=== PATIENT | female | born 1950 | race Caucasian/White ===

== ENCOUNTER 2016-05-19 02:04 | Emergency (ER) | payer MEDICARE ==
[2016-05-19] MEDS ORDERED: Acetaminophen TAB* 325 MG PO ONE (02:22)
[2016-05-19] MEDS ORDERED: Albuterol/Ipratropium NEB.SOL* Albuterol 2.5 MG/Ipratropium 0.5 MG 3 ML ONE (02:33)
[2016-05-19] MEDS ORDERED: Albuterol/Ipratropium NEB.SOL* Albuterol 2.5 MG/Ipratropium 0.5 MG 3 ML INH ONE (02:33)
--- NOTE | 2016-05-19 02:52 | ED ---
Erika Liang Rebecca, scribed for Efrain Oliva MD on 05/19/16 at 0221 . Shortness of Breath - HPI Summary HPI Summary: Pt is a 65 y/o F BIBA who presents to ED c/o SOB. SOB began suddenly at approximately 0000 and has been constant since onset. SOB characterized as moderate dyspnea at rest. Sx aggravated and alleviated by nothing, unchanged by Mucinex and ASA. Additionally c/o cough and chest/nasal congestion for the last 4 days. Cough is productive, bringing up yellow sputum. When asked, pt states that she is unsure of onset of fever since she does not have a way to measure it at home. SHx no smoking. - History of Current Complaint Chief Complaint: EDShortnessOfBreath Time Seen by Provider: 05/19/16 02:18 Hx Obtained From: Patient Onset/Duration: Sudden Onset, Lasting Hours, Still Present Timing: Constant Current Severity: Moderate Dyspnea At: Rest Aggrevating Factors: Nothing Alleviating Factors: Nothing Associated Signs & Symptoms: Cough (Productive) - yellow, Nasal Congestion - Allergy/Home Medications Allergies/Adverse Reactions: Allergies Allergy/AdvReac Type Severity Reaction Status Date / Time Oxycodone AdvReac Mild Altered Verified 05/19/16 02:12 Mental Status Penicillins AdvReac Mild See Comment Verified 05/19/16 02:12 Prochlorperazine AdvReac Mild MUSCLE Verified 05/19/16 02:12 [From Compazine] TIGHTNESS anticholinergic agents AdvReac Mild Altered Uncoded 05/19/16 02:12 Mental Status benzodiazepines AdvReac Mild Altered Uncoded 05/19/16 02:12 Mental Status first generation AdvReac Mild Altered Uncoded 05/19/16 02:12 antihistamines Mental Status muscle relaxants AdvReac Mild Altered Uncoded 05/19/16 02:12 Mental Status semi synthetic narcotics AdvReac Mild Altered Uncoded 05/19/16 02:12 Mental Status Home Medications: Home Medications Eluxadoline [Viberzi] 100 mg PO DAILY 05/19/16 [History Confirmed 05/19/16] Latuda 40 mg PO DAILY 05/19/16 [History Confirmed 05/19/16] Lurasidone (NF) [Latuda (NF)] 40 mg PO DAILY 05/19/16 [History Confirmed ] PMH/Surg Hx/FS Hx/Imm Hx Endocrine/Hematology History: Denies: Hx Diabetes Cardiovascular History: Denies: Hx Congestive Heart Failure, Hx Hypertension, Other Cardiovascular Problems/Disorders GI History: Denies: Other GI Disorders History: Denies: Hx Renal Disease Sensory History: Reports: Hx Contacts or Glasses - GLASSES Denies: Hx Hearing Aid Opthamlomology History: Reports: Hx Contacts or Glasses - GLASSES Neurological History: Reports: Hx Migraine - 2 YRS AGO LAST ONE, Other Neuro Impairments/Disorders - BIPOLAR DISORDER Psychiatric History: Reports: Hx Depression - ON MEDS, Hx Bipolar Disorder Denies: Hx Eating Disorder, Hx of Violent Episodes Against Others - Surgical History Surgery Procedure, Year, and Place: hysterectomy, 1994, [facility] left ankle r/t fx - pins/plates , bladder surgery for incontinence, 2011, [facility]. TUBAL LIGATION 1984, [place]. CARPAL TUNNEL RIGHT 03/1984, [facility]. Hx Anesthesia Reactions: No Infectious Disease History: No Infectious Disease History: Denies: Hx Clostridium Difficile, Hx Hepatitis, Hx Human Immunodeficiency Virus (HIV), Hx of Known/Suspected MRSA, Hx Shingles, Hx Tuberculosis, Hx Known/ Suspected VRE, Hx Known/Suspected VRSA, History Other Infectious Disease, Traveled Outside the in Last 30 Days - Family History Known Family History: Positive: Diabetes Negative: Cardiac Disease, Hypertension - Social History Alcohol Use: None Substance Use Type: Reports: None Smoking Status (MU): Never Smoked Tobacco Have You Smoked in the Last Year: No Review of Systems Positive: Other - Nasal congestion Positive: Shortness Of Breath - dyspnea at rest, Cough - productive, Other - Chest congestion All Other Systems Reviewed And Are Negative: Yes Physical Exam Triage Information Reviewed: Yes Vital Signs On Initial Exam: Initial Vitals Temp Pulse Resp BP Pulse Ox 102.0 F 88 16 160/88 97 05/19/16 02:09 05/19/16 02:09 05/19/16 02:09 05/19/16 02:09 05/19/16 02:09 Vital Signs Reviewed: Yes Appearance: Positive: Well-Appearing Skin: Positive: Warm Head/Face: Positive: Normal Head/Face Inspection Eyes: Positive: MERCEDES Neck: Positive: Supple Respiratory/Lung Sounds: Positive: Rhonchi - coarse bilat, Wheezes - few expiratory Cardiovascular: Positive: RRR Abdomen Description: Positive: Nontender, Soft Bowel Sounds: Positive: Present Musculoskeletal: Positive: Strength/ROM Intact Neurological: Positive: Sensory/Motor Intact Psychiatric: Positive: Affect/Mood Appropriate Diagnostics - Vital Signs Vital Signs Temp Pulse Resp BP Pulse Ox 05/19/16 02:09 102.0 F 88 16 160/88 97 - Laboratory Result Diagrams: 05/19/16 02:45 05/19/16 02:45 Lab Statement: Any lab studies that have been ordered have been reviewed, and results considered in the medical decision making process. - Radiology CXR Xray Interpretation: No Acute Changes Radiology Interpretation Completed By: ED Physician Re-Evaluation - Re-Evaluation First Eval Change: Improved - results d/w pt Course/Dx - Course Assessment/Plan: Pt is a 65 y/o F with a CC of SOB for a few hours. Additionally c/o productive cough (yellow) and chest/nasal congestion for the last 4 days. Pt will be D/C to home with a dx of bronchitis with a followup with her PCP. - Diagnoses Provider Diagnoses: Bronchitis Discharge - Discharge Plan Condition: Stable Disposition: HOME Prescriptions: Azithromycin TAB* [Zithromax TAB (Z-RIOS) 250 mg #6 tabs] 250 mg PO DAILY #4 tab Patient Education Materials: Acute Bronchitis (ED) Referrals: Josee Hoskins [employer] SPECIALIST [Primary Care Provider] - 3 Days (Follow up with your primary care physician in the next 3 days. ) The documentation as recorded by the Erika traylor Rebecca accurately reflects the service I personally performed and the decisions made by me, Efrain Oliva MD.
[2016-05-19 03:08] LABS: Hematocrit 38 % (35-47); Hemoglobin 11.9 g/dl (12.0-16.0); Mean Corpuscular HGB Conc 31 g/dl (31-36); Mean Corpuscular Hemoglobin 26 pg (27-31); Mean Corpuscular Volume 82 fL (80-97); Mean Platelet Volume 8 um3 (7.4-10.4); Red Blood Count 4.66 10^6/ul (4.0-5.4); Red Cell Distribution Width 19 % (10.5-15); White Blood Count 10.8 10^3/ul (3.5-10.8)
[2016-05-19 03:27] LABS: Albumin 3.7 g/dL (3.2-5.2); BUN/Creatinine Ratio 9.3 (8-20); Calcium 9.3 mg/dL (8.6-10.3); EGFR African American 74.6 (>60); Globulin 4.2 g/dL (2-4); Potassium 3.6 mmol/L (3.5-5.0); Total Bilirubin 0.2 mg/dL (0.2-1.0); Total Protein 7.9 g/dL (6.4-8.9)
[2016-05-19] MEDS ORDERED: Azithromycin TAB* 250 MG PO ONE (03:41)
[2016-05-19 05:19] VITALS: BP 117/71
[2016-05-19] MEDS ORDERED: Albuterol HFA INHALER* 8 gm MDI INH ONE ×2 (05:37→05:43)
--- NOTE | 2016-05-19 07:49 | RAD ---
INDICATION: Cough and fever COMPARISON: None TECHNIQUE: PA and lateral views of the chest were obtained. FINDINGS: The heart and mediastinum are normal in size and contour. There is mild peribronchial cuffing. The lungs are grossly clear. There is no evidence of large pleural effusion. Visualized bones are normal for the patient's age. There is no radiographic evidence of free air beneath the diaphragm IMPRESSION: MILD PERIBRONCHIAL CUFFING CAN BE SEEN IN THE PRESENCE OF INFLAMMATORY LUNG DISEASE OR VIRAL PNEUMONIA.
== END 2016-05-19 05:53 | disposition home or self-care (01) ==
LOC: ED 02:04
DX: J40 Bronchitis, not specified as acute or chronic (principal); R06.02 Shortness of breath; R05 Cough; R09.81 Nasal congestion
CPT/HCPCS: 36415; 71020; 80053; 83605; 83880; 84484; 85025; 87040; 87502; 99284; A9270-GY

== ENCOUNTER 2016-12-07 09:02 | Emergency (ER) | payer MEDICARE ==
--- NOTE | 2016-12-07 10:11 | ED ---
Complex/Multi-Sys Presentation - HPI Summary HPI Summary: 66 female presents to ED via EMS with complaints of insomnia and anxiety for the past 7 days. Patient states she started a new medication, Ingrezza, on 12/01 that she believes caused her to have these side effects of agitation, insomnia and anxiety. She stopped taking the medication on 12/04/16. Has not had relief even after discontinuing. Patient denies suicidal thoughts/ideations, hallucinations. States she has very weird reactions to several medications. Denies any other complaints, no difficulty breathing or chest pain. States she also started taking Centrum vitamins and wasn't sure if that was causing her symptoms so she also stopped taking those 1 week ago. Has appointment with her primary on , however, she did not think she could wait until then to be seen. She does not drive which is why she was brought in by EMS. She states her insomnia has been intermittent for the past 7 days. No other significant PMHx other than bipolar disorder. - History Of Current Complaint Chief Complaint: EDGeneral Time Seen by Provider: 12/07/16 09:13 Hx Obtained From: Patient Onset/Duration: Sudden Onset, Lasting Weeks - 1, Still Present Timing: Constant Severity Currently: Moderate Severity Initially: Moderate Aggravating Factor(s): nothing Alleviating Factor(s): nothing Associated Signs And Symptoms: Positive: Other - insomnia, anxiety - Allergies/Home Medications Allergies/Adverse Reactions: Allergies Allergy/AdvReac Type Severity Reaction Status Date / Time Oxycodone AdvReac Mild Altered Verified 12/07/16 09:13 Mental Status Penicillins AdvReac Mild See Comment Verified 12/07/16 09:13 Prochlorperazine AdvReac Mild MUSCLE Verified 12/07/16 09:13 [From Compazine] TIGHTNESS anticholinergic agents AdvReac Mild Altered Uncoded 12/07/16 09:13 Mental Status benzodiazepines AdvReac Mild Altered Uncoded 12/07/16 09:13 Mental Status first generation AdvReac Mild Altered Uncoded 12/07/16 09:13 antihistamines Mental Status muscle relaxants AdvReac Mild Altered Uncoded 12/07/16 09:13 Mental Status semi synthetic narcotics AdvReac Mild Altered Uncoded 12/07/16 09:13 Mental Status PMH/Surg Hx/FS Hx/Imm Hx Endocrine/Hematology History: Denies: Hx Diabetes Cardiovascular History: Denies: Hx Congestive Heart Failure, Hx Hypertension, Other Cardiovascular Problems/Disorders Respiratory History: Denies: Hx Asthma GI History: Denies: Other GI Disorders History: Denies: Hx Renal Disease Sensory History: Reports: Hx Contacts or Glasses - GLASSES Denies: Hx Hearing Aid Opthamlomology History: Reports: Hx Contacts or Glasses - GLASSES Neurological History: Reports: Hx Migraine - 2 YRS AGO LAST ONE, Other Neuro Impairments/Disorders - BIPOLAR DISORDER Psychiatric History: Reports: Hx Depression - ON MEDS, Hx Bipolar Disorder Denies: Hx Eating Disorder, Hx of Violent Episodes Against Others - Surgical History Surgery Procedure, Year, and Place: hysterectomy, 1994, [facility] left ankle r/t fx - pins/plates , bladder surgery for incontinence, 2011, [facility]. TUBAL LIGATION 1984, [place]. CARPAL TUNNEL RIGHT 03/1984, [facility]. Hx Anesthesia Reactions: No - Immunization History Immunizations Up to Date: Yes Infectious Disease History: No Infectious Disease History: Denies: Hx Clostridium Difficile, Hx Hepatitis, Hx Human Immunodeficiency Virus (HIV), Hx of Known/Suspected MRSA, Hx Shingles, Hx Tuberculosis, Hx Known/ Suspected VRE, Hx Known/Suspected VRSA, History Other Infectious Disease, Traveled Outside the in Last 30 Days - Family History Known Family History: Positive: None, Diabetes Negative: Cardiac Disease, Hypertension - Social History Alcohol Use: None Substance Use Type: Reports: None Smoking Status (MU): Never Smoked Tobacco Have You Smoked in the Last Year: No Review of Systems Constitutional: Negative Cardiovascular: Negative Respiratory: Negative Gastrointestinal: Negative Musculoskeletal: Negative Skin: Negative Neurological: Negative Positive: Anxious, Other - insmonia All Other Systems Reviewed And Are Negative: Yes Physical Exam Triage Information Reviewed: Yes Vital Signs On Initial Exam: Initial Vitals Temp Pulse Resp BP Pulse Ox 98.2 F 63 20 148/86 93 12/07/16 09:12 12/07/16 09:12 12/07/16 09:12 12/07/16 09:12 12/07/16 09:12 slightly elevated BP, re-checked to be 123/84 Vital Signs Reviewed: Yes Appearance: Positive: Well-Appearing, No Pain Distress, Well-Nourished Skin: Positive: Warm, Skin Color Reflects Adequate Perfusion, Dry. Negative: Cold, Numb, Cyanosis @, Jaundiced, Pale, Erythema @ Head/Face: Positive: Normal Head/Face Inspection Eyes: Positive: EOMI, MERCEDES, Conjunctiva Clear ENT: Positive: Normal ENT inspection, Hearing grossly normal, Pharynx normal Neck: Positive: Supple, Nontender Respiratory/Lung Sounds: Positive: Clear to Auscultation, Breath Sounds Present. Negative: Rales, Rhonchi, Wheezes Cardiovascular: Positive: Normal, RRR, Pulses are Symmetrical in both Upper and Lower Extremities. Negative: Murmur, Rub Abdomen Description: Positive: Nontender, No Organomegaly, Soft Bowel Sounds: Positive: Present Musculoskeletal: Positive: Normal, Strength/ROM Intact Neurological: Positive: Normal, Sensory/Motor Intact, Alert, Oriented to Person Place, Time, CN Intact II-III, Reflexes Intact, NV Bundle Intact Distally Psychiatric: Positive: Affect/Mood Appropriate Diagnostics - Vital Signs Vital Signs Temp Pulse Resp BP Pulse Ox 12/07/16 09:30 59 123/84 93 12/07/16 09:18 60 95 12/07/16 09:17 168/123 12/07/16 09:12 98.2 F 63 20 148/86 93 - Laboratory Result Diagrams: 12/07/16 10:10 12/07/16 10:10 Lab Statement: Any lab studies that have been ordered have been reviewed, and results considered in the medical decision making process. - EKG EKG Cardiac Rate: NL, Bradycardia EKG Rhythm: Sinus Bradycardia ST Segment: Normal Ectopy: None EKG Interpretation: NSR, bradycardic, no STEMI EKG Comparison: No Significant Change Re-Evaluation - Re-Evaluation First Eval Re-Evaluation Time: 11:00 Change: Improved - patient was feeling fine, sleeping upon arrival for re-eval and to discuss lab results Complex Multi-Symp Course/Dx Course Of Treatment: baseline labs and cardiac work up obtained due to age and rule out cardiac cause. due to patients numerous allergies and side effects to medication, did not feel comfortable giving additional medication. patient has been working with primary to find medications to help her, assuming typical anxiety medications such as vistiril have been trialed. due to concern for side effect/sensitivity no medication was given. patient was also sleeping upon re- evaluation. encouraged her to follow up with primary on to discuss vermin exterminator medications and changing medications. told to stop taking new med and vitamins. take medications already prescribed that help her, propanolol and gabapentin, as directed. EKG obtained and negative. Labs unremarkable. Does not appear anxious or require a psych eval at this time. No suidical/homicidal ideations. Needs to follow up with primary and is aware of worsening signs and symptoms. Given recommendations on ways to help with inomnia that do not include medication. Spoke with Dr Yanez about case who agrees. No other concern at this time. - Diagnoses Differential Diagnoses/HQI/PQRI: Other - ACS, IA, sepsis, bipolar disorder, anxiety, insomnia Provider Diagnoses: Insomnia Discharge - Discharge Plan Condition: Stable Disposition: HOME Patient Education Materials: Insomnia (ED) Referrals: Vin Reyna MD [Primary Care Provider] - Additional Instructions: Please follow up with primary care provider to discuss new medications and medication changes with close follow up. Continue taking daily medications as directed, do not take any less or more of medications prescribed. Drink fluids, stay active during the day and rest at night. Try using these suggestions below: Sleep as long as necessary to feel rested (usually seven to eight hours for adults) and then get out of bed Maintain a regular sleep schedule, particularly a regular wake-up time in the morning Try not to force sleep Avoid caffeinated beverages after lunch Avoid alcohol near bedtime (eg, late afternoon and evening) Avoid smoking or other nicotine intake, particularly during the evening Adjust the bedroom environment as needed to decrease stimuli (eg, reduce ambient light, turn off the television or radio) Avoid prolonged use of light-emitting screens (laptops, tablets, smartphones, ebooks) before bedtime [15] Resolve concerns or worries before bedtime Exercise regularly for at least 20 minutes, preferably more than four to five hours prior to bedtime [16,17] Avoid daytime naps, especially if they are longer than 20 to 30 minutes or occur late in the dayProgressive relaxation is based upon the theory that an individual can learn to relax one muscle at a time until the entire body is relaxed. Beginning with the muscles in the face, the muscles are contracted gently for one to two seconds and then relaxed. This is repeated several times. The same technique is used for other muscle groups, usually in the following sequence: jaw and neck, upper arms, lower arms, fingers, chest, abdomen, buttocks, thighs, calves, and feet. This cycle is repeated for approximately 45 minutes, if necessary. The relaxation response begins by lying or sitting comfortably. The eyes are closed and relaxation is allowed to spread throughout the body. A relaxed, abdominal breathing pattern is established. Thoughts are redirected away from everyday thoughts and toward a neutral mental focusing device, such as a peaceful word or image.
[2016-12-07 10:20] LABS: Hematocrit 42 % (35-47); Hemoglobin 13.7 g/dl (12.0-16.0); Mean Corpuscular HGB Conc 32 g/dl (31-36); Mean Corpuscular Hemoglobin 30 pg (27-31); Mean Corpuscular Volume 91 fL (80-97); Mean Platelet Volume 8 um3 (7.4-10.4); Red Blood Count 4.63 10^6/ul (4.0-5.4); Red Cell Distribution Width 16 % (10.5-15); White Blood Count 11.1 10^3/ul (3.5-10.8)
[2016-12-07 10:37] LABS: Albumin 3.8 g/dL (3.2-5.2); BUN/Creatinine Ratio 15.6 (8-20); Calcium 10.4 mg/dL (8.6-10.3); EGFR Non-African American 50.5 (>60); Globulin 4.3 g/dL (2-4); Potassium 4.4 mmol/L (3.5-5.0); Total Bilirubin 0.3 mg/dL (0.2-1.0); Total Protein 8.1 g/dL (6.4-8.9)
[2016-12-07 11:23] VITALS: BP 119/75
[2016-12-07 11:47] LABS: TSH (Thyroid Stimulating Horm) 2.88 mcIU/mL (0.34-5.60)
== END 2016-12-07 11:30 | disposition home or self-care (01) ==
LOC: ED 09:02
DX: G47.00 Insomnia, unspecified (principal)
CPT/HCPCS: 36415; 80053; 84443; 84484; 85025; 99282

== ENCOUNTER 2017-11-01 22:27 | Inpatient (IN) | payer MEDICARE ==
--- NOTE | 2017-11-01 22:46 | ED ---
Psychiatric Complaint - HPI Summary HPI Summary: 67 y/o female presents to the ED c/o SI thoughts with a plan. Pt wants to "overdose on pills". Pt also c/o depression. PMHx bipolar disorder. Not aggravated or alleviated by anything. This is scribe Ed Марина documenting for attending Wm Yanez MD. - History Of Current Complaint Chief Complaint: EDMentalHealth Time Seen by Provider: 11/01/17 22:39 Hx Obtained From: Patient Hx Last Menstrual Period: N/A Onset/Duration: Still Present Timing: Constant Character: Depressed Aggravating Factor(s): Nothing Alleviating Factor(s): Nothing Associated Signs And Symptoms: Positive: Negative Has Suicidal: Reports: Thoughts, With A Plan - Allergies/Home Medications Allergies/Adverse Reactions: Allergies Allergy/AdvReac Type Severity Reaction Status Date / Time oxycodone AdvReac Mild Altered Verified 11/02/17 02:10 Mental Status Penicillins AdvReac Mild See Comment Verified 11/02/17 02:10 prochlorperazine AdvReac Mild Muscle Ache Verified 11/02/17 02:10 [From Compazine] anticholinergic agents AdvReac Mild Altered Uncoded 11/02/17 02:10 Mental Status benzodiazepines AdvReac Mild Altered Uncoded 11/02/17 02:10 Mental Status first generation AdvReac Mild Altered Uncoded 11/02/17 02:10 antihistamines Mental Status muscle relaxants AdvReac Mild Altered Uncoded 11/02/17 02:10 Mental Status semi synthetic narcotics AdvReac Mild Altered Uncoded 11/02/17 02:10 Mental Status Home Medications: Home Medications Propranolol HCl 10 mg PO TID 11/01/17 [History Confirmed 11/01/17] PMH/Surg Hx/FS Hx/Imm Hx Previously Healthy: No Endocrine/Hematology History: Denies: Hx Diabetes Cardiovascular History: Denies: Hx Congestive Heart Failure, Hx Hypertension, Other Cardiovascular Problems/Disorders Respiratory History: Denies: Hx Asthma GI History: Denies: Other GI Disorders History: Denies: Hx Renal Disease Sensory History: Reports: Hx Contacts or Glasses - GLASSES Denies: Hx Hearing Aid Opthamlomology History: Reports: Hx Contacts or Glasses - GLASSES Neurological History: Reports: Hx Migraine - 2 YRS AGO LAST ONE, Other Neuro Impairments/Disorders - BIPOLAR DISORDER Psychiatric History: Reports: Hx Depression - ON MEDS, Hx Bipolar Disorder Denies: Hx Eating Disorder, Hx of Violent Episodes Against Others - Surgical History Surgery Procedure, Year, and Place: hysterectomy, 1994, [facility] left ankle r/t fx - pins/plates , bladder surgery for incontinence, 2011, [facility]. TUBAL LIGATION 1984, [place]. CARPAL TUNNEL RIGHT 03/1984, [facility]. Hx Anesthesia Reactions: No Infectious Disease History: No Infectious Disease History: Denies: Hx Clostridium Difficile, Hx Hepatitis, Hx Human Immunodeficiency Virus (HIV), Hx of Known/Suspected MRSA, Hx Shingles, Hx Tuberculosis, Hx Known/ Suspected VRE, Hx Known/Suspected VRSA, History Other Infectious Disease, Traveled Outside the [place] in Last 30 Days - Family History Known Family History: Positive: None, Diabetes Negative: Cardiac Disease, Hypertension - Social History Alcohol Use: None Substance Use Type: Reports: None Smoking Status (MU): Never Smoked Tobacco Have You Smoked in the Last Year: No Review of Systems Constitutional: Negative Eyes: Negative ENT: Negative Cardiovascular: Negative Respiratory: Negative Gastrointestinal: Negative Genitourinary: Negative Musculoskeletal: Negative Skin: Negative Neurological: Negative Positive: Depressed All Other Systems Reviewed And Are Negative: Yes Physical Exam - Summary Physical Exam Summary: Appearance: depressed affect Skin: warm, dry, reflects adequate perfusion Head/face: normal Eyes: EOMI, MERCEDES ENT: normal Neck: supple, non-tender Respiratory: CTA, breath sounds present Cardiovascular: RRR, pulses symmetrical Abdomen: non-tender, soft Bowel: present Musculoskeletal: normal, strength/ROM intact Neuro: normal, sensory motor intact, A&Ox3 Triage Information Reviewed: Yes Vital Signs On Initial Exam: Initial Vitals Temp Pulse Resp BP Pulse Ox 97.4 F 71 15 132/69 97 11/01/17 22:33 11/01/17 22:33 11/01/17 22:33 11/01/17 22:33 11/01/17 22:33 Vital Signs Reviewed: Yes Diagnostics - Vital Signs Vital Signs Temp Pulse Resp BP Pulse Ox 11/01/17 22:33 97.4 F 71 15 132/69 97 - Laboratory Result Diagrams: 11/01/17 22:56 11/01/17 22:56 Lab Statement: Any lab studies that have been ordered have been reviewed, and results considered in the medical decision making process. Course/Dx - Course Assessment/Plan: Cleared medically for [facility] @ 00:45. After eval pt will be admitted to [facility] [place], [place] under the services of Dr. Lim. - Differential Dx/Clinical Impression Differential Diagnosis/HQI/PQRI: Positive: Bipolar Disorder, Depression, Suicidal Ideation Provider Diagnosis: Bipolar disorder, Depression Discharge - Sign-Out/Discharge Documenting (check all that apply): Patient Departure - Discharge Plan Condition: Stable Disposition: ADMITTED TO [facility] - Billing Disposition and Condition Condition: STABLE Disposition: Admitted to [facility]
[2017-11-01 23:11] LABS: Urine Appearance Clear; Urine Blood Negative (Negative); Urine Color Yellow; Urine Ketones Negative (Negative); Urine Protein Negative (Negative); Urine Specific Gravity 1.012 (1.010-1.030); Urine Urobilinogen Negative (Negative)
[2017-11-01 23:15] LABS: ABS Basophils 0 10^3/ul (0-0.2); ABS Eosinophils 0.1 10^3/ul (0-0.6); ABS Lymphocytes 2.3 10^3/ul (1.0-4.8); ABS Monocytes 1.1 10^3/ul (0-0.8); ABS Neutrophils 7.3 10^3/ul (1.5-7.7); ABS Nucleated RBC 0 10^3/ul; Eosinophil % 1.1 % (0-6); Hematocrit 43 % (35-47); Lymphocyte % 20.9 % (25-47); Mean Corpuscular HGB Conc 33 g/dl (31-36); Mean Corpuscular Hemoglobin 31 pg (27-31); Mean Corpuscular Volume 93 fL (80-97); Mean Platelet Volume 7.7 um3 (7.4-10.4); Nucleated Red Blood Cells % 0; Platelet Count 352 10^3/ul (150-450); Red Blood Count 4.57 10^6/ul (4.00-5.40); Red Cell Distribution Width 15 % (10.5-15); White Blood Count 10.8 10^3/ul (3.5-10.8)
[2017-11-01 23:18] LABS: EGFR Non-African American 50.9 (>60)
[2017-11-02 02:24] LABS: Lithium 0.61 mmol/L (0.6-1.2)
[2017-11-02] MEDS ORDERED: Lithium Carbonate ER* 450 MG TAB.ER ONE (03:11)
[2017-11-02] MEDS ORDERED: Gabapentin CAP(*) 300 MG ONE (03:12)
[2017-11-02] MEDS ORDERED: Acetaminophen TAB* 325 MG PO PRN (03:50)
[2017-11-02] MEDS ORDERED: Al Hydrox/Mg Hydrox/Simet LIQ* 30 ML UDC PO PRN (03:50)
[2017-11-02] MEDS ORDERED: Lurasidone(*) 20 MG TAB PO SCH (08:00)
[2017-11-02] MEDS: Gabapentin CAP(*) 300 MG PO SCH ×3 (08:33→20:02)
[2017-11-02] MEDS: Propranolol TAB* 10 MG PO SCH ×3 (08:34→20:03)
[2017-11-02] MEDS: Atorvastatin* 20 MG TAB PO SCH (08:34)
[2017-11-02] MEDS: Vitamin THERAPEUTIC TAB PO SCH (08:34)
[2017-11-02] MEDS ORDERED: FLUoxetine CAP* 10 MG PO SCH (09:00)
--- NOTE | 2017-11-02 11:30 | PN ---
[facility]: Group Therapy Note - Service Type Service Type: [id number] Group Psychotherapy - Cognitive Behavioral Group Therapy ( CBT):Patient was attentive and participatory in CBT programming this morning, and remained in good behavioral control. Patient expressed positive insights regarding relevant treatment interventions and goals.
[2017-11-02] MEDS ORDERED: Ibuprofen TAB* 600 MG PO PRN (13:34)
[2017-11-02] MEDS: Dicyclomine CAP* 10 MG PO SCH ×2 (14:00→20:01)
[2017-11-02] MEDS: Lurasidone(*) 20 MG TAB PO SCH (17:42)
--- NOTE | 2017-11-02 18:21 | HP ---
HISTORY AND PHYSICAL: DATE OF ADMISSION: 11/02/17 PROVIDER: Christianne Fraga NP, in Psychiatry. SUPERVISING PHYSICIAN: Ganga Falcon MD * (DICTATED BY CHRISTIANNE FRAGA NP ) JUSTIFICATION FOR ADMISSION: The patient is in need of 24-hour supervision and care secondary to suicidal ideation with a plan. CHIEF COMPLAINT: "Suicide is an out, it is a way to escape all the negative thoughts." HISTORY OF PRESENT ILLNESS: The patient is a 67-year-old single, white woman with a history of bipolar, who was brought in by law enforcement after stating that she planned to take all of her gabapentin and propranolol. She denies triggering event and said she woke up feeling powerless. Four weeks ago, she decided she started feeling suicidal ideation. She did talk with Naty Shelton , her applied psychology professor. She states they kept getting worse and that last night, she became ready to overdose. This increasing suicidality may in fact be coincident with her birthday in [birth year] because she states when she was 66, a little bit before that, she felt good and she does not know what changed. Her stressors include feeling suicidal, not understanding what is going wrong and feeling a little bit of emptiness and helplessness inside. She is sleeping 14 hours a day. She does not want to do anything. Her energy is low. She has psychomotor retardation mildly. She has suicidal ideation. PAST PSYCHIATRIC HISTORY: She states that in 1990, she was diagnosed as bipolar after she had a manic episode of scrubbing, cleaning, and shopping excessively. She was on lithium as she is now. She also tried Abilify 30 mg and now she has tardive dyskinesia in her lips and tongue. In the past, she has had 2 suicidal attempts. She overdosed both times; one was in 1996 and one , she does not remember the year. She was hospitalized at [facility] for 6 weeks due to having a coexisting neurological problem. They put her on to OXYCODONE to manage the pain in her neck and it turns out she was allergic to that. They stopped the medication due to her having auditory hallucinations and her memory being gone. Her previous psych meds include gabapentin, propranolol, Abilify, lithium, lurasidone. PAST MEDICAL HISTORY: She has neck pain. She is seeing Neurology for that. She has tardive dyskinesia in her mouth and lips. She has irritable bowl syndrome. FAMILY HISTORY: She denies any family history other than her daughter who sees a psychiatric nurse practitioner for borderline personality disorder. SUBSTANCE ABUSE HISTORY: She denies. She does not drink or smoke or use drugs. SOCIAL HISTORY: She lives in [place] alone in a [facility]. She states she keeps to herself, although she does have friends there. She has a daughter who lives relatively close also in [place] and she has another daughter who lives in [place]. 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 The job ended at her first suicide attempt, which was in 1996. She states they paid her to leave. She then went back to school, got her associates in bachelor 's degrees and continued to work in part because she wanted her children to feel proud of her. She has never been in the . She does not have any legal problems. REVIEW OF SYSTEMS: The patient reports being fatigued. She denies shortness of breath, heat or cold intolerance, chest pain, or abdominal pain. She denies current neurological symptoms other than tardive dyskinesia. She denies fevers or changes in weights. PHYSICAL EXAMINATION VITAL SIGNS: On 11/02/17 at 3 in the morning, temperature 98.7, pulse 82, respirations 15, O2 sat 100%, blood pressure 128/72. For further exam data, please see emergency department records. LABORATORY DATA: Her labs are generally within normal limits with the exception that her glucose was 165 at about midnight on 11/01/17. Her hemoglobin A1c is 6.1. Her urine is clear and her toxicology screen is also clear. Her lithium level is 0.61. Her TSH is 4.17. Her lipids are as follows : Triglycerides 301, cholesterol 174, LDL cholesterol 70, HDL cholesterol 44.1. MENTAL STATUS EXAM: This is a 67-year-old woman, who appears a bit younger than her stated age. She is obese with blonde hair. She is wearing blue scrubs. She is calm and cooperative. She has normal rate, tone, and volume to her speech. She appears to be euthymic with some anxiety attached to that. Her thought processes are normal and logical. Her thought content is logical. She is not homicidal. She is suicidal at this time. She is not having hallucinations. Her insight is fair. Her judgment is fair. She is alert and oriented x3. She appears to have average to above average intellect. DIAGNOSES: [place] I: Bipolar 2 disorder, current episode depressed, rule out anxiety disorder. [place] III: Hypothyroid disorder. IMPRESSION: Veronique is a 67-year-old woman who appears to be in depressive episode wherein she cannot see the purpose in living because she is a miserable. This seems to be somewhat recent onset since her 67th birthday where she had previously felt well. PLAN: The patient is admitted to the adult behavioral health unit and placed on q.15-minute checks for her own safety. She is encouraged to participate in supportive milieu, individual, and group therapy. Estimated length of stay is 5 to 7 days. We may obtain an MMPI for diagnostic clarification. We will titrate medications to efficacy and monitor for mood and thought content. We will make medication changes and add and subtract several. Discharge planning will include family involvement and outpatient providers. CHRISTIANNE FRAGA, DIMPLE [id number]/CPS #: [id number] HYACINTH
[2017-11-02] MEDS: Lithium Carbonate ER* 450 MG TAB.ER PO SCH (20:03)
[2017-11-03] MEDS: Atorvastatin* 20 MG TAB PO SCH (07:53)
[2017-11-03] MEDS: Propranolol TAB* 10 MG PO SCH ×3 (07:53→20:01)
[2017-11-03] MEDS: Levothyroxine TAB* 25 MCG TAB PO SCH (07:53)
[2017-11-03] MEDS: Vitamin THERAPEUTIC TAB PO SCH (07:54)
[2017-11-03] MEDS: Gabapentin CAP(*) 300 MG PO SCH ×3 (07:54→20:02)
[2017-11-03] MEDS: Dicyclomine CAP* 10 MG PO SCH ×2 (07:54→20:00)
[2017-11-03] MEDS: FLUoxetine CAP* 10 MG PO SCH (07:55)
--- NOTE | 2017-11-03 14:50 | PN ---
Subjective - Subjective Date of Service: 11/03/17 Service Type: 40877 Hosp care 15 min low complexity Subjective: Veronique is doing well today. She continues with suicidal thoughts, but she is also feeling more control over her life and was surprised to see her daughter visit. Veronique told a story of asking her daughter to bring her to the emergency room because she was suicidal. The daughter declined to come get her, but she did offer to call 911 for her. Veronique is a little discouraged by this. She finds the groups interesting and has been going to them regularly. Objective - Appearance Appearance: Healthy Appearing, Obese Dysmorphic Features: No Hygiene: Normal Grooming: Fairly Well Kept - Behavior Psychomotor Activities: Normal Exhibits Abnormal Movement: No - Attitude and Relatedness Attitude and Relatedness: Needy Eye Contact: Good - Speech Quality: Unpressured Latencies: Normal Quantity: Appropriate - Mood Patient's Decription of Mood: "Good" - Affect Observed Affect: Expansive - Thought Process Patient's Thought Process: Coherent, Circumstantial Thought Content: Yes Passive Wish, Yes Suicidal Planning, No Homicidal Ideation, No Paranoid Ideation - Sensorium Experiencing Hallucinations: No, Sensorium is Clear Type of Hallucinations: Visual: No, Auditory: No, Command: No - Level of Consciousness Level of Consciousness: Alert Orientation: Yes Intact, Yes Orientated to Time, Yes Orientated to Place, Yes Orientated to Person - Impulse Control Impulse Control: Intact - Insight and Judgement Insight and Judgement: Impaired - Group Participation Particating in Group Activities: Yes - Medication Management Medication Management Adherence: Yes - Additional Observations Comments: Veronique is participating well. She endorses having a nice time. She is thriving with the increased interaction. Medication changes are being tolerated well. She is noticing no negative side effects. Assessment - Assessment Merits Inpatient Hospitalization: For Immediate Safety, For Stabilization, For Discharge Planning Inpatient DSM-V Dx: F31.60 Clinical Impression: Veronique is having feelings of euthymia, stating that she is "having fun" here on the unit. This is in spite of one patient pacing and screaming and swearing and other patients being difficult, as well. She still feels as though suicide might be an easy option for her. She appears to be having mixed symptoms which are consistent with her diagnosis. Plan - Plan Treatment Plan: Name: VERONIQUE THOMAS Birthdate: 1950 [id number] Continued Medication Management: Different Medication Medications: Current Medications Acetaminophen (Tylenol Tab*) 650 mg PO Q4H PRN PRN Reason: PAIN or TEMP > 101 F Al Hydrox/Mg Hydrox/Simethicone (Maalox Plus*) 30 ml PO Q4H PRN PRN Reason: INDIGESTION Atorvastatin Calcium (Lipitor*) 20 mg PO DAILY [facility] Last Admin: 11/03/17 07:53 Dose: 20 mg Dicyclomine HCl (Bentyl Cap*) 10 mg PO BID [facility] Last Admin: 11/03/17 07:54 Dose: 10 mg Fluoxetine HCl (Prozac Cap*) 20 mg PO DAILY [facility] Last Admin: 11/03/17 07:55 Dose: 20 mg Gabapentin (Neurontin Cap(*)) 300 mg PO TID [facility] Last Admin: 11/03/17 07:54 Dose: 300 mg Levothyroxine Sodium (Synthroid Tab*) 25 mcg PO DAILY [facility] Last Admin: 11/03/17 07:53 Dose: 25 mcg [place] Carbonate ([place] Carbonate Er Tab*) 450 mg PO BEDTIME [facility] Last Admin: 11/02/17 20:03 Dose: 450 mg Lurasidone HCl (Latuda) 20 mg PO 1700 [facility] Last Admin: 11/02/17 17:42 Dose: 20 mg Multivitamins (Theragran Tab*) 1 tab PO DAILY [facility] Last Admin: 11/03/17 07:54 Dose: 1 tab Propranolol HCl (Inderal Tab*) 10 mg PO TID [facility] Last Admin: 11/03/17 07:53 Dose: 10 mg - Discharge Plan Discharge Plan: Outpatient Follow Up Additional Comments: We are planning discharge, but it is not clear to me that Veronique is safe at this time, especially considering the mixed symptoms that are beginning to include some energy mixed with disappointment and distress.
[2017-11-03] MEDS: Lurasidone(*) 20 MG TAB PO SCH (17:37)
[2017-11-03] MEDS: Lithium Carbonate ER* 450 MG TAB.ER PO SCH (20:02)
[2017-11-04] MEDS: Atorvastatin* 20 MG TAB PO SCH (08:07)
[2017-11-04] MEDS: FLUoxetine CAP* 10 MG PO SCH (08:08)
[2017-11-04] MEDS: Gabapentin CAP(*) 300 MG PO SCH ×3 (08:08→20:04)
[2017-11-04] MEDS: Dicyclomine CAP* 10 MG PO SCH ×2 (08:08→20:03)
[2017-11-04] MEDS: Levothyroxine TAB* 25 MCG TAB PO SCH (08:09)
[2017-11-04] MEDS: Vitamin THERAPEUTIC TAB PO SCH (08:09)
[2017-11-04] MEDS: Propranolol TAB* 10 MG PO SCH ×3 (08:09→20:04)
--- NOTE | 2017-11-04 13:02 | PN ---
MHU: Group Therapy Note - Service Type Service Type: [id number] Group Psychotherapy - Cognitive Behavioral Group Therapy ( CBT):Patient was attentive and participatory in CBT programming this morning, and remained in good behavioral control. Patient expressed positive insights regarding relevant treatment interventions and goals.
--- NOTE | 2017-11-04 14:22 | PN ---
Subjective - Subjective Date of Service: 11/04/17 Service Type: 10076 Hosp care 25 min moderate complexity Subjective: Veronique is found working on the [employer]. she feels supported and happy here, but is also full of despair when she thinks of leaving. She seems to forget what she said, at times. i will engage her with a MoCA to determine if there are any obvious deficits. Objective - Appearance Appearance: Healthy Appearing, Obese Dysmorphic Features: No Hygiene: Normal Grooming: Well Kept - Behavior Psychomotor Activities: Abnormal-Increased Exhibits Abnormal Movement: Yes - Attitude and Relatedness Attitude and Relatedness: Needy Eye Contact: Good - Speech Quality: Unpressured Latencies: Normal Quantity: Appropriate - Mood Patient's Decription of Mood: "Good" - Affect Observed Affect: Good Affect Consistent with: Euthymia - Thought Process Patient's Thought Process: Coherent, Loose Associations Thought Content: Yes Passive Wish, No Suicidal Planning, No Homicidal Ideation, No Paranoid Ideation - Sensorium Experiencing Hallucinations: No, Sensorium is Clear Type of Hallucinations: Visual: No, Auditory: No, Command: No - Level of Consciousness Level of Consciousness: Alert Orientation: Yes Intact, Yes Orientated to Time, Yes Orientated to Place, Yes Orientated to Person - Impulse Control Impulse Control: Tenuous - Insight and Judgement Insight and Judgement: Fair - Group Participation Particating in Group Activities: Yes - Medication Management Medication Management Adherence: Yes - Additional Observations Comments: Veronique is participating well. She endorses having a nice time. She is thriving with the increased interaction. Medication changes are being tolerated well. She is noticing no negative side effects. She works on the [employer] carefully. Assessment - Assessment Merits Inpatient Hospitalization: For Immediate Safety, For Stabilization Inpatient DSM-V Dx: F31.60 Clinical Impression: Veronique is having feelings of euthymia, stating that she is "having fun" here on the unit. This is in spite of one patient pacing and screaming and swearing and other patients being difficult, as well. She still feels as though suicide might be an easy option for her. She appears to be having mixed symptoms which are consistent with her diagnosis. The ease with which she descends into thoughts of how easy suicide would be is disconcerting. Plan - Plan Treatment Plan: Name: VERONIQUE THOMAS Birthdate: 1950 [id number] Medications: Current Medications Acetaminophen (Tylenol Tab*) 650 mg PO Q4H PRN PRN Reason: PAIN or TEMP > 101 F Al Hydrox/Mg Hydrox/Simethicone (Maalox Plus*) 30 ml PO Q4H PRN PRN Reason: INDIGESTION Atorvastatin Calcium (Lipitor*) 20 mg PO DAILY [facility] Last Admin: 11/04/17 08:07 Dose: 20 mg Dicyclomine HCl (Bentyl Cap*) 10 mg PO BID [facility] Last Admin: 11/04/17 08:08 Dose: 10 mg Fluoxetine HCl (Prozac Cap*) 20 mg PO DAILY [facility] Last Admin: 11/04/17 08:08 Dose: 20 mg Gabapentin (Neurontin Cap(*)) 300 mg PO TID [facility] Last Admin: 11/04/17 08:08 Dose: 300 mg Levothyroxine Sodium (Synthroid Tab*) 25 mcg PO DAILY [facility] Last Admin: 11/04/17 08:09 Dose: 25 mcg [place] Carbonate ([place] Carbonate Er Tab*) 450 mg PO BEDTIME [facility] Last Admin: 11/03/17 20:02 Dose: 450 mg Lurasidone HCl (Latuda) 20 mg PO 1700 [facility] Last Admin: 11/03/17 17:37 Dose: 20 mg Multivitamins (Theragran Tab*) 1 tab PO DAILY [facility] Last Admin: 11/04/17 08:09 Dose: 1 tab Propranolol HCl (Inderal Tab*) 10 mg PO TID [facility] Last Admin: 11/04/17 08:09 Dose: 10 mg - Discharge Plan Additional Comments: We are planning discharge, but it is not clear to me that Veronique is safe at this time, especially considering the mixed symptoms that are beginning to include some energy mixed with disappointment and distress. She still is not able to reliably state she is prepared to live and make that choice consistently.
--- NOTE | 2017-11-04 15:49 | PN ---
MHU: Group Therapy Note - Service Type Service Type: [id number] Group Psychotherapy - Group Participation Patient Participating in Group: Yes Level of Group Participation: Attentive Relatedness to Group: Well Related - Additional Group Comments Group Comments: Veronique did well in group and was participatory. She was pleasant and responded to questions with relevant answers and commentary.
[2017-11-04] MEDS: Lurasidone(*) 20 MG TAB PO SCH (17:32)
[2017-11-04] MEDS: Lithium Carbonate ER* 450 MG TAB.ER PO SCH (20:04)
[2017-11-05] MEDS: Dicyclomine CAP* 10 MG PO SCH ×2 (08:04→20:04)
[2017-11-05] MEDS: Vitamin THERAPEUTIC TAB PO SCH (08:04)
[2017-11-05] MEDS: FLUoxetine CAP* 10 MG PO SCH (08:04)
[2017-11-05] MEDS: Atorvastatin* 20 MG TAB PO SCH (08:04)
[2017-11-05] MEDS: Levothyroxine TAB* 25 MCG TAB PO SCH (08:04)
[2017-11-05] MEDS: Propranolol TAB* 10 MG PO SCH ×3 (08:05→20:04)
[2017-11-05] MEDS: Gabapentin CAP(*) 300 MG PO SCH ×3 (08:05→20:06)
--- NOTE | 2017-11-05 17:08 | PN ---
Subjective - Subjective Date of Service: 11/05/17 Service Type: [id number] Hosp care 15 min low complexity Subjective: Veronique is in a good mood. She has plans for the weekend to watch a movie and play Bingo in the milieu. She states she is using this time to get her thoughts in order so that she can plan adequately for her outpatient experiences. Objective - Appearance Appearance: Healthy Appearing, Obese Dysmorphic Features: No Hygiene: Normal Grooming: Well Kept - Behavior Psychomotor Activities: Normal Exhibits Abnormal Movement: Yes - Attitude and Relatedness Attitude and Relatedness: Well Related Eye Contact: Good - Speech Quality: Unpressured Latencies: Normal Quantity: Appropriate - Mood Patient's Decription of Mood: "Great" - Affect Observed Affect: Expansive Affect Consistent with: Euthymia - Thought Process Patient's Thought Process: Coherent, Goal Directed, Circumstantial Thought Content: No Passive Wish, No Suicidal Planning, No Homicidal Ideation, No Paranoid Ideation - Sensorium Experiencing Hallucinations: No, Sensorium is Clear Type of Hallucinations: Visual: No, Auditory: No, Command: No - Level of Consciousness Level of Consciousness: Alert Orientation: Yes Intact, Yes Orientated to Time, Yes Orientated to Place, Yes Orientated to Person - Impulse Control Impulse Control: Tenuous - Insight and Judgement Insight and Judgement: Fair - Group Participation Particating in Group Activities: Yes - Medication Management Medication Management Adherence: Yes - Additional Observations Comments: Veronique is participating well. She endorses having a nice time. She is thriving with the increased interaction. Medication changes are being tolerated well. She is noticing no negative side effects. She spent yesterday working on the MMPI. She is content and eager to work on her future plans. Assessment - Assessment Merits Inpatient Hospitalization: For Immediate Safety, For Discharge Planning Inpatient DSM-V Dx: F31.60 Clinical Impression: Veronique is having feelings of euthymia, stating that she is "having fun" here on the unit. She still feels as though suicide might be an easy option for her. She appears to be having mixed symptoms which are consistent with her diagnosis. The ease with which she descends into thoughts of how easy suicide would be is disconcerting. Plan - Plan Treatment Plan: Name: VERONIQUE THOMAS Birthdate: 1950 [id number] Medications: Current Medications Acetaminophen (Tylenol Tab*) 650 mg PO Q4H PRN PRN Reason: PAIN or TEMP > 101 F Al Hydrox/Mg Hydrox/Simethicone (Maalox Plus*) 30 ml PO Q4H PRN PRN Reason: INDIGESTION Atorvastatin Calcium (Lipitor*) 20 mg PO DAILY [facility] Last Admin: 11/05/17 08:04 Dose: 20 mg Dicyclomine HCl (Bentyl Cap*) 10 mg PO BID [facility] Last Admin: 11/05/17 08:04 Dose: 10 mg Fluoxetine HCl (Prozac Cap*) 20 mg PO DAILY [facility] Last Admin: 11/05/17 08:04 Dose: 20 mg Gabapentin (Neurontin Cap(*)) 300 mg PO TID [facility] Last Admin: 11/05/17 14:34 Dose: 300 mg Levothyroxine Sodium (Synthroid Tab*) 25 mcg PO DAILY [facility] Last Admin: 11/05/17 08:04 Dose: 25 mcg [place] Carbonate ([place] Carbonate Er Tab*) 450 mg PO BEDTIME [facility] Last Admin: 11/04/17 20:04 Dose: 450 mg Lurasidone HCl (Latuda) 20 mg PO 1700 [facility] Last Admin: 11/04/17 17:32 Dose: 20 mg Multivitamins (Theragran Tab*) 1 tab PO DAILY [facility] Last Admin: 11/05/17 08:04 Dose: 1 tab Propranolol HCl (Inderal Tab*) 10 mg PO TID [facility] Last Admin: 11/05/17 14:34 Dose: 10 mg - Discharge Plan Discharge Plan: Outpatient Follow Up Additional Comments: We are planning discharge, but it is not clear to me that Veronique is safe at this time, especially considering the mixed symptoms that are beginning to include some energy mixed with disappointment and distress. She still is not able to reliably state she is prepared to live and make that choice consistently. Her ability to focus on a positive future is improving and she is working on her plans to secure a more certain future.
[2017-11-05] MEDS: Lurasidone(*) 20 MG TAB PO SCH (17:59)
[2017-11-05] MEDS: Lithium Carbonate ER* 450 MG TAB.ER PO SCH (20:07)
[2017-11-06] MEDS: Gabapentin CAP(*) 300 MG PO SCH ×3 (08:28→20:17)
[2017-11-06] MEDS: Levothyroxine TAB* 25 MCG TAB PO SCH (08:29)
[2017-11-06] MEDS: FLUoxetine CAP* 10 MG PO SCH (08:29)
[2017-11-06] MEDS: Atorvastatin* 20 MG TAB PO SCH (08:29)
[2017-11-06] MEDS: Vitamin THERAPEUTIC TAB PO SCH (08:29)
[2017-11-06] MEDS: Propranolol TAB* 10 MG PO SCH ×3 (08:29→20:17)
[2017-11-06] MEDS: Dicyclomine CAP* 10 MG PO SCH ×2 (08:29→20:17)
[2017-11-06] MEDS: Lurasidone(*) 20 MG TAB PO SCH (17:28)
[2017-11-06] MEDS: Lithium Carbonate ER* 450 MG TAB.ER PO SCH (20:17)
[2017-11-07] MEDS: FLUoxetine CAP* 10 MG PO SCH (08:21)
[2017-11-07] MEDS: Propranolol TAB* 10 MG PO SCH ×3 (08:21→20:05)
[2017-11-07] MEDS: Atorvastatin* 20 MG TAB PO SCH (08:21)
[2017-11-07] MEDS: Levothyroxine TAB* 25 MCG TAB PO SCH (08:21)
[2017-11-07] MEDS: Vitamin THERAPEUTIC TAB PO SCH (08:21)
[2017-11-07] MEDS: Dicyclomine CAP* 10 MG PO SCH ×2 (08:21→20:06)
[2017-11-07] MEDS: Gabapentin CAP(*) 300 MG PO SCH ×3 (08:22→20:05)
--- NOTE | 2017-11-07 15:22 | PN ---
Subjective - Subjective Date of Service: 11/07/17 Service Type: 47736 Hosp care 15 min low complexity Subjective: I am doing very well Veronique says. Sitting in the day room, playing packing checker and appears to be having good time. Says her thoughts are getting there and should be able to go back to her appartment on Mon. Denies hallucinations, delusions or SI/HI. Objective - Appearance Appearance: Healthy Appearing, Obese Dysmorphic Features: No Hygiene: Normal Grooming: Well Kept - Behavior Psychomotor Activities: Normal Exhibits Abnormal Movement: No - Attitude and Relatedness Attitude and Relatedness: Appropriate Eye Contact: Good - Speech Quality: Unpressured Latencies: Normal Quantity: Appropriate - Mood Patient's Decription of Mood: "Fine" - Affect Observed Affect: Non-labile - Thought Process Patient's Thought Process: Coherent, Goal Directed Thought Content: No Passive Wish, No Suicidal Planning, No Homicidal Ideation, No Paranoid Ideation - Sensorium Experiencing Hallucinations: No, Sensorium is Clear Type of Hallucinations: Visual: No, Auditory: No, Command: No - Level of Consciousness Level of Consciousness: Alert Orientation: Yes Intact, Yes Orientated to Time, Yes Orientated to Place, Yes Orientated to Person - Impulse Control Impulse Control: Intact - Insight and Judgement Insight and Judgement: Good - Group Participation Particating in Group Activities: Yes - Medication Management Medication Management Adherence: Yes Assessment - Assessment Merits Inpatient Hospitalization: Consolidate Improvements, Pending Safe DC Plan Inpatient DSM-V Dx: F31.60 Clinical Impression: Appears to be stable psychiatrically and ready for discharge. Plan - Plan Treatment Plan: Name: VERONIQUE THOMAS Birthdate: 1950 [id number] Continued Medication Management: Continue Outpt Medication Medications: Current Medications Acetaminophen (Tylenol Tab*) 650 mg PO Q4H PRN PRN Reason: PAIN or TEMP > 101 F Al Hydrox/Mg Hydrox/Simethicone (Maalox Plus*) 30 ml PO Q4H PRN PRN Reason: INDIGESTION Atorvastatin Calcium (Lipitor*) 20 mg PO DAILY [facility] Last Admin: 11/07/17 08:21 Dose: 20 mg Dicyclomine HCl (Bentyl Cap*) 10 mg PO BID [facility] Last Admin: 11/07/17 08:21 Dose: 10 mg Fluoxetine HCl (Prozac Cap*) 20 mg PO DAILY [facility] Last Admin: 11/07/17 08:21 Dose: 20 mg Gabapentin (Neurontin Cap(*)) 300 mg PO TID [facility] Last Admin: 11/07/17 14:04 Dose: 300 mg Levothyroxine Sodium (Synthroid Tab*) 25 mcg PO DAILY [facility] Last Admin: 11/07/17 08:21 Dose: 25 mcg [place] Carbonate ([place] Carbonate Er Tab*) 450 mg PO BEDTIME [facility] Last Admin: 11/06/17 20:17 Dose: 450 mg Lurasidone HCl (Latuda) 20 mg PO 1700 [facility] Last Admin: 11/06/17 17:28 Dose: 20 mg Multivitamins (Theragran Tab*) 1 tab PO DAILY [facility] Last Admin: 11/07/17 08:21 Dose: 1 tab Propranolol HCl (Inderal Tab*) 10 mg PO TID [facility] Last Admin: 11/07/17 14:04 Dose: 10 mg - Discharge Plan Discharge Plan: Outpatient Follow Up Outpatient Program: Alyssa Khanna [facility]
[2017-11-07] MEDS: Lurasidone(*) 20 MG TAB PO SCH (17:28)
[2017-11-07] MEDS: Lithium Carbonate ER* 450 MG TAB.ER PO SCH (20:05)
[2017-11-08 08:27] VITALS: BP 133/43
[2017-11-08] MEDS: Vitamin THERAPEUTIC TAB PO SCH (09:00)
[2017-11-08] MEDS: Dicyclomine CAP* 10 MG PO SCH (09:00)
[2017-11-08] MEDS: Propranolol TAB* 10 MG PO SCH ×2 (09:00→14:13)
[2017-11-08] MEDS: FLUoxetine CAP* 10 MG PO SCH (09:01)
[2017-11-08] MEDS: Gabapentin CAP(*) 300 MG PO SCH ×2 (09:01→14:14)
[2017-11-08] MEDS: Levothyroxine TAB* 25 MCG TAB PO SCH (09:02)
[2017-11-08] MEDS: Atorvastatin* 20 MG TAB PO SCH (09:02)
--- NOTE | 2017-11-08 13:08 | PN ---
MHU: Group Therapy Note - Service Type Service Type: [id number] Group Psychotherapy - Cognitive Behavioral Group Therapy ( CBT):Patient was attentive and participatory in CBT programming this morning, and remained in good behavioral control. Patient expressed positive insights regarding relevant treatment interventions and goals.
--- NOTE | 2017-11-08 15:00 | CONS ---
PSYCHOLOGICAL REPORT: DATE OF CONSULTATION: 11/05/17. REASON FOR REFERRAL: Veronique was referred for personality assessment secondary to concerns regarding levels and severity of depression as well as ruling out any concerns regarding historical diagnosis of a bipolar disorder. Currently, she is diagnosed with bipolar 2 disorder in a depressed state. TEST ADMINISTERED: Veronique completed the [place] Multiphasic Personality Inventory- 2 (MMPI-2). She was given feedback regarding test results and individual conversation and has been seen on a daily basis since her admission in the context of cognitive behavioral group psychotherapy led by this video games storywriter. RELEVANT HISTORY: Veronique is a 67-year-old single woman, who has had historical difficulties with bipolar diagnosis. She describes having 3 to 4 previous psychiatric admissions in different hospitals. This is her first at [facility]. She describes having intrusive suicidal rumination, which has persisted for a period of weeks, acknowledging having an accommodative attitude regarding suicide. She describes increasing social isolation. She does not work anymore and describes experiencing some vegetative symptoms as well. Apparently, in 1990 , she was diagnosed with having a bipolar disorder after she was manic and engaged in some excessive cleaning and spending behaviors. She had been treated with lithium and Abilify historically and remains medication compliant while here. Currently, Veronique does not describe any acute stressors in life, but describes encroaching emotions that have become exaggerated with increased social isolation. Veronique has 2 adult daughters, one who lives locally with her, other daughter living in [place]. BEHAVIORAL OBSERVATIONS: Veronique initially presented with flat affect that did not vary with conversation. She currently is euthymic and engages well in conversation and is spontaneous in speech and thought. She describes benefiting from groups and especially impresses as likely to be compliant with the various topics discussed such as regular exercise and increased socialization. She responded positively to discussion regarding engaging in volunteering services, citing having worked for [email or web address] in the past. She describes her remote location as an impediment, but resolved to try to work with this issue productively. Discussion addressed trying to find opportunities that are nearby, so she is more likely to be compliant with engagement in such behaviors. She currently impresses as having good insight and judgement and denies ongoing thoughts of suicide. Ongoing concerns are permissive attitude regarding suicide as upon admission, she described utilizing thoughts of suicide as an emotional defence. TEST RESULTS: Veronique elevates internal emotional duress scale on validity scale indices significantly (FB = 90), but does not elevate any of the clinical indices to such an exaggerated degree, which is felt to be reassuring in regards to safety. Although, she does elevate the depression scale (T = 67) as well as psychopathic deviate and schizophrenia scale to a similar minimal degree , she impresses as having improved affect and is likely to be compliant with recommended outpatient treatment. Feedback regarding test results emphasized the importance of increased physical activity as well as increased socialization with discussion addressing perhaps trying to alter belief systems regarding depression as a transitive experience and trying to help her understand disruptive impact suicide has on family members. Veronique responds well to supportive and insight oriented psychotherapies and is likely to be compliant with continuing treatment. IMPRESSIONS AND RECOMMENDATIONS: Discussion moving forward emphasized looking for opportunities to get engaged in community activities more actively as a means of reducing her sense of social alienation and isolation. The discussion of exercise regarding improved affect seem to be a novel concept for Veronique, who describes intentions of being compliant with becoming more active physically as well. As she denies ongoing thoughts of suicide currently, she is being discharged and hopefully continues to do well. [id number]/[facility] #: [id number] HYACINTH
[2017-11-08] MEDS: Lurasidone(*) 20 MG TAB PO SCH (17:22)
--- NOTE | 2017-11-09 10:22 | DS ---
CC: [facility] DISCHARGE SUMMARY: DATE OF ADMISSION: 11/02/17 DATE OF DISCHARGE: 11/08/17. PROVIDER: Christianne Hernandez NP, Psychiatry. SUPERVISING PHYSICIAN: Ganga Falcon MD. DIAGNOSIS: [place] I: Bipolar disorder. [place] II: Deferred. CONDITION AT THE TIME OF DISCHARGE: Improved. Psychiatrically cleared, stable. Participated well in groups. Very social with peers. Her family was agreeable to discharge. She has done very well her e psychiatrically. She tolerated new medications well. She will attend [facility] in [place], [facility] in [place], and she will follow up with Vin Reyna as her primary care physician. DISCHARGE INSTRUCTIONS TO THE PATIENT: A. Medications: She is takin. Lipitor 20 mg. 2. Bentyl 10 mg b.i.d. 3. Prozac 20 mg. 4. Gabapentin 300 mg t.i.d. 5. Synthroid 25 mcg daily. 6. Avalon carbonate ER 450 mg at bedtime. 7. Latuda 20 mg p.o. at bedtime. 8. Propranolol 10 mg t.i.d. B. Diet: Regular. C. Activities: As tolerated. She is a nonsmoker. There are no studies pending at the time of disc harge. D. Followup Care: She has appointments with the people mentioned in [place] [facility] [place] [facility] and Vin Reyna. E. Substance abuse followup: Not indicated. HOSPITAL COURSE: Part A. Chief complaint: Suicide is an out. It is a way to escape all the negati ve thoughts. The patient is a 67-year-old single white woman with a history of bipolar disorder who was brought in by law enforcement after stating that she planned to take all of her gabapentin and pr opranolol. She denies triggering events and said she woke up feeling powerless. Four weeks ago she started feeling suicidal ideation. She did talk with Naty Shelton her neuropsychology medical consultant. She states that th e thoughts kept getting worse and that last night she became ready to overdose. This increasing suic idality may in fact be coincident with her birthday in [birth year] because she states that when she was 66 a little before that she felt good and does not know what changed. Her stresses include feeling suic idal, not understanding what is going wrong and feeling a little bit of emptiness and helplessness in side. She is sleeping 14 hours a day. She does not want to do anything. Her energy is low. She salazar s mild psychomotor retardation. She has suicidal ideation. Part B. Psychiatric treatment was rendered. She was admitted to adult behavioral unit and placed on 15-minute checks for safety. She did very well on the unit, went to all groups, and interacted with peers very well. She tolerated med changes well. Synthroid was the only medication that was starte d. Arrangement of doses occurred. She was splitting Latuda into two doses daily. I put it back tog ether as 120 mg dose at dinner time. No medications were discontinued. She really enjoyed being on the unit. She enjoyed having people to talk to, activities to do, and was delighted by playing bingo . In general, she did very well. Her hemoglobin A1c was 6.1. Her triglycerides were 301, cholester ol 174, LDL cholesterol 70, HDL cholesterol 44.1. Incidentally, her TSH was 4.17 and thus, Synthroid was started as it is advantageous for someone with bipolar disorder and depression to have a TSH bel ow 3. No consults were entered. She is much improved. She is not having thoughts of suicide any lo nger. Her energy is higher. She can concentrate. She is sleeping less. She is doing very well. CHRISTIANNE HERNANDEZ, DIMPLE [id number]/[facility] #: [id number]
== END 2017-11-08 17:57 | disposition home or self-care (01) | DRG 885 ==
LOC: ED 22:27 → BSU 11-02 02:05
PROVIDERS: ADMIT Psychiatry & Neurology Psychiatry; ATTEND Psychiatry & Neurology Psychiatry
DX: F31.60 Bipolar disorder, current episode mixed, unspecified (principal); R45.851 Suicidal ideations; G24.01 Drug induced subacute dyskinesia; K58.9 Irritable bowel syndrome, unspecified; M54.2 Cervicalgia; E03.9 Hypothyroidism, unspecified; Z81.8 Family history of other mental and behavioral disorders
CPT/HCPCS: 36415; 80053; 80061; 80178; 80307; 80320; 80329; 81003; 83036; 84443; 85025; 90853; 96102; 99222; 99231; 99232; 99238; 99284; A9270-GY; G0480

== ENCOUNTER 2017-12-06 17:35 | Emergency (ER) | payer MEDICARE ==
--- NOTE | 2017-12-06 18:03 | UC ---
Psychiatric Complaint HPI - History Of Current Complaint Chief Complaint: EDOverdose Stated Complaint: 941 Time Seen by Provider: 12/06/17 17:45 Hx Last Menstrual Period: N/A - Allergies/Home Medications Allergies/Adverse Reactions: Allergies Allergy/AdvReac Type Severity Reaction Status Date / Time oxycodone AdvReac Mild Altered Verified 12/06/17 17:57 Mental Status Penicillins AdvReac Mild See Comment Verified 12/06/17 17:57 prochlorperazine AdvReac Mild Muscle Ache Verified 12/06/17 17:57 [From Compazine] anticholinergic agents AdvReac Mild Altered Uncoded 12/06/17 17:57 Mental Status benzodiazepines AdvReac Mild Altered Uncoded 12/06/17 17:57 Mental Status first generation AdvReac Mild Altered Uncoded 12/06/17 17:57 antihistamines Mental Status muscle relaxants AdvReac Mild Altered Uncoded 12/06/17 17:57 Mental Status semi synthetic narcotics AdvReac Mild Altered Uncoded 12/06/17 17:57 Mental Status Home Medications: Home Medications Lurasidone(*) [Latuda] 40 mg PO 1700 12/06/17 [History] PMH/Surg Hx/FS Hx/Imm Hx - Surgical History Surgical History: Yes Surgery Procedure, Year, and Place: hysterectomy, 1994, [facility] left ankle r/t fx - pins/plates , bladder surgery for incontinence, 2011, [facility]. TUBAL LIGATION 1984, [place]. CARPAL TUNNEL RIGHT 03/1984, [facility]. - Family History Known Family History: Positive: None, Diabetes Negative: Cardiac Disease, Hypertension - Social History Alcohol Use: None Substance Use Type: None Smoking Status (MU): Never Smoked Tobacco Have You Smoked in the Last Year: No - Immunization History Most Recent Influenza Vaccination: fall 2016 Most Recent Tetanus Shot: unknown Most Recent Pneumonia Vaccination: spring 2017 Physical Exam Vital Signs: Initial Vital Signs Temp 98.9 F 12/06/17 17:47 Pulse 74 12/06/17 17:47 Resp 20 12/06/17 17:47 BP 149/78 12/06/17 17:47 Pulse Ox 94 12/06/17 17:47 Discharge - Discharge Plan Referrals: Vin Reyna MD [Primary Care Provider] - - Attestation Statements Document Initiated by Scribe: Yes
--- NOTE | 2017-12-06 18:18 | ED ---
Psychiatric Complaint - HPI Summary HPI Summary: The pt is a 67 y/o female [facility] c/o a suicide attempt through substance overdose at 17:00 today. The pt took six 300mg Gabapentin pills after an argument with a family member. As per EMS, the poison control was notified and advised BLS transport. She got the pills on prescription from her PCP and the [facility] [place]. She reports previous suicide attempts. - History Of Current Complaint Chief Complaint: EDOverdose Time Seen by Provider: 12/06/17 17:45 Hx Obtained From: Patient, EMS Hx Last Menstrual Period: N/A Onset/Duration: Sudden Onset Aggravating Factor(s): Recent Stress Alleviating Factor(s): Nothing Related History: Positive For: Prior Psychiatric Issues Has Suicidal: Reports: Thoughts, With A Plan Ingestion History: Type/Name Of Drug - Gabapentin, Amount Ingested - 6 pills ( 300mg each), Approximate Time Of Ingestion - 17:00 - Allergies/Home Medications Allergies/Adverse Reactions: Allergies Allergy/AdvReac Type Severity Reaction Status Date / Time oxycodone AdvReac Mild Altered Verified 12/06/17 17:57 Mental Status Penicillins AdvReac Mild See Comment Verified 12/06/17 17:57 prochlorperazine AdvReac Mild Muscle Ache Verified 12/06/17 17:57 [From Compazine] anticholinergic agents AdvReac Mild Altered Uncoded 12/06/17 17:57 Mental Status benzodiazepines AdvReac Mild Altered Uncoded 12/06/17 17:57 Mental Status first generation AdvReac Mild Altered Uncoded 12/06/17 17:57 antihistamines Mental Status muscle relaxants AdvReac Mild Altered Uncoded 12/06/17 17:57 Mental Status semi synthetic narcotics AdvReac Mild Altered Uncoded 12/06/17 17:57 Mental Status Home Medications: Home Medications Lurasidone(*) [Latuda] 40 mg PO 1700 12/06/17 [History] PMH/Surg Hx/FS Hx/Imm Hx Previously Healthy: No Endocrine/Hematology History: Denies: Hx Diabetes Cardiovascular History: Denies: Hx Congestive Heart Failure, Hx Hypertension, Other Cardiovascular Problems/Disorders Respiratory History: Denies: Hx Asthma GI History: Denies: Other GI Disorders History: Denies: Hx Renal Disease Sensory History: Reports: Hx Contacts or Glasses - GLASSES Denies: Hx Hearing Aid Opthamlomology History: Reports: Hx Contacts or Glasses - GLASSES Neurological History: Reports: Hx Migraine - 2 YRS AGO LAST ONE, Other Neuro Impairments/Disorders - BIPOLAR DISORDER Psychiatric History: Reports: Hx Anxiety, Hx Depression, Hx Community Mental Health Tx, Hx Bipolar Disorder Denies: Hx Eating Disorder, Hx of Violent Episodes Against Others - Cancer History Cancer Type, Location and Year: None - Surgical History Surgery Procedure, Year, and Place: hysterectomy, 1994, [facility] left ankle r/t fx - pins/plates , bladder surgery for incontinence, 2011, [facility]. TUBAL LIGATION 1984, [place]. CARPAL TUNNEL RIGHT 03/1984, [facility]. Hx Anesthesia Reactions: No - Immunization History Immunizations Up to Date: Yes Infectious Disease History: No Infectious Disease History: Denies: Hx Clostridium Difficile, Hx Hepatitis, Hx Human Immunodeficiency Virus (HIV), Hx of Known/Suspected MRSA, Hx Shingles, Hx Tuberculosis, Hx Known/ Suspected VRE, Hx Known/Suspected VRSA, History Other Infectious Disease, Traveled Outside the in Last 30 Days - Family History Known Family History: Positive: Diabetes Negative: Cardiac Disease, Hypertension - Social History Occupation: Retired Lives: Alone Alcohol Use: None Substance Use Type: Reports: None Smoking Status (MU): Never Smoked Tobacco Have You Smoked in the Last Year: No Review of Systems Negative: Fever Positive: Other - Positive: SI with a plan All Other Systems Reviewed And Are Negative: Yes Physical Exam - Summary Physical Exam Summary: Appearance: The patient is well-nourished in no acute distress and in no acute pain. Skin: The skin is warm and dry and skin color reflects adequate perfusion. HEENT: The head is normocephalic and atraumatic. The pupils are equal and reactive. The conjunctivae are clear and without drainage. Nares are patent and without drainage. Mouth reveals moist mucous membranes and the throat is without erythema and exudate. The external ears are intact. The ear canals are patent and without drainage. The tympanic membranes are intact. Neck: The neck is supple with full range of motion and non-tender. There are no carotid bruits. There is no neck vein distension. Respiratory: Chest is non-tender. Lungs are clear to auscultation and breath sounds are symmetrical and equal. Cardiovascular: Heart is regular rate and rhythm. There is no murmur or rub auscultated. There is no peripheral edema and pulses are symmetrical and equal. Abdomen: The abdomen is soft and non-tender. There are normal bowel sounds heard in all four quadrants and there is no organomegaly palpated. Musculoskeletal: There is no back tenderness noted. Extremities are non-tender with full range of motion. There is good capillary refill. There is no peripheral edema or calf tenderness elicited. Neurological: Patient is alert and oriented to person, place and time. The patient has symmetrical motor strength in all four extremities. Cranial nerves are grossly intact. Deep tendon reflexes are symmetrical and equal in all four extremities. Psychiatric: The patient has an appropriate affect and does not exhibit any anxiety or depression. Triage Information Reviewed: Yes Vital Signs On Initial Exam: Initial Vitals Temp Pulse Resp BP Pulse Ox 98.9 F 74 20 149/78 94 12/06/17 17:47 12/06/17 17:47 12/06/17 17:47 12/06/17 17:47 12/06/17 17:47 Vital Signs Reviewed: Yes Diagnostics - Vital Signs Vital Signs Temp Pulse Resp BP Pulse Ox 12/06/17 17:47 98.9 F 74 20 149/78 94 - Laboratory Result Diagrams: 12/06/17 18:18 12/06/17 18:18 Lab Statement: Any lab studies that have been ordered have been reviewed, and results considered in the medical decision making process. Course/Dx - Course Course Of Treatment: 19:58-Pt cleared for a MHE. - Differential Dx/Clinical Impression Provider Diagnosis: Depression Discharge - Sign-Out/Discharge Documenting (check all that apply): Sign-Out Patient Signing out patient TO: Ari Loco - Discharge Plan Condition: Stable Referrals: Vin Reyna MD [Primary Care Provider] - - Billing Disposition and Condition Condition: STABLE - Attestation Statements Document Initiated by Scribe: Yes Documenting Scribe: Tiana Bryson Provider For Whom Suleman is Documenting (Include Credential): Dr. Tommy Arteaga MD Scribe Attestation: Tiana Liang , scribed for Dr. Tommy Arteaga MD on 12/06/17 at 2147. Scribe Documentation Reviewed: Yes Provider Attestation: The documentation as recorded by the raquelibTiana atkinson accurately reflects the service I personally performed and the decisions made by me, Dr. Tommy Arteaga MD
[2017-12-06 18:24] LABS: ABS Basophils 0 10^3/ul (0-0.2); ABS Eosinophils 0.1 10^3/ul (0-0.6); ABS Lymphocytes 1.8 10^3/ul (1.0-4.8); ABS Monocytes 0.7 10^3/ul (0-0.8); ABS Neutrophils 10.2 10^3/ul (1.5-7.7); ABS Nucleated RBC 0 10^3/ul; Eosinophil % 0.7 % (0-6); Hematocrit 43 % (35-47); Hemoglobin 14.2 g/dl (12.0-16.0); Lymphocyte % 14.3 % (25-47); Mean Corpuscular HGB Conc 33 g/dl (31-36); Mean Corpuscular Hemoglobin 31 pg (27-31); Mean Corpuscular Volume 93 fL (80-97); Mean Platelet Volume 7.8 um3 (7.4-10.4); Nucleated Red Blood Cells % 0; Platelet Count 287 10^3/ul (150-450); Red Blood Count 4.64 10^6/ul (4.00-5.40); Red Cell Distribution Width 14 % (10.5-15); White Blood Count 12.9 10^3/ul (3.5-10.8)
[2017-12-06 18:37] LABS: Urine Appearance Clear; Urine Blood 1+ (Negative); Urine Color Amber; Urine Ketones Negative (Negative); Urine Protein 1+(30 mg/dL) (Negative); Urine Red Blood Cell 2+(6-10/hpf) (Absent); Urine Specific Gravity 1.014 (1.010-1.030); Urine Urobilinogen Positive (Negative); Urine White Blood Cell 3+(>20/hpf) (Absent)
[2017-12-06 18:42] LABS: EGFR Non-African American 47.8 (>60)
[2017-12-06 18:58] LABS: Lithium 0.48 mmol/L (0.6-1.2)
[2017-12-06] MEDS ORDERED: Ciprofloxacin TAB* 500 MG PO ONE (20:31)
--- NOTE | 2017-12-06 23:10 | ED ---
Progress - Progress Note Progress Note: Patient was signed out to Dr. Ari Loco via Dr. Tommy Arteaga, pending disposition at shift change on 12/06/2017 at 2200. - Consult/PCP Time Called: 21:00 Course/Dx - Course Course Of Treatment: A 67 y/o female HEAVEN presents to ED s/p SI via overdose. No laboratory scans were done. Blood work and UA were done. In the ED course, the patient recieved Ciprofloxcin. After MHE, patient care was discussed with psychiatrist, Dr. Prado, who recommends discharging patient with a diagnosis of bipolar disorder. He also recommended to follow up with [facility]. Patient will be discharged with a diagnosis of Bipolar Disorder. Patient is to follow up with [facility]. Patient is agreeable with this plan. - Diagnoses Provider Diagnoses: Bipolar disorder - Provider Notifications Discussed Care Of Patient With: Teresita Prado Time Discussed With Above Provider: 23:06 Instructed by Provider To: Other - Recommends discharge with diagnosis of Bipolar Disorder. Patient is to follow up with [facility]. Discharge - Sign-Out/Discharge Documenting (check all that apply): Patient Departure - DISCHARGE - Discharge Plan Condition: Stable Disposition: HOME Prescriptions: Ciprofloxacin TAB* [Cipro 500 MG TAB*] 500 mg PO BID #10 tab Referrals: Vin Reyna MD [Primary Care Provider] - - Attestation Statements Document Initiated by Scribe: Yes Documenting Scribe: Joss Brush Provider For Whom Scribe is Documenting (Include Credential): Yevgeniy Shell Attestation: Joss Liang, scribed for Ari Loco on 12/06/17 at 2320.
[2017-12-06 23:49] VITALS: BP 142/71
== END 2017-12-06 23:48 | disposition home or self-care (01) ==
LOC: ED 17:35
DX: F32.9 Major depressive disorder, single episode, unspecified (principal)
CPT/HCPCS: 36415; 80053; 80178; 80307; 80320; 80329; 81003; 81015; 84443; 85025; 87077; 87086; 99285; A9270-GY; G0480

== ENCOUNTER 2017-12-07 10:39 | Inpatient (IN) | payer MEDICARE ==
--- NOTE | 2017-12-07 11:55 | ED ---
Psychiatric Complaint - HPI Summary HPI Summary: This patient is a 67 year old F presenting to [facility] with a chief complaint of SI with a plan to OD on her pills since 0800. Pt was seeing her therapist, who referred her back here; pt was in ED last PM for similar CC. - History Of Current Complaint Chief Complaint: EDMentalHealth Hx Obtained From: Patient Hx Last Menstrual Period: N/A Onset/Duration: Sudden Onset, Lasting Days, Still Present Timing: Constant Severity Initially: Moderate Severity Currently: Moderate Character: Depressed Aggravating Factor(s): Nothing Alleviating Factor(s): Nothing Associated Signs And Symptoms: Positive: Negative Related History: Positive For: Prior Psychiatric Issues Has Suicidal: Reports: Thoughts, With A Plan - Allergies/Home Medications Allergies/Adverse Reactions: Allergies Allergy/AdvReac Type Severity Reaction Status Date / Time oxycodone AdvReac Mild Altered Verified 12/06/17 17:57 Mental Status Penicillins AdvReac Mild See Comment Verified 12/06/17 17:57 prochlorperazine AdvReac Mild Muscle Ache Verified 12/06/17 17:57 [From Compazine] anticholinergic agents AdvReac Mild Altered Uncoded 12/06/17 17:57 Mental Status benzodiazepines AdvReac Mild Altered Uncoded 12/06/17 17:57 Mental Status first generation AdvReac Mild Altered Uncoded 12/06/17 17:57 antihistamines Mental Status muscle relaxants AdvReac Mild Altered Uncoded 12/06/17 17:57 Mental Status semi synthetic narcotics AdvReac Mild Altered Uncoded 12/06/17 17:57 Mental Status PMH/Surg Hx/FS Hx/Imm Hx Endocrine/Hematology History: Denies: Hx Diabetes Cardiovascular History: Denies: Hx Congestive Heart Failure, Hx Hypertension, Other Cardiovascular Problems/Disorders Respiratory History: Denies: Hx Asthma GI History: Denies: Other GI Disorders History: Denies: Hx Renal Disease Sensory History: Reports: Hx Contacts or Glasses - GLASSES Denies: Hx Deafness, Hx Hearing Aid Opthamlomology History: Reports: Hx Contacts or Glasses - GLASSES EENT History: Denies: Hx Deafness Neurological History: Reports: Hx Migraine - 2 YRS AGO LAST ONE, Other Neuro Impairments/Disorders - BIPOLAR DISORDER Psychiatric History: Reports: Hx Anxiety, Hx Depression, Hx Community Mental Health Tx, Hx Bipolar Disorder Denies: Hx Eating Disorder, Hx of Violent Episodes Against Others - Cancer History Cancer Type, Location and Year: None - Surgical History Surgery Procedure, Year, and Place: hysterectomy, 1994, [facility] left ankle r/t fx - pins/plates , bladder surgery for incontinence, 2011, [facility]. TUBAL LIGATION PIND[place]. CARPAL TUNNEL RIGHT 03/1984, [facility]. Hx Anesthesia Reactions: No Infectious Disease History: No Infectious Disease History: Denies: Hx Clostridium Difficile, Hx Hepatitis, Hx Human Immunodeficiency Virus (HIV), Hx of Known/Suspected MRSA, Hx Shingles, Hx Tuberculosis, Hx Known/ Suspected VRE, Hx Known/Suspected VRSA, History Other Infectious Disease, Traveled Outside the in Last 30 Days - Family History Known Family History: Positive: Diabetes Negative: Cardiac Disease, Hypertension - Social History Occupation: Unemployed Lives: Alone Alcohol Use: None Substance Use Type: Reports: None Smoking Status (MU): Never Smoked Tobacco Have You Smoked in the Last Year: No Review of Systems Negative: Fever Positive: no symptoms reported Positive: Depressed, Other - SI with plan All Other Systems Reviewed And Are Negative: Yes Physical Exam - Summary Physical Exam Summary: Appearance: The patient is well-nourished in no acute distress and in no acute pain. Skin: The skin is warm and dry and skin color reflects adequate perfusion. HEENT: The head is normocephalic and atraumatic. The pupils are equal and reactive. The conjunctivae are clear and without drainage. Nares are patent and without drainage. Mouth reveals moist mucous membranes and the throat is without erythema and exudate. The external ears are intact. The ear canals are patent and without drainage. The tympanic membranes are intact. Neck: The neck is supple with full range of motion and non-tender. There are no carotid bruits. There is no neck vein distension. Respiratory: Chest is non-tender. Lungs are clear to auscultation and breath sounds are symmetrical and equal. Cardiovascular: Heart is regular rate and rhythm. There is no murmur or rub auscultated. There is no peripheral edema and pulses are symmetrical and equal. Abdomen: The abdomen is soft and non-tender. There are normal bowel sounds heard in all four quadrants and there is no organomegaly palpated. Musculoskeletal: There is no back tenderness noted. Extremities are non-tender with full range of motion. There is good capillary refill. There is no peripheral edema or calf tenderness elicited. Neurological: Patient is alert and oriented to person, place and time. The patient has symmetrical motor strength in all four extremities. Cranial nerves are grossly intact. Deep tendon reflexes are symmetrical and equal in all four extremities. Psychiatric: The patient has an appropriate affect and does not exhibit any anxiety or depression. Triage Information Reviewed: Yes Vital Signs On Initial Exam: Initial Vitals Temp Pulse Resp BP Pulse Ox 97.9 F 68 18 123/71 93 12/07/17 10:54 12/07/17 10:54 12/07/17 10:54 12/07/17 10:54 12/07/17 10:54 Vital Signs Reviewed: Yes Diagnostics - Vital Signs Vital Signs Temp Pulse Resp BP Pulse Ox 12/07/17 10:54 97.9 F 68 18 123/71 93 - Laboratory Lab Statement: Any lab studies that have been ordered have been reviewed, and results considered in the medical decision making process. Course/Dx - Course Course Of Treatment: Ms. Kerr return to the emergency department today after seeing her counselor and reporting suicidal ideation. She was medically cleared and went to the [facility] where she underwent a mental health eval. They offered her voluntary admission and she accepted. - Differential Dx/Clinical Impression Provider Diagnosis: Depression - Physician Notifications Discussed Care Of Patient With: Ganga Falcon Time Discussed With Above Provider: 15:00 Instructed by Provider To: Other - Per psych marine rigger David Rod will be admitted to the MHU with a dx of depression. Discharge - Sign-Out/Discharge Documenting (check all that apply): Patient Departure - Discharge Plan Condition: Stable Disposition: PSYCHIATRIC FACILITY-[facility] - Billing Disposition and Condition Condition: STABLE Disposition: Psychiatric Facility [facility] - Attestation Statements Document Initiated by Scribe: Yes Documenting Scribe: Preston King Provider For Whom Rajeevibe is Documenting (Include Credential): Dr. Tommy Arteaga MD Scribe Attestation: Preston Liang scribed for Dr. Tommy Arteaga MD on 12/07/17 at 1733. Scribe Documentation Reviewed: Yes Provider Attestation: The documentation as recorded by the Preston traylor accurately reflects the service I personally performed and the decisions made by me, Dr. Tommy Arteaga MD
[2017-12-07] MEDS ORDERED: Al Hydrox/Mg Hydrox/Simet LIQ* 30 ML UDC PO PRN (20:25)
[2017-12-08] MEDS ORDERED: Propranolol TAB* 10 MG ONE (01:06)
[2017-12-08] MEDS ORDERED: Gabapentin CAP(*) 300 MG ONE (01:06)
[2017-12-08] MEDS: Gabapentin CAP(*) 300 MG PO SCH ×4 (01:07→20:07)
[2017-12-08] MEDS: Propranolol TAB* 10 MG PO SCH ×4 (01:07→20:07)
[2017-12-08] MEDS: Dicyclomine CAP* 10 MG PO SCH ×4 (01:16→20:08)
[2017-12-08] MEDS: Ciprofloxacin TAB* 500 MG PO SCH ×4 (01:16→20:05)
[2017-12-08] MEDS: Levothyroxine TAB* 25 MCG TAB PO SCH (05:25)
[2017-12-08] MEDS ORDERED: Pneumococcal *Vac Polyvalent 0.5 ML VIAL IM ONE ×2 (09:00→10:00)
[2017-12-08] MEDS: Vitamin THERAPEUTIC TAB PO SCH (09:02)
[2017-12-08] MEDS: Atorvastatin* 20 MG TAB PO SCH (09:04)
[2017-12-08] MEDS: LURASIDONE 20 MG PO SCH (16:51)
--- NOTE | 2017-12-08 19:16 | HP ---
HISTORY AND PHYSICAL: DATE OF ADMISSION: 12/07/17 PROVIDER: Christianne Fraga NP, in Psychiatry. SUPERVISING PHYSICIAN: Dr. Ganga Falcon.* (DICTATED BY CHRISTIANNE FRAGA NP ) CHIEF COMPLAINT: "My brain feels frazzled." HISTORY OF PRESENT ILLNESS: The patient is a 67-year-old single, white woman with a history of bipolar disorder, who brought herself twice to the ED and was admitted the second time. She overdosed on gabapentin by taking 6 tablets 2 days ago of 300 mg gabapentin. She was recently admitted here on 11/02/17 and stayed about a week. At that point upon discharge, she was happy, energetic, had made lots of plans for how to feel better including becoming more social and exercising. She states that she has socialized, she has lunch with her neighbors, she plays [employer] on Wednesday and she does coloring group on evenings. Nevertheless, she has feelings of emptiness and unhappiness. This has been going on for a couple of weeks. She states she recently got upset with her daughter because her daughter said that she was not allowed to come to her grandson's Pre-K open house due to her hygiene. Veronique has tried to make up with her daughter since then, but has had a hard time forgiving her stating it is not appropriate to use her grandson as leverage. She has what she called a plan B of taking a bottle of Dilaudid that is in her medicine cabinet. She states she does not have a plan A. She is using this in a somewhat threatening manner that if she is discharged that is what she will do when she goes home. She feels as though she is having a "chemical imbalance" and she feels that as though medication is that needs to change. I discussed with her being discharged today and that is when she said that she would simply take an overdose. She is a bit angry with her daughter. She did have a conversation with her son-in- law who said that he would give her message to her daughter. Her energy is low. It appears that the tardive dyskinesia in her lips has become less intense, although she states that it does not feel that way to her and she is having suicidal ideation. PAST PSYCHIATRIC HISTORY: She was admitted here for about 8 days on 11/02/17. She also states that in 1990, she was diagnosed with bipolar after she had a manic episode of scrubbing, cleaning, and shopping excessively. She was on lithium then. She has also in the past tried Abilify 30 mg and now she has tardive dyskinesia in her lips and tongue. In the past, she has had 2 suicide attempts; she overdosed both times, once in 1996 and the other one she does not remember the year. She was hospitalized at [facility] for 6 weeks due to having a coexisting neurological problem. They put her on OXYCODONE there and managed the pain in her neck and it turns out she was allergic to that. They stopped medication due to her having auditory hallucinations and her memory being gone. Her previous psychiatric meds include gabapentin, propranolol, Abilify, lithium, and lurasidone. SUBSTANCE ABUSE HISTORY: She denies. She does not drink alcohol or smoke cigarettes or use drugs. PAST MEDICAL HISTORY: She has neck pain. She is seeing Neurology for that. She has tardive dyskinesia in her mouth and lips. She has irritable bowel syndrome that is being treated by Bentyl 10 mg b.i.d. FAMILY HISTORY: She denied any family history other than her daughter who sees a psychiatric nurse practitioner for borderline personality disorder. SOCIAL HISTORY: She lives in [place] alone in a senior [facility]. She states she keeps to herself, although she does have friends there. Since the previous admission, she has become branching out and becoming social there. She has a daughter, who lives relatively close also in [place] and she has another daughter who lives in [place]. 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 The job ended at her first suicide attempt in 1996. She states they paid her to leave. She then went back to school, got her associates and bachelor's degree and continued to work in part because she wanted her children to feel proud of her. She has never been in the . She does not have any legal problems. REVIEW OF SYSTEMS: Veronique reports being fatigued. She states that last night, she did not get her medications until late and thus, she did not sleep. She denies shortness of breath, heat or cold intolerance, chest pain or abdominal pain. She denies current neurological symptoms other than tardive dyskinesia. She denies fevers or changes in weight. PHYSICAL EXAMINATION VITAL SIGNS: On 12/07/17, at 12:17 p.m., temperature was 98.9, pulse 84, respirations 20, O2 sat 94%, blood pressure 134/64. For further exam data, please see emergency department records. LABORATORY DATA: Her labs are generally within normal limits. They were drawn on 12/06/17. Her glucose is high. Her hemoglobin A1c is 6.1. Her C- reactive protein is 13.65. Her urine appears to have urinary tract infection in that her protein is 1+, blood is 1+, nitrite is positive, urobilinogen positive, urine leukocyte esterase is positive 1, urine white blood cells are 3+ , urine red blood cells are 2+, and urine squamous epithelial cells are present. She is now being treated with Cipro. Her lithium level is only 0.48, which is low. We will be increasing her level there. Her TSH is 1.42 and her levothyroxine will be continued. MENTAL STATUS EXAM: This is a 67-year-old woman who appears her stated age. She is obese with blonde hair. She is wearing her own clothes. She is calm and cooperative, although she appears to be very anxious and dysphoric. She has normal rate, tone, and volume to her speech. Her thought processes are normal and logical. Her thought content is logical. She is not homicidal. She is suicidal at this time. She is not having hallucinations. Her insight is fair. Her judgment is fair. She is alert and oriented x3. She appears to have average to above average intellect. DIAGNOSES: Towson I: Bipolar 2 disorder, current episode depressed or mixed, rule out anxiety disorder. Towson II: Rule out borderline personality disorder. Towson III: Hypothyroid disorder and tardive dyskinesia. IMPRESSION: Veronique is a 67-year-old woman who appears to be in distress in a depressive episode and so, she cannot see the progress in living because she feels so bad. This seems to be second onset since her 67th birthday where she had previously felt well. PLAN: The patient is admitted to the adult behavioral health unit and placed on q.15-minute checks for her own safety. She is encouraged to participate in supportive milieu, individual, and group therapies. Estimated length of stay is 3 to 7 days. We will titrate medications to efficacy and monitor for mood and thought content. We will make medication changes and continue or increase some of them. Discharge planning will include family involvement and outpatient providers. CHRISTIANNE FRAGA, DIMPLE [id number]/CPS #: [id number] HYACINTH
[2017-12-08] MEDS ORDERED: Lithium Carbonate ER* 450 MG TAB.ER PO SCH (21:00)
[2017-12-09] MEDS: Levothyroxine TAB* 25 MCG TAB PO SCH (08:32)
[2017-12-09] MEDS: Atorvastatin* 20 MG TAB PO SCH (08:32)
[2017-12-09] MEDS: Gabapentin CAP(*) 300 MG PO SCH ×3 (08:32→20:02)
[2017-12-09] MEDS: Vitamin THERAPEUTIC TAB PO SCH (08:33)
[2017-12-09] MEDS: Dicyclomine CAP* 10 MG PO SCH ×2 (08:33→20:01)
[2017-12-09] MEDS: Propranolol TAB* 10 MG PO SCH ×3 (08:33→20:03)
[2017-12-09] MEDS: Ciprofloxacin TAB* 500 MG PO SCH ×2 (10:34→20:01)
--- NOTE | 2017-12-09 10:37 | PN ---
Subjective - Subjective Date of Service: 12/09/17 Service Type: 52002 Hosp care 25 min moderate complexity Subjective: Veronique reports that she has been feeling frazzled or fried since her discharge a month ago, essentially. She has been doing her part (exercising and socializing ) but her depression is overwhelming her. She feels, as she stated at the last admission, like something is not "clicking" in her brain. Objective - Appearance Appearance: Obese Dysmorphic Features: No Hygiene: Normal Grooming: Disheveled - Behavior Psychomotor Activities: Abnormal-Increased Exhibits Abnormal Movement: Yes - Attitude and Relatedness Attitude and Relatedness: Cooperative Eye Contact: Good - Speech Quality: Unpressured Latencies: Normal Quantity: Appropriate - Mood Patient's Decription of Mood: "Upset" - Affect Observed Affect: Depressed Affect Consistent with: Dysphoria - Thought Process Patient's Thought Process: Goal Directed Thought Content: Yes Passive Wish, Yes Suicidal Planning, No Homicidal Ideation, No Paranoid Ideation - Sensorium Experiencing Hallucinations: No, Sensorium is Clear Type of Hallucinations: Visual: No, Auditory: No, Command: No - Level of Consciousness Level of Consciousness: Alert Orientation: Yes Intact, Yes Orientated to Time, Yes Orientated to Place, Yes Orientated to Person - Impulse Control Impulse Control: Tenuous - Insight and Judgement Insight and Judgement: Fair - Group Participation Particating in Group Activities: Yes - Medication Management Medication Management Adherence: Yes - Additional Observations Comments: Veronique is a little disheveled. She reports being uncomfortable due to a UTI that is being treated (pyridium is now prescribed) with Cipro. Her appearance is a point of pride for her and she is not currently happy with it. She remains depressed with a desire to if she is not treated. Assessment - Assessment Merits Inpatient Hospitalization: For Immediate Safety Inpatient DSM-V Dx: F31.30 Clinical Impression: Veronique appears to be suffering from increased depression, despite medication changes made at her last admission. She is easily emotionally jostled to despair by exterior events, such as her daughter's assertion that she wasn't welcome at a pre-K open house. This lack of insulation against disconcerting events will be a focus of her treatment. Plan - Plan Treatment Plan: Name: VERONIQUE THOMAS Birthdate: 1950 [id number] Continued Medication Management: Different Medication Medications: Current Medications Acetaminophen (Tylenol Tab*) 650 mg PO Q4H PRN PRN Reason: PAIN or TEMP > 101 F Al Hydrox/Mg Hydrox/Simethicone (Maalox Plus*) 30 ml PO Q4H PRN PRN Reason: INDIGESTION Atorvastatin Calcium (Lipitor*) 20 mg PO DAILY [facility] Last Admin: 12/09/17 08:32 Dose: 20 mg Ciprofloxacin (Cipro Tab*) 500 mg PO BID [facility] Last Admin: 12/09/17 10:34 Dose: 500 mg Dicyclomine HCl (Bentyl Cap*) 10 mg PO BID [facility] Last Admin: 12/09/17 08:33 Dose: 10 mg Gabapentin (Neurontin Cap(*)) 300 mg PO TID [facility] Last Admin: 12/09/17 08:32 Dose: 300 mg Levothyroxine Sodium (Synthroid Tab*) 25 mcg PO DAILY@0600 [facility] Last Admin: 12/09/17 08:32 Dose: 25 mcg [place] Carbonate ([place] Carbonate Er Tab*) 900 mg PO BEDTIME [facility] Last Admin: 12/08/17 20:05 Dose: 900 mg Lurasidone HCl (Latuda) 20 mg PO 1700 [facility] Last Admin: 12/08/17 16:51 Dose: 20 mg Multivitamins (Theragran Tab*) 1 tab PO DAILY [facility] Last Admin: 12/09/17 08:33 Dose: 1 tab Propranolol HCl (Inderal Tab*) 10 mg PO TID [facility] Last Admin: 12/09/17 08:33 Dose: 10 mg - Discharge Plan Discharge Plan: Outpatient Follow Up Additional Comments: [place] will be increased to 600 mg. Discharge planning will work on increasing supports outpatient. Veronique will stay until early next week as she continues to threaten to take a bottle of Dilaudid that she confiscated from her daughter when her daughter was threatening an overdose.
[2017-12-09] MEDS: Phenazopyridine TAB* 100 MG PO SCH ×2 (16:04→20:03)
[2017-12-09] MEDS: LURASIDONE 20 MG PO SCH (17:23)
[2017-12-09] MEDS: CMC:Lithium Carbonate ER (NF) 300 MG TAB.ER PO SCH (20:02)
[2017-12-10] MEDS: Levothyroxine TAB* 25 MCG TAB PO SCH (07:18)
[2017-12-10] MEDS: Dicyclomine CAP* 10 MG PO SCH ×2 (08:49→20:21)
[2017-12-10] MEDS: Ciprofloxacin TAB* 500 MG PO SCH ×2 (08:49→20:15)
[2017-12-10] MEDS: Atorvastatin* 20 MG TAB PO SCH (08:49)
[2017-12-10] MEDS: Vitamin THERAPEUTIC TAB PO SCH (08:50)
[2017-12-10] MEDS: Gabapentin CAP(*) 300 MG PO SCH ×3 (08:50→20:15)
[2017-12-10] MEDS: Phenazopyridine TAB* 100 MG PO SCH ×3 (08:50→20:22)
[2017-12-10] MEDS: Propranolol TAB* 10 MG PO SCH ×3 (08:50→20:16)
--- NOTE | 2017-12-10 11:50 | PN ---
Subjective - Subjective Date of Service: 12/10/17 Service Type: 76149 Hosp care 15 min low complexity Subjective: Veronique is seen in coverage for NPP Christianne Fraga. Veronique continues to endorse depression. She denies SI here in the hospital but does not feel safe for discharge. She is tolerating meds well, other than noted mild TD of lips and perioral area. She requests to meet with unit SW Leigha Garcia for help with visiting nursing services and to get connected with the [facility]. Objective - Appearance Appearance: Well Developed/Nourished Dysmorphic Features: No Hygiene: Normal Grooming: Well Kept - Behavior Psychomotor Activities: Normal Exhibits Abnormal Movement: Yes - Attitude and Relatedness Attitude and Relatedness: Cooperative Eye Contact: Good - Speech Quality: Unpressured Latencies: Normal Quantity: Appropriate - Mood Patient's Decription of Mood: "Sad" - Affect Observed Affect: Constricted Affect Consistent with: Dysphoria - Thought Process Patient's Thought Process: Coherent Thought Content: Yes Passive Wish, No Suicidal Planning, No Homicidal Ideation, No Paranoid Ideation - Sensorium Experiencing Hallucinations: No, Sensorium is Clear Type of Hallucinations: Visual: No, Auditory: No, Command: No - Level of Consciousness Level of Consciousness: Alert Orientation: Yes Intact, Yes Orientated to Time, Yes Orientated to Place, Yes Orientated to Person - Impulse Control Impulse Control: Tenuous - Insight and Judgement Insight and Judgement: Fair - Group Participation Particating in Group Activities: Yes - Medication Management Medication Management Adherence: Yes Assessment - Assessment Merits Inpatient Hospitalization: For Immediate Safety, For Stabilization Inpatient DSM-V Dx: F31.30 Clinical Impression: 67 y.o. single, white female with a history of bipolar depression, recently admitted to [facility], now readmitted on a voluntary status due to dysphoric mood and SI with plan to OD on a bottle of dilaudid. Plan - Plan Treatment Plan: Name: VERONIQUE THOMAS Birthdate: 1950 [id number] The patient's lithium has been increased and is pending therapeutic blood level testing. She remains on lurasidone. Also receiving antibiotic therapy for UTI. Needs further inpatient stabilization. Continued Medication Management: Different Medication Medications: Current Medications Acetaminophen (Tylenol Tab*) 650 mg PO Q4H PRN PRN Reason: PAIN or TEMP > 101 F Al Hydrox/Mg Hydrox/Simethicone (Maalox Plus*) 30 ml PO Q4H PRN PRN Reason: INDIGESTION Atorvastatin Calcium (Lipitor*) 20 mg PO DAILY [facility] Last Admin: 12/10/17 08:49 Dose: 20 mg Ciprofloxacin (Cipro Tab*) 500 mg PO BID [facility] Last Admin: 12/10/17 08:49 Dose: 500 mg Dicyclomine HCl (Bentyl Cap*) 10 mg PO BID [facility] Last Admin: 12/10/17 08:49 Dose: 10 mg Gabapentin (Neurontin Cap(*)) 300 mg PO TID [facility] Last Admin: 12/10/17 08:50 Dose: 300 mg Levothyroxine Sodium (Synthroid Tab*) 25 mcg PO DAILY@0600 [facility] Last Admin: 12/10/17 07:18 Dose: 25 mcg [place] Carbonate ([place] Carbonate Er (Nf)) 600 mg PO BEDTIME [facility] Last Admin: 12/09/17 20:02 Dose: 600 mg Lurasidone HCl (Latuda) 20 mg PO 1700 [facility] Last Admin: 12/09/17 17:23 Dose: 20 mg Multivitamins (Theragran Tab*) 1 tab PO DAILY [facility] Last Admin: 12/10/17 08:50 Dose: 1 tab Phenazopyridine HCl (Pyridium Tab*) 100 mg PO TID [facility] Last Admin: 12/10/17 08:50 Dose: 100 mg Propranolol HCl (Inderal Tab*) 10 mg PO TID [facility] Last Admin: 12/10/17 08:50 Dose: 10 mg - Discharge Plan Discharge Plan: Inpatient Hospitalization
[2017-12-10] MEDS: LURASIDONE 20 MG PO SCH (17:28)
[2017-12-10] MEDS: CMC:Lithium Carbonate ER (NF) 300 MG TAB.ER PO SCH (20:16)
[2017-12-11] MEDS: Gabapentin CAP(*) 300 MG PO SCH ×3 (08:27→20:14)
[2017-12-11] MEDS: Atorvastatin* 20 MG TAB PO SCH (08:28)
[2017-12-11] MEDS: Vitamin THERAPEUTIC TAB PO SCH (08:28)
[2017-12-11] MEDS: Propranolol TAB* 10 MG PO SCH ×3 (08:28→20:14)
[2017-12-11] MEDS: Levothyroxine TAB* 25 MCG TAB PO SCH (08:28)
[2017-12-11] MEDS: Phenazopyridine TAB* 100 MG PO SCH ×3 (08:28→20:15)
[2017-12-11] MEDS: Ciprofloxacin TAB* 500 MG PO SCH ×2 (08:29→20:14)
[2017-12-11] MEDS: Acetaminophen TAB* 325 MG PO PRN ×2 (08:29→14:43)
[2017-12-11] MEDS: Dicyclomine CAP* 10 MG PO SCH ×2 (08:29→20:13)
[2017-12-11] MEDS: LURASIDONE 20 MG PO SCH (17:31)
[2017-12-11] MEDS: CMC:Lithium Carbonate ER (NF) 300 MG TAB.ER PO SCH (20:15)
[2017-12-12] MEDS: Dicyclomine CAP* 10 MG PO SCH ×2 (09:00→20:14)
[2017-12-12] MEDS: Phenazopyridine TAB* 100 MG PO SCH ×3 (09:00→20:14)
[2017-12-12] MEDS: Gabapentin CAP(*) 300 MG PO SCH ×3 (09:01→20:13)
[2017-12-12] MEDS: Vitamin THERAPEUTIC TAB PO SCH (09:01)
[2017-12-12] MEDS: Atorvastatin* 20 MG TAB PO SCH (09:01)
[2017-12-12] MEDS: Propranolol TAB* 10 MG PO SCH ×3 (09:01→20:14)
[2017-12-12] MEDS: Levothyroxine TAB* 25 MCG TAB PO SCH (09:01)
[2017-12-12] MEDS: Ciprofloxacin TAB* 500 MG PO SCH ×2 (09:01→20:13)
[2017-12-12] MEDS: LURASIDONE 20 MG PO SCH (16:56)
[2017-12-12] MEDS: CMC:Lithium Carbonate ER (NF) 300 MG TAB.ER PO SCH (20:13)
[2017-12-13] MEDS: Atorvastatin* 20 MG TAB PO SCH (09:02)
[2017-12-13] MEDS: Dicyclomine CAP* 10 MG PO SCH ×2 (09:02→20:17)
[2017-12-13] MEDS: Gabapentin CAP(*) 300 MG PO SCH ×3 (09:03→20:17)
[2017-12-13] MEDS: Ciprofloxacin TAB* 500 MG PO SCH ×2 (09:03→20:16)
[2017-12-13] MEDS: Levothyroxine TAB* 25 MCG TAB PO SCH (09:04)
[2017-12-13] MEDS: Propranolol TAB* 10 MG PO SCH ×3 (09:05→20:16)
[2017-12-13] MEDS: Phenazopyridine TAB* 100 MG PO SCH ×3 (09:05→20:16)
[2017-12-13] MEDS: Vitamin THERAPEUTIC TAB PO SCH (09:05)
--- NOTE | 2017-12-13 14:32 | PN ---
Subjective - Subjective Date of Service: 12/13/17 Service Type: 12580 Hosp care 25 min moderate complexity Subjective: Veronique remains depressed. She continues to fixate on the bottle of Dilaudid that she has at home in her medicine cabinet. We discuss whether she would be safe if sent home. She states she will not be as long as the Dilaudid is there. We discussed whether her friend who is caring for the bird could remove the medication from the medicine cabinet and then dispose of it at the hospital. Veronique agreed that this might be a possibility. she also advocated to start a new antidepressant medication. She is quite proud of her own progress in taking care of her own hygiene. Objective - Appearance Appearance: Obese Dysmorphic Features: No Hygiene: Normal Grooming: Well Kept - Behavior Psychomotor Activities: Abnormal-Increased Exhibits Abnormal Movement: Yes - Attitude and Relatedness Attitude and Relatedness: Well Related Eye Contact: Good - Speech Quality: Unpressured Latencies: Normal Quantity: Appropriate - Mood Patient's Decription of Mood: "Okay" - Affect Observed Affect: Depressed Affect Consistent with: Dysphoria - Thought Process Patient's Thought Process: Coherent Thought Content: Yes Passive Wish, Yes Suicidal Planning, No Homicidal Ideation, No Paranoid Ideation - Sensorium Experiencing Hallucinations: No, Sensorium is Clear Type of Hallucinations: Visual: No, Auditory: No, Command: No - Level of Consciousness Level of Consciousness: Alert Orientation: Yes Intact, Yes Orientated to Time, Yes Orientated to Place, Yes Orientated to Person - Impulse Control Impulse Control: Tenuous - Insight and Judgement Insight and Judgement: Fair - Group Participation Particating in Group Activities: Yes - Medication Management Medication Management Adherence: Yes - Additional Observations Comments: Veronique is a little disheveled. Her appearance is a point of pride for her and she working hard to return to the time when her daughter thought she smelled of roses. She remains depressed with a desire to , but is also desiring to live now that she has more to live for (a new friend at her place of living who is feeding her dove). Assessment - Assessment Merits Inpatient Hospitalization: For Immediate Safety Inpatient DSM-V Dx: F31.30 Clinical Impression: Veronique appears to be suffering from increased depression, despite medication changes made at her last admission. This lack of insulation against disconcerting events will be a focus of her treatment. She remains depressed and is thinking about the Dilaudid at home, but her risk for suicide would be precipitously reduced if that medication were removed. Plan - Plan Treatment Plan: Name: VERONIQUE THOMAS Birthdate: 1950 [id number] Continued Medication Management: Different Medication Medications: Current Medications Acetaminophen (Tylenol Tab*) 650 mg PO Q4H PRN PRN Reason: PAIN or TEMP > 101 F Last Admin: 12/11/17 14:43 Dose: 650 mg Al Hydrox/Mg Hydrox/Simethicone (Maalox Plus*) 30 ml PO Q4H PRN PRN Reason: INDIGESTION Atorvastatin Calcium (Lipitor*) 20 mg PO DAILY [facility] Last Admin: 12/13/17 09:02 Dose: 20 mg Ciprofloxacin (Cipro Tab*) 500 mg PO BID [facility] Last Admin: 12/13/17 09:03 Dose: 500 mg Dicyclomine HCl (Bentyl Cap*) 10 mg PO BID [facility] Last Admin: 12/13/17 09:02 Dose: 10 mg Gabapentin (Neurontin Cap(*)) 300 mg PO TID [facility] Last Admin: 12/13/17 09:03 Dose: 300 mg Levothyroxine Sodium (Synthroid Tab*) 25 mcg PO DAILY@0600 [facility] Last Admin: 12/13/17 09:04 Dose: 25 mcg [place] Carbonate ([place] Carbonate Er (Nf)) 600 mg PO BEDTIME [facility] Last Admin: 12/12/17 20:13 Dose: 600 mg Lurasidone HCl (Latuda) 20 mg PO 1700 [facility] Last Admin: 12/12/17 16:56 Dose: 20 mg Multivitamins (Theragran Tab*) 1 tab PO DAILY [facility] Last Admin: 12/13/17 09:05 Dose: 1 tab Phenazopyridine HCl (Pyridium Tab*) 100 mg PO TID [facility] Last Admin: 12/13/17 09:05 Dose: 100 mg Propranolol HCl (Inderal Tab*) 10 mg PO TID [facility] Last Admin: 12/13/17 09:05 Dose: 10 mg - Discharge Plan Discharge Plan: Outpatient Follow Up Additional Comments: [place] will be increased to 600 mg. Discharge planning will work on increasing supports outpatient. Veronique will stay until early next week as she continues to threaten to take a bottle of Dilaudid that she confiscated from her daughter when her daughter was threatening an overdose. This threat will be reduced/ eliminated with the removal of the bottle of medication. Veronique will attempt to have her friend remove the bottle. This friend is also a potential new support once Veronique is discharged. Her daughter and son-in-law are out of town this week, and their return will promise additional support. A visiting nurse service is scheduled to begin working with Veronique upon discharge. her therapist will also see her rapidly after discharge. We are going to start Wellbutrin XL 150 mg to target the lack of caty and lack of energy that veronique feels.
[2017-12-13] MEDS: BuPROPion XL* 150 MG TAB.XL PO SCH (15:52)
[2017-12-13] MEDS: LURASIDONE 20 MG PO SCH (17:00)
[2017-12-13] MEDS: Acetaminophen TAB* 325 MG PO PRN (19:13)
[2017-12-13] MEDS: CMC:Lithium Carbonate ER (NF) 300 MG TAB.ER PO SCH (20:16)
[2017-12-14] MEDS: Ciprofloxacin TAB* 500 MG PO SCH ×2 (08:27→20:11)
[2017-12-14] MEDS: Propranolol TAB* 10 MG PO SCH ×3 (08:27→20:13)
[2017-12-14] MEDS: Gabapentin CAP(*) 300 MG PO SCH ×3 (08:27→20:10)
[2017-12-14] MEDS: Levothyroxine TAB* 25 MCG TAB PO SCH (08:28)
[2017-12-14] MEDS: BuPROPion XL* 150 MG TAB.XL PO SCH (08:28)
[2017-12-14] MEDS: Phenazopyridine TAB* 100 MG PO SCH ×3 (08:28→20:12)
[2017-12-14] MEDS: Vitamin THERAPEUTIC TAB PO SCH (08:28)
[2017-12-14] MEDS: Atorvastatin* 20 MG TAB PO SCH (08:29)
[2017-12-14] MEDS: Dicyclomine CAP* 10 MG PO SCH ×2 (08:29→20:11)
--- NOTE | 2017-12-14 11:42 | PN ---
MHU: Group Therapy Note - Service Type Service Type: [id number] Group Psychotherapy - Cognitive Behavioral Group Therapy ( CBT):Patient was attentive and participatory in CBT programming this morning, and remained in good behavioral control. Patient expressed positive insights regarding relevant treatment interventions and goals.
--- NOTE | 2017-12-14 16:34 | PN ---
Subjective - Subjective Date of Service: 12/14/17 Service Type: 44916 Hosp care 15 min low complexity Subjective: Veronique reports feeling afraid to go home because of her temptation to overdose. She also is not feeling less depressed. She is, however, taking care of her personal hygiene and is wearing clean clothes and has clean hair. She has been started on Wellbutrin and she is quite hopeful that this will be the solution to her problems. Objective - Appearance Appearance: Healthy Appearing, Obese Dysmorphic Features: No Hygiene: Normal Grooming: Fairly Well Kept - Behavior Psychomotor Activities: Abnormal-Increased Exhibits Abnormal Movement: Yes - Attitude and Relatedness Attitude and Relatedness: Needy Eye Contact: Good - Speech Quality: Unpressured Latencies: Normal Quantity: Appropriate - Mood Patient's Decription of Mood: "Okay" - Affect Observed Affect: Fair Affect Consistent with: Dysphoria - Thought Process Patient's Thought Process: Coherent, Goal Directed Thought Content: Yes Passive Wish, Yes Suicidal Planning, No Homicidal Ideation, No Paranoid Ideation - Sensorium Experiencing Hallucinations: No, Sensorium is Clear Type of Hallucinations: Visual: No, Auditory: No, Command: No - Level of Consciousness Level of Consciousness: Alert Orientation: Yes Intact, Yes Orientated to Time, Yes Orientated to Place, Yes Orientated to Person - Impulse Control Impulse Control: Tenuous - Insight and Judgement Insight and Judgement: Good - Group Participation Particating in Group Activities: Yes - Medication Management Medication Management Adherence: Yes - Additional Observations Comments: Veronique appears more well put together. Her appearance is a point of pride for her and she working hard to return to the time when her daughter thought she smelled of roses. She remains depressed with a desire to , but is also desiring to live now that she has more to live for (a new friend at her place of living who is feeding her dove). She is eager to comply with recommendations. Assessment - Assessment Merits Inpatient Hospitalization: For Immediate Safety, For Discharge Planning Inpatient DSM-V Dx: F31.30 Clinical Impression: Veronique appears to be suffering from increased depression, despite medication changes made at her last admission. This lack of insulation against disconcerting events will be a focus of her treatment. She remains depressed and is thinking about the Dilaudid at home, but her risk for suicide would be precipitously reduced if that medication were removed. Veronique is very hopeful that her life will improve with a change in medication. Her depression seems to be lifting in this environment, as well. Plan - Plan Treatment Plan: Name: VERONIQUE THOMAS Birthdate: 1950 [id number] Continued Medication Management: Different Medication Medications: Current Medications Acetaminophen (Tylenol Tab*) 650 mg PO Q4H PRN PRN Reason: PAIN or TEMP > 101 F Last Admin: 12/13/17 19:13 Dose: 650 mg Al Hydrox/Mg Hydrox/Simethicone (Maalox Plus*) 30 ml PO Q4H PRN PRN Reason: INDIGESTION Atorvastatin Calcium (Lipitor*) 20 mg PO DAILY [facility] Last Admin: 12/14/17 08:29 Dose: 20 mg Bupropion HCl (Wellbutrin Xl *) 150 mg PO DAILY [facility]; Protocol Last Admin: 12/14/17 08:28 Dose: 150 mg Ciprofloxacin (Cipro Tab*) 500 mg PO BID [facility] Last Admin: 12/14/17 08:27 Dose: 500 mg Dicyclomine HCl (Bentyl Cap*) 10 mg PO BID [facility] Last Admin: 12/14/17 08:29 Dose: 10 mg Gabapentin (Neurontin Cap(*)) 300 mg PO TID [facility] Last Admin: 12/14/17 14:58 Dose: 300 mg Levothyroxine Sodium (Synthroid Tab*) 25 mcg PO DAILY@0600 [facility] Last Admin: 12/14/17 08:28 Dose: 25 mcg [place] Carbonate ([place] Carbonate Er (Nf)) 600 mg PO BEDTIME [facility] Last Admin: 12/13/17 20:16 Dose: 600 mg Lurasidone HCl (Latuda) 20 mg PO 1700 [facility] Last Admin: 12/13/17 17:00 Dose: 20 mg Multivitamins (Theragran Tab*) 1 tab PO DAILY [facility] Last Admin: 12/14/17 08:28 Dose: 1 tab Phenazopyridine HCl (Pyridium Tab*) 100 mg PO TID [facility] Last Admin: 12/14/17 14:58 Dose: 100 mg Propranolol HCl (Inderal Tab*) 10 mg PO TID [facility] Last Admin: 12/14/17 14:57 Dose: 10 mg - Discharge Plan Discharge Plan: Outpatient Follow Up Additional Comments: [place] will be increased to 600 mg. Discharge planning will work on increasing supports outpatient. Veronique will stay until early next week as she continues to threaten to take a bottle of Dilaudid that she confiscated from her daughter when her daughter was threatening an overdose. This threat will be reduced/ eliminated with the removal of the bottle of medication. Veronique will attempt to have her friend remove the bottle. This friend is also a potential new support once Veronique is discharged. Her daughter and son-in-law are out of town this week, and their return will promise additional support. A visiting nurse service is scheduled to begin working with Veronique upon discharge. her therapist will also see her rapidly after discharge. We are going to start Wellbutrin XL 150 mg to target the lack of caty and lack of energy that veronique feels. In the meantime, however, she is encouraged to continue her regimen of caring for herself and continuing to go to groups. [place] level will be scheduled for today or tomorrow.
[2017-12-14] MEDS: LURASIDONE 20 MG PO SCH (17:35)
[2017-12-14] MEDS: CMC:Lithium Carbonate ER (NF) 300 MG TAB.ER PO SCH (20:12)
[2017-12-15] MEDS: Phenazopyridine TAB* 100 MG PO SCH (11:09)
[2017-12-15] MEDS: Ciprofloxacin TAB* 500 MG PO SCH (11:09)
[2017-12-15] MEDS: Propranolol TAB* 10 MG PO SCH ×3 (11:09→20:14)
[2017-12-15] MEDS: Vitamin THERAPEUTIC TAB PO SCH (11:10)
[2017-12-15] MEDS: Gabapentin CAP(*) 300 MG PO SCH ×3 (11:10→20:13)
[2017-12-15] MEDS: BuPROPion XL* 150 MG TAB.XL PO SCH (11:10)
[2017-12-15] MEDS: Atorvastatin* 20 MG TAB PO SCH (11:10)
[2017-12-15] MEDS: Dicyclomine CAP* 10 MG PO SCH ×2 (11:11→20:13)
[2017-12-15] MEDS: Levothyroxine TAB* 25 MCG TAB PO SCH (11:11)
--- NOTE | 2017-12-15 13:25 | PN ---
Subjective - Subjective Date of Service: 12/15/17 Service Type: 19545 Hosp care 25 min moderate complexity Subjective: Veronique is doing well today. She is looking forward to being more stable at home and is looking forward to utilizing the help we can offer her. She is eager to hear plans for the future. We discuss pitfalls and possible ways to build structures that will allow her to feel successful and keep her occupied. Objective - Appearance Appearance: Healthy Appearing, Obese Dysmorphic Features: No Hygiene: Normal Grooming: Fairly Well Kept - Behavior Psychomotor Activities: Abnormal-Increased Exhibits Abnormal Movement: Yes - Attitude and Relatedness Attitude and Relatedness: Well Related Eye Contact: Good - Speech Quality: Unpressured Latencies: Normal Quantity: Appropriate - Mood Patient's Decription of Mood: "Good" - Affect Observed Affect: Good Affect Consistent with: Euthymia - Thought Process Patient's Thought Process: Coherent Thought Content: Yes Passive Wish, Yes Suicidal Planning, No Homicidal Ideation, No Paranoid Ideation - Sensorium Experiencing Hallucinations: No, Sensorium is Clear Type of Hallucinations: Visual: No, Auditory: No, Command: No - Level of Consciousness Level of Consciousness: Alert Orientation: Yes Intact, Yes Orientated to Time, Yes Orientated to Place, Yes Orientated to Person - Impulse Control Impulse Control: Tenuous - Insight and Judgement Insight and Judgement: Good - Group Participation Particating in Group Activities: Yes - Medication Management Medication Management Adherence: Yes - Additional Observations Comments: Veronique appears more well put together. Her appearance is a point of pride for her and she is also desiring to live now that she has more to live for (a new friend at her place of living who is feeding her dove). She is eager to comply with recommendations. She is relying on the outside influence of others to keep her safe, in some ways. Assessment - Assessment Merits Inpatient Hospitalization: For Immediate Safety Inpatient DSM-V Dx: F31.30 Clinical Impression: Veronique appears to be suffering from increased depression, despite medication changes made at her last admission. This lack of insulation against disconcerting events will be a focus of her treatment. She remains depressed and is thinking about the Dilaudid at home, but her risk for suicide would be precipitously reduced if that medication were removed. Veronique is very hopeful that her life will improve with a change in medication. Her depression seems to be lifting in this environment, as well. Veronique is more comfortable now and is feeling hopeful that discharge will be comfortable. Plan - Plan Treatment Plan: Name: VERONIUQE THOMAS Birthdate: 1950 [id number] Medications: Current Medications Acetaminophen (Tylenol Tab*) 650 mg PO Q4H PRN PRN Reason: PAIN or TEMP > 101 F Last Admin: 12/13/17 19:13 Dose: 650 mg Al Hydrox/Mg Hydrox/Simethicone (Maalox Plus*) 30 ml PO Q4H PRN PRN Reason: INDIGESTION Atorvastatin Calcium (Lipitor*) 20 mg PO DAILY [facility] Last Admin: 12/15/17 11:10 Dose: 20 mg Bupropion HCl (Wellbutrin Xl *) 150 mg PO DAILY [facility]; Protocol Last Admin: 12/15/17 11:10 Dose: 150 mg Dicyclomine HCl (Bentyl Cap*) 10 mg PO BID [facility] Last Admin: 12/15/17 11:11 Dose: 10 mg Gabapentin (Neurontin Cap(*)) 300 mg PO TID [facility] Last Admin: 12/15/17 11:10 Dose: 300 mg Levothyroxine Sodium (Synthroid Tab*) 25 mcg PO DAILY@0600 [facility] Last Admin: 12/15/17 11:11 Dose: 25 mcg [place] Carbonate ([place] Carbonate Er (Nf)) 600 mg PO BEDTIME [facility] Last Admin: 12/14/17 20:12 Dose: 600 mg Lurasidone HCl (Latuda) 20 mg PO 1700 [facility] Last Admin: 12/14/17 17:35 Dose: 20 mg Multivitamins (Theragran Tab*) 1 tab PO DAILY [facility] Last Admin: 12/15/17 11:10 Dose: 1 tab Propranolol HCl (Inderal Tab*) 10 mg PO TID [facility] Last Admin: 12/15/17 11:09 Dose: 10 mg - Discharge Plan Discharge Plan: Outpatient Follow Up Additional Comments: [place] will be increased to 600 mg. Discharge planning will work on increasing supports outpatient. Veronique will stay until early next week as she continues to threaten to take a bottle of Dilaudid that she confiscated from her daughter when her daughter was threatening an overdose. This threat will be reduced/ eliminated with the removal of the bottle of medication. Veronique will attempt to have her friend remove the bottle. This friend is also a potential new support once Veronique is discharged. Her daughter and son-in-law are out of town this week, and their return will promise additional support. A visiting nurse service is scheduled to begin working with Veronique upon discharge. her therapist will also see her rapidly after discharge. We are going to start Wellbutrin XL 150 mg to target the lack of caty and lack of energy that veronique feels. In the meantime, however, she is encouraged to continue her regimen of caring for herself and continuing to go to groups. [place] level will be scheduled for the in the morning. Veronqiue will be discharged on December 16 (tomorrow) following a blood draw and a meeting with the service that has visiting nurses associated with it.
--- NOTE | 2017-12-15 17:38 | PN ---
MHU: Group Therapy Note - Service Type Service Type: [id number] Group Psychotherapy - Group Participation Patient Participating in Group: Yes Level of Group Participation: Attentive Relatedness to Group: Other - Additional Group Comments Group Comments: Medication Education Group: Patient attended group and presented with flat affect that did not vary with discussion. Although responsive to direct prompts to respond to questions, patient did not engage in spontaneous conversation.
[2017-12-15] MEDS: LURASIDONE 20 MG PO SCH (17:40)
[2017-12-15] MEDS: CMC:Lithium Carbonate ER (NF) 300 MG TAB.ER PO SCH (20:13)
[2017-12-16] MEDS: Levothyroxine TAB* 25 MCG TAB PO SCH (06:03)
[2017-12-16] MEDS: BuPROPion XL* 150 MG TAB.XL PO SCH (08:26)
[2017-12-16] MEDS: Vitamin THERAPEUTIC TAB PO SCH (08:26)
[2017-12-16] MEDS: Propranolol TAB* 10 MG PO SCH (08:26)
[2017-12-16] MEDS: Gabapentin CAP(*) 300 MG PO SCH (08:26)
[2017-12-16] MEDS: Atorvastatin* 20 MG TAB PO SCH (08:26)
[2017-12-16] MEDS: Dicyclomine CAP* 10 MG PO SCH (08:27)
[2017-12-16 08:34] VITALS: BP 126/57
--- NOTE | 2017-12-18 09:08 | DS ---
DISCHARGE SUMMARY: DATE OF ADMISSION: 12/07/17 DATE OF DISCHARGE: 12/16/17 PROVIDER: Christianne Fraga NP, Psychiatry. SUPERVISING PHYSICIAN: Ganga Falcon M.D.* (DICTATED BY CHRISTIANNE FRAGA NP) DIAGNOSIS: [place] I: Bipolar 1 disorder, current episode depressed, severe. CONDITION AT THE TIME OF DISCHARGE: Improved. Psychiatrically cleared, stable. Participated in groups. Social with peers. Her daughter and son-in- law were agreeable to her discharge as was the nurses' service that will be following her. She has done well here psychiatrically. She tolerated medication changes well, and she will be attending [facility]. MENTAL STATUS EXAMINATION: At the time of discharge, Veronique is calm, cooperative , and makes good eye contact. She is alert and oriented x3. Her grooming is good. Her speech pace is normal. Her thought processes are logical. She is not psychotic, not delusional. She denies AH, VH, SI, and HI. Her insight and judgment are fair to good. She is willing to follow up. DISCHARGE INSTRUCTIONS TO THE PATIENT: A. Medication changes that were instituted were to add: 1. Bupropion XL 150 mg. 2. Increase lithium to 600 mg at bedtime. Other medications included: 1. Atorvastatin 20 mg. 2. Dicyclomine 10 mg b.i.d. 3. Gabapentin 300 mg t.i.d. 4. Levothyroxine 25 mcg daily. 5. Lurasidone 20 mg at mealtime. 6. Propranolol 10 mg t.i.d. B. Diet: Regular. C. Activities: As tolerated. She is a nonsmoker. There are no studies pending at the time of discharge. D. Followup Care: She has appointments at [facility], with [facility], and Vin Reyna, her primary care provider. E. Substance abuse followup: Not indicated. HOSPITAL COURSE: Part A. Chief complaint: "My brain feels frazzled." The patient is a 67-year-old single white woman with a history of bipolar disorder, who brought herself twice to the ED and was admitted the second time. She overdosed on gabapentin by taking 6 tablets 2 days ago of 300 mg gabapentin. She was recently admitted here on 11/02/17, and stayed about a week. At that point upon discharge, she was happy , energetic, had made lots of plans for how to feel better including becoming more social and exercising. She states that she has socialized. She has lunch with her neighbors. She plays bingo on Wednesday and she does coloring group on evening. Nevertheless, she has feelings of emptiness and unhappiness. This has been going on for a couple of weeks. She states she recently got upset with her daughter because her daughter said that she was not allowed to come to her grandson's Pre-K open house due to her hygiene. Veronique has tried to make up with her daughter since then, but has had a hard time forgiving her stating it is not appropriate to use her grandson as leverage. She has what she called a plan B of taking a bottle of Dilaudid that is in her medicine cabinet. She states she does not have a plan A. She is using this in a somewhat threatening manner that if she is discharged that is what she will do when she goes home. She feels as though she is having a "chemical imbalance" and she feels that as though medication is what needs to change. I discussed with her being discharged today and that is when she said she would simply take an overdose. She is a bit angry with her daughter. She did have a conversation with her son-in-law, who said that he would give her a message to her daughter. Her energy level is low. It appears that the tardive dyskinesia in her lips has become less intense, although she states it does not feel that way to her and she is having suicidal ideation. Part B. Psychiatric treatment was rendered. Veronique was admitted to the adult behavioral unit and placed on 15-minute checks. She was depressed throughout her stay and did not perk up as she did for her last admission. Her lithium was increased from 300 mg to 600 mg and her lithium level was taken later in her stay and it was 0.78. She also reported a lack of motivation and continued distress. We started Wellbutrin XL 150 to target that. She continues in groups. She made up with her daughter. She is now able to see her grandson. She has plans to make a new friend who offered to help her when she was being taken by ambulance to the hospital. Her hygiene improved significantly. She is wearing clean clothes and has clean hair throughout much of her stay. The Dilaudid problem has been taken care of either by her son-in-law who may have entered the apartment and taken the bottle or by her new friend, who is picking her up and bringing her home who went into her home and could not find it in the place where Veronique said it would be. In any case, the visiting nurse is going to go through all of her old medications and remove them the day after her discharge. Veronique did meet with the visiting nurse on the day of her discharge to get a warm handoff to that service. She is taking a low dose of Latuda, despite tardive dyskinesia symptoms. Her hemoglobin A1c is 6.1%. Her triglycerides are 301, cholesterol is 174. LDL cholesterol is 70, HDL cholesterol is 44.1. She is much improved. She remains depressed, but less so. She has much more hope going forward. She feels less guilty. Her energy has improved and she is beginning to take part in her appearance once again. She is not having suicidal ideation at this time and relates a positive plan for what she will do in case that is happening. She is being discharged to her home with the care noted in part D of the discharge instructions to the patient. CHRISTIANNE FRAGA, DIMPLE [id number]/CPS #: [id number] [id number]
== END 2017-12-16 12:47 | disposition home or self-care (01) | DRG 885 ==
LOC: ED 10:39 → BSU 16:51
PROVIDERS: ADMIT Psychiatry & Neurology Psychiatry; ATTEND Psychiatry & Neurology Psychiatry
PROC: GZHZZZZ Group Psychotherapy (ICD-10-PCS; principal; 2017-12-14)
DX: F31.4 Bipolar disorder, current episode depressed, severe, without psychotic features (principal); E66.9 Obesity, unspecified; T42.6X2A Poisoning by other antiepileptic and sedative-hypnotic drugs, intentional self-harm, initial encounter; G43.909 Migraine, unspecified, not intractable, without status migrainosus; F41.9 Anxiety disorder, unspecified; Z90.710 Acquired absence of both cervix and uterus; Z98.51 Tubal ligation status; Z83.3 Family history of diabetes mellitus; Z91.5 Personal history of self-harm; Z88.6 Allergy status to analgesic agent; Z88.0 Allergy status to penicillin; Z88.8 Allergy status to other drugs, medicaments and biological substances; Z68.38 Body mass index [BMI] 38.0-38.9, adult; Y92.009 Unspecified place in unspecified non-institutional (private) residence as the place of occurrence of the external cause
CPT/HCPCS: 36415; 80178; 90686; 90732; 90853; 99222; 99231; 99232; 99238; 99284; A9270-GY

== ENCOUNTER → 2018-12-03 | Emergency (ER) | payer MEDICARE ==
--- OUTSIDE RECORDS SUMMARY | 2018-12-03 13:55 | XMS REPORT ---
:[address] 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 70010803963472201 age-related cataract, bilateral Problem Stage 3 chronic N18.3 Active 165180470 kidney disease Problem Osteopenia of M85.851 Active 285715833 right hip Problem Hypothyroidism, E03.9 Active 99423762 unspecified type Problem Irritable bowel K58.0 Active 456497109 syndrome with diarrhea Problem Sleep apnea in G47.30 Active 05864221 adult Problem Hyperlipidemia, E78.5 Active 96456426 unspecified hyperlipidemia type Problem Obesity (BMI E66.9 Active 847039151 35.0-39.9 without comorbidity) Problem BMI Z68.36 Active 902837084 36.0-36.9,adult ALLERGIES Substance Reaction Event Type Date Status Highly anti-cholinergic agents Unknown Non Drug Allergy Nov, Active muscle relaxants Unknown Non Drug Allergy Nov, Active Benzodiazepines Unknown Non Drug Allergy Nov, Active Compazine muscle cramps Drug Allergy Nov, Active Penicillin bipolar Drug Allergy Nov, Active Oxycodone HCl Unknown Drug Allergy Nov, Active ENCOUNTERS Encounter Location Date Diagnosis [facility] [address] [place] [address], [place] [address], Nov, Bipolar 1 disorder F31.9 ; [place] [address] Osteopenia of right hip M85.851 ; Hypothyroidism, unspecified type E03.9 ; Hyperlipidemia, unspecified hyperlipidemia type E78.5 ; Urinary frequency R35.0 ; Acute pain of right knee M25.561 and Encounter for immunization Z23 [place] [address] [place], [place] [address] [place], Oct, [place] R35.0 [place] [address] [place] [address] [place], [place] [address] [place] [address] [place], [place] [address] [place], Sep, [place] [address] hematuria N30.00 ; Acute non-recurrent frontal sinusitis J01.10 ; Screening for breast cancer Z12.31 and Screening for osteoporosis Z13.[address] [place], [place] [address] [place], August, [place] [address] sinusitis J01.10 and Dysuria R30.[address] [place], [place] [address] [place], [place] [address] [place], [place], Cough R05 ; [place] [address] disorder F31.9 ; Stage 3 chronic kidney disease N18.3 and Hyperlipidemia, unspecified hyperlipidemia type E78.[address] [place], Jul, Cough R05 [place] [address] immunization Z23 [place] [address] [place], Jun, [place] [address] [facility] [address] [place], [place] [address] [place] [address] [place], Jun, Bipolar 1 disorder F31.9 ; [place] [address] Hyperlipidemia, unspecified hyperlipidemia type E78.5 and Cough R05 [place] [address] [place], [place] [address] [place] [address] [place], Feb, Dysuria R30.0 [place] [address] for hepatitis C screening test for low risk patient Z11.[address] Jan, [place] [address] [place], [place] [address] [place], Jan, Bipolar 1 disorder F31.9 ; [place] [address] Pre-diabetes R73.03 ; Elevated serum creatinine R79.89 ; Dysuria R30.0 and Hyperlipidemia, unspecified hyperlipidemia type E78.[address] Jan, [place] [address] [place], Dec, [place] [address] R79.89 and [place] use Z79.[address] [place], Dec, Bipolar 1 disorder F31.9 ; [place] [address] Screening for breast cancer Z12.31 ; BMI 36.0-36.9,adult Z68.36 ; Obesity (BMI 35.0-39.9 without comorbidity) E66.9 and Hypothyroidism, unspecified type E03.[address] [place], [place] [address] Dec, [place] [address] Oct, [facility] [place], [place] [address] [facility] Business Office [address] [place], [place] [address] [place], Jul, [place] [address] sinusitis J01.10 ; Screening for breast cancer Z12.31 ; Special screening for osteoporosis Z13.820 and Need for hepatitis C screening test Z11.[address] Jul, [place] [address] [place], [place] [address] [place], [place], Pre-diabetes R73.03 ; [place] [address] Bipolar 1 disorder F31.9 ; Hypertension I10 ; Hyperlipidemia, unspecified hyperlipidemia type E78.5 and Sleep apnea in adult G47.[address] Apr, [place] [address] [place] [facility] [address] [place], [place] [address] [place] [facility] [address] [place], Apr, [place] [address] [place] [facility] [address] [place], [place] [address] [facility] [address] [place], Cough R05 [place] [address] [place] [facility] [address] [place], [place] [address] [place] [facility] [address] [place], Apr, [place] [address] G47.20 [place] [facility] [address] [place], [place] [address] [place] [facility] [address] [place], [place] [address] [place] [facility] [address] [place], [place] [address] [place] [facility] [address] [place], [place] [address] [place] [facility] [address] [place], Apr, [place] [address] contractions M62.40 and Hypertension I10 [place] [facility] [address] [place], [place] [address] [place] [facility] [address] [place], [place], [place] [address] extremities M62.838 [place] [facility] [address] [place], [place] [address] [facility] [address] Nov, [place] [address] [place] [facility] [address] [place], [place] [address] [place] [facility] [address] [place], Sep, [place], [place] [address] etiology J02.9 [place] [facility] [address] [place], [place] [address] [place] [facility] [address] [place], Jul, [place] R19.7 [place] [address] [place] [facility] [address] [place], [place] [address] [place] [facility] [address] [place], [place] [address] [place] [facility] [address] [place], Jul, [place] K52.9 [place] [address] [place] [facility] [address] [place], [place] [address] [facility] [address] [place] [address] [place], [place] [address] [place], [place], B[place] 296.[address] [place] [address] [place], Jan, Other eczema L30.8 ; [place] [address] lesion L98.9 and Chronic sinusitis, unspecified location J32.[address] [place], [place] [address] [place], [place] [address] [place], [place] [address] [place], Jun, Abdominal pain 789.00 ; [place] [address] Elevated blood pressure 796.2 and Hematuria [address] [place], Jan, Bipolar 1 disorder 296.7 ; [place] [address] Sinusitis 473.9 ; Vertigo 780.4 and Neck pain 723.[address] [place], Dec, Sinusitis 473.9 [place] [address] IMMUNIZATIONS Vaccine Route Administration Date Status [facility] Adult Pneumovax 23 Valent vial IM Intramuscular Nov 03, 2018 Administered SOCIAL HISTORY Never Assessed REASON FOR REFERRAL FUNCTIONAL STATUS PLAN OF CARE Activity Details Follow Up 4-6 weeks Reason:Knee follow up Pending Test X ray : Knee, right VITAL SIGNS Temperature 98.2 degrees Fahrenheit 2018-11-03 Heart Rate 18 2018-11-03 Weight 206.4 2018-11-03 Height 62 in 2018-11-03 BMI 37.75 kg/m2 2018-11-03 Oximetry 97 % 2018-11-03 Blood pressure systolic 124 mm Hg 2018-11-03 Blood pressure diastolic 80 mm Hg 2018-11-03 MEDICATIONS Medication Instructions Dosage Frequency Start End Duration Status Date Atorvastatin Orally Once a 1 tablet 24h Active Calcium 20 mg day Dicyclomine HCl p.o. bid 1 cap(s) 12h Active 10 mg Wellbutrin XL 100 Orally Once a 1 tablet in 24h Dec, Active mg day the morning 2017 Latuda 20 mg Orally Once a 1 tablet 24h Active day with food Levothyroxine Orally Once a 1 tablet on 24h Active Sodium 25 MCG day an empty stomach in the morning Gabapentin 600 MG Orally 3 times a 1 capsule 8h Active day Propranolol HCl Orally tid 1 tablet 8h Dec, Active 10 mg 2017 [place] Carbonate Orally Once a 2 capsule 24h Dec, Active 300 MG day at bedtime 2017 BusPIRone HCl 10 Orally three 1 tablet 8h Active mg times a day Ventolin HFA 108 Inhalation every 2 puffs as 6h 27 Jun, 30 days Active (90 Base) MCG/ACT 6 hrs needed 2018 PROCEDURES Procedure Date Ordered Result Body Site Vaccine Administration Nov 03, 2018 Admin Pneumococcal Medicare Only Nov 03, 2018 [facility] Adult Pneumovax 23 Valent vial Nov 03, 2018 BODY MASS INDEX DOCD Nov 03, 2018 SMOKING + 2ND HAND ASSESSED Nov 03, 2018 Oxygen saturation results documented and reviewed Nov 03, 2018 Brief emotional/behavioral assessment Nov 03, 2018 BLOOD PRESSURE, MEASURED Nov 03, 2018 RESULTS No Results REASON FOR VISIT Wellness Physical/Lipid follow up, PVP: Pneumovax - BL offer imms. MPT, Request recent psychiatry notes. MPT, PHQ 9. MPT, Previsit planning: Cage screening, offer HIV/STI testing, Gone to GI- is due for Colonosocopy, , Patient is having colonoscopy the 21 of november. Patient declines HIV/STI. Insurance Providers [facility] Health Member Patient Patient Patient Patient Patient Subscriber Subscriber Subscriber Group Insurance Plan Plan Plan Plan ID Relationship Address Phone Name Date of ID Name Date of No Type Insurance Insurance Insurance Coverage to Subscriber Address Phone Name Dates Case [phone] Case self [place] [id number] Management [place] [address] [id number] [facility] Case [phone] Case self [place]onique [id number] Management [place] [address] [id number] [facility] Excellus [phone] Excellus self [place] [id number] Medicare [id number] Medicare [place] 7 Adv [facility] [place] [facility] [id number] Medicare National [id number] Medicare self [place] [id number] PPS [facility] 41 PPS [facility] [address] [facility] [id number] MEDICAL (GENERAL) HISTORY Type Description Date Medical History bipolar Medical History tardive dyskenestia Medical History Bipolar disorder Medical History Bipolar disorder Surgical History bladder surgey Surgical History hysterectomy Surgical History tubal ligation Surgical History surgery on left foot Surgical History revision of left tib/fib fractures Surgical History Right eye cataract removal 05/2016 Surgical History Left eye cataract removal 07/2016 Hospitalization History see above Hospitalization History bipolar episodes Hospitalization History [facility] 01/2013 Hospitalization History Suicideal ideation 12/2017
--- OUTSIDE RECORDS SUMMARY | 2018-12-03 13:55 | XMS REPORT ---
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 30789974630036380 age-related cataract, bilateral Problem Osteopenia of M85.851 Active 764291050 right hip Problem Irritable bowel K58.0 Active 450879244 syndrome with diarrhea Problem Bipolar 1 disorder F31.9 Active 331914399 Problem Sleep apnea in G47.30 Active 89474373 adult Problem Hyperlipidemia, E78.5 Active 55530324 unspecified hyperlipidemia type Problem [place] M17.11 Active 467164008 osteoarthritis of right knee Problem Involuntary muscle M62.40 Active 978906266 contractions Problem Primary M17.11 Active 985178497346570 osteoarthritis of right knee Problem Hypertension I10 Active 18095841 Problem Obesity (BMI E66.9 Active 592109122 35.0-39.9 without comorbidity) Problem BMI Z68.36 Active 560436785 36.0-36.9,adult Problem Stage 3 chronic N18.3 Active 842069456 kidney disease Problem Hypothyroidism, E03.9 Active 40002449 unspecified type ALLERGIES No Information ENCOUNTERS Encounter Location Date Diagnosis [facility] [address] [place] [address], [place] [address], [place], [place] [address] osteoarthritis of right knee M17.11 [facility] [address] [facility], Nov, Bipolar 1 disorder F31.9 ; [place] [address] Osteopenia of right hip M85.851 ; Hypothyroidism, unspecified type E03.9 ; Hyperlipidemia, unspecified hyperlipidemia type E78.5 ; Urinary frequency R35.0 ; Acute pain of right knee M25.561 and Encounter for immunization Z23 [place] [address] [place], [place] [address] [place], Oct, [place] R35.0 [place] [address] [place], [place] [address] [place], [place] [address] [place], Sep, [place] [address] hematuria N30.00 ; Acute non-recurrent frontal sinusitis J01.10 ; Screening for breast cancer Z12.31 and Screening for osteoporosis Z13.[address] [place], [place] [address] [place], [place], [place] [address] sinusitis J01.10 and Dysuria R30.[address] [place], [place] [address] [place], [place] [address] [place], [place], Cough R05 ; [place] [address] disorder F31.9 ; Stage 3 chronic kidney disease N18.3 and Hyperlipidemia, unspecified hyperlipidemia type E78.[address] [place], Jul, Cough R05 [place] [address] immunization Z23 [address] [place], Jun, [place] [address] [facility] [address] [place], [place] [address] [place], Jun, Bipolar 1 disorder F31.9 ; [place] [address] Hyperlipidemia, unspecified hyperlipidemia type E78.5 and Cough R05 [address] [place], [place] [address] [place], Feb, Dysuria R30.0 [place] [address] for hepatitis C screening test for low risk patient Z11.[address] [place] [address] Jan, [place] [address] [place], [place] [address] [place], Jan, Bipolar 1 disorder F31.9 ; [place] [address] Pre-diabetes R73.03 ; Elevated serum creatinine R79.89 ; Dysuria R30.0 and Hyperlipidemia, unspecified hyperlipidemia type E78.[address] Jan, [place] [address] [place], Dec, [place] [address] R79.89 and [place] use Z79.[address] [place], Dec, Bipolar 1 disorder F31.9 ; [place] [address] Screening for breast cancer Z12.31 ; BMI 36.0-36.9,adult Z68.36 ; Obesity (BMI 35.0-39.9 without comorbidity) E66.9 and Hypothyroidism, unspecified type E03.[address] [place], [place] [address] Dec, [place] [address] Oct, [facility] [place] [address] [facility] Business Office [address] [place], [place] [address] [place], Jul, [place] [address] sinusitis J01.10 ; Screening for breast cancer Z12.31 ; Special screening for osteoporosis Z13.820 and Need for hepatitis C screening test Z11.[address] Jul, [place] [address] [place], [place] [address] [place], [place], Pre-diabetes R73.03 ; [place] [address] Bipolar 1 disorder F31.9 ; Hypertension I10 ; Hyperlipidemia, unspecified hyperlipidemia type E78.5 and Sleep apnea in adult G47.[address] Apr, [place] [address] [place], [place] [address] [place] [facility] [address] [place], Apr, [place] [address] [place] [facility] [address] [place], [place] [address] [facility] [address] [place], Cough [address] [place] [address] [place] [facility] [address] [place], [place] [address] [place] [facility] [address] [place], Apr, [place] [address] G47.20 [place] [facility] [address] [place], [place] [address] [place] [facility] [address] [place], [place] [address] [place] [facility] [address] [place], [place] [address] [place] [facility] [address] [place], [place] [address] [place] [facility] [address] [place], Apr, [place] [address] contractions M62.40 and Hypertension I10 [place] [facility] [address] [place], [place] [address] [place] [facility] [address] [place], [place], [place] [address] extremities M62.838 [place] [facility] [address] [place], [place] [address] [facility] [address] [place], [place] [address] [place] [facility] [address] [place], [place] [address] [place] [facility] [address] [place], Sep, [place], [place] [address] etiology J02.9 [place] [facility] [address] [place], [place] [address] [place] [facility] [address] [place], Jul, [place]arrhea R19[place]7 [place] [address] [place] [facility] [address] [place], [place] [address] [place] [facility] [address] [place], [place] [address] [place] [facility] [address] [place], Jul, Chronic diarrhea K52.9 [place] [address] [place] [facility] [address] [place], [place] [address] [facility] [address] [facility] [place], [place] [address] [place], [place], Bipolar disorder 296.80 [place] [address] [place], Jan, Other eczema L30.8 ; [place] [address] lesion L98.9 and Chronic sinusitis, unspecified location J32.[address] [place] [address] [place], [place] [address] [place], [place] [address] [place], [place] [address] [place], Jun, Abdominal pain 789.00 ; [place] [address] Elevated blood pressure 796.2 and Hematuria [address] [place], Jan, Bipolar 1 disorder 296.7 ; [place] [address] Sinusitis 473.9 ; Vertigo 780.4 and Neck pain 723.[address] [place], Dec, Sinusitis 473.9 [place] [address] IMMUNIZATIONS No Known Immunizations SOCIAL HISTORY Never Assessed REASON FOR REFERRAL FUNCTIONAL STATUS PLAN OF CARE VITAL SIGNS MEDICATIONS Unknown Medications PROCEDURES No Known procedures RESULTS No Results REASON FOR VISIT Xray knee Insurance Providers [facility] Member Patient Patient Patient Patient Patient Subscriber Subscriber Subscriber Group Insurance Plan Plan Plan Plan ID Relationship Address Phone Name Date of ID Name Date of No Type Insurance Insurance Insurance Coverage to Subscriber Address Phone Name Dates [employer] [phone] [employer] self [place]ique [id number] Medicare [id number] Medicare Cirilo 7 Adv H[place] [facility] [address] Case [phone] Case self [place]ique [id number] Management [place] [address] Case [phone] Case self [place] [id number] Management [place] [address] [id number] [facility] Medicare [place] [phone] Medicare self [place]ique [id number] PPS Government 41 PPS [employer] [address] [facility] [id number] MEDICAL (GENERAL) HISTORY Type Description Date Medical [...] above Hospitalization History bipolar episodes Hospitalization History [facility] 01/2013 Hospitalization History Suicideal ideation 12/2017
--- NOTE | 2018-12-03 14:38 | ED ---
Syncope/Near Syncope - HPI Summary HPI Summary: This patient is a 68 year old female presenting to [facility] with a chief complaint of collapsing episodes over the last few weeks. She states her whole body starts shaking and then falls down onto the floor face first. She states that she does not lose consciousness during these episodes. She states her legs give out so she voluntarily goes to the floor so she does not hit her face. She states it happens once every couple of days and the most recent episode was yesterday. She states the shaking lasts 5-10 seconds before she falls. Medications reviewed. Allergies noted. She states her legs feels a little weak. She denies headache, visual changes, numbness/tingling. She denies chest pain, SOB, palpitations. Atorvastatin* [Lipitor 20 MG*] 20 mg PO DAILY tab 12/16/17 [Rx Confirmed ] Bupropion XL* [Wellbutrin XL *] 150 mg PO DAILY #30 tab 12/16/17 [Rx Confirmed 11/14/18] Dicyclomine CAP* [Bentyl CAP*] 10 mg PO BID cap 12/16/17 [Rx Confirmed 11/14/18 ] Gabapentin CAP(*) [Neurontin 300 CAP(*)] 300 mg PO TID cap 12/16/17 [Rx Confirmed 11/14/18] Levothyroxine TAB* [Synthroid 25 MCG TAB*] 25 mcg PO DAILY@0600 tab 12/16/17 [ Rx Confirmed 11/14/18] [place] Carbonate ER (NF) 600 mg PO BEDTIME #60 tab.er 12/16/17 [Rx Confirmed ] Lurasidone(*) [Latuda] 20 mg PO 1700 tab 12/16/17 [Rx Confirmed 11/14/18] Propranolol TAB* [Inderal TAB*] 10 mg PO TID tab 12/16/17 [Rx Confirmed ] Nitrofurantoin Monohyd/M-Cryst [Macrobid 100 mg Capsule] 100 mg PO DAILY [History Confirmed 11/14/18] - History Of Current Complaint Chief Complaint: EDGeneral Time Seen by Provider: 12/03/18 14:29 Hx Obtained From: Patient - f Onset/Duration: Lasting Weeks Timing: Intermittent Episode Lasting - Allergies/Home Medications Allergies/Adverse Reactions: Allergies Allergy/AdvReac Type Severity Reaction Status Date / Time oxycodone AdvReac Mild Altered Verified 12/06/17 17:57 Mental Status Penicillins AdvReac Mild See Comment Verified 12/06/17 17:57 prochlorperazine AdvReac Mild Muscle Ache Verified 12/06/17 17:57 [From Compazine] anticholinergic agents AdvReac Mild Altered Uncoded 12/06/17 17:57 Mental Status benzodiazepines AdvReac Mild Altered Uncoded 12/06/17 17:57 Mental Status first generation AdvReac Mild Altered Uncoded 12/06/17 17:57 antihistamines Mental Status muscle relaxants AdvReac Mild Altered Uncoded 12/06/17 17:57 Mental Status semi synthetic narcotics AdvReac Mild Altered Uncoded 12/06/17 17:57 Mental Status PMH/Surg Hx/FS Hx/Imm Hx Endocrine/Hematology History: Denies: Hx Diabetes Cardiovascular History: Denies: Hx Congestive Heart Failure, Hx Hypertension, Other Cardiovascular Problems/Disorders Respiratory History: Denies: Hx Asthma GI History: Denies: Other GI Disorders History: Reports: Other Problems/Disorders - current UTI Denies: Hx Renal Disease Sensory History: Reports: Hx Contacts or Glasses, Hx Hearing Problem - right ear has difficulty hearintg Denies: Hx Deafness, Hx Hearing Aid Opthamlomology History: Reports: Hx Contacts or Glasses Neurological History: Reports: Hx Migraine - 2 YRS AGO LAST ONE, Other Neuro Impairments/Disorders - BIPOLAR DISORDER Psychiatric History: Reports: Hx Anxiety, Hx Depression, Hx Inpatient Treatment , Hx Community Mental Health Tx, Hx Bipolar Disorder Denies: Hx Eating Disorder, Hx of Violent Episodes Against Others - Cancer History Cancer Type, Location and Year: None - Surgical History Surgery Procedure, Year, and Place: hysterectomy, 1994, [facility] left ankle r/t fx - pins/plates , bladder surgery for incontinence, 2011, [facility]. TUBAL LIGATION [place]. CARPAL TUNNEL RIGHT 03/1984, [facility]. Hx Anesthesia Reactions: No Infectious Disease History: No Infectious Disease History: Denies: Hx Clostridium Difficile, Hx Hepatitis, Hx Human Immunodeficiency Virus (HIV), Hx of Known/Suspected MRSA, Hx Shingles, Hx Tuberculosis, Hx Known/ Suspected VRE, Hx Known/Suspected VRSA, History Other Infectious Disease, Traveled Outside the [place] in Last 30 Days - Family History Known Family History: Positive: Diabetes Negative: Cardiac Disease, Hypertension - Social History Alcohol Use: None Substance Use Type: Reports: None Smoking Status (MU): Never Smoked Tobacco Have You Smoked in the Last Year: No Review of Systems Positive: Other - No visual changes Negative: Palpitations, Chest Pain Negative: Shortness Of Breath Positive: Weakness, Syncope - Collapsing episodes no LOC. . Negative: Headache , Numbness All Other Systems Reviewed And Are Negative: Yes Physical Exam - Summary Physical Exam Summary: Constitutional: Well-developed, Well-nourished, Alert. (-) Distressed Skin: Warm, Dry HENT: Normocephalic; Atraumatic Eyes: Conjunctiva normal Neck: Musculoskeletal ROM normal neck. (-) JVD, (-) Stridor, (-) Tracheal deviation Cardio: Rhythm regular, rate normal, Heart sounds normal; Intact distal pulses; The pedal pulses are 2+ and symmetric. Radial pulses are 2+ and symmetric. (-) Murmur Pulmonary/Chest wall: Effort normal. (-) Respiratory distress, (-) Wheezes, (-) Rales Abd: Soft. (-) Tenderness, (-) Distension, (-) Guarding, (-) Rebound Musculoskeletal: (-) Edema Lymph: (-) Cervical adenopathy Neuro: Alert, Oriented x3, Strength normal, Cranial nerves II-XII are grossly intact. (-) Dysmetria, (-) Nystagmus, (-) Ataxia by finger to nose testing, (-) Sensory deficit. Negative [place]. Able to ambulate without difficulty. During the encounter patient had a muscle jerk in her upper torso that lasted one second. Psych: Mood and affect Normal Triage Information Reviewed: Yes Vital Signs On Initial Exam: Initial Vitals Temp Pulse Resp BP Pulse Ox 97.4 F 73 18 141/67 98 12/03/18 13:48 12/03/18 13:48 12/03/18 13:48 12/03/18 13:48 12/03/18 13:48 Vital Signs Reviewed: Yes Diagnostics - Vital Signs Vital Signs Temp Pulse Resp BP Pulse Ox 12/03/18 13:48 97.4 F 73 18 141/67 98 - Laboratory Result Diagrams: 12/03/18 14:51 12/03/18 14:51 Lab Statement: Any lab studies that have been ordered have been reviewed, and results considered in the medical decision making process. - EKG 1458 Cardiac Rate: NL - 62 BPM EKG Rhythm: Sinus Rhythm Summary of EKG Findings: This is a normal EKG. Course/Dx Course Of Treatment: Patient is here with symptoms that are consistent with a myoclonic jerk. Patient had an episode while in the room and I believe this is the sensation she is feeling. Patient had her thyroid checked the normal levels. Patient has a creatinine 1.19 which is at her baseline per chart review. Patient has a normal lithium level but has been on lithium for near 40 years. Patient is likely suffering from myoclonic jerks secondary to her lithium. Neurology was called and they agree with this assessment. Patient was encouraged to call her psychiatrist as soon as possible to set an appointment for dose adjustment. - Diagnoses Provider Diagnoses: Myoclonic jerking - Physician Notifications Discussed Care of Patient With: Marek Javier - Neurology Time Discussed With Above Provider: 16:05 - Instructed to follow up with Psychiatry to determine appropriate lithium dosages. Discharge ED - Sign-Out/Discharge Documenting (check all that apply): Patient Departure - Discharge Patient Received Moderate/Deep Sedation with Procedure: No - Discharge Plan Condition: Stable Disposition: HOME Patient Education Materials: Extrapyramidal Symptoms (ED) Referrals: Vin Reyna MD [Primary Care Provider] - Additional Instructions: Follow up with your Psychiatrist in 3 days to determine [place] dosages. - Billing Disposition and Condition Condition: STABLE Disposition: Home - Attestation Statements Document Initiated by Suleman: Yes Documenting Scribe: Kalen Wing Provider For Whom Suleman is Documenting (Include Credential): Eleazar Khanna MD Scribe Attestation: Kalen Liang, scribed for Eleazar Khanna MD on 12/03/18 at 1614. Scribe Documentation Reviewed: Yes Provider Attestation: The documentation as recorded by the Kalen traylor accurately reflects the service I personally performed and the decisions made by me, Eleazar Khanna MD Status of Scribe Document: Viewed
[2018-12-03 15:00] LABS: ABS Eosinophils 0.1 10^3/ul (0-0.6); ABS Lymphocytes 1.7 10^3/ul (1.0-4.8); ABS Monocytes 0.5 10^3/ul (0-0.8); ABS Neutrophils 5.2 10^3/ul (1.5-7.7); Eosinophil % 1.4 %; Hematocrit 43 % (35-47); Hemoglobin 14.3 g/dL (12.0-16.0); Mean Corpuscular HGB Conc 34 g/dL (31-36); Mean Corpuscular Hemoglobin 32 pg (27-31); Mean Corpuscular Volume 95 fL (80-97); Mean Platelet Volume 7.7 fL (7.4-10.4); Platelet Count 271 10^3/uL (150-450); Red Cell Distribution Width 14 % (10-15); White Blood Count 7.5 10^3/uL (3.5-10.8)
[2018-12-03 15:33] LABS: Albumin/Globulin Ratio 1.1 (1-3); BUN/Creatinine Ratio 17.6 (8-20); EGFR African American 54.9 (>60); EGFR Non-African American 45.4 (>60); Globulin 3.6 g/dL (2-4); Magnesium 2.1 mg/dL (1.9-2.7); Total Bilirubin 0.3 mg/dL (0.2-1.0); Total Protein 7.6 g/dL (6.4-8.9)
[2018-12-03 15:36] LABS: Lithium 0.69 mmol/L (0.6-1.2)
[2018-12-03 15:52] LABS: TSH (Thyroid Stimulating Horm) 0.86 mcIU/mL (0.34-5.60)
[2018-12-03 15:54] LABS: Free T4 0.97 ng/dL (0.61-1.12)
[2018-12-03 16:29] VITALS: BP 159/93
== END | disposition home or self-care (01) ==
LOC: ED 13:47
DX: G25.3 Myoclonus (principal); F41.9 Anxiety disorder, unspecified; F31.9 Bipolar disorder, unspecified; Z79.899 Other long term (current) drug therapy; Z88.5 Allergy status to narcotic agent; Z88.0 Allergy status to penicillin; Z88.8 Allergy status to other drugs, medicaments and biological substances
CPT/HCPCS: 36415; 80053; 80178; 83735; 84439; 84443; 85025; 93005; 99282

== ENCOUNTER 2018-12-06 07:50 | Inpatient (IN) | payer MEDICARE ==
[2018-12-06 08:41] LABS: ABS Eosinophils 0.1 10^3/ul (0-0.6); ABS Lymphocytes 1.5 10^3/ul (1.0-4.8); ABS Monocytes 0.4 10^3/ul (0-0.8); ABS Neutrophils 4.7 10^3/ul (1.5-7.7); Eosinophil % 0.8 %; Hematocrit 42 % (35-47); Hemoglobin 13.9 g/dL (12.0-16.0); Lymphocyte % 22.4 %; Mean Corpuscular HGB Conc 33 g/dL (31-36); Mean Corpuscular Hemoglobin 32 pg (27-31); Mean Corpuscular Volume 95 fL (80-97); Mean Platelet Volume 7.9 fL (7.4-10.4); Platelet Count 250 10^3/uL (150-450); Red Blood Count 4.41 10^6 /uL (3.70-4.87); Red Cell Distribution Width 14 % (10-15); White Blood Count 6.7 10^3/uL (3.5-10.8)
--- NOTE | 2018-12-06 08:48 | ED ---
Psychiatric Complaint - HPI Summary HPI Summary: Pt. is a 68 y.o female who presents to the ER requesting a MHE. Pt. has a hx of bipolar d/o. Pt. states she has been feeling very anxious this past week and started feeling suicidal. Pt. states she has plans to take OD on her rx medications. Pt. denies SI attempt. Pt. has been admitted to the [facility] in the past and feels she needs to be admitted today. Sxs are moderate in severity. No current modifying factors. Pt. denies associated sxs of fever, cp, sob, abd. pain. - History Of Current Complaint Chief Complaint: EDSuicidal Time Seen by Provider: 12/06/18 08:14 Hx Obtained From: Patient Hx Last Menstrual Period: N/A - Allergies/Home Medications Allergies/Adverse Reactions: Allergies Allergy/AdvReac Type Severity Reaction Status Date / Time oxycodone AdvReac Mild Altered Verified 12/06/17 17:57 Mental Status Penicillins AdvReac Mild See Comment Verified 12/06/17 17:57 prochlorperazine AdvReac Mild Muscle Ache Verified 12/06/17 17:57 [From Compazine] anticholinergic agents AdvReac Mild Altered Uncoded 12/06/17 17:57 Mental Status benzodiazepines AdvReac Mild Altered Uncoded 12/06/17 17:57 Mental Status first generation AdvReac Mild Altered Uncoded 12/06/17 17:57 antihistamines Mental Status muscle relaxants AdvReac Mild Altered Uncoded 12/06/17 17:57 Mental Status semi synthetic narcotics AdvReac Mild Altered Uncoded 12/06/17 17:57 Mental Status Home Medications: Home Medications Albuterol HFA INHALER* [Ventolin HFA Inhaler*] 2 puff INH Q6H PRN 12/06/18 [ History Confirmed 12/06/18] Bupropion XL* [Wellbutrin XL *] 100 mg PO DAILY 12/06/18 [History Confirmed 06/21] Buspirone HCl 10 mg PO TID 12/06/18 [History Confirmed 12/06/18] Gabapentin CAP(*) [Neurontin 300 CAP(*)] 600 mg PO TID 12/06/18 [History Confirmed 12/06/18] Lurasidone(*) [Latuda] 20 mg PO DAILY 12/06/18 [History Confirmed 12/06/18] PMH/Surg Hx/FS Hx/Imm Hx Previously Healthy: Yes Endocrine/Hematology History: Denies: Hx Diabetes Cardiovascular History: Denies: Hx Congestive Heart Failure, Hx Hypertension, Other Cardiovascular Problems/Disorders Respiratory History: Denies: Hx Asthma GI History: Denies: Other GI Disorders History: Reports: Other Problems/Disorders - current UTI Denies: Hx Renal Disease Sensory History: Reports: Hx Contacts or Glasses, Hx Hearing Problem - right ear has difficulty hearintg Denies: Hx Deafness, Hx Hearing Aid Opthamlomology History: Reports: Hx Contacts or Glasses Neurological History: Reports: Hx Migraine - 2 YRS AGO LAST ONE, Other Neuro Impairments/Disorders - BIPOLAR DISORDER Psychiatric History: Reports: Hx Anxiety, Hx Depression, Hx Inpatient Treatment , Hx Community Mental Health Tx, Hx Bipolar Disorder Denies: Hx Eating Disorder, Hx of Violent Episodes Against Others - Cancer History Cancer Type, Location and Year: None - Surgical History Surgery Procedure, Year, and Place: hysterectomy, [address] [facility] left ankle r/t fx - pins/plates , bladder surgery for incontinence, 2011, [facility]. TUBAL LIGATION 1984, [place]. CARPAL TUNNEL RIGHT 03/1984, [facility]. Hx Anesthesia Reactions: No Infectious Disease History: No Infectious Disease History: Denies: Hx Clostridium Difficile, Hx Hepatitis, Hx Human Immunodeficiency Virus (HIV), Hx of Known/Suspected MRSA, Hx Shingles, Hx Tuberculosis, Hx Known/ Suspected VRE, Hx Known/Suspected VRSA, History Other Infectious Disease, Traveled Outside the in Last 30 Days - Family History Known Family History: Positive: Diabetes Negative: Cardiac Disease, Hypertension - Social History Occupation: Retired Lives: Alone Alcohol Use: None Substance Use Type: Reports: None Smoking Status (MU): Never Smoked Tobacco Have You Smoked in the Last Year: No Review of Systems Constitutional: Negative Negative: Fever Cardiovascular: Negative Respiratory: Negative Gastrointestinal: Negative Genitourinary: Negative Neurological: Negative Positive: Anxious, Depressed All Other Systems Reviewed And Are Negative: Yes Physical Exam Triage Information Reviewed: Yes Vital Signs On Initial Exam: Initial Vitals Temp Pulse Resp BP Pulse Ox 98.1 F 62 16 142/54 98 12/06/18 07:55 12/06/18 07:55 12/06/18 07:55 12/06/18 07:55 12/06/18 07:55 Vital Signs Reviewed: Yes Appearance: Positive: Well-Appearing - Pt. sitting on bed in NAD. Skin: Positive: Warm, Dry Head/Face: Positive: Normal Head/Face Inspection Eyes: Positive: Normal, EOMI Neck: Positive: Supple Respiratory/Lung Sounds: Positive: Clear to Auscultation, Breath Sounds Present Cardiovascular: Positive: Normal, RRR Neurological: Positive: Normal, CN Intact II-III Psychiatric: Positive: Affect/Mood Appropriate Diagnostics - Vital Signs Vital Signs Temp Pulse Resp BP Pulse Ox 12/06/18 07:55 98.1 F 62 16 142/54 98 - Laboratory Lab Results: Lab Results 12/06/18 Range/Units 08:30 WBC 6.7 (3.5-10.8) 10^3/uL RBC 4.41 (3.70-4.87) 10^6 /uL Hgb 13.9 (12.0-16.0) g/dL Hct 42 (35-47) % MCV 95 (80-97) fL MCH 32 H (27-31) pg MCHC 33 (31-36) g/dL RDW 14 (10-15) % Plt Count 250 (150-450) 10^3/uL MPV 7.9 (7.4-10.4) fL Neut % (Auto) 69.7 % Lymph % (Auto) 22.4 % Cannon % (Auto) 6.6 % Eos % (Auto) 0.8 % Baso % (Auto) 0.5 % Absolute Neuts (auto) 4.7 (1.5-7.7) 10^3/ul Absolute Lymphs (auto) 1.5 (1.0-4.8) 10^3/ul Absolute Monos (auto) 0.4 (0-0.8) 10^3/ul Absolute Eos (auto) 0.1 (0-0.6) 10^3/ul Absolute Basos (auto) 0.0 (0-0.2) 10^3/ul Absolute Nucleated RBC 0.0 10^3/ul Nucleated RBC % 0.0 Result Diagrams: 12/06/18 08:30 12/06/18 08:30 Lab Statement: Any lab studies that have been ordered have been reviewed, and results considered in the medical decision making process. Course/Dx - Course Course Of Treatment: Pt. presenting for MHE. Medically cleared. Pending MHE. Labs at baseline. Pt. examined by and they will admit to the U for further evaluation in care. - Differential Dx/Clinical Impression Differential Diagnosis/HQI/PQRI: Positive: Anxiety, Bipolar Disorder, Depression Provider Diagnosis: Bipolar disorder Discharge ED - Sign-Out/Discharge Documenting (check all that apply): Patient Departure Patient Received Moderate/Deep Sedation with Procedure: No - Discharge Plan Condition: Stable Disposition: PSYCHIATRIC FACILITY[place] [place] Referrals: Vin Reyna MD [Primary Care Provider] - - Billing Disposition and Condition Condition: STABLE Disposition: Psychiatric Facility [facility] [place]
[2018-12-06 08:51] LABS: Urine Appearance Cloudy; Urine Bacteria Absent (Absent); Urine Bilirubin Negative (Negative); Urine Blood Negative (Negative); Urine Color Yellow; Urine Glucose Negative (Negative); Urine Ketones Negative (Negative); Urine Nitrite Negative (Negative); Urine Protein Negative (Negative); Urine Red Blood Cell 1+(3-5/hpf) (Absent); Urine Specific Gravity 1.009 (1.010-1.030); Urine Squamous Epithelial Cell Present (Absent); Urine Urobilinogen Negative (Negative); Urine White Blood Cell Trace(0-5/hpf) (Absent)
[2018-12-06 09:08] LABS: ALT 19 U/L (7-52); AST 12 U/L (13-39); Acetaminophen < 15 mcg/mL; Albumin 4.1 g/dL (3.2-5.2); Albumin/Globulin Ratio 1.1 (1-3); Alcohol < 10 mg/dL (<10); Alkaline Phosphatase 86 U/L (34-104); Anion Gap 4 mmol/L (2-11); BUN/Creatinine Ratio 14.7 (8-20); Blood Urea Nitrogen 16 mg/dL (6-24); CO2 Carbon Dioxide 26 mmol/L (22-32); Calcium 10.2 mg/dL (8.6-10.3); Chloride 108 mmol/L (101-111); EGFR African American 60.8 (>60); EGFR Non-African American 50.2 (>60); Globulin 3.6 g/dL (2-4); Glucose 102 mg/dL (70-100); Salicylate < 2.50 mg/dL (<30); Sodium 138 mmol/L (135-145); Total Protein 7.7 g/dL (6.4-8.9)
[2018-12-06 09:12] LABS: Urine Benzodiazepine Screen None Detected (None Detect); Urine Opiates Screen None Detected (None Detect)
[2018-12-06 09:16] LABS: TSH (Thyroid Stimulating Horm) 2.24 mcIU/mL (0.34-5.60)
[2018-12-06] MEDS ORDERED: Calcium Carbonate CHEW TAB* 500 MG (TUMS) PO ONE (10:13)
[2018-12-06] MEDS ORDERED: Al Hydrox/Mg Hydrox/Simet LIQ* 30 ML UDC PO PRN (11:13)
[2018-12-06] MEDS ORDERED: Albuterol HFA INHALER* 8 gm MDI INH PRN (11:15)
[2018-12-06] MEDS ORDERED: hydrOXYzine HCL TAB* 50 MG PO PRN (11:16)
[2018-12-06] MEDS: Propranolol TAB* 10 MG PO SCH ×2 (16:05→19:52)
[2018-12-06] MEDS: Gabapentin CAP(*) 300 MG PO SCH ×2 (16:06→19:52)
[2018-12-06] MEDS: busPIRone TAB* 10 MG PO SCH ×2 (16:07→21:16)
[2018-12-06] MEDS: Acetaminophen TAB* 325 MG PO PRN (19:51)
[2018-12-06] MEDS: Lithium Carbonate ER (NF) 300 MG TAB.ER PO SCH (19:51)
[2018-12-06] MEDS: Dicyclomine CAP* 10 MG PO SCH (19:52)
[2018-12-07] MEDS: Propranolol TAB* 10 MG PO SCH (08:50)
[2018-12-07] MEDS: Levothyroxine TAB* 25 MCG TAB PO SCH (08:50)
[2018-12-07] MEDS: Atorvastatin* 20 MG TAB PO SCH (08:50)
[2018-12-07] MEDS: Lurasidone(*) 20 MG TAB PO SCH (08:51)
[2018-12-07] MEDS: Gabapentin CAP(*) 300 MG PO SCH ×3 (08:51→20:03)
[2018-12-07] MEDS: Dicyclomine CAP* 10 MG PO SCH ×3 (08:51→20:02)
[2018-12-07] MEDS: busPIRone TAB* 10 MG PO SCH (08:52)
[2018-12-07] MEDS ORDERED: buPROPion SR TAB.SR* 100 MG PO SCH (09:00)
[2018-12-07] MEDS: hydrOXYzine HCL TAB* 50 MG PO SCH ×2 (13:57→20:02)
--- NOTE | 2018-12-07 15:19 | HP ---
Amended report to enter cosigning physician. HISTORY AND PHYSICAL: DATE OF ADMISSION: 12/06/18 PROVIDER: Christianne Fraga NP in Psychiatry. SUPERVISING PHYSICIAN: Ganga Falcon MD* (dictated by Christianne Fraga NP). JUSTIFICATION FOR ADMISSION: The patient is in need of 24-hour supervision and care secondary to suicidal ideation with a plan to overdose. CHIEF COMPLAINT: "I just can't beat the anxiety... I could scream... then I hate myself for feeling the way I do." HISTORY OF PRESENT ILLNESS: The patient is a 68-year-old white female with a history of bipolar disorder and cluster B personality traits, who arrives brought in by ambulance and law enforcement and is here on a voluntary status after determining that she was unsafe at home and calling 911 to get help. Veronique has been here in the hospital on the [facility] exactly 1 year ago today, on . She has bipolar disorder and her current complaints involve severe anxiety that she cannot tolerate. She states the anxiety is so bad that she has feelings of harming herself and she has the means by taking an overdose of the medication she has at home. These medications do include lithium which would be a high risk for overdose. She states she does not know what the stressors are that brought on this episode. The description of her episode sounds more like a mixed episode than an anxiety- provoked irritability. She remains frustrated. She yelled at her 5 -year-old grandson for "being a 5-year-old" and then felt so bad about it she wanted to cry. She states she is strung out, she does not know why and it is very frustrating to her. She is distractible. She is not grandiose. Her activity has increased. She is sleeping off and on, she is talkative, she feels a lot of guilt. Her appetite is okay. She did have suicidal ideation, she no longer does now that she is on this unit. PAST PSYCHIATRIC HISTORY: She was admitted on 11/01/17 as well as on 12/07/17 for bipolar and depressive symptoms. She was also diagnosed in either 1990 or 1980 with bipolar disorder after she had a manic episode of scrubbing, cleaning , and shopping excessively. She was on lithium then. She has also in the past tried Abilify 30 mg and now she has tardive dyskinesia in her lips and tongue which make a pursing and darting motion in the past. She has had 2 suicide attempts, she overdosed both times, once in 1996 and one she does not remember the year. She was hospitalized at [facility] for 6 weeks due to having a coexisting neurological problem. They put her on oxycodone there and managed the pain in her neck and it turns out she was allergic to that. They stopped the medication due to her having auditory hallucinations and her memory being gone. PAST MEDICAL HISTORY: She has neck pain for which she is seeing Neurology. She has tardive dyskinesia in her mouth and lips. She has irritable bowel syndrome that is being treated by [facility]. She has a stiff right knee she states perhaps due to arthritis and a history of left ankle surgery. MEDICATIONS: Her previous psychiatric meds included: 1. Gabapentin. 2. Propranolol. 3. Abilify. 4. [place]. 5. Lurasidone. FAMILY HISTORY: She denies family history other than her daughter who sees a psychiatric nurse practitioner for borderline personality disorder. SOCIAL HISTORY: She lives in [place] alone in a senior housing called [employer] . She states she keeps to herself, although she does have friends there. She has branched out and is now social going out for coffee time and then an occasional potluck dinner. She has a daughter and a son-in- law who live relatively close also in [place]. She has another daughter who lives in [place]. 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 The job ended at her first suicide attempt in 1996. She states they paid her to leave. She then went back to school, got her associates in bachelors degrees and continued to work in part because she wants her children to feel proud of her. She has never been in the . She does not have any legal problems. REVIEW OF SYSTEMS: Veronique reports being fatigued. She denies shortness of breath , heat or cold intolerance, chest pain, or abdominal pain. She denies neurological symptoms with the exception of the pain in her neck. She denies fevers or changes in weight. PHYSICAL EXAMINATION GENERAL APPEARANCE: Well appearing. Veronique is sitting on a rocking chair and appears comfortable. VITAL SIGNS: On 12/07/18 at 0800, temperature was 98.8, pulse was 69, respirations 16, O2 sat on room air 97, blood pressure 145/70. SKIN: Her skin is warm and dry. HEENT: Head and face: Normal head and face inspection. Eyes: Normal, EOMI. NECK: Supple. RESPIRATORY: Lung sounds are clear to auscultation. Breath sounds present. CARDIOVASCULAR: Normal. RRR. NEUROLOGICAL: Normal. CN intact II through XII. DIAGNOSTIC STUDIES/LAB DATA: Most data are within normal limits with the exception of MHC being high at 32, creatinine high at 1.09, glucose high at 102 , hemoglobin A1c high at 5.7, AST low at 12. Urine specific gravity is low at 1.009, leukocyte esterase is trace, 1+ urine red blood cells present, squamous epithelial cells. Toxicology screen reveals no drugs of abuse. Her lithium level on 12/16/17 at 0722 was 0.78. On 12/07/18 at 1029, it was 0.76. MENTAL STATUS EXAM: The patient is a heavy set, somewhat short blonde woman, who wears glasses and has shoulder length blonde tear. Her grooming is adequate. She appears irritable and is trying not to be, but remains irritable and slightly "cranky," although she is not hostile. Her speech is of normal rate, tone, and volume. She is dysthymic. She has a full range of affect. Her thought processes appear to be normal, her thought content free of delusions. She is not homicidal. She was suicidal upon admission, but no longer is. She is not experiencing any hallucinations. Her insight is good. Her judgement is fair. She is alert and oriented x4. IMPRESSION: Veronique is a 68-year-old woman with a history of bipolar disorder and cluster B personality disorder traits, who comes to the hospital after deciding that she is unsafe at home, calling 911, and being brought to the emergency room. She describes having a plan to suicide using prescription pills that she has at home and using those to overdose. PLAN/RECOMMENDATIONS: The patient is admitted to the Adult Behavioral Health Unit and placed on q.15 minute checks for her own safety. She is encouraged to participate in supportive milieu, individual, and group therapy. Her estimated length of stay is 3 to 5 days. We will titrate medications to efficacy, reducing gabapentin, eliminating Wellbutrin and propranolol, eliminating BuSpar ; all due to potential interference with her mood and her anxiety. We will start clonidine and potentially discontinue Latuda as it caused her approximately $500 each time she fills the prescription. Discharge planning will include family involvement and outpatient providers. CHRISTIANNE FRAGA, DIMPLE [id number]/CPS #: [id number] HYACINTH
[2018-12-07] MEDS: Lithium Carbonate ER (NF) 300 MG TAB.ER PO SCH (20:02)
[2018-12-07] MEDS: cloNIDine TAB* 0.1 MG PO SCH (20:03)
[2018-12-08] MEDS: Lurasidone(*) 20 MG TAB PO SCH (07:47)
[2018-12-08] MEDS: Atorvastatin* 20 MG TAB PO SCH (07:48)
[2018-12-08] MEDS: cloNIDine TAB* 0.1 MG PO SCH ×2 (07:48→20:07)
[2018-12-08] MEDS: Dicyclomine CAP* 10 MG PO SCH ×4 (07:48→20:06)
[2018-12-08] MEDS: hydrOXYzine HCL TAB* 50 MG PO SCH ×3 (07:48→20:07)
[2018-12-08] MEDS: Gabapentin CAP(*) 300 MG PO SCH ×3 (07:48→20:07)
[2018-12-08] MEDS: Levothyroxine TAB* 25 MCG TAB PO SCH (07:48)
[2018-12-08] MEDS: Acetaminophen TAB* 325 MG PO PRN ×3 (07:49→17:23)
[2018-12-08 09:18] LABS: HDL Cholesterol 47.4 mg/dL
--- NOTE | 2018-12-08 15:39 | PN ---
Subjective - Subjective Date of Service: 12/08/18 Service Type: 53413 Hosp care 25 min moderate complexity Subjective: Veronique agrees that agitation and irritability are more consistent with her symptoms than anxiety. Further, she shares some episodes from her recent past that indicate some hypomanic symptoms. For example, she discussed leaving her house at 2130 to ask forgiveness from a friend as well as ask for a hug. She also engages in some goal directed behaviors, like the need to take a shower at a specific time and nothing will deter her, that continues on the unit. She is uncomfortable in these symptoms and would like them to change. She states she is feeling better today, less irritable. We discuss the role of serotonin in her possible manic symptoms and thus the discontinuation of Buspar. Objective - General Observations Appearance: Neat Appears Stated Age: Yes Stature: Overweight Posture: WNL Eye Contact: Intense Behavior/Activity: Agitated - Interaction Observations Attitude Towards Examiner: Cooperative, Anxious Stated Mood: Irritable, Anxious Affect: Full Speech Pattern/Tone: Clear Thought Process: Coherent, Goal Directed, Tangential Perception: WNL Thought Content: Preoccupation/Ruminations, Self-Deprecatory Hallucination Type: None Delusion Type: None, Denies - Cognitive Function Orientation: A&O x 4 Level of Consciousness: Awake, Alert, Appropriate Cognition: Impaired Attention/Concentration Estimated Intelligence: Normal Insight: WNL Judgment Within Normal Limits: No Ability to Make Reasonable Decisions: Mildly Impaired - Medication Compliance Cooperative with Inpatient Medication Regimen: Yes - Group Participation Participates in Group Activities: Yes Assessment - Assessment Merits Inpatient Hospitalization: For Immediate Safety Inpatient DSM-V Dx: F31.62 Clinical Impression: Veronique is a 68-year-old woman with a history of bipolar 1 disorder since 1980 who comes to the hospital with mixed symptoms and suicidal ideation as well as complaints of anxiety. Plan - Plan Treatment Plan: Name: VERONIQUE THOMAS Birthdate: 1950 [id number] Veronique will have many medication changes in an attempt to address what she was calling anxiety, but I believe to be a mixed episode. Serotonin-related agents will be removed, gabapentin reduced, and possibly eliminate Latuda, which is not affordable for her, anyway. Continued Medication Management: Different Medication Medications: Current Medications Acetaminophen (Tylenol Tab*) 650 mg PO Q4H PRN PRN Reason: for pain; or Temp >101 F Last Admin: 12/08/18 12:23 Dose: 650 mg Al Hydrox/Mg Hydrox/Simethicone (Maalox Plus*) 30 ml PO Q4H PRN PRN Reason: INDIGESTION Albuterol (Ventolin Hfa Inhaler*) 2 puff INH Q6H PRN PRN Reason: SHORTNESS OF BREATH Atorvastatin Calcium (Lipitor*) 20 mg PO DAILY [facility] Last Admin: 12/08/18 07:48 Dose: 20 mg Clonidine HCl (Catapres Tab*) 0.1 mg PO BID [facility] Last Admin: 12/08/18 07:48 Dose: 0.1 mg Dicyclomine HCl (Bentyl Cap*) 20 mg PO QID [facility] Last Admin: 12/08/18 12:23 Dose: 20 mg Gabapentin (Neurontin Cap(*)) 300 mg PO TID [facility] Last Admin: 12/08/18 14:04 Dose: 300 mg Hydroxyzine HCl (Atarax Tab*) 50 mg PO TID [facility] Last Admin: 12/08/18 14:04 Dose: 50 mg Levothyroxine Sodium (Synthroid Tab*) 25 mcg PO DAILY@0600 [facility] Last Admin: 12/08/18 07:48 Dose: 25 mcg [place] Carbonate ([place] Carbonate Er (Nf)) 600 mg PO BEDTIME [facility]; Protocol Last Admin: 12/07/18 20:02 Dose: 600 mg Lurasidone HCl (Latuda) 20 mg PO DAILY [facility] Last Admin: 12/08/18 07:47 Dose: 20 mg - Discharge Plan Discharge Plan: Outpatient Follow Up
[2018-12-08] MEDS: Lithium Carbonate ER (NF) 300 MG TAB.ER PO SCH (20:06)
[2018-12-09] MEDS: cloNIDine TAB* 0.1 MG PO SCH ×2 (09:21→20:56)
[2018-12-09] MEDS: Gabapentin CAP(*) 300 MG PO SCH ×3 (09:22→20:54)
[2018-12-09] MEDS: hydrOXYzine HCL TAB* 50 MG PO SCH ×3 (09:22→20:56)
[2018-12-09] MEDS: Levothyroxine TAB* 25 MCG TAB PO SCH (09:22)
[2018-12-09] MEDS: Dicyclomine CAP* 10 MG PO SCH ×4 (09:22→20:55)
[2018-12-09] MEDS: buPROPion SR TAB.SR* 100 MG PO SCH (09:23)
[2018-12-09] MEDS: Lurasidone(*) 20 MG TAB PO SCH (09:23)
[2018-12-09] MEDS: Atorvastatin* 20 MG TAB PO SCH (09:23)
[2018-12-09] MEDS: Acetaminophen TAB* 325 MG PO PRN ×3 (09:24→21:04)
--- NOTE | 2018-12-09 15:27 | PN ---
Subjective - Subjective Date of Service: 12/09/18 Service Type: 16197 Hosp care 15 min low complexity Subjective: Veronique states her anxiety/irritability is down to a "dull roar." The mixed episode continues, but is perhaps subsiding with the many medication changes that were made. Veronique has begun to be able to distinguish between anxiety and her bipolar symptoms. She states her son-in-law would like to come to a family meeting on Wednesday to discuss medications. She states he works at [employer] as a social media content specialist and is an expert in bipolar medications. Veronique is worried about going home because she will be alone. Objective - General Observations Appearance: Neat Appears Stated Age: Yes Stature: Overweight Posture: WNL Eye Contact: Intense Behavior/Activity: WNL - Interaction Observations Attitude Towards Examiner: Cooperative, Anxious Stated Mood: Dysphoric, Irritable, Anxious Affect: Full Speech Pattern/Tone: Clear Thought Process: Coherent, Goal Directed Perception: WNL Thought Content: WNL Hallucination Type: None Delusion Type: None - Cognitive Function Orientation: A&O x 4 Level of Consciousness: Awake, Alert, Appropriate Cognition: Impaired Attention/Concentration Estimated Intelligence: Normal Insight: WNL Judgment Within Normal Limits: No Ability to Make Reasonable Decisions: Mildly Impaired - Medication Compliance Cooperative with Inpatient Medication Regimen: Yes - Group Participation Participates in Group Activities: Yes Assessment - Assessment Merits Inpatient Hospitalization: For Immediate Safety Inpatient DSM-V Dx: F31.62 Clinical Impression: Veronique is a 68-year-old woman with a history of bipolar 1 disorder since 1980 who comes to the hospital with mixed symptoms and suicidal ideation as well as complaints of anxiety. Her irritability and anxiety are reducing. Plan - Plan Treatment Plan: Name: VERONIQUE THOMAS Birthdate: 1950 [id number] Veronique will have many medication changes in an attempt to address what she was calling anxiety, but I believe to be a mixed episode. Serotonin-related agents will be removed, gabapentin reduced, and possibly eliminate Latuda, which is not affordable for her, anyway. 12/09/18 Veronique is doing well, stating her anxiety is reduced. She is eager to meet with her family. Continued Medication Management: Different Medication Medications: Current Medications Acetaminophen (Tylenol Tab*) 650 mg PO Q4H PRN PRN Reason: for pain; or Temp >101 F Last Admin: 12/09/18 13:18 Dose: 650 mg Al Hydrox/Mg Hydrox/Simethicone (Maalox Plus*) 30 ml PO Q4H PRN PRN Reason: INDIGESTION Albuterol (Ventolin Hfa Inhaler*) 2 puff INH Q6H PRN PRN Reason: SHORTNESS OF BREATH Atorvastatin Calcium (Lipitor*) 20 mg PO DAILY [facility] Last Admin: 12/09/18 09:23 Dose: 20 mg Bupropion HCl (Wellbutrin Sr Tab*) 100 mg PO DAILY [facility] Last Admin: 12/09/18 09:23 Dose: 100 mg Clonidine HCl (Catapres Tab*) 0.1 mg PO BID [facility] Last Admin: 12/09/18 09:21 Dose: 0.1 mg Dicyclomine HCl (Bentyl Cap*) 20 mg PO QID [facility] Last Admin: 12/09/18 13:17 Dose: 20 mg Gabapentin (Neurontin Cap(*)) 300 mg PO TID [facility] Last Admin: 12/09/18 13:19 Dose: 300 mg Hydroxyzine HCl (Atarax Tab*) 50 mg PO TID [facility] Last Admin: 12/09/18 13:20 Dose: 50 mg Levothyroxine Sodium (Synthroid Tab*) 25 mcg PO DAILY@0600 [facility] Last Admin: 12/09/18 09:22 Dose: 25 mcg [place] Carbonate (Re[place] Carbonate Er (Nf)) 600 mg PO BEDTIME [facility]; Protocol Last Admin: 12/08/18 20:06 Dose: 600 mg Lurasidone HCl (Latuda) 20 mg PO DAILY [facility] Last Admin: 12/09/18 09:23 Dose: 20 mg
[2018-12-09] MEDS: Lithium Carbonate ER (NF) 300 MG TAB.ER PO SCH (20:56)
[2018-12-10] MEDS: Levothyroxine TAB* 25 MCG TAB PO SCH (07:46)
[2018-12-10] MEDS: Acetaminophen TAB* 325 MG PO PRN ×3 (09:00→20:26)
[2018-12-10] MEDS: Dicyclomine CAP* 10 MG PO SCH ×4 (09:01→20:25)
[2018-12-10] MEDS: hydrOXYzine HCL TAB* 50 MG PO SCH ×3 (09:02→20:27)
[2018-12-10] MEDS: Gabapentin CAP(*) 300 MG PO SCH ×3 (09:02→20:25)
[2018-12-10] MEDS: Atorvastatin* 20 MG TAB PO SCH (09:02)
[2018-12-10] MEDS: buPROPion SR TAB.SR* 100 MG PO SCH (09:02)
[2018-12-10] MEDS: cloNIDine TAB* 0.1 MG PO SCH ×2 (09:03→20:26)
[2018-12-10] MEDS: Lurasidone(*) 20 MG TAB PO SCH (09:03)
[2018-12-10] MEDS: Lithium Carbonate ER (NF) 300 MG TAB.ER PO SCH (20:26)
[2018-12-11] MEDS: Atorvastatin* 20 MG TAB PO SCH (08:50)
[2018-12-11] MEDS: buPROPion SR TAB.SR* 100 MG PO SCH (08:50)
[2018-12-11] MEDS: hydrOXYzine HCL TAB* 50 MG PO SCH ×3 (08:50→20:35)
[2018-12-11] MEDS: Dicyclomine CAP* 10 MG PO SCH ×4 (08:50→22:09)
[2018-12-11] MEDS: Levothyroxine TAB* 25 MCG TAB PO SCH (08:50)
[2018-12-11] MEDS: cloNIDine TAB* 0.1 MG PO SCH ×2 (08:50→20:34)
[2018-12-11] MEDS: Gabapentin CAP(*) 300 MG PO SCH ×3 (08:50→20:33)
[2018-12-11] MEDS: Lurasidone(*) 20 MG TAB PO SCH (08:50)
[2018-12-11] MEDS: Acetaminophen TAB* 325 MG PO PRN ×3 (08:50→20:31)
--- NOTE | 2018-12-11 16:44 | PN ---
Subjective - Subjective Date of Service: 12/11/18 Service Type: 60362 Hosp care 15 min low complexity Subjective: Reports mood is a lot better since admission Wednesday, when she reports she was screaming, angry and furious. Reports elimination of BuSpar and propranolol may be beckford factor in improvements here. Sleeping "very well". Reports everything seems to be working OK. Objective - General Observations Appearance: Neat Appears Stated Age: Yes Stature: WNL Posture: WNL Eye Contact: Average Behavior/Activity: WNL - Interaction Observations Attitude Towards Examiner: Cooperative Stated Mood: Euthymic Affect: Full Speech Pattern/Tone: Clear, Appropriate, Normal Volume Thought Process: Coherent Perception: WNL Thought Content: WNL Hallucination Type: None Delusion Type: None - Cognitive Function Orientation: A&O x 4 Level of Consciousness: Awake, Alert, Appropriate Cognition: WNL Estimated Intelligence: Normal Insight: WNL Judgment Within Normal Limits: Yes - Medication Compliance Cooperative with Inpatient Medication Regimen: Yes - Group Participation Participates in Group Activities: Yes Assessment - Assessment Merits Inpatient Hospitalization: For Stabilization, Consolidate Improvements Inpatient DSM-V Dx: F31.62 Clinical Impression: Veronique is a 68-year-old woman with a history of bipolar 1 disorder since 1980 who comes to the hospital with mixed symptoms and suicidal ideation as well as complaints of anxiety. Her irritability and anxiety are reducing. Plan - Plan Treatment Plan: Name: VERONIQUE THOMAS Birthdate: 1950 [id number] Veronique will have many medication changes in an attempt to address what she was calling anxiety, but I believe to be a mixed episode. Serotonin-related agents will be removed, gabapentin reduced, and possibly eliminate Latuda, which is not affordable for her, anyway. 12/09/18 Veronique is doing well, stating her anxiety is reduced. She is eager to meet with her family. 12/11/18 Veronique reports doing much better with medication "overhaul", and is looking forward to discharge without any safety concerns remaining and with stable mood. Medications: Current Medications Acetaminophen (Tylenol Tab*) 650 mg PO Q4H PRN PRN Reason: for pain; or Temp >101 F Last Admin: 12/11/18 13:16 Dose: 650 mg Al Hydrox/Mg Hydrox/Simethicone (Maalox Plus*) 30 ml PO Q4H PRN PRN Reason: INDIGESTION Albuterol (Ventolin Hfa Inhaler*) 2 puff INH Q6H PRN PRN Reason: SHORTNESS OF BREATH Atorvastatin Calcium (Lipitor*) 20 mg PO DAILY [facility] Last Admin: 12/11/18 08:50 Dose: 20 mg Bupropion HCl (Wellbutrin Sr Tab*) 100 mg PO DAILY [facility] Last Admin: 12/11/18 08:50 Dose: 100 mg Clonidine HCl (Catapres Tab*) 0.1 mg PO BID [facility] Last Admin: 12/11/18 08:50 Dose: 0.1 mg Dicyclomine HCl (Bentyl Cap*) 20 mg PO QID [facility] Last Admin: 12/11/18 13:17 Dose: 20 mg Gabapentin (Neurontin Cap(*)) 300 mg PO TID [facility] Last Admin: 12/11/18 13:16 Dose: 300 mg Hydroxyzine HCl (Atarax Tab*) 50 mg PO TID [facility] Last Admin: 12/11/18 13:17 Dose: 50 mg Levothyroxine Sodium (Synthroid Tab*) 25 mcg PO DAILY@0600 [facility] Last Admin: 12/11/18 08:50 Dose: 25 mcg [place] Carbonate ([place] Carbonate Er (Nf)) 600 mg PO BEDTIME [facility]; Protocol Last Admin: 12/10/18 20:26 Dose: 600 mg Lurasidone HCl (Latuda) 20 mg PO DAILY [facility] Last Admin: 12/11/18 08:50 Dose: 20 mg - Discharge Plan Discharge Plan: Outpatient Follow Up Outpatient Program: [facility]
[2018-12-11] MEDS: Lithium Carbonate ER (NF) 300 MG TAB.ER PO SCH (20:32)
[2018-12-12] MEDS: Atorvastatin* 20 MG TAB PO SCH (09:07)
[2018-12-12] MEDS: Lurasidone(*) 20 MG TAB PO SCH (09:07)
[2018-12-12] MEDS: Acetaminophen TAB* 325 MG PO PRN (09:07)
[2018-12-12] MEDS: Dicyclomine CAP* 10 MG PO SCH ×3 (09:08→16:23)
[2018-12-12] MEDS: buPROPion SR TAB.SR* 100 MG PO SCH (09:08)
[2018-12-12] MEDS: Gabapentin CAP(*) 300 MG PO SCH ×2 (09:08→16:22)
[2018-12-12] MEDS: Levothyroxine TAB* 25 MCG TAB PO SCH (09:08)
[2018-12-12] MEDS: cloNIDine TAB* 0.1 MG PO SCH (09:09)
[2018-12-12] MEDS: hydrOXYzine HCL TAB* 50 MG PO SCH ×2 (09:09→16:22)
[2018-12-12 09:55] VITALS: BP 143/61
--- NOTE | 2018-12-12 11:41 | PN ---
BSU: Group Therapy Note - Service Type Service Type: [id number] Group Psychotherapy - Cognitive Behavioral Group Therapy ( CBT):Patient was attentive and participatory in CBT programming this morning, and remained in good behavioral control. Patient expressed positive insights regarding relevant treatment interventions and goals.
--- NOTE | 2018-12-14 12:20 | DS ---
DISCHARGE SUMMARY: DATE OF ADMISSION: 12/06/18 DATE OF DISCHARGE: 12/918 PROVIDER: Christianne Fraga NP, Psychiatry. SUPERVISING PHYSICIAN: Ganga Falcon MD * (DICTATED BY CHRISTIANNE FRAGA NP ) DIAGNOSIS: Bipolar disorder, current episode, mixed severe. CONDITION AT THE TIME OF DISCHARGE: Improved, psychiatrically cleared, stable. Veronique participated in groups and was social with peers. Her family, specifically , her son-in-law is agreeable to discharge, as is Veronique. She has done well here psychiatrically. She has tolerated medication changes, which were somewhat extensive, and she will be attending the [facility] in [place], [place]. MENTAL STATUS EXAM: At the time of discharge, Veronique is calm, although anxious. She is cooperative and she makes good eye contact. She is alert and oriented x4. Her grooming is good. Her speech pace is normal. Her thought processes are logical. She is not psychotic or delusional. She denies AH, VH, SI, and HI. Her insight is good, her judgment is fair. She is willing to follow up and urged to see a therapist. DISCHARGE INSTRUCTIONS TO THE PATIENT: A. Medications: 1. Albuterol inhaler 2 puffs q.6 hours for shortness of breath. 2. Atorvastatin 20 mg daily. 3. Bupropion SR 100 mg daily. 4. Clonidine 0.1 mg b.i.d. 5. Dicyclomine 20 mg 4 times a day. 6. Gabapentin 300 mg t.i.d. 7. Levothyroxine 25 mcg daily. 8. [place] carbonate ER 600 mg at bedtime. 9. Latuda 20 mg daily. B. Diet is regular. C. Activities as tolerated. Veronqiue is a nonsmoker. There are no studies pending at the time of discharge. D. Followup care: She is going to see James Justice on Thursday 12/14 at 10: 30 in the morning at the [facility]. She is going to go to physical therapy at [facility] in [place] on 12/19 at 11:[address] Shannon and she is recommended that she follow up with her doctor , Dr. Vin Reyna in [place] within a month of discharge. E. Disposition. Veronique is being discharged home to her apartment. F. Substance abuse followup is not indicated. HOSPITAL COURSE: Part A. Chief Complaint: "I just can't beat the anxiety....I could scream....then I hate myself for feeling the way that I do". The patient is a 68-year-old white female with a history of bipolar disorder and cluster B personality traits who was brought in by ambulance and law enforcement and is here on a voluntary status after determining that she was unsafe at home and she called 911 to get help. Veronique has been here in the hospital on the BSU exactly 1 year ago today on . She has bipolar disorder and her current complaints involve severe anxiety that she cannot tolerate. She states the anxiety is so bad that she has feelings of harming herself and she has the means by taking an overdose of the medications she has at home. These medications do include lithium, which should be a high risk for overdose. She states she does not know what the stressors are that brought on this episode. The description of her episode sounds more like a mixed episode than an anxiety provoked irritability. She remains frustrated. She yelled at her 5- year-old grandson for "being a 5-year-old" and then felt so bad about it she wanted to cry. She states she is strung out, she does not know why, and it is very frustrating to her. She gets distractible. She is not grandiose. Her activity has increased. She is sleeping on and off. She is talkative and she feels a lot of guilt. Her appetite is okay. She did have suicidal ideations. She no longer does now that she is on the unit. Part B. Psychiatric treatment was rendered: Veronique was admitted to the adult behavioral unit and placed on 15-minute checks for safety. She did advance to 30- minute checks and staff pass. Veronique did well on the unit and went to many groups, she interacted well with peers, although it was a difficult unit for her as the acuity was high. We made many medication changes. I discontinued propranolol and started clonidine at bedtime and in the morning. Taking medication less often can increase compliance and I also reduced gabapentin. Veronique had been taking 800 mg of gabapentin 5 times a day. She developed a myoclonic jerk in her legs, which was attributed either to high dose of gabapentin, the reduction of the high dose of gabapentin, or lithium. She had herself reduced the gabapentin from 5 times a day to 3 times a day and then developed the jerk in her legs. She, by the time we got her and reduced her gabapentin more, she was no longer experiencing that jerk. I discontinued BuSpar as it has a serotonin component, which could be contributing to manic type symptoms or a mixed episode. Bupropion SR I left alone, at her request. It should be noted that she can discontinue the lurasidone because lurasidone must be taken with 350 calories of food to be fully absorbed and she has been taking it with no food, which means that it passes through her body without becoming fully dissolved or absorbed. She has been taking effectively less than 10 mg of lurasidone. She may not need lurasidone and as the medications that may have been causing her issues such as BuSpar and high dose of gabapentin, we will see whether she can discontinue the lurasidone about a month after she has been discharged from the hospital. I would like her to take the medication for a month so that other medications can take effect and she can have some stability. Further, she cannot afford the medication and that will become a problem at some point in the future. Veronique is taking an atypical antipsychotic, so it should be noted that she has a hemoglobin A1c of 5.7, her triglycerides are 122, cholesterol is 162, LDL cholesterol is 90, HDL cholesterol is 47.4. Incidentally, her TSH is 2.24. I did spend probably a half an hour on the phone with her son-in-law who is a social worker delinquency prevention at [employer] in [facility]. He was curious about her medication changes. He was interested to understand more about her mixed state. It seems as though she will have some support from him, although he may not be able to provide as much as support as she desires. No consults were entered. Veronique is much improved. She is no longer suicidal. Her guilt is somewhat reduced. Her sleep has improved. Her energy level has improved. She is future oriented. Her suicidal ideation did go away when she was admitted to the unit and did not resurface while she had support here. She may exhibit some mild signs of instability when discharged, but these are normal following significant medication changes. CHRISTIANNE FRAGA, STERILE PREPARATION TECHNICIAN [id number]/[facility] #: [id number] [facility]ITAL[facility]amus
== END 2018-12-12 17:50 | disposition home or self-care (01) | DRG 885 ==
LOC: ED 07:50 → BSU 11:13
PROVIDERS: ADMIT Psychiatry & Neurology Psychiatry; ATTEND Psychiatry & Neurology Psychiatry
DX: F31.62 Bipolar disorder, current episode mixed, moderate (principal); R45.851 Suicidal ideations; G24.01 Drug induced subacute dyskinesia; K58.9 Irritable bowel syndrome, unspecified; Z79.899 Other long term (current) drug therapy; Z81.8 Family history of other mental and behavioral disorders
CPT/HCPCS: 36415; 80053; 80061; 80178; 80307; 80320; 80329; 81003; 81015; 83036; 84443; 85025; 87086; 90853; 99222; 99231; 99232; 99238; 99283; A9270-GY; G0480

== ENCOUNTER 2018-12-18 04:42 | Inpatient (IN) | payer MEDICARE ==
[2018-12-18 05:26] LABS: ABS Eosinophils 0.1 10^3/ul (0-0.6); ABS Lymphocytes 1.8 10^3/ul (1.0-4.8); ABS Monocytes 0.8 10^3/ul (0-0.8); ABS Neutrophils 5.8 10^3/ul (1.5-7.7); Eosinophil % 1.2 %; Hematocrit 41 % (35-47); Hemoglobin 13.8 g/dL (12.0-16.0); Lymphocyte % 21.1 %; Mean Corpuscular HGB Conc 34 g/dL (31-36); Mean Corpuscular Hemoglobin 32 pg (27-31); Mean Corpuscular Volume 94 fL (80-97); Mean Platelet Volume 7.7 fL (7.4-10.4); Platelet Count 249 10^3/uL (150-450); Red Blood Count 4.36 10^6 /uL (3.70-4.87); Red Cell Distribution Width 14 % (10-15); White Blood Count 8.5 10^3/uL (3.5-10.8)
--- NOTE | 2018-12-18 05:41 | ED ---
Psychiatric Complaint - HPI Summary HPI Summary: The pt is a 68 yr old female presenting to [facility] c/o SI with a plan beginning 5- 6 days [employer] T[employer]ER. She was here last week and was diagnosed with bipolar disorder. She mentions that she was planning on overdosing to commit suicide. She states that she has been having a horrible time dealing with her mixed states, cannot sit still, and is acting impulsively. She notes that when her moods come over her she feels ill and like there is bile in her esophagus. Pain severity is rated a 6/10. No aggravating or alleviating factors noted. She also reports nausea, diarrhea, loss of appetite, and pain in her right foot but denies any vomiting, fever, or urinary symptoms. - History Of Current Complaint Chief Complaint: EDMentalHealth Time Seen by Provider: 12/18/18 04:58 Hx Obtained From: Patient Hx Last Menstrual Period: N/A Onset/Duration: Sudden Onset, Lasting Days, Still Present Timing: Constant Severity Initially: Moderate Severity Currently: Moderate Aggravating Factor(s): Nothing Alleviating Factor(s): Nothing Has Suicidal: Reports: Thoughts, With A Plan - Allergies/Home Medications Allergies/Adverse Reactions: Allergies Allergy/AdvReac Type Severity Reaction Status Date / Time Antihistamines - Alkylamine Allergy Altered Verified 12/18/18 04:51 Mental Status Antihistamines - Ethanolamine Allergy Altered Verified 12/18/18 04:51 Mental Status Antihistamines - Allergy Altered Verified 12/18/18 04:51 Ethylenediamine Mental Status Antihistamines - Piperazine Allergy Altered Verified 12/18/18 04:51 Mental Status Antihistamines - Piperidine Allergy Altered Verified 12/18/18 04:51 Mental Status Benzodiazepines Allergy Altered Verified 12/18/18 04:51 Mental Status carisoprodol Allergy Altered Verified 12/18/18 04:51 Mental Status oxycodone AdvReac Mild Altered Verified 12/18/18 04:51 Mental Status Penicillins AdvReac Mild See Comment Verified 12/18/18 04:51 prochlorperazine AdvReac Mild Muscle Ache Verified 12/18/18 04:51 [From Compazine] anticholinergic agents AdvReac Mild Altered Uncoded 12/18/18 04:51 Mental Status muscle relaxants AdvReac Mild Altered Uncoded 12/18/18 04:51 Mental Status semi synthetic narcotics AdvReac Mild Altered Uncoded 12/18/18 04:51 Mental Status PMH/Surg Hx/FS Hx/Imm Hx Endocrine/Hematology History: Denies: Hx Diabetes Cardiovascular History: Denies: Hx Congestive Heart Failure, Hx Hypertension, Other Cardiovascular Problems/Disorders Respiratory History: Denies: Hx Asthma GI History: Reports: Hx Irritable Bowel Denies: Other GI Disorders History: Reports: Other Problems/Disorders - current UTI Denies: Hx Renal Disease Sensory History: Reports: Hx Contacts or Glasses, Hx Hearing Aid - in right ear , Hx Hearing Problem - right ear has difficulty hearintg Denies: Hx Deafness Opthamlomology History: Reports: Hx Contacts or Glasses Neurological History: Reports: Hx Migraine - last migraine in 2000, Other Neuro Impairments/Disorders - BIPOLAR DISORDER Psychiatric History: Reports: Hx Anxiety, Hx Depression, Hx Inpatient Treatment , Hx Community Mental Health Tx, Hx Bipolar Disorder Denies: Hx Eating Disorder, Hx of Violent Episodes Against Others - Cancer History Cancer Type, Location and Year: None - Surgical History Surgery Procedure, Year, and Place: hysterectomy, 1994, [facility] left ankle r/t fx - pins/plates , bladder surgery for incontinence, 2011, [facility]. TUBAL LIGATION 1984, [place]. CARPAL TUNNEL RIGHT 03/1984, [facility]. Hx Anesthesia Reactions: No Infectious Disease History: No Infectious Disease History: Denies: Hx Clostridium Difficile, Hx Hepatitis, Hx Human Immunodeficiency Virus (HIV), Hx of Known/Suspected MRSA, Hx Shingles, Hx Tuberculosis, Hx Known/ Suspected VRE, Hx Known/Suspected VRSA, History Other Infectious Disease, Traveled Outside the in Last 30 Days - Family History Known Family History: Positive: Diabetes Negative: Cardiac Disease, Hypertension - Social History Alcohol Use: None Substance Use Type: Reports: None Smoking Status (MU): Never Smoked Tobacco Have You Smoked in the Last Year: No Review of Systems Positive: Other - pos - loss of appetite, "cannot sit still", "acting impulsively". Negative: Fever Positive: Diarrhea, Nausea. Negative: Vomiting Genitourinary: Negative - urinary symptoms Positive: Other - pos - pain in right foot All Other Systems Reviewed And Are Negative: Yes Physical Exam - Summary Physical Exam Summary: General: Well-developed, Well-nourished female. No acute distress. Morbidly obese, repetitive motions of face and neck. HEENT: Normocephalic, Atraumatic. Eyes: Conjuctiva normal, PERRL. Ears: TMs within normal limits. Nares: (-) discharge, (-) erythema. Oropharynx: Clear, mucous membranes moist, (-) exudates. Neck: Soft, FROM, (-) lymphadenopathy, (-) thyromegaly, (-) JVD. Cardiovascular: Normal sinus rhythm, (-) murmur. Lungs: Clear to auscultation bilaterally (-) wheezes, (-) rales, (-) rhonchi. Abdomen: Soft, non-tender, non-distended, (-) organomegaly, normal bowel sounds. Back: (-) CVA tenderness Extremities: No edema. Skin: Warm, dry, (-) rash. Neuro: Alert and oriented x3, no focal deficits. Psychiatric: Mood normal, affect normal. Triage Information Reviewed: Yes Vital Signs On Initial Exam: Initial Vitals Temp Pulse Resp BP Pulse Ox 98.1 F 78 16 141/90 96 12/18/18 04:45 12/18/18 04:45 12/18/18 04:45 12/18/18 04:45 12/18/18 04:45 Vital Signs Reviewed: Yes Diagnostics - Vital Signs Vital Signs Temp Pulse Resp BP Pulse Ox 12/18/18 04:45 98.1 F 78 16 141/90 96 - Laboratory Lab Results: Lab Results 12/18/18 Range/Units 05:14 WBC 8.5 (3.5-10.8) 10^3/uL RBC 4.36 (3.70-4.87) 10^6 /uL Hgb 13.8 (12.0-16.0) g/dL Hct 41 (35-47) % MCV 94 (80-97) fL MCH 32 H (27-31) pg MCHC 34 (31-36) g/dL RDW 14 (10-15) % Plt Count 249 (150-450) 10^3/uL MPV 7.7 (7.4-10.4) fL Neut % (Auto) 67.4 % Lymph % (Auto) 21.1 % Burt % (Auto) 9.9 % Eos % (Auto) 1.2 % Baso % (Auto) 0.4 % Absolute Neuts (auto) 5.8 (1.5-7.7) 10^3/ul Absolute Lymphs (auto) 1.8 (1.0-4.8) 10^3/ul Absolute Monos (auto) 0.8 (0-0.8) 10^3/ul Absolute Eos (auto) 0.1 (0-0.6) 10^3/ul Absolute Basos (auto) 0.0 (0-0.2) 10^3/ul Absolute Nucleated RBC 0.0 10^3/ul Nucleated RBC % 0.0 Result Diagrams: 12/18/18 05:14 12/18/18 05:14 Lab Statement: Any lab studies that have been ordered have been reviewed, and results considered in the medical decision making process. Course/Dx - Course Course Of Treatment: The pt is a 68 yr old female presenting to [facility] c/o SI with a plan beginning 5-6 days [employer] T[employer]ER. She also reports nausea, diarrhea, loss of appetite, and pain in her right foot but denies any vomiting, fever, or urinary symptoms. Test results normal except for MCH 32, Creatinine 1.49, and Glucose 117. In the ED course pt was given 650 mg tylenol. Final Dx is suicidal ideation. Pt will be a sign out to Dr. Hooper pending MHE and disposition. - Differential Dx/Clinical Impression Provider Diagnosis: Suicidal ideation Discharge ED - Sign-Out/Discharge Documenting (check all that apply): Sign-Out Patient Signing out patient TO: Epifanio Hooper - Discharge Plan Referrals: Vin Reyna MD [Primary Care Provider] - - Attestation Statements Document Initiated by Suleman: Yes Documenting Scribe: Yair Garduno Provider For Whom Suleman is Documenting (Include Credential): Maggy Sandhu MD Scribe Attestation: I, Yair Garduno, scribed for aMggy Sandhu MD on 12/18/18 at 0643. Scribe Documentation Reviewed: Yes Provider Attestation: The documentation as recorded by the Yair traylor accurately reflects the service I personally performed and the decisions made by me, Maggy Sandhu MD Status of Scribe Document: Viewed
[2018-12-18 05:42] LABS: ALT 26 U/L (7-52); AST 13 U/L (13-39); Albumin/Globulin Ratio 1.1 (1-3); Alkaline Phosphatase 90 U/L (34-104); Anion Gap 6 mmol/L (2-11); BUN/Creatinine Ratio 12.8 (8-20); Blood Urea Nitrogen 19 mg/dL (6-24); CO2 Carbon Dioxide 27 mmol/L (22-32); Chloride 105 mmol/L (101-111); EGFR African American 42.4 (>60); Globulin 3.6 g/dL (2-4); Glucose 117 mg/dL (70-100); Potassium 4.1 mmol/L (3.5-5.0); Sodium 138 mmol/L (135-145); Total Protein 7.6 g/dL (6.4-8.9)
[2018-12-18] MEDS ORDERED: Acetaminophen TAB* 325 MG PO ONE (05:55)
[2018-12-18 05:59] LABS: Acetaminophen < 15 mcg/mL; Alcohol < 10 mg/dL (<10); Salicylate < 2.50 mg/dL (<30)
[2018-12-18 06:15] LABS: TSH (Thyroid Stimulating Horm) 3.27 mcIU/mL (0.34-5.60)
[2018-12-18] MEDS ORDERED: hydrOXYzine HCL TAB* 50 MG PO ONE (06:49)
--- OUTSIDE RECORDS SUMMARY | 2018-12-18 07:07 | XMS REPORT ---
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 45202146172758062 age-related cataract, bilateral Problem Bipolar 1 disorder F31.9 Active 752476910 Problem Hyperlipidemia, E78.5 Active 34704128 unspecified hyperlipidemia type Problem Sleep apnea in G47.30 Active 20028400 adult Problem Tricompartment M17.11 Active 751763834 osteoarthritis of right knee Problem Hypertension I10 Active 31099913 Problem Primary M17.11 Active 251929438357409 osteoarthritis of right knee Problem Osteopenia of M85.851 Active 274946799 right hip Problem Obesity (BMI E66.9 Active 491983271 35.0-39.9 without comorbidity) Problem Stage 3 chronic N18.3 Active 927066787 kidney disease Problem Hypothyroidism, E03.9 Active 68887863 unspecified type Problem BMI Z68.36 Active 707956774 36.0-36.9,adult ALLERGIES No Information ENCOUNTERS Encounter Location Date Diagnosis [facility] [address] [facility], [place] [address] Dec, [place] [address] [facility] [address] [facility], Dec, Bipolar 1 [place] F31.9 [place] [address] and Left foot pain M79.672 [facility] [address] [facility], [place] [address] Dec, [place] [address] Nov, [place] [address] [place], [place] [address] osteoarthritis of right knee M17.[address] [place], Nov, Bipolar 1 disorder F31.9 ; [place] [address] Osteopenia of right hip M85.851 ; Hypothyroidism, unspecified type E03.9 ; Hyperlipidemia, unspecified hyperlipidemia type E78.5 ; Urinary frequency R35.0 ; Acute pain of right knee M25.561 and Encounter for immunization Z23 [address] [place], [place] [address] [place], Oct, Ur[place] R35.0 [place] [address] [place], [place] [address] [place], [place] [address] [place], Sep, [place] [address] hematuria N30.00 ; Acute non-recurrent frontal sinusitis J01.10 ; Screening for breast cancer Z12.31 and Screening for osteoporosis Z13.[address] [place], [place] [address] [place], August, [place] [address] sinusitis J01.10 and Dysuria R30.[address] [place], [place] [address] [place], [place] [address] [place], August, Cough R05 ; [place] [address] disorder F31.9 ; Stage 3 chronic kidney disease N18.3 and Hyperlipidemia, unspecified hyperlipidemia type E78.[address] [place], Jul, Cough R05 [place] [address] immunization Z[address] [place], Jun, [place] [address] [facility] [address] [place], [place] [address] [place], Jun, Bipolar 1 disorder F31.9 ; [place] [address] Hyperlipidemia, unspecified hyperlipidemia type E78.5 and Cough R05 [address] [place], [place] [address] [place], Feb, Dysuria R30.0 [place] [address] for hepatitis C screening test for low risk patient Z11.[address] Jan, [place] [address] [place], [place] [address] [place], Jan, Bipolar 1 disorder F31.9 ; [place] [address] Pre-diabetes R73.03 ; Elevated serum creatinine R79.89 ; Dysuria R30.0 and Hyperlipidemia, unspecified hyperlipidemia type E78.[address] Jan, [place] [address] [place], Dec, [place] [address] R79.89 and [place] use Z79.[address] [place], Dec, Bipolar 1 disorder F31.9 ; [place] [address] Screening for breast cancer Z12.31 ; BMI 36.0-36.9,adult Z68.36 ; Obesity (BMI 35.0-39.9 without comorbidity) E66.9 and Hypothyroidism, unspecified type E03.[address] [place], [place] [address] Dec, [facility] [place] [address] Oct, [facility] [place] [address] [facility] Business Office [address] [place], [place] [address] [place], Jul, [place] [address] sinusitis J01.10 ; Screening for breast cancer Z12.31 ; Special screening for osteoporosis Z13.820 and Need for hepatitis C screening test Z11.[address] Jul, [place] [address] [place] [facility] [address] [place], [place] [address] [place] [facility] [address] [place], May, Pre-diabetes R73.03 ; [place] [address] Bipolar 1 disorder F31.9 ; Hypertension I10 ; Hyperlipidemia, unspecified hyperlipidemia type E78.5 and Sleep apnea in adult G47.[address] Apr, [place] [address] [place] [facility] [address] [place], [place] [address] [place] [facility] [address] [place], Apr, [place] [address] [place] [facility] [address] [place], [place] [address] [place], Cough R05 [place] [address] [place] [facility] [address] [place], [place] [address] [place] [facility] [address] [place], Apr, [place] [address] G47.20 [place] [facility] [address] [place], [place] [address] [place] [facility] [address] [place], [place] [address] [place] [facility] [address] [place], [place] [address] [place] [facility] [address] [place], [place] [address] [place] [facility] [address] [place], Apr, [place] [address] contractions M62.40 and Hypertension I10 [place] [facility] [address] [place], [place] [address] [place] [facility] [address] [place], Mar, [place] [address] extremities M62.838 [place] [facility] [address] [place], [place] [address] Nov, [place] [address] [place] [facility] [address] [place], [place] [address] [place] [facility] [address] [place], Sep, [place], [place] [address] etiology J02.9 [place] [facility] [address] [place], [place] [address] [place], Jul, Diarrhea R19.7 [place] [address] [place] [address] [place], [place] [address] [place], [place] [address] [place] [address] [place], Jul, [place] K52.9 [place] [address] [place] [address] [place], [place] [address] [place], [place] [address] [place], Mar, Bipolar disorder 296.80 [place] [address] [place], Jan, Other eczema L30.8 ; [place] [address] lesion L98.9 and Chronic sinusitis, unspecified location J32.[address] [place], [place] [address] [place], [place] [address] [place], [place] [address] [place], Jun, Abdominal pain 789.00 ; [place] [address] Elevated blood pressure 796.2 and Hematuria 599.[address] [place], Jan, Bipolar 1 disorder 296.7 ; [place] [address] Sinusitis 473.9 ; Vertigo 780.4 and Neck pain 723.[address] [place], Dec, Sinusitis 473.9 [place] [address] IMMUNIZATIONS No Known Immunizations SOCIAL HISTORY Never Assessed REASON FOR REFERRAL FUNCTIONAL STATUS PLAN OF CARE VITAL SIGNS MEDICATIONS Unknown Medications PROCEDURES No Known procedures RESULTS No Results REASON FOR VISIT follow up call Insurance Providers [facility] Health Member Patient Patient Patient Patient Patient Subscriber Subscriber Subscriber Group Insurance Plan Plan Plan Plan ID Relationship Address Phone Name Date of ID Name Date of No Type Insurance Insurance Insurance Coverage to Subscriber Address Phone Name Dates Case [phone] Case self Veronique [id number] Management [place] [address] [facility] [address] [facility] [phone] Excellus self Veronique [id number] Medicare [id number] Medicare [place] 7 Adv H[place] Adv [facility] [id number] Case [phone] Case self Veronique [id number] Management [place] [address] [facility] [address] [facility] Medicare National [phone] Medicare self Veronique [id number] PPS [place] [address] PPS [facility] [address] [facility] [place] [id number] MEDICAL (GENERAL) HISTORY Type Description Date Medical History bipolar Medical History tardive dyskenestia Medical History Bipolar disorder Medical History Bipolar disorder Surgical History bladder surgey Surgical History hysterectomy Surgical History tubal ligation Surgical History surgery on left foot 2015 or Surgical History revision of left tib/fib fractures Surgical History Right eye cataract removal 05/2016 Surgical History Left eye cataract removal 07/2016 Hospitalization History see above Hospitalization History bipolar episodes Hospitalization History [facility] 01/2013 Hospitalization History Suicideal ideation 12/2017
--- OUTSIDE RECORDS SUMMARY | 2018-12-18 07:07 | XMS REPORT ---
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 62538934372983179 age-related cataract, bilateral Problem Bipolar 1 disorder F31.9 Active 458988394 Problem Hyperlipidemia, E78.5 Active 56547040 unspecified hyperlipidemia type Problem Sleep apnea in G47.30 Active 92696987 adult Problem [place] M17.11 Active 900619724 osteoarthritis of right knee Problem Hypertension I10 Active 57399631 Problem Primary M17.11 Active 838482406836764 osteoarthritis of right knee Problem Osteopenia of M85.851 Active 699323522 right hip Problem Obesity (BMI E66.9 Active 581553908 35.0-39.9 without comorbidity) Problem Stage 3 chronic N18.3 Active 975589156 kidney disease Problem Hypothyroidism, E03.9 Active 55584289 unspecified type Problem BMI Z68.36 Active 395521443 36.0-36.9,adult ALLERGIES No Information ENCOUNTERS Encounter Location Date Diagnosis [facility] [address] [facility], [place] [address] Dec, [place] [address] [facility] [address] [facility], Dec, Bipolar 1 [place] F31.9 [place] [address] and Left foot pain M79.672 [facility] [address] [facility], [place] [address] Dec, [place] [address] Nov, [place] [address] [place], Nov, [place] [address] osteoarthritis of right knee M17.[address] [place], Nov, Bipolar 1 disorder F31.9 ; [place] [address] Osteopenia of right hip M85.851 ; Hypothyroidism, unspecified type E03.9 ; Hyperlipidemia, unspecified hyperlipidemia type E78.5 ; Urinary frequency R35.0 ; Acute pain of right knee M25.561 and Encounter for immunization Z23 [address] [place], [place] [address] [place], Oct, [place] R35.0 [place] [address] [place], [place] [address] [place], [place] [address] [place], Sep, [place] [address] hematuria N30.00 ; Acute non-recurrent frontal sinusitis J01.10 ; Screening for breast cancer Z12.31 and Screening for osteoporosis Z13.[address] [place], [place] [address] [place], August, [place] [address] sinusitis J01.10 and Dysuria R30.[address] [place], [place] [address] [place], [place] [address] [place], August, Cough R05 ; [place] [address] disorder F31.9 ; Stage 3 chronic kidney disease N18.3 and Hyperlipidemia, unspecified hyperlipidemia type E78.[address] [place], Jul, Cough R05 [place] [address] immunization Z23 [address] [place], Jun, [place] [address] SODUS REPLACED BY [facility] [address] [place], [place] [address] [place], Jun, Bipolar 1 disorder F31.9 ; [place] [address] Hyperlipidemia, unspecified hyperlipidemia type E78.5 and Cough R05 [address] [place], [place] [address] [place], Feb, Dysuria R30.0 [place] [address] for hepatitis C screening test for low risk patient Z11.[address] Jan, [place] [address] [place], [place] [address] [place], Jan, Bipolar 1 disorder F31.9 ; [place] [address] Pre-diabetes R73.03 ; Elevated serum creatinine R79.89 ; Dysuria R30.0 and Hyperlipidemia, unspecified hyperlipidemia type E78.[address] Jan, [place] [address] [place], Dec, [place] [address] R79.89 and [place] use Z79.[address] [place], Dec, Bipolar 1 disorder F31.9 ; [place] [address] Screening for breast cancer Z12.31 ; BMI 36.0-36.9,adult Z68.36 ; Obesity (BMI 35.0-39.9 without comorbidity) E66.9 and Hypothyroidism, unspecified type E03.[address] [place], [place] [address] Dec, Health [facility] [place] [address] Oct, Health [facility] [place] [address] [facility] Business Office [address] [place], [place] [address] [place], Jul, [place] [address] sinusitis J01.10 ; Screening for breast cancer Z12.31 ; Special screening for osteoporosis Z13.820 and Need for hepatitis C screening test Z11.[address] Jul, [place] [address] [place] [facility] [address] [place], [place] [address] [place] [facility] [address] [place], May, Pre-diabetes R73.03 ; [place] [address] Bipolar 1 disorder F31.9 ; Hypertension I10 ; Hyperlipidemia, unspecified hyperlipidemia type E78.5 and Sleep apnea in adult G47.[address] Apr, [place] [address] [place] [facility] [address] [place], [place] [address] [place] [facility] [address] [place], [place], [place] [address] [place] [facility] [address] [place], [place] [address] [place], Cough R05 [place] [address] [place] [facility] [address] [place], [place] [address] [place] [facility] [address] [place], Apr, [place] [address] G47.20 [place] [facility] [address] [place], [place] [address] [place] [facility] [address] [place], [place] [address] [place] [facility] [address] [place], [place] [address] [place] [facility] [address] [place], [place] [address] [place] [facility] [address] [place], Apr, [place] [address] contractions M62.40 and Hypertension I10 [place] [facility] [address] [place], [place] [address] [place] [facility] [address] [place], Mar, [place] [address] extremities M62.838 [place] [facility] [address] [place], [place] [address] Nov, [place] [address] [place] [facility] [address] [place], [place] [address] [place] [facility] [address] [place], Sep, [place], [place] [address] etiology J02.[address] [place] [address] [place], [place] [address] [place] [address] [place], Jul, [place]arrhea R19.7 [place] [address] [place] [facility] [address] [place] [address] [place], [place] [address] [place] [address] [place], [place] [address] [place] [address] [place], Jul, [place] K52.9 [place] [address] [place] [address] [place], [place] [address] [place], [place] [address] [place], Mar, Bipolar [place] 296.80 [place] [address] [place], Jan, Other eczema L30.8 ; [place] [address] lesion L98.9 and Chronic sinusitis, unspecified location J32.[address] [place], [place] [address] [place], [place] [address] [place], [place] [address] [place], Jun, Abdominal pain 789.00 ; [place] [address] Elevated blood pressure 796.2 and Hematuria [address] [place], Jan, Bipolar 1 disorder 296.7 ; [place] [address] Sinusitis 473.9 ; Vertigo 780.4 and Neck pain 723.[address] [place], Dec, Sinusitis 473.9 [place] [address] IMMUNIZATIONS No Known Immunizations SOCIAL HISTORY Never Assessed REASON FOR REFERRAL FUNCTIONAL STATUS PLAN OF CARE VITAL SIGNS MEDICATIONS Unknown Medications PROCEDURES No Known procedures RESULTS No Results REASON FOR VISIT RHIO Alert [facility] Discharge Insurance Providers [facility] Member Patient Patient Patient Patient Patient Subscriber Subscriber Subscriber Group Insurance Plan Plan Plan Plan ID Relationship Address Phone Name Date of ID Name Date of No Type Insurance Insurance Insurance Coverage to Subscriber Address Phone Name Dates Medicare National [id number] Medicare self Veronique [id number] [facility] 41 PPS [employer] [address] [facility] [id number] [employer] [phone] [employer] self Veronique [id number] Medicare [id number] Medicare [place] 7 Adv [facility] [place] [facility] [id number] Case [phone] Case self Veronique [id number] Management [place] [address] [facility] [address] [facility] Case [phone] Case self Veronique [id number] [address] [facility] MEDICAL (GENERAL) HISTORY Type Description Date Medical [...] above Hospitalization History bipolar episodes Hospitalization History [facility] 01/2013 Hospitalization History Suicideal ideation 12/2017
--- OUTSIDE RECORDS SUMMARY | 2018-12-18 07:07 | XMS REPORT ---
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 57901185290859090 age-related cataract, bilateral Problem Bipolar 1 disorder F31.9 Active 033709571 Problem Hyperlipidemia, E78.5 Active 07067286 unspecified hyperlipidemia type Problem Sleep apnea in G47.30 Active 50922276 adult Problem [place]partment M17.11 Active 048018722 osteoarthritis of right knee Problem Hypertension I10 Active 20295724 Problem Primary M17.11 Active 237528581596680 osteoarthritis of right knee Problem Osteopenia of M85.851 Active 955548490 right hip Problem Obesity (BMI E66.9 Active 939851377 35.0-39.9 without comorbidity) Problem Stage 3 chronic N18.3 Active 161684338 kidney disease Problem Hypothyroidism, E03.9 Active 75659986 unspecified type Problem BMI Z68.36 Active 581246147 36.0-36.9,adult ALLERGIES Substance Reaction Event Type Date Status muscle relaxants Unknown Non Drug Allergy Dec, Active Highly anti-cholinergic agents Unknown Non Drug Allergy Dec, Active Benzodiazepines Unknown Non Drug Allergy Dec, Active Compazine muscle cramps Drug Allergy Dec, Active Penicillin bipolar Drug Allergy Dec, Active Oxycodone HCl Unknown Drug Allergy Dec, Active ENCOUNTERS Encounter Location Date Diagnosis [facility] [address] [facility], [place] [address] [place] [address] [facility] Dec, [place] [address] [place], Dec, Bipolar 1 [place] F31.9 [place] [address] and Left foot pain M79.[address] [place] [address] [place], [place] [address] Dec, [place] [address] Nov, [place] [address] [place], Nov, [place] [address] osteoarthritis of right knee M17.[address] [place], Nov, Bipolar 1 disorder F31.9 ; [place] [address] Osteopenia of right hip M85.851 ; Hypothyroidism, unspecified type E03.9 ; Hyperlipidemia, unspecified hyperlipidemia type E78.5 ; Urinary frequency R35.0 ; Acute pain of right knee M25.561 and Encounter for immunization Z23 [place] [address] [place], [place] [address] [place], Oct, [place] R35.0 [place] [address] [place], [place] [address] [place], [place] [address] [place], Sep, [place] [address] hematuria N30.00 ; Acute non-recurrent frontal sinusitis J01.10 ; Screening for breast cancer Z12.31 and Screening for osteoporosis Z13.[address] [place], [place] [address] [place], [place], [place] [address] sinusitis J01.10 and Dysuria R30.[address] [place], [place] [address] [place], [place] [address] [place], [place], Cough R05 ; [place] [address] disorder F31.9 ; Stage 3 chronic kidney disease N18.3 and Hyperlipidemia, unspecified hyperlipidemia type E78.[address] [place], Jul, Cough R05 [place] [address] immunization Z23 [place] [address] [place], Jun, [place] [address] SODUS [facility] [address] [place], [place] [address] [place], Jun, Bipolar 1 disorder F31.9 ; [place] [address] Hyperlipidemia, unspecified hyperlipidemia type E78.5 and Cough R05 [place] [address] [place], [place] [address] [place], Feb, Dysuria R30.0 [place] [address] for hepatitis C screening test for low risk patient Z11.[address] Jan, [place] [address] [place], [place] [address] [place], Jan, Bipolar 1 disorder F31.9 ; [place] [address] Pre-diabetes R73.03 ; Elevated serum creatinine R79.89 ; Dysuria R30.0 and Hyperlipidemia, unspecified hyperlipidemia type E78.[address] Jan, [place] [address] [place], Dec, [place] [address] R79.89 and [place] use Z79.[address] [place], Dec, Bipolar 1 disorder F31.9 ; [place] [address] Screening for breast cancer Z12.31 ; BMI 36.0-36.9,adult Z68.36 ; Obesity (BMI 35.0-39.9 without comorbidity) E66.9 and Hypothyroidism, unspecified type E03.[address] [place], [place] [address] [place] [address] Dec, [facility] Medical [place] [address] [place] [address] Oct, Health Medical [place] [address] [facility] Business Office [address] [place], [place] [address] [place] [facility] [address] [place], Jul, [place] [address] sinusitis J01.10 ; Screening for breast cancer Z12.31 ; Special screening for osteoporosis Z13.820 and Need for hepatitis C screening test Z11.[address] Jul, [place] [address] [facility] [address] [place], [place] [address] [facility] [address] [place], May, Pre-diabetes R73.03 ; [place] [address] Bipolar 1 disorder F31.9 ; Hypertension I10 ; Hyperlipidemia, unspecified hyperlipidemia type E78.5 and Sleep apnea in adult G47.[address] Apr, [place] [address] [facility] [address] [place] [address] [place], [place] [address] [place], Apr, [place] [address] [place] [address] [place], [place] [address] [place], Cough R05 [place] [address] [place] [facility] [address] [place] [address] [place], [place] [address] [place] [address] [place], Apr, [place] [address] G47.20 [facility] [facility] [address] [place], [place] [address] [facility] [address] [place], [place] [address] [facility] [address] [place], [place] [address] [facility] [address] [place], [place] [address] [facility] [address] [place], Apr, [place] [address] contractions M62.40 and Hypertension I10 [facility] [address] [place], [place] [address] [facility] [address] [place], [place], [place] [address] extremities M62.838 [facility] [facility] [address] [place], [place] [address] [facility] [address] Nov, [place] [address] [facility] [address] [place] [address] [place], [place] [address] [place], Sep, [place], [place] [address] etiology J02.[address] [place] [address] [place], [place] [address] [place], Jul, Diarrhea R19.7 [place] [address] [facility] [address] [place], [place] [address] [place] [address] [place], [place] [address] [place], Jul, Chronic diarrhea K52.9 [place] [address] [place] [address] [place], [place] [address] [place], [place] [address] [place], Mar, B[place] 296.80 [place] [address] [place] [address] [place], Jan, Other eczema L30.8 ; [place] [address] lesion L98.9 and Chronic sinusitis, unspecified location J32.[address] [place], [place] [address] [place], [place] [address] [place], [place] [address] [place], Jun, Abdominal pain 789.00 ; [place] [address] Elevated blood pressure 796.2 and Hematuria 599.[address] [place] [address] [place], Jan, Bipolar 1 disorder 296.7 ; [place] [address] Sinusitis 473.9 ; Vertigo 780.4 and Neck pain 723.[address] [place], Dec, Sinusitis 473.9 [place] [address] IMMUNIZATIONS No Known Immunizations SOCIAL HISTORY Never Assessed REASON FOR REFERRAL FUNCTIONAL STATUS PLAN OF CARE Activity Details Follow Up 4 weeks Reason:ankle Pending Test X ray : Foot, left VITAL SIGNS Temperature 98.2 degrees Fahrenheit 2018-12-15 Heart Rate 20 2018-12-15 Weight 201.1 2018-12-15 Height 62 in 2018-12-15 BMI 36.78 kg/m2 2018-12-15 Oximetry 96 % 2018-12-15 Blood pressure systolic 120 mm Hg 2018-12-15 Blood pressure diastolic 73 mm Hg 2018-12-15 MEDICATIONS Medication Instructions Dosage Frequency Start End Duration Status Date Date Dicyclomine HCl p.o. 4 times a 1 cap(s) Active 20 mg day. Atorvastatin Orally Once a 1 tablet 24h 90 Active Calcium 20 mg day Wellbutrin XL 100 Orally Once a 1 tablet in 24h 18 Sep, Active mg day the morning 2018 Latuda 20 mg Orally Once a 1 tablet 24h Active day with food Clonidine HCl 0.1 Orally 2 times a 1 tablet Active MG day. [place] Carbonate Orally Once a 2 capsule 24h 18 Dec, Active 300 MG day at bedtime 2017 Gabapentin 600 MG Orally 3 times a 1 capsule 8h Active day Levothyroxine Orally Once a 1 tablet on 24h Active Sodium 25 MCG day an empty stomach in the morning PROCEDURES Procedure Date Ordered Result Body Site Brief emotional/behavioral assessment Dec 15, 2018 BODY MASS INDEX DOCD Dec 15, 2018 SMOKING + 2ND HAND ASSESSED Dec 15, 2018 Oxygen saturation results documented and reviewed Dec 15, 2018 BLOOD PRESSURE, MEASURED Dec 15, 2018 RESULTS No Results REASON FOR VISIT [facility] Discharge for MH, PVP: BMI and F/U. - BL, PHQ 9. MPT, Patient stated she went to the [facility] for extrapyramidal symptoms on 12/03/2018 then she was admited to [facility] behavioral health 12/06/2018.CM Insurance Providers [facility] Health Member Patient Patient Patient Patient Patient Subscriber Subscriber Subscriber Group Insurance Plan Plan Plan Plan ID Relationship Address Phone Name Date of ID Name Date of No Type Insurance Insurance Insurance Coverage to Subscriber Address Phone Name Dates Case [phone] Case self Veronique [id number] [facility] [place] [id number] [facility] Medicare [place] [id number] Medicare self Veronique [id number] [address] Services [address] [facility] [id number] Case [phone] Case self Veronique [id number] Management [facility] [address] [facility] [employer] [phone] [employer] self Veronique [id number] Medicare [id number] Medicare [place] [facility] [place] [facility] [id number] MEDICAL (GENERAL) HISTORY Type Description Date Medical [...] above Hospitalization History bipolar episodes Hospitalization History [facility] 01/2013 Hospitalization History Suicideal ideation 12/2017
--- NOTE | 2018-12-18 07:15 | ED ---
Progress - Progress Note Progress Note: This pt is a sign out from Dr. Sandhu to Dr. Hooper at shift change 0700 12/18 pending a MHE and dispo. Course/Dx - Course Course Of Treatment: This pt is a sign out from Dr. Sandhu to Dr. Hooper at shift change 0700 12/18/18 pending a MHE and dispo. - Diagnoses Provider Diagnoses: Bipolar disorder - Provider Notifications Discussed Care Of Patient With: Teresita Prado Time Discussed With Above Provider: 07:18 Instructed by Provider To: Admit As Inpatient - voluntary Admit/Transition Orders Completed By ED Provider: Yes Discharge ED - Sign-Out/Discharge Documenting (check all that apply): Patient Departure - admitted voluntary Patient Received Moderate/Deep Sedation with Procedure: No - Discharge Plan Condition: Stable [place] [place] [place]errals: Vin Reyna MD [Primary Care Provider] - - Billing Disposition and Condition Condition: STABLE Disposition: Psychiatric [place] [facility] - Attestation Statements Document Initiated by Scribe: Yes Documenting Scribe: Lang Moreno Provider For Whom Scribe is Documenting (Include Credential): Epifanio Hooper MD Scribe Attestation: ILang, scribed for Epifanio Hooper MD on 12/18/18 at 0740. Scribe Documentation Reviewed: Yes Provider Attestation: The documentation as recorded by the scribLang atkinson accurately reflects the service I personally performed and the decisions made by me, Epifanio Hooper MD Status of Scribe Document: Viewed
[2018-12-18] MEDS ORDERED: hydrOXYzine HCL TAB* 25 MG PO ONE ×2 (08:10→17:00)
[2018-12-18] MEDS ORDERED: Al Hydrox/Mg Hydrox/Simet LIQ* 30 ML UDC PO PRN (08:59)
[2018-12-18] MEDS ORDERED: Lurasidone(*) 20 MG TAB PO SCH (09:00)
[2018-12-18] MEDS: Atorvastatin* 20 MG TAB PO SCH (10:06)
[2018-12-18] MEDS: cloNIDine TAB* 0.1 MG PO SCH ×2 (10:06→20:06)
[2018-12-18] MEDS: Vitamin THERAPEUTIC TAB PO SCH (10:06)
[2018-12-18] MEDS: Gabapentin CAP(*) 300 MG PO SCH ×3 (10:07→20:06)
[2018-12-18] MEDS: Dicyclomine CAP* 10 MG PO SCH ×4 (10:07→20:06)
[2018-12-18] MEDS: Levothyroxine TAB* 25 MCG TAB PO SCH (10:07)
[2018-12-18] MEDS: buPROPion SR TAB.SR* 100 MG PO SCH (10:07)
[2018-12-18] MEDS ORDERED: hydrOXYzine HCL TAB* 25 MG ONE (16:01)
[2018-12-18] MEDS: CMCS: Lithium Carbonate ER (NF) 300 MG TAB.ER PO SCH (20:06)
--- NOTE | 2018-12-18 20:35 | HP ---
HISTORY AND PHYSICAL: DATE OF ADMISSION: 12/18/18 IDENTIFYING DATA: Ms. Kerr is a 68-year-old mentally disabled female with extensive history of mental illness and multiple prior psychiatric hospitalizations, who was discharged from [facility] on 12/12/18 after almost a week's hospitalization. She was brought into the emergency room by ambulance under almost identical circumstances this time as well. CHIEF COMPLAINT: "My mixed manic state is killing me and I want to end my life. I can't take it anymore." HISTORY OF PRESENT ILLNESS: Ms. Kerr reports that she was doing fine for a couple of days since her discharge home on 12/12/18, but everything changed after that. She reports that her bipolar disorder is out of control. She has been feeling so restless, anxious, and nauseous that she thought she was going to explode. She also thought about overdosing on her medications to end the misery. She also reports that this affects her whole body and she becomes overwhelmed. She thinks that it is almost like having a stomach problem and her bile is coming up through her throat and she is about to throw up. She continues to be extremely anxious and restless, shaking with tremors of her extremities and moderate movements around her orofacial region. She is also labile in her affect, has been tearful multiple times during the evaluation. Apparently, her stressors are mostly financial related to multiple medical bills she incurred during her transportation via ambulance or hospitalization here. On top of it, she became the caregiver to her daughter, who recently had neck surgery. Otherwise, she does not report of any other stress. She is also worried about 600 dollars per month for her current medication Latuda. Moreover , there is 2000 dollar bill for a hearing aid she needs to get. Overall, she is overwhelmed with all these expenses. PAST PSYCHIATRIC HISTORY: Please refer to the history and physical done by Christianne on 12/06/18, which indicates the extensive psychiatric history with multiple psychiatric hospitalizations and suicide attempts and so on. SUBSTANCE ABUSE HISTORY: None. PAST MEDICAL HISTORY: She has neck pain and was seeing Neurology. Also suffers tardive dyskinesia of mouth and lips. She has uncontrollable tremors of her upper extremities as well and sometimes, she is fidgety either because of the anxiety or side effects from her psychotropic medications. ALLERGIES: She has allergies to lot of medications. Please refer to previous history and physical and the allergy list already there on our record here. FAMILY HISTORY: No family history of mental illness, suicide attempt, or completed suicide. SOCIAL HISTORY: Veronique lives in [place] alone in a senior housing. She has a daughter and a son-in-law who live relatively close and are very supportive. Please refer to the same history and physical for more details. Veronique receives social security benefits, which is inadequate because of lot of bills that she needs to pay. PHYSICAL EXAMINATION Deferred due to the patient's request. I have reviewed the emergency room physical, which is unremarkable. She is not in any physical distress at the time of my evaluation. MENTAL STATUS EXAMINATION: Veronique is a relatively short, moderately obese, but health-appearing female, who appears to be of her stated age 68. She is alert and oriented to time, place, and person; makes good eye contact; visibly anxious and tremulous with [id number] forms of tardive dyskinesia of orofacial region. Speech is normal in all spheres. Describes her mood as terribly anxious. Observed affect appears to be anxious and tearful. Thought processes are logical and goal directed. Thought content is devoid of any delusions, although she continues to have suicidal ideation with no plans at this time. Her intelligence appears to be average as evidenced by her vocabulary and fund of knowledge. Memory functions are intact in all spheres. Insight and judgment appear to be adequate. SUMMARY: This is a 68-year-old female with known history of mood dysregulation and a diagnosis of bipolar disorder who was discharged home less than a week ago and came back in the context of severe mood lability and suicidal ideation with plans to overdose. DIAGNOSTIC IMPRESSION: MENTAL HEALTH DIAGNOSES: 1. Bipolar 1 disorder, most recent episode depressed. 2. History of cluster B traits. PHYSICAL HEALTH DIAGNOSES: 1. Tardive dyskinesia. 2. Moderate obesity. TREATMENT RECOMMENDATIONS: Veronique will remain hospitalized on behavioral health unit for her safety and stabilization of rapid mood swings. Her code status will remain full. Supportive milieu, individual and group therapy will be initiated and she will be encouraged to participate in all. My plan at this time is to continue her on all her current psychotropic medications except for Latuda, which I do not think she can afford to pay for, instead I will try her on Seroquel. Risks, benefits, and alternatives to Seroquel were explained to her. She verbalized her understanding and wants to try; however, it will be up to her assigned psychiatrist either to continue or change the medication in case that is what he or she thinks. My recommendation for the treatment team is to try to help her resolve her psychosocial stressors at home, especially the financial stress. It appears that she owes lot of money to the hospital and the ambulance company and pays lot of money where she also has to pay for her hearing aid and medications co-payments. If somebody could help her to come up with a more reasonable payment schedule and help her to do that, that probably will stop her relapse and rehospitalization, and again, this is my personal opinion, treatment team can do whatever they think is appropriate for her. [id number]/[facility] #: [id number] HYACINTH
[2018-12-18] MEDS ORDERED: QUEtiapine TAB* 25 MG PO SCH (21:00)
[2018-12-19] MEDS ORDERED: LORazepam TAB(*) 1 MG ONE (03:57)
[2018-12-19] MEDS ORDERED: LORazepam TAB(*) 1 MG PO ONE (04:20)
[2018-12-19] MEDS: Atorvastatin* 20 MG TAB PO SCH (08:26)
[2018-12-19] MEDS: Vitamin THERAPEUTIC TAB PO SCH (08:26)
[2018-12-19] MEDS: cloNIDine TAB* 0.1 MG PO SCH ×2 (08:26→20:03)
[2018-12-19] MEDS: Gabapentin CAP(*) 300 MG PO SCH ×3 (08:27→20:02)
[2018-12-19] MEDS: Levothyroxine TAB* 25 MCG TAB PO SCH (08:27)
[2018-12-19] MEDS: buPROPion SR TAB.SR* 100 MG PO SCH (08:27)
[2018-12-19] MEDS: Dicyclomine CAP* 10 MG PO SCH ×4 (08:27→20:00)
[2018-12-19] MEDS ORDERED: hydrOXYzine HCL TAB* 50 MG PO SCH (13:00)
--- NOTE | 2018-12-19 15:51 | CONS ---
CONSULTATION REPORT: DATE OF CONSULT: 12/19/18 ATTENDING ORTHOPEDIC PROVIDER: Dr. Uday Robbins. CHIEF COMPLAINT: Left foot pain with unspecified fracture. HISTORY OF PRESENT ILLNESS: The patient is a 68-year-old female who presents to [facility] with bipolar disorder and need for admission into the behavioral health unit. Today on 12/19/18, our orthopedic team was consulted for a left foot pain. The patient reports that last week, she was diagnosed with left foot fracture unspecified type. She reports that she had no traumatic injury and did not have any fall. Over the past month, her left foot has been hurting. She does not recall any injury. She has been walking on the foot, though with significant pain causing her to limp. Pain does not radiate, it is localized to the lateral aspect of the foot. She has no numbness or tingling. PAST MEDICAL HISTORY: Significant for bipolar disorder. ALLERGIES: ANTIHISTAMINES, BENZODIAZEPINES, CARISOPRODOL, OXYCODONE, PENICILLIN , COMPAZINE, ANTICHOLINERGIC AGENTS, MUSCLE RELAXERS, SEMISYNTHETIC NARCOTICS. SOCIAL HISTORY: The patient lives in [place] in senior housing. PHYSICAL EXAM: Temperature 98.1, pulse rate 72, respiratory rate 16, blood pressure 145/77. General: The patient appears well, she is lying in bed, in no acute distress. HEENT: Normocephalic, atraumatic. Extraocular movements intact. Respiratory: Normal rate and effort of breathing. Abdomen: Nondistended. Musculoskeletal: Bilateral upper extremities: Skin envelope intact. Moves extremities well. No tenderness to palpation. Right lower extremity: Skin envelop intact. Nontender to palpation. Moves all joints well. Left lower extremity: Skin envelop intact. Only tenderness to palpation is over the base of the fifth metatarsal. She was able to flex and extend at the hip, knee, and MTPs without pain. Ankle flexion, extension, inversion and eversion nonpainful. Neuro: Sensation intact to light touch throughout bilateral upper and lower extremities. Vascular: DP 2+ bilaterally. DIAGNOSTIC STUDIES/LAB DATA: Left foot x-ray: possible fracture at the base of the fifth metatarsal that is nondisplaced. ASSESSMENT: fracture at the base of the fifth metatarsal, nondisplaced. PLAN: Xrays with possible fracture of base of 5th metatarsal, will treat as such. The patient will be weightbearing as tolerated in a fracture boot. She should follow up with Orthopedics when she is discharged from the hospital. This case has been discussed with Dr. Uday Robbins who agrees with assessment and plan. RYLEE LOW [id number]/[facility] #: [id number] HYACINTH
--- NOTE | 2018-12-19 15:57 | PN ---
Subjective - Subjective Date of Service: 12/19/18 Service Type: 36905 Hosp care 25 min moderate complexity Subjective: Veronique is quite focused on her left foot today. She believes she has broken it. She is sent for imaging and the information returned is that it is not broken. Veronique continues feeling sad and alone. We discuss her lack of facility with handling distress and how that will continue to keep her distressed. Objective - General Observations Appearance: Disheveled, Malodorous Appears Stated Age: Yes Stature: Overweight Posture: WNL Eye Contact: Average Behavior/Activity: WNL, Agitated - Interaction Observations Attitude Towards Examiner: Cooperative, Anxious, Defensive Stated Mood: Dysphoric, Irritable, Anxious Affect: Labile, Full Speech Pattern/Tone: Clear Thought Process: Coherent, Goal Directed Perception: WNL Thought Content: Preoccupation/Ruminations, Obsessional, Self-Deprecatory Thought Process: Lethality: Passive Wish Hallucination Type: None Delusion Type: None - Cognitive Function Orientation: A&O x 4 Level of Consciousness: Awake, Alert, Appropriate Cognition: WNL, Impaired Attention/Concentration Estimated Intelligence: Normal Insight: Mostly Blames Others for Problems Judgment Within Normal Limits: No Ability to Make Reasonable Decisions: Moderately Impaired - Medication Compliance Cooperative with Inpatient Medication Regimen: Yes - Group Participation Participates in Group Activities: Yes Assessment - Assessment Merits Inpatient Hospitalization: For Immediate Safety Inpatient DSM-V Dx: F31.63 Clinical Impression: Veronique is a 68-year-old white woman with a history of bipolar disorder who comes to the hospital unable to tolerate the mixed symptoms and anxiety she is experiencing. Plan - Plan Treatment Plan: Name: VERONIQUE THOMAS Birthdate: 1950 [id number] We will attempt to address her anxiety with medication while in the hospital. We will also distribute DBT and CBT work for her to learn mindfulness and distress tolerance. Continued Medication Management: Different Medication Medications: Current Medications Acetaminophen (Tylenol Tab*) 650 mg PO Q4H PRN PRN Reason: PAIN or TEMP > 101 F Al Hydrox/Mg Hydrox/Simethicone (Maalox Plus*) 30 ml PO Q4H PRN PRN Reason: INDIGESTION Atorvastatin Calcium (Lipitor*) 20 mg PO DAILY [facility] Last Admin: 12/19/18 08:26 Dose: 20 mg Bupropion HCl (Wellbutrin Sr Tab*) 100 mg PO DAILY [facility] Last Admin: 12/19/18 08:27 Dose: 100 mg Clonidine HCl (Catapres Tab*) 0.1 mg PO BID [facility] Last Admin: 12/19/18 08:26 Dose: 0.1 mg Dicyclomine HCl (Bentyl Cap*) 20 mg PO QID [facility] Last Admin: 12/19/18 12:25 Dose: 20 mg Gabapentin (Neurontin Cap(*)) 600 mg PO TID [facility] Last Admin: 12/19/18 15:43 Dose: 600 mg Hydroxyzine HCl (Atarax Tab*) 50 mg PO QID PRN PRN Reason: anxiety/insomnia Ibuprofen (Motrin Tab*) 800 mg PO TID PRN PRN Reason: PAIN - MODERATE Levothyroxine Sodium (Synthroid Tab*) 25 mcg PO DAILY@0600 [facility] Last Admin: 12/19/18 08:27 Dose: 25 mcg [place] Carbonate ([place] Carbonate Er (Nf)) 600 mg PO BEDTIME [facility] Last Admin: 12/18/18 20:06 Dose: 600 mg Multivitamins (Theragran Tab*) 1 tab PO DAILY [facility] Last Admin: 12/19/18 08:26 Dose: 1 tab - Discharge Plan Discharge Plan: Outpatient Follow Up
[2018-12-19] MEDS ORDERED: Ibuprofen TAB* 800 MG PO SCH (16:00)
[2018-12-19] MEDS: hydrOXYzine HCL TAB* 50 MG PO PRN (19:59)
[2018-12-19] MEDS: Acetaminophen TAB* 325 MG PO PRN (19:59)
[2018-12-19] MEDS: CMCS: Lithium Carbonate ER (NF) 300 MG TAB.ER PO SCH (20:01)
[2018-12-19] MEDS ORDERED: OXcarbazepine TAB(*) 300 MG PO SCH (21:00)
[2018-12-20] MEDS: Levothyroxine TAB* 25 MCG TAB PO SCH (05:55)
[2018-12-20] MEDS: hydrOXYzine HCL TAB* 50 MG PO PRN ×2 (05:55→16:17)
[2018-12-20] MEDS: Atorvastatin* 20 MG TAB PO SCH (08:50)
[2018-12-20] MEDS: Dicyclomine CAP* 10 MG PO SCH ×4 (08:50→20:01)
[2018-12-20] MEDS: cloNIDine TAB* 0.1 MG PO SCH ×2 (08:50→19:59)
[2018-12-20] MEDS: Gabapentin CAP(*) 300 MG PO SCH ×4 (08:51→19:59)
[2018-12-20] MEDS: buPROPion SR TAB.SR* 100 MG PO SCH (08:51)
[2018-12-20] MEDS: Vitamin THERAPEUTIC TAB PO SCH (08:51)
[2018-12-20] MEDS: Ibuprofen TAB* 800 MG PO PRN (08:53)
[2018-12-20] MEDS: CMCS: Lithium Carbonate ER (NF) 300 MG TAB.ER PO SCH (19:59)
[2018-12-20] MEDS: OXcarbazepine TAB(*) 300 MG PO SCH (19:59)
[2018-12-21] MEDS: Levothyroxine TAB* 25 MCG TAB PO SCH (08:34)
[2018-12-21] MEDS: Dicyclomine CAP* 10 MG PO SCH ×4 (08:35→20:11)
[2018-12-21] MEDS: Vitamin THERAPEUTIC TAB PO SCH (08:36)
[2018-12-21] MEDS: OXcarbazepine TAB(*) 300 MG PO SCH ×2 (08:36→20:12)
[2018-12-21] MEDS: cloNIDine TAB* 0.1 MG PO SCH ×2 (08:36→20:11)
[2018-12-21] MEDS: Gabapentin CAP(*) 300 MG PO SCH ×3 (08:36→20:11)
[2018-12-21] MEDS: Atorvastatin* 20 MG TAB PO SCH (08:36)
[2018-12-21] MEDS: buPROPion SR TAB.SR* 100 MG PO SCH (08:36)
[2018-12-21] MEDS: Ibuprofen TAB* 800 MG PO PRN ×2 (08:40→13:15)
--- NOTE | 2018-12-21 08:43 | PN ---
Subjective - Subjective Date of Service: 12/20/18 Service Type: 14869 Hosp care 25 min moderate complexity Subjective: Veronique is not doing as well as she'd like. She remains extremely emotionally uncomfortable and would like to feel better sooner. She is struggling with mixed symptoms as well as erupting anxiety. Increased gabapentin (from 300 mg TID to 600 mg TID) left her feeling jittery and tremulous. We will move to Trileptal. Veronique also appears to have a fracture of her 5th metatarsal. She is using a wheelchair, but she doesn't like it. A PT consult was entered. Objective - General Observations Appearance: Disheveled Appears Stated Age: Yes Stature: Overweight Posture: Slumped Eye Contact: Average Behavior/Activity: WNL, Agitated - Interaction Observations Attitude Towards Examiner: Cooperative, Demanding Stated Mood: Dysphoric, Anxious Affect: Labile Speech Pattern/Tone: Clear, Slurred Thought Process: Coherent Perception: WNL Thought Content: Preoccupation/Ruminations, Self-Deprecatory Thought Process: Lethality: Passive Wish Hallucination Type: None Delusion Type: None - Cognitive Function Orientation: A&O x 4 Level of Consciousness: Awake, Alert, Appropriate Cognition: WNL Estimated Intelligence: Normal Insight: WNL Judgment Within Normal Limits: No Ability to Make Reasonable Decisions: Mildly Impaired - Medication Compliance Cooperative with Inpatient Medication Regimen: Yes - Group Participation Participates in Group Activities: Yes Assessment - Assessment Merits Inpatient Hospitalization: For Immediate Safety Inpatient DSM-V Dx: F31.63 Clinical Impression: Veronique is a 68-year-old white woman with a history of bipolar disorder who comes to the hospital unable to tolerate the mixed symptoms and anxiety she is experiencing. Plan - Plan Treatment Plan: Name: VERONIQUE THOMAS Birthdate: 1950 [id number] We will attempt to address her anxiety with medication while in the hospital. We will also distribute DBT and CBT work for her to learn mindfulness and distress tolerance. 12/20/18 Reduce gabapentin from 600 mg TID back to 300 mg TID. Although it would be easier to have just one medication for additional mood stabilization, gabapentin 's burden is too great. Instead we will start Trileptal 300 mg BID. Continued Medication Management: Different Medication Medications: Current Medications Acetaminophen (Tylenol Tab*) 650 mg PO Q4H PRN PRN Reason: PAIN or TEMP > 101 F Last Admin: 12/19/18 19:59 Dose: 650 mg Al Hydrox/Mg Hydrox/Simethicone (Maalox Plus*) 30 ml PO Q4H PRN PRN Reason: INDIGESTION Atorvastatin Calcium (Lipitor*) 20 mg PO DAILY [facility] Last Admin: 12/20/18 08:50 Dose: 20 mg Bupropion HCl (Wellbutrin Sr Tab*) 100 mg PO DAILY [facility] Last Admin: 12/20/18 08:51 Dose: 100 mg Clonidine HCl (Catapres Tab*) 0.1 mg PO DAILY [facility] Clonidine HCl (Catapres Tab*) 0.2 mg PO BEDTIME [facility] Last Admin: 12/20/18 19:59 Dose: 0.2 mg Dicyclomine HCl (Bentyl Cap*) 20 mg PO QID [facility] Last Admin: 12/20/18 20:01 Dose: 20 mg Gabapentin (Neurontin Cap(*)) 300 mg PO TID [facility] Last Admin: 12/20/18 19:59 Dose: 300 mg Hydroxyzine HCl (Atarax Tab*) 50 mg PO QID PRN PRN Reason: anxiety/insomnia Last Admin: 12/20/18 16:17 Dose: 50 mg Ibuprofen (Motrin Tab*) 800 mg PO TID PRN PRN Reason: PAIN - MODERATE Last Admin: 12/20/18 08:53 Dose: 800 mg Levothyroxine Sodium (Synthroid Tab*) 25 mcg PO DAILY@0600 [facility] Last Admin: 12/20/18 05:55 Dose: 25 mcg [place] Carbonate ([place] Carbonate Er (Nf)) 600 mg PO BEDTIME [facility] Last Admin: 12/20/18 19:59 Dose: 600 mg Multivitamins (Theragran Tab*) 1 tab PO DAILY [facility] Last Admin: 12/20/18 08:51 Dose: 1 tab Oxcarbazepine (Trileptal Tab(*)) 300 mg PO BID [facility] Last Admin: 12/20/18 19:59 Dose: 300 mg
[2018-12-21] MEDS: hydrOXYzine HCL TAB* 50 MG PO PRN (13:16)
[2018-12-21] MEDS: CMCS: Lithium Carbonate ER (NF) 300 MG TAB.ER PO SCH (20:10)
--- NOTE | 2018-12-21 21:31 | PN ---
Subjective - Subjective Date of Service: 12/21/18 Service Type: [id number] Hosp care 15 min low complexity Subjective: Veronique is much the same as she was yesterday with the exception that she is now using a walker instead of a wheelchair. Her left 5th metatarsal appears to be broken and she found it too painful to walk. Using the wheelchair caused her to be quite dependent on staff. She has responded well to the walker. She is tolerating the Trileptal well. She is still feeling agitated and unhappy , but she is improved from my perspective. She is trembling less and seems more serene. She does not seem to be tolerating the feeling of being agitated well, however. Objective - General Observations Appearance: Disheveled, Malodorous Appears Stated Age: Yes Stature: Overweight Posture: WNL Eye Contact: Average Behavior/Activity: Slowed - Interaction Observations Attitude Towards Examiner: Cooperative, Anxious Stated Mood: Dysphoric, Irritable, Anxious Affect: Labile Speech Pattern/Tone: Clear Thought Process: Coherent Perception: WNL Thought Content: Preoccupation/Ruminations Thought Process: Lethality: Passive Wish Hallucination Type: None Delusion Type: None - Cognitive Function Orientation: A&O x 4 Level of Consciousness: Awake, Alert, Appropriate Cognition: Impaired Attention/Concentration Estimated Intelligence: Normal Insight: WNL Judgment Within Normal Limits: No Ability to Make Reasonable Decisions: Moderately Impaired - Medication Compliance Cooperative with Inpatient Medication Regimen: Yes - Group Participation Participates in Group Activities: Yes Assessment - Assessment Merits Inpatient Hospitalization: For Immediate Safety, For Stabilization Inpatient DSM-V Dx: F31.63 Clinical Impression: Veronique is a 68-year-old white woman with a history of bipolar disorder who comes to the hospital unable to tolerate the mixed symptoms and anxiety she is experiencing. Plan - Plan Treatment Plan: Name: VERONIQUE THOMAS Birthdate: 1950 [id number] We will attempt to address her anxiety with medication while in the hospital. We will also distribute DBT and CBT work for her to learn mindfulness and distress tolerance. 12/20/18 Reduce gabapentin from 600 mg TID back to 300 mg TID. Although it would be easier to have just one medication for additional mood stabilization, gabapentin 's burden is too great. Instead we will start Trileptal 300 mg BID. 12/21/18 Gabapentin reduced to 300 mg TID with good effect. Trileptal started and tolerated. Walker being used for ambulation. Continue to encourage independence and wellbeing. Continued Medication Management: Different Medication Medications: Current Medications Acetaminophen (Tylenol Tab*) 650 mg PO Q4H PRN PRN Reason: PAIN or TEMP > 101 F Last Admin: 12/19/18 19:59 Dose: 650 mg Al Hydrox/Mg Hydrox/Simethicone (Maalox Plus*) 30 ml PO Q4H PRN PRN Reason: INDIGESTION Atorvastatin Calcium (Lipitor*) 20 mg PO DAILY [facility] Last Admin: 12/21/18 08:36 Dose: 20 mg Bupropion HCl (Wellbutrin Sr Tab*) 100 mg PO DAILY [facility] Last Admin: 12/21/18 08:36 Dose: 100 mg Clonidine HCl (Catapres Tab*) 0.1 mg PO DAILY [facility] Last Admin: 12/21/18 08:36 Dose: 0.1 mg Clonidine HCl (Catapres Tab*) 0.2 mg PO BEDTIME [facility] Last Admin: 12/21/18 20:11 Dose: 0.2 mg Dicyclomine HCl (Bentyl Cap*) 20 mg PO QID [facility] Last Admin: 12/21/18 20:11 Dose: 20 mg Gabapentin (Neurontin Cap(*)) 300 mg PO TID [facility] Last Admin: 12/21/18 20:11 Dose: 300 mg Hydroxyzine HCl (Atarax Tab*) 50 mg PO QID PRN PRN Reason: anxiety/insomnia Last Admin: 12/21/18 13:16 Dose: 50 mg Ibuprofen (Motrin Tab*) 800 mg PO TID PRN PRN Reason: PAIN - MODERATE Last Admin: 12/21/18 13:15 Dose: 800 mg Levothyroxine Sodium (Synthroid Tab*) 25 mcg PO DAILY@0600 [facility] Last Admin: 12/21/18 08:34 Dose: 25 mcg [place] Carbonate ([place] Carbonate Er (Nf)) 600 mg PO BEDTIME [facility] Last Admin: 12/21/18 20:10 Dose: 600 mg Multivitamins (Theragran Tab*) 1 tab PO DAILY [facility] Last Admin: 12/21/18 08:36 Dose: 1 tab Oxcarbazepine (Trileptal Tab(*)) 300 mg PO BID [facility] Last Admin: 12/21/18 20:12 Dose: 300 mg - Discharge Plan Discharge Plan: Outpatient Follow Up
[2018-12-22] MEDS: Levothyroxine TAB* 25 MCG TAB PO SCH (05:59)
[2018-12-22] MEDS: Ibuprofen TAB* 800 MG PO PRN ×2 (05:59→20:03)
[2018-12-22] MEDS: hydrOXYzine HCL TAB* 50 MG PO PRN (06:40)
[2018-12-22] MEDS: Dicyclomine CAP* 10 MG PO SCH ×4 (08:29→20:04)
[2018-12-22] MEDS: Atorvastatin* 20 MG TAB PO SCH (08:30)
[2018-12-22] MEDS: buPROPion SR TAB.SR* 100 MG PO SCH (08:30)
[2018-12-22] MEDS: Vitamin THERAPEUTIC TAB PO SCH (08:30)
[2018-12-22] MEDS: cloNIDine TAB* 0.1 MG PO SCH ×2 (08:30→19:56)
[2018-12-22] MEDS: OXcarbazepine TAB(*) 300 MG PO SCH ×2 (08:31→20:03)
[2018-12-22] MEDS: Gabapentin CAP(*) 300 MG PO SCH ×3 (08:31→20:03)
--- NOTE | 2018-12-22 18:58 | PN ---
Subjective - Subjective Date of Service: 12/22/18 Service Type: 13017 Hosp care 25 min moderate complexity Subjective: Veronique experienced pain in her right leg last night that has seemed to resolve with ibuprofen. She is once again experiencing jitters and buckling legs. The Emergency Department report indicated that they and neurology identified lithium, although not at a toxic level (0.76 at admission) may be causing these problems. We will attempt to lower the lithium, which Veronique states is what the doctor at [place] suggested when she had her stay there and spent 6 weeks and was taking 450 mg. There is a risk that she will become manic or more depressed. This is what Veronique is agreeable to right now, however, as well as sticking with the addition of the Trileptal 300 BID. Objective - General Observations Appearance: Disheveled Appears Stated Age: Yes Stature: Overweight Posture: WNL Eye Contact: Average Behavior/Activity: Slowed - Interaction Observations Attitude Towards Examiner: Cooperative, Demanding Stated Mood: Dysphoric Affect: Blunted Speech Pattern/Tone: Clear, Slurred Thought Process: Coherent Perception: WNL Thought Content: Preoccupation/Ruminations Thought Process: Lethality: Passive Wish, Suicidal Planning Hallucination Type: None Delusion Type: None - Cognitive Function Orientation: A&O x 4 Level of Consciousness: Awake, Alert, Appropriate Cognition: WNL Estimated Intelligence: Normal Insight: WNL Judgment Within Normal Limits: No Ability to Make Reasonable Decisions: Moderately Impaired - Medication Compliance Cooperative with Inpatient Medication Regimen: Yes - Group Participation Participates in Group Activities: Yes Assessment - Assessment Merits Inpatient Hospitalization: For Immediate Safety Inpatient DSM-V Dx: F31.63 Clinical Impression: Veronique is a 68-year-old white woman with a history of bipolar disorder who comes to the hospital unable to tolerate the mixed symptoms and anxiety she is experiencing. Plan - Plan Treatment Plan: Name: VERONIQUE THOMAS Birthdate: 1950 [id number] We will attempt to address her anxiety with medication while in the hospital. We will also distribute DBT and CBT work for her to learn mindfulness and distress tolerance. 12/20/18 Reduce gabapentin from 600 mg TID back to 300 mg TID. Although it would be easier to have just one medication for additional mood stabilization, gabapentin 's burden is too great. Instead we will start Trileptal 300 mg BID. 12/21/18 Gabapentin reduced to 300 mg TID with good effect. Trileptal started and tolerated. Walker being used for ambulation. Continue to encourage independence and wellbeing. 12/22/18 Despite having a good day yesterday, she feels miserable and shaky and as if her knees are buckling. In response we will reduce lithium to 450 and get a level on Wednesday morning. Continued Medication Management: Different Medication Medications: Current Medications Acetaminophen (Tylenol Tab*) 650 mg PO Q4H PRN PRN Reason: PAIN or TEMP > 101 F Last Admin: 12/19/18 19:59 Dose: 650 mg Al Hydrox/Mg Hydrox/Simethicone (Maalox Plus*) 30 ml PO Q4H PRN PRN Reason: INDIGESTION Atorvastatin Calcium (Lipitor*) 20 mg PO DAILY [facility] Last Admin: 12/22/18 08:30 Dose: 20 mg Bupropion HCl (Wellbutrin Sr Tab*) 100 mg PO DAILY [facility] Last Admin: 12/22/18 08:30 Dose: 100 mg Clonidine HCl (Catapres Tab*) 0.1 mg PO DAILY [facility] Last Admin: 12/22/18 08:30 Dose: 0.1 mg Clonidine HCl (Catapres Tab*) 0.2 mg PO BEDTIME [facility] Last Admin: 12/21/18 20:11 Dose: 0.2 mg Dicyclomine HCl (Bentyl Cap*) 20 mg PO QID [facility] Last Admin: 12/22/18 17:28 Dose: 20 mg Gabapentin (Neurontin Cap(*)) 300 mg PO TID [facility] Last Admin: 12/22/18 13:28 Dose: 300 mg Hydroxyzine HCl (Atarax Tab*) 50 mg PO QID PRN PRN Reason: anxiety/insomnia Last Admin: 12/22/18 06:40 Dose: 50 mg Ibuprofen (Motrin Tab*) 800 mg PO TID PRN PRN Reason: PAIN - MODERATE Last Admin: 12/22/18 05:59 Dose: 800 mg Levothyroxine Sodium (Synthroid Tab*) 25 mcg PO DAILY@0600 [facility] Last Admin: 12/22/18 05:59 Dose: 25 mcg [place] Carbonate ([place] Carbonate Er Tab*) 450 mg PO BEDTIME [facility] Multivitamins (Theragran Tab*) 1 tab PO DAILY [facility] Last Admin: 12/22/18 08:30 Dose: 1 tab Oxcarbazepine (Trileptal Tab(*)) 300 mg PO BID [facility] Last Admin: 12/22/18 08:31 Dose: 300 mg - Discharge Plan Discharge Plan: Outpatient Follow Up
[2018-12-22] MEDS: Lithium Carbonate ER* 450 MG TAB.ER PO SCH (19:56)
[2018-12-23] MEDS: Acetaminophen TAB* 325 MG PO PRN (04:50)
[2018-12-23] MEDS: hydrOXYzine HCL TAB* 50 MG PO PRN ×4 (04:51→20:04)
[2018-12-23] MEDS: Levothyroxine TAB* 25 MCG TAB PO SCH (04:51)
[2018-12-23] MEDS: Ibuprofen TAB* 800 MG PO PRN (04:53)
[2018-12-23] MEDS: OXcarbazepine TAB(*) 300 MG PO SCH ×2 (08:19→19:58)
[2018-12-23] MEDS: Gabapentin CAP(*) 300 MG PO SCH ×3 (08:19→19:58)
[2018-12-23] MEDS: buPROPion SR TAB.SR* 100 MG PO SCH (08:20)
[2018-12-23] MEDS: Vitamin THERAPEUTIC TAB PO SCH (08:20)
[2018-12-23] MEDS: cloNIDine TAB* 0.1 MG PO SCH ×2 (08:20→19:57)
[2018-12-23] MEDS: Atorvastatin* 20 MG TAB PO SCH (08:20)
[2018-12-23] MEDS: Dicyclomine CAP* 10 MG PO SCH ×3 (08:21→19:58)
--- NOTE | 2018-12-23 13:52 | PN ---
Subjective - Subjective Date of Service: 12/23/18 Service Type: 20419 Hosp care 25 min moderate complexity Subjective: Veronique is having a bad day. She states she spent much of last night crying after having woken up from sleep and then dissolving into tears for the rest of the night. We discuss what she can do to reduce her distress at night as well as attempting to discuss that she doesn't handle distress well and that she reaches for help rather than tolerating the problem. It is unclear to me whether this was understood. Veronique has not been going to groups, at times choosing to read the paper in a rocking chair instead. I did talk to Michelle Rebolledo, recreation therapist, who indicated that Veronique has been actively avoiding activities and has instead been sticking to herself. Veronique would like help sleeping, which I will help with. She also displayed the knee buckling phenomenon that she had discussed in the Emergency Department a few visits ago. Objective - General Observations Appearance: Disheveled, Malodorous Appears Stated Age: Yes Stature: Overweight Posture: WNL Eye Contact: Intense Behavior/Activity: Agitated - Interaction Observations Attitude Towards Examiner: Cooperative, Anxious, Defensive, Demanding Stated Mood: Dysphoric, Anxious Affect: Labile Speech Pattern/Tone: Slurred Thought Process: Coherent Perception: WNL Thought Content: Preoccupation/Ruminations, Depressive Thought Process: Lethality: Passive Wish, Suicidal Planning Hallucination Type: None Delusion Type: None - Cognitive Function Orientation: A&O x 4 Level of Consciousness: Awake, Alert, Appropriate Cognition: Impaired Attention/Concentration Estimated Intelligence: Normal Insight: Mostly Blames Others for Problems Judgment Within Normal Limits: No Ability to Make Reasonable Decisions: Moderately Impaired - Medication Compliance Cooperative with Inpatient Medication Regimen: Yes - Group Participation Participates in Group Activities: Partial Assessment - Assessment Merits Inpatient Hospitalization: For Immediate Safety Inpatient DSM-V Dx: F31.63 Clinical Impression: Veronique is a 68-year-old white woman with a history of bipolar disorder who comes to the hospital unable to tolerate the mixed symptoms and anxiety she is experiencing. Plan - Plan Treatment Plan: Name: VERONIQUE THOMAS Birthdate: 1950 [id number] We will attempt to address her anxiety with medication while in the hospital. We will also distribute DBT and CBT work for her to learn mindfulness and distress tolerance. 12/20/18 Reduce gabapentin from 600 mg TID back to 300 mg TID. Although it would be easier to have just one medication for additional mood stabilization, gabapentin 's burden is too great. Instead we will start Trileptal 300 mg BID. 12/21/18 Gabapentin reduced to 300 mg TID with good effect. Trileptal started and tolerated. Walker being used for ambulation. Continue to encourage independence and wellbeing. 12/22/18 Despite having a good day yesterday, she feels miserable and shaky and as if her knees are buckling. In response we will reduce lithium to 450 and get a level on Wednesday morning. 12/23/18 Veronique reported poor sleep last night as well as a few nights before. We will start Ambien 5 mg for the hospital stay. The problems Veronique is experiencing continue to tumble forward into something that looks more unsolvable. We will have to remake goals so that it is clear what is expected of Veronique. Continued Medication Management: Different Medication Medications: Current Medications Acetaminophen (Tylenol Tab*) 650 mg PO Q4H PRN PRN Reason: PAIN or TEMP > 101 F Last Admin: 12/19/18 19:59 Dose: 650 mg Al Hydrox/Mg Hydrox/Simethicone (Maalox Plus*) 30 ml PO Q4H PRN PRN Reason: INDIGESTION Atorvastatin Calcium (Lipitor*) 20 mg PO DAILY [facility] Last Admin: 12/23/18 08:20 Dose: 20 mg Bupropion HCl (Wellbutrin Sr Tab*) 100 mg PO DAILY [facility] Last Admin: 12/23/18 08:20 Dose: 100 mg Clonidine HCl (Catapres Tab*) 0.1 mg PO DAILY [facility] Last Admin: 12/23/18 08:20 Dose: 0.1 mg Clonidine HCl (Catapres Tab*) 0.2 mg PO BEDTIME [facility] Last Admin: 12/22/18 19:56 Dose: 0.2 mg Dicyclomine HCl (Bentyl Cap*) 20 mg PO QID [facility] Last Admin: 12/23/18 13:08 Dose: 20 mg Gabapentin (Neurontin Cap(*)) 300 mg PO TID [facility] Last Admin: 12/23/18 13:07 Dose: 300 mg Hydroxyzine HCl (Atarax Tab*) 50 mg PO QID PRN PRN Reason: anxiety/insomnia Last Admin: 12/23/18 13:08 Dose: 50 mg Ibuprofen (Motrin Tab*) 800 mg PO TID PRN PRN Reason: PAIN - MODERATE Last Admin: 12/23/18 04:53 Dose: 800 mg Levothyroxine Sodium (Synthroid Tab*) 25 mcg PO DAILY@0600 [facility] Last Admin: 12/23/18 04:51 Dose: 25 mcg [place] Carbonate ([place] Carbonate Er Tab*) 450 mg PO BEDTIME [facility] Last Admin: 12/22/18 19:56 Dose: 450 mg Multivitamins (Theragran Tab*) 1 tab PO DAILY [facility] Last Admin: 12/23/18 08:20 Dose: 1 tab Oxcarbazepine (Trileptal Tab(*)) 300 mg PO BID [facility] Last Admin: 12/23/18 08:19 Dose: 300 mg Zolpidem Tartrate (Ambien Tab*) 5 mg PO BEDTIME [facility]
[2018-12-23] MEDS: Zolpidem TAB* 5 MG PO SCH (19:57)
[2018-12-23] MEDS: Lithium Carbonate ER* 450 MG TAB.ER PO SCH (19:57)
[2018-12-24] MEDS: hydrOXYzine HCL TAB* 50 MG PO PRN ×4 (04:55→20:04)
[2018-12-24] MEDS: Levothyroxine TAB* 25 MCG TAB PO SCH (08:11)
[2018-12-24] MEDS: Dicyclomine CAP* 10 MG PO SCH ×4 (08:12→20:05)
[2018-12-24] MEDS: buPROPion SR TAB.SR* 100 MG PO SCH (08:13)
[2018-12-24] MEDS: Gabapentin CAP(*) 300 MG PO SCH ×3 (08:13→20:04)
[2018-12-24] MEDS: Vitamin THERAPEUTIC TAB PO SCH (08:14)
[2018-12-24] MEDS: Atorvastatin* 20 MG TAB PO SCH (08:14)
[2018-12-24] MEDS: cloNIDine TAB* 0.1 MG PO SCH ×2 (08:15→20:04)
[2018-12-24] MEDS: OXcarbazepine TAB(*) 300 MG PO SCH ×2 (08:15→20:04)
[2018-12-24 14:39] LABS: BUN/Creatinine Ratio 16.1 (8-20); Calcium 10.2 mg/dL (8.6-10.3); EGFR African American 55.5 (>60); EGFR Non-African American 45.8 (>60); Potassium 3.9 mmol/L (3.5-5.0)
[2018-12-24 15:16] LABS: Lithium 0.66 mmol/L (0.6-1.2)
--- NOTE | 2018-12-24 15:30 | CONS ---
CC: Christianne Fraga NP; Dr. Avina in [employer].* CONSULTATION REPORT: DATE OF CONSULT: 12/24/18. CONSULTING PROVIDER: Christianne Fraga NP MY ATTENDING WHILE IN THE HOSPITAL: Dr. Karey Bernard. PRIMARY CARE PROVIDER: Dr. Avina in [employer]. REASON FOR CONSULTATION: Falls, ambulatory dysfunction. HISTORY OF PRESENT ILLNESS: Ms. Kerr is a 68-year-old female with past medical history significant mainly for longstanding history of bipolar disorder on multiple psychiatric medications, who is currently admitted to the behavioral services unit for suicidal ideation, who is being treated for and is improving slowly. We are consulted because the patient has at this point 2 to 3 month history of worsening ambulatory dysfunction. Whenever she stands up, she feels very shaky and like her legs are going to give out. The patient denies any loss of consciousness with these episodes. Denies any focal weakness. This did not come on suddenly, it came on gradually. The patient has fallen several times. She often falls directly on to her face. The patient describes the sensation of dizziness on standing without a vertiginous feeling. She did not have any changes in her medications or diet before this started. The patient is thirsty all the time, but denies an excess amount of urination. The patient does not have any other sickness, abdominal pain, diarrhea, fevers, chills, chest pain, shortness of breath, palpitations associated with the episodes. The patient was evaluated by physical therapy three days ago and was able to ambulate 150 feet with a relatively normal gait. The patient while in the hospital has been taken off of her atypical antipsychotic medication, placed on clonidine, oxcarbazepine. Her lithium dose decreased. The patient has a possible fifth metatarsal fracture in her left foot, which is being treated conservatively by Orthopedics with a brace. The patient does not feel this is contributing to her ambulatory dysfunction. The patient has no history of metabolic derangement she knows of. The patient has not had any illicit drug use. The patient was seen in the emergency department three weeks before her admission to psychiatric unit and was diagnosed with myoclonic jerks associated with lithium medication and was recommended to follow up with the psychiatrist about dosage adjustments. PAST MEDICAL HISTORY: Bipolar disorder, hyperlipidemia. PAST SURGICAL HISTORY: Bladder sling, hysterectomy, tubal ligation, carpal tunnel release, colonoscopy, ankle ORIF. MEDICATIONS: At home include: 1. Lipitor 20 mg p.o. daily. 2. Levothyroxine 25 mcg p.o. daily. 3. [place] carbonate 600 mg p.o. at bedtime. 4. Lorazepam 20 mg p.o. daily. 5. Bupropion 100 mg p.o. daily. 6. Clonidine 0.1 mg p.o. b.i.d. 7. Bentyl 20 mg p.o. 4 times a day. 8. Gabapentin 300 mg p.o. t.i.d. The patient's medications while in the hospital: 1. Lipitor 20 mg p.o. daily. 2. Bupropion 100 mg p.o. daily. 3. Clonidine 0.1 mg p.o. daily. 4. Clonidine 0.2 mg p.o. at bedtime. 5. Dicyclomine 20 mg p.o. 4 times a day. 6. Gabapentin 300 mg p.o. t.i.d. 7. Hydroxyzine 50 mg p.o. 4 times a day as needed. The patient has received this up to four times a day while in the hospital. 8. Ibuprofen 800 mg p.o. t.i.d. as needed. 9. Levothyroxine 25 mcg p.o. daily. 10. [place] carbonate 450 mg p.o. at bedtime. 11. Oxcarbazepine 300 mg p.o. b.i.d. 12. 1 tab p.o. daily. 13. Zolpidem 5 mg p.o. at bedtime. The patient last received this on 12/23/18. ALLERGIES: BENZODIAZEPINES, ANTIHISTAMINES, ANTICHOLINERGICS, PENICILLIN, MUSCLE RELAXANTS, OXYCODONE, SYNTHETIC NARCOTICS, COMPAZINE. SOCIAL HISTORY: The patient never smoked. The patient does not drink alcohol. The patient never used illicit drugs. 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 The patient's surrogate decision maker will be her son-in-law , Giovanny Pinto. REVIEW OF SYSTEMS: A 10-point review of systems was reviewed and was negative, except as noted above in the HPI. PHYSICAL EXAM: General: The patient is a 68-year-old female who appears to be sitting in the chair with a mild tremor. Vital signs most recently, temperature 98.0, pulse rate 84, respiratory rate 15, oxygen saturation 96% on room air, blood pressure 132/83. HEENT: Head normocephalic, atraumatic. Sclerae anicteric. No conjunctival injection. Nasal mucosa moist. Oral mucosa moist. No pharyngeal erythema, postnasal drip, or exudate. Neck: Supple, nontender. No lymphadenopathy. No carotid bruit auscultated. No JVD. Cardiac: Regular rate and rhythm. No clicks, murmurs, gallops, or rubs. Pulses 2+ in the bilateral dorsalis pedis, posterior tibialis and radial areas. Respiratory: Clear to auscultation bilaterally. No wheezes, rales, or rhonchi. Good air exchange bilaterally. Abdomen: Soft, nontender, and nondistended. Bowel sounds present and normoactive in all 4 quadrants. No hepatosplenomegaly. No abdominal bruits auscultated. No hepatojugular reflux. Genitourinary: No suprapubic or CVA tenderness. Skin: Clean, dry, and intact. No rash. Left lower extremity covered in a splint. Neuro: Cranial nerves II through XII intact. No focal deficits. Diffusely weak. High frequency tremor in the bilateral upper extremities particularly worse with intention. Gait shows real short steps and hesitancy with movement. Aborted gait observation after several steps as she felt that she is going to fall. The patient had no outward signs of being about to fall. Psychiatric: Anxious, but otherwise pleasant and cooperative. DIAGNOSTIC STUDIES/LAB DATA: Laboratory data from admission: White blood cell count 9.5, hemoglobin 13.8, platelet count 249,000. Sodium 138, potassium 4.1, chloride 105, carbon dioxide 27, anion gap 6, BUN 19, creatinine 1.49, glucose 117, calcium 10.0. AST 13, ALT 26, alkaline phosphatase 90, protein 7.6, albumin 4.0, globulin 3.6. Salicylates less than 2.5. Tylenol less than 15, serum alcohol less than 10. ASSESSMENT AND PLAN: Impression: Ms. Kerr is a 68-year-old female with past medical history significant for bipolar disorder and recent onset of ambulatory dysfunction, who is currently admitted to the behavioral services unit for suicidal ideation and fell yesterday with significant ambulatory dysfunction. The patient will be evaluated for causes of her weakness and tremor. 1. Weakness, ambulatory dysfunction: The patient fell yesterday and has been falling at home. The patient has significant issues with walking. However, the patient was evaluated by PT three days ago. She is able to walk 150 feet with a walker. The patient has had several of her medications discontinued and/ or decreased including lithium carbonate. She had her Latuda stopped. However , she has not had gabapentin decreased, her clonidine has been increased and she has been started on hydroxyzine which she has been receiving a large amount. The patient's weakness and feelings of leg buckling may be related to polypharmacy at the exclusion of other causes. The patient's medications should be attempted to be dialed back as possible, particularly the hydroxyzine , which the patient has been getting large doses of. We will check a BMP as the patient has recently been started on oxcarbazepine, and to assess for high or low sodium or potassium, the patient will have a lithium level drawn. The patient's creatinine was above her baseline by quite a bit when she initially came in to the emergency department, up from 1.09 to 1.49. 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 It may be that her fluid is more restricted while she is in the behavioral services unit and again the sodium level will be checked. The patient will be reevaluated by Physical Therapy. The patient will have orthostatic vital signs drawn. The patient had no focal neurologic deficits requiring neuro imaging. The patient has no other symptoms concerning for a cardiac or other muscular cause for her symptoms. The patient will continue to be evaluated. It is possible that a large component of this is anxiety related to previous falls and physical therapy may be able to help with this. Will get a urinalysis to assess the patine's specific gravity of her urine, as well as other abnormalities that may account for weakness. 2. Bipolar disorder. Continue treatment per Psychiatry. 3. FEN. The patient should have a limited caffeine diet as prescribed. TIME SPENT: Approximately 60 minutes were spent on this consultation; 40 of which were spent [id number] with the patient, obtaining history and physical, and discussing the treatment plan. Plan has been discussed with my attending, Dr. Karey Bernard. Thank you very much for this consultation. We will continue to follow along with you. RYLEE NUNES [id number]/CPS #: [id number] MTDSeamus
[2018-12-24] MEDS: Lithium Carbonate ER* 450 MG TAB.ER PO SCH (20:03)
[2018-12-24] MEDS: Zolpidem TAB* 5 MG PO SCH (20:03)
[2018-12-25] MEDS: Dicyclomine CAP* 10 MG PO SCH ×5 (00:15→20:06)
[2018-12-25] MEDS: hydrOXYzine HCL TAB* 50 MG PO PRN ×4 (04:18→20:15)
[2018-12-25] MEDS: Atorvastatin* 20 MG TAB PO SCH (08:11)
[2018-12-25] MEDS: Gabapentin CAP(*) 300 MG PO SCH ×3 (08:11→20:05)
[2018-12-25] MEDS: buPROPion SR TAB.SR* 100 MG PO SCH (08:11)
[2018-12-25] MEDS: OXcarbazepine TAB(*) 300 MG PO SCH ×2 (08:11→20:05)
[2018-12-25] MEDS: Levothyroxine TAB* 25 MCG TAB PO SCH (08:11)
[2018-12-25] MEDS: cloNIDine TAB* 0.1 MG PO SCH ×2 (08:12→20:04)
[2018-12-25] MEDS: Vitamin THERAPEUTIC TAB PO SCH (08:12)
--- NOTE | 2018-12-25 12:20 | PN ---
Hospitalist Progress Note Date of Service: 12/25/18 Went back to discuss unremarkable lab results with patient as well as PT evaluation. Patient states there has been a decrease in her unsteadiness and she has even been able to walk without the walker. Discussed continuing exercises that PT taught her and to continue to walk with the walker for stability and strength training. This may have also been related to EPS from her Latuda which has been discontinued. Medicine will sign-off, thank you for this consult, please feel free to call with any questions.
[2018-12-25] MEDS: Lithium Carbonate ER* 450 MG TAB.ER PO SCH (20:06)
[2018-12-25] MEDS: Ibuprofen TAB* 800 MG PO PRN (20:07)
[2018-12-26] MEDS: Zolpidem TAB* 5 MG PO SCH ×2 (01:27→19:55)
[2018-12-26] MEDS: Gabapentin CAP(*) 300 MG PO SCH ×3 (08:11→19:55)
[2018-12-26] MEDS: OXcarbazepine TAB(*) 300 MG PO SCH ×2 (08:11→19:57)
[2018-12-26] MEDS: cloNIDine TAB* 0.1 MG PO SCH ×2 (08:12→19:54)
[2018-12-26] MEDS: Vitamin THERAPEUTIC TAB PO SCH (08:12)
[2018-12-26] MEDS: Levothyroxine TAB* 25 MCG TAB PO SCH (08:12)
[2018-12-26] MEDS: Dicyclomine CAP* 10 MG PO SCH ×4 (08:12→19:56)
[2018-12-26] MEDS: buPROPion SR TAB.SR* 100 MG PO SCH (08:12)
[2018-12-26] MEDS: Atorvastatin* 20 MG TAB PO SCH (08:12)
--- NOTE | 2018-12-26 15:50 | PN ---
Subjective - Subjective Date of Service: 12/26/18 Service Type: 92154 Hosp care 25 min moderate complexity Subjective: Veronique has become quite dependent on hospital services and seems to have a new ailment every few days. On Wednesday she stated she couldn't walk without falling, which was a malady that developed rather suddenly. Today she says she can't remember things and it's frightening her. We (Effie Hunter and gregory Mcdonald) discussed with her that she needs to go home tomorrow and told her about how she has improved in our estimation. Veronique stated her family doesn' t want her to simply come back to the hospital and that she thinks the outpatient provider she was seeing was not a good one and that she'd like to go to a new one. She also requested occupational therapy so that she could have someone explore hobbies with her. It might be noted that she has declined to go to groups at times when new hobbies might have been explored. Objective - General Observations Appearance: Neat Appears Stated Age: Yes Stature: Overweight Posture: Slumped Eye Contact: Average Behavior/Activity: Agitated - Interaction Observations Attitude Towards Examiner: Cooperative, Anxious, Mistrustful Stated Mood: Dysphoric, Anxious Affect: Labile Speech Pattern/Tone: Clear Thought Process: Coherent Perception: WNL Thought Content: Preoccupation/Ruminations, Self-Deprecatory Hallucination Type: None Delusion Type: None - Cognitive Function Orientation: A&O x 4 Level of Consciousness: Awake, Alert, Appropriate Cognition: Impaired Memory Estimated Intelligence: Normal Insight: Mostly Blames Others for Problems Judgment Within Normal Limits: No Ability to Make Reasonable Decisions: Mildly Impaired - Medication Compliance Cooperative with Inpatient Medication Regimen: Yes - Group Participation Participates in Group Activities: Partial Assessment - Assessment Merits Inpatient Hospitalization: For Immediate Safety, For Discharge Planning Inpatient DSM-V Dx: F31.63 Clinical Impression: Veronique is a 68-year-old white woman with a history of bipolar disorder who comes to the hospital unable to tolerate the mixed symptoms and anxiety she is experiencing. Plan - Plan Treatment Plan: Name: VERONIQUE THOMAS Birthdate: 1950 [id number] We will attempt to address her anxiety with medication while in the hospital. We will also distribute DBT and CBT work for her to learn mindfulness and distress tolerance. 12/20/18 Reduce gabapentin from 600 mg TID back to 300 mg TID. Although it would be easier to have just one medication for additional mood stabilization, gabapentin 's burden is too great. Instead we will start Trileptal 300 mg BID. 12/21/18 Gabapentin reduced to 300 mg TID with good effect. Trileptal started and tolerated. Walker being used for ambulation. Continue to encourage independence and wellbeing. 12/22/18 Despite having a good day yesterday, she feels miserable and shaky and as if her knees are buckling. In response we will reduce lithium to 450 and get a level on Wednesday morning. 12/23/18 Veronique reported poor sleep last night as well as a few nights before. We will start Ambien 5 mg for the hospital stay. The problems Veronique is experiencing continue to tumble forward into something that looks more unsolvable. We will have to remake goals so that it is clear what is expected of Veronique. 12/26/18 Veronique is scheduled to be discharged tomorrow. She will be provided with a number of follow up appointments that will meet the needs we have identified for her. The additional needs she continues to identify may be satisfied by her pursuit of community and family resources. Medications: Current Medications Acetaminophen (Tylenol Tab*) 650 mg PO Q4H PRN PRN Reason: PAIN or TEMP > 101 F Last Admin: 12/19/18 19:59 Dose: 650 mg Al Hydrox/Mg Hydrox/Simethicone (Maalox Plus*) 30 ml PO Q4H PRN PRN Reason: INDIGESTION Atorvastatin Calcium (Lipitor*) 20 mg PO DAILY [facility] Last Admin: 12/26/18 08:12 Dose: 20 mg Bupropion HCl (Wellbutrin Sr Tab*) 100 mg PO DAILY [facility] Last Admin: 12/26/18 08:12 Dose: 100 mg Clonidine HCl (Catapres Tab*) 0.1 mg PO DAILY [facility] Last Admin: 12/26/18 08:12 Dose: 0.1 mg Clonidine HCl (Catapres Tab*) 0.2 mg PO BEDTIME [facility] Last Admin: 12/25/18 20:04 Dose: 0.2 mg Dicyclomine HCl (Bentyl Cap*) 20 mg PO QID [facility] Last Admin: 12/26/18 12:36 Dose: 20 mg Gabapentin (Neurontin Cap(*)) 300 mg PO TID [facility] Last Admin: 12/26/18 13:42 Dose: 300 mg Hydroxyzine HCl (Atarax Tab*) 50 mg PO QID PRN PRN Reason: anxiety/insomnia Last Admin: 12/25/18 20:15 Dose: 50 mg Ibuprofen (Motrin Tab*) 800 mg PO TID PRN PRN Reason: PAIN - MODERATE Last Admin: 12/25/18 20:07 Dose: 800 mg Levothyroxine Sodium (Synthroid Tab*) 25 mcg PO DAILY@0600 [facility] Last Admin: 12/26/18 08:12 Dose: 25 mcg Underwood Carbonate (Underwood Carbonate Er Tab*) 450 mg PO BEDTIME [facility] Last Admin: 12/25/18 20:06 Dose: 450 mg Multivitamins (Theragran Tab*) 1 tab PO DAILY [facility] Last Admin: 12/26/18 08:12 Dose: 1 tab Oxcarbazepine (Trileptal Tab(*)) 300 mg PO BID [facility] Last Admin: 12/26/18 08:11 Dose: 300 mg Zolpidem Tartrate (Ambien Tab*) 5 mg PO BEDTIME [facility] Last Admin: 12/26/18 01:27 Dose: Not Given - Discharge Plan Discharge Plan: Outpatient Follow Up
[2018-12-26] MEDS: Ibuprofen TAB* 800 MG PO PRN (18:20)
[2018-12-26] MEDS: hydrOXYzine HCL TAB* 50 MG PO PRN (19:55)
[2018-12-26] MEDS: Lithium Carbonate ER* 450 MG TAB.ER PO SCH (19:56)
[2018-12-27] MEDS: Levothyroxine TAB* 25 MCG TAB PO SCH (05:35)
[2018-12-27] MEDS: Ibuprofen TAB* 800 MG PO PRN ×2 (05:35→13:50)
[2018-12-27] MEDS: hydrOXYzine HCL TAB* 50 MG PO PRN ×2 (05:35→10:45)
[2018-12-27] MEDS: cloNIDine TAB* 0.1 MG PO SCH (08:05)
[2018-12-27] MEDS: buPROPion SR TAB.SR* 100 MG PO SCH (08:05)
[2018-12-27] MEDS: Dicyclomine CAP* 10 MG PO SCH ×3 (08:05→17:16)
[2018-12-27] MEDS: OXcarbazepine TAB(*) 300 MG PO SCH (08:05)
[2018-12-27] MEDS: Gabapentin CAP(*) 300 MG PO SCH ×2 (08:05→13:49)
[2018-12-27] MEDS: Atorvastatin* 20 MG TAB PO SCH (08:05)
[2018-12-27] MEDS: Vitamin THERAPEUTIC TAB PO SCH (08:05)
[2018-12-27 09:22] VITALS: BP 158/76
[2018-12-27] MEDS: Acetaminophen TAB* 325 MG PO PRN (10:43)
--- NOTE | 2018-12-28 16:37 | DS ---
DATE OF ADMISSION: 12/18/2018. DATE OF DISCHARGE: 12/27/2018. PROVIDER: Christianne Fraga NP in Psychiatry. SUPERVISING PHYSICIAN: Dr. Ganga Falcon * (dictated by Christianne Fraga NP). DIAGNOSES: Bipolar 1 disorder, current episode mixed, severe; dependent personality disorder. CONDITION AT THE TIME OF DISCHARGE: Moderately improved, psychiatrically cleared, stable. Veronique participated in some groups and was mildly social with peers. Her family is agreeable to discharge. She has improved here psychiatrically. She tolerated the addition of medications well and lobbied at times to get more. She will be attending [facility] with her therapist, James Cruz. MENTAL STATUS EXAM: At the time of discharge, Veronique is anxious, but calm and cooperative and makes good eye contact. She is alert and oriented times four. Her grooming is adequate. Her speech pace is slow to normal. Her thought processes are logical. She is not psychotic or delusional. She denies AH, VH, SI and HI. Insight and judgment are fair, willing to follow-up, and urged to see her therapist. DISCHARGE INSTRUCTIONS TO THE PATIENT: A. Medications: 1. Atorvastatin 20 mg daily. 2. Wellbutrin SR 100 mg daily. 3. Clonidine 0.2 mg at bedtime, 0.1 mg daily. 4. Bentyl 20 mg q.i.d. 5. Gabapentin 300 mg t.i.d. 6. Hydroxyzine 50 mg q.i.d. prn anxiety, dispense only 30. 7. Levothyroxine 25 mcg daily. 8. Bowles Carbonate ER 450 mg at bedtime. 9. Oxcarbazepine 300 mg b.i.d. 10. Ambien 5 mg at bedtime prn insomnia, dispense only 10. B. Diet: Regular. C. Activities: As tolerated. Veronique is a nonsmoker. There are no studies pending at the time of discharge. D. Follow-up care: She has an appointment with her therapist James Cruz on December 30 at 9:00 a.m. Veronique was interested in switching locations to get a different prescriber, but it is noted in her discharge plan that she cannot switch locations or therapists or providers without having an appointment to discuss it first. E. Disposition: She is returning back to [facility] in [place]. She is also in contact with her daughter in [facility] who can provide some assistance to her. F. Substance abuse: Follow-up is not indicated. HOSPITAL COURSE- PART A: Chief Complaint: "My mixed manic state is killing me and I want to end my life. I can't take it anymore." Ms. Kerr reports that she was doing fine for a couple of days since her discharge home on 12/12/2018, but everything changed after that. She reports that her bipolar disorder is out of control. She has been feeling so restless, anxious and nauseous that she thought she was going to explode. She also thought about overdosing on her medications to end the misery. She also reports that this effects her whole body and she becomes overwhelmed. She thinks that it is almost like having a stomach problem and her bile is coming up through her throat and she is about to throw up. She continues to be extremely anxious and restless, shaking with tremors of her extremities and moderate movements around her orofacial region. She is also labile in her affect , having been tearful multiple times during the evaluation. Apparently, her stressors are mostly financial, related to medical bills she incurred during her transportation via ambulance or hospitalization here. On top of that, she became the caregiver to her daughter who recently had neck surgery. Otherwise, she does not report any other stress. She is also worried about $600 per month for her current medication Latuda. Moreover, there is a $2,000 bill for a hearing aid she needs to get. Overall, she is overwhelmed with these expenses. HOSPITAL COURSE - PART B: Psychiatric treatment was rendered. Veronique was admitted to the Adult Behavioral Unit and placed on 15 minute checks for safety. Veronique did well on the unit, going to groups at first and then stopping and spending time on her own. She sometimes interacted with peers well, but did tend to isolate herself, rocking in the rocking chairs and reading the newspaper. We made some med changes that she tolerated well, adding Clonidine for anxiety, as well as Hydroxyzine. She complained that she could not sleep at night, so Ambien was added. There is a concern that Veronique becomes very dependent on her providers, her one-to-one's, and the techs who are nearby. She at one point required a wheelchair to get around due to having a broken 5th metatarsal and she stated she could not use a walker. She asked people to push her, although she was fully capable of wheeling herself around. A PT consult was entered and they instructed her in how to use the walker which was helpful to her. As another example of her dependence, she complained that at home she does not have hobbies. Strangely she did not work on developing any hobbies here in the hospital, although that would have been a helpful thing for her. She stated that she had heard about occupational therapy and she thought it would be nice to have someone explore with her the options she has regarding what hobbies were available to her. It should be noted that [place] [facility] where [place] some programming. She states she does go to it at some points and then other times she says she is the only one there so she will not go. We had some trouble with Veronique's physical health. She stated that her knees were buckling and she could not walk and I did witness a near fall with her. We determined that the tremors she was having could be due to the Bowles that had been increased from 450 mg at bedtime to 600 mg at bedtime. It is curious that she had lab values that were on December 24 0.66 for Bowles and then on December 26 0.86. We also started Trileptal to attempt to stabilize her mood. This can go from the 300 b.i.d. that it is now to 300 in the morning and 600 at night if that is what she chooses to do. At her last admission, we prepared to stop Latuda one month after discharge. We officially stopped it at this admission. She no longer has to worry about that financial stress, although she did not pay for the Latuda anyway, so that was an odd thing to be stressed about. I did not start her on any more atypicals due to the tardive dyskinesia she has in her tongue and mouth. Consults were entered for her for Physical Therapy. Veronique is improved. She is less frantic than she was when she arrived. She is attempting to stay longer, but her dependence only increases the longer she stays. This was explained to her gently and she seemed to accept that. She is future oriented. She is apprehensive about living by herself and seemed to want that problem to be solved for her. Unfortunately, that is not within our purview. We wish Veronique well and hope that her situation improves. CHRISTIANNE FRAGA, DIMPLE [id number]/[facility] [place]: [id number] HYACINTH
== END 2018-12-27 18:50 | disposition home or self-care (01) | DRG 885 ==
LOC: ED 04:42 → BSU 06:45
PROVIDERS: ADMIT Internal Medicine; ATTEND Psychiatry & Neurology Psychiatry
DX: F31.63 Bipolar disorder, current episode mixed, severe, without psychotic features (principal); R45.851 Suicidal ideations; M84.478A Pathological fracture, left toe(s), initial encounter for fracture; F60.7 Dependent personality disorder; G24.01 Drug induced subacute dyskinesia; M54.2 Cervicalgia; E78.5 Hyperlipidemia, unspecified; E66.9 Obesity, unspecified; W18.30XA Fall on same level, unspecified, initial encounter; Y92.239 Unspecified place in hospital as the place of occurrence of the external cause; Z68.38 Body mass index [BMI] 38.0-38.9, adult; Z79.899 Other long term (current) drug therapy; Z88.5 Allergy status to narcotic agent; Z88.0 Allergy status to penicillin; Z88.8 Allergy status to other drugs, medicaments and biological substances
CPT/HCPCS: 36415; 80048; 80053; 80178; 80320; 80329; 84443; 85025; 99222; 99231; 99232; 99238; 99284; A9270-GY; G0480; G8978-GP-CI; G8979-GP-CI; G8980-GP-CI

== ENCOUNTER 2019-01-20 15:51 | Inpatient (IN) | payer MEDICARE ==
--- NOTE | 2019-01-20 15:59 | ED ---
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 EMS states she had a 6 gapapentin overdose 2 weeks ago and she just came home yesterday and changed her medication. She was initially diagnosed with lithium toxicity. She was upset they took her off [place]. She took 6 Gabapentin today. She refused all treatment from EMS other than transport. The patient states she was trying to kill herself. Pt denies any fever, chills, erythema of eyes, sore throat, CP, SOB, cough, abdominal pain , N/V, dysuria, hematuria, myalgia, edema, rash, or dizziness. - History Of Current Complaint Stated Complaint: OVERDOSE Hx Obtained From: EMS Hx Last Menstrual Period: N/A Overdose Characteristics: Oral - Allergies/Home Medications Allergies/Adverse Reactions: Allergies Allergy/AdvReac Type Severity Reaction Status Date / Time Antihistamines - Alkylamine Allergy Altered Verified 12/18/18 04:51 Mental Status Antihistamines - Ethanolamine Allergy Altered Verified 12/18/18 04:51 Mental Status Antihistamines - Allergy Altered Verified 12/18/18 04:51 Ethylenediamine Mental Status Antihistamines - Piperazine Allergy Altered Verified 12/18/18 04:51 Mental Status Antihistamines - Piperidine Allergy Altered Verified 12/18/18 04:51 Mental Status Benzodiazepines Allergy Altered Verified 12/18/18 04:51 Mental Status carisoprodol Allergy Altered Verified 12/18/18 04:51 Mental Status oxycodone AdvReac Mild Altered Verified 12/18/18 04:51 Mental Status Penicillins AdvReac Mild See Comment Verified 12/18/18 04:51 prochlorperazine AdvReac Mild Muscle Ache Verified 12/18/18 04:51 [From Compazine] anticholinergic agents AdvReac Mild Altered Uncoded 12/18/18 04:51 Mental Status muscle relaxants AdvReac Mild Altered Uncoded 12/18/18 04:51 Mental Status semi synthetic narcotics AdvReac Mild Altered Uncoded 12/18/18 04:51 Mental Status Home Medications: Home Medications Al Hydrox/Mg Hydrox/Simet LIQ* [Maalox Plus*] 30 ml PO Q4H PRN 01/20/19 [ History Confirmed 01/20/19] Atorvastatin* [Lipitor 20 MG*] 20 mg PO BEDTIME 01/20/19 [History Confirmed ] Ibuprofen TAB* [Motrin TAB* 400 MG] 400 mg PO Q6H PRN 01/20/19 [History Confirmed 01/20/19] Levothyroxine TAB* [Synthroid 25 MCG TAB*] 25 mcg PO DAILY 01/20/19 [History Confirmed 01/20/19] OXcarbazepine TAB(*) [Trileptal 300 mg TAB(*)] 300 mg PO DAILY 01/20/19 [ History Confirmed 01/20/19] OXcarbazepine TAB(*) [Trileptal 300 mg TAB(*)] 600 mg PO BEDTIME 01/20/19 [ History Confirmed 01/20/19] amLODIPine TAB* [Norvasc 5 mg TAB*] 10 mg PO DAILY 01/20/19 [History Confirmed 01/20/19] buPROPion SR TAB* [Wellbutrin SR TAB*] 300 mg PO DAILY 01/20/19 [History Confirmed 01/20/19] traZODone TAB* [Desyrel TAB*] 50 mg PO BEDTIME 01/20/19 [History Confirmed 01/20] PMH/Surg Hx/FS Hx/Imm Hx Endocrine/Hematology History: Denies: Hx Diabetes Cardiovascular History: Denies: Hx Congestive Heart Failure, Hx Hypertension, Other Cardiovascular Problems/Disorders Respiratory History: Denies: Hx Asthma GI History: Reports: Hx Irritable Bowel Denies: Other GI Disorders History: Reports: Other Problems/Disorders - current UTI Denies: Hx Renal Disease Musculoskeletal History: Reports: Hx Orthopedic Injury Sensory History: Reports: Hx Contacts or Glasses, Hx Hearing Aid - in right ear , Hx Hearing Problem - right ear has difficulty hearintg Denies: Hx Deafness Opthamlomology History: Reports: Hx Contacts or Glasses Neurological History: Reports: Hx Migraine - last migraine in 2000, Other Neuro Impairments/Disorders - BIPOLAR DISORDER Psychiatric History: Reports: Hx Anxiety, Hx Depression, Hx Inpatient Treatment , Hx Community Mental Health Tx, Hx Bipolar Disorder Denies: Hx Eating Disorder, Hx of Violent Episodes Against Others - Cancer History Cancer Type, Location and Year: None - Surgical History Surgery Procedure, Year, and Place: hysterectomy, 1994, [place] left ankle r/t fx - pins/plates , bladder surgery for incontinence, 2011, [facility]. TUBAL LIGATION 1984, [place] CARPAL TUNNEL RIGHT 03/1984, [facility]. Hx Anesthesia Reactions: No Infectious Disease History: Denies: Hx Clostridium Difficile, Hx Hepatitis, Hx Human Immunodeficiency Virus (HIV), Hx of Known/Suspected MRSA, Hx Shingles, Hx Tuberculosis, Hx Known/ Suspected VRE, Hx Known/Suspected VRSA, History Other Infectious Disease - Family History Known Family History: Positive: Diabetes Negative: Cardiac Disease, Hypertension - Social History Alcohol Use: None Substance Use Type: Reports: None Smoking Status (MU): Never Smoked Tobacco Have You Smoked in the Last Year: No Review of Systems Negative: Fever, Chills Negative: Erythema Negative: Sore Throat Negative: Chest Pain Negative: Shortness Of Breath, Cough Negative: Abdominal Pain, Vomiting, Nausea Negative: dysuria, hematuria Negative: Myalgia, Edema Negative: Rash Neurological: Other - Neg: Dizziness Psychological: Other - SI/Overdose All Other Systems Reviewed And Are Negative: No Physical Exam - Summary Physical Exam Summary: Constitutional: Well-developed, Well-nourished, Alert. (-) Distressed Skin: Warm, Dry. White secretions around her mouth. HENT: Normocephalic; Atraumatic Eyes: Conjunctiva normal Neck: Musculoskeletal ROM normal neck. (-) JVD, (-) Stridor, (-) Tracheal deviation Cardio: Rhythm regular, rate normal, Heart sounds normal; Intact distal pulses; The pedal pulses are 2+ and symmetric. Radial pulses are 2+ and symmetric. (-) Murmur Pulmonary/Chest wall: Effort normal. (-) Respiratory distress, (-) Wheezes, (-) Rales Abd: Soft, (-) tenderness, (-) Distension, (-) Guarding, (-) Rebound Musculoskeletal: (-) Edema Lymph: (-) Cervical adenopathy Neuro: Alert, Oriented x3. Slurred speech. Psych: Mood and affect Normal Triage Information Reviewed: Yes Vital Signs On Initial Exam: Temp Pulse Resp BP Pulse Ox 98.7 F 90 16 136/81 93 01/20/19 15:56 01/20/19 15:59 01/20/19 15:59 01/20/19 15:59 01/20/19 15:59 Vital Signs Reviewed: Yes Procedures - Sedation Patient Received Moderate/Deep Sedation with Procedure: No Diagnostics - Laboratory Result Diagrams: 01/20/19 16:26 01/20/19 16:26 Lab Statement: Any lab studies that have been ordered have been reviewed, and results considered in the medical decision making process. - Radiology CXR Radiology Interpretation Completed By: Radiologist Summary of Radiographic Findings: Low lung volumes. No active cardiopulmonary disease. ED Provider has reviewed this report. - EKG 1615 Cardiac Rate: NL - 88 BPM EKG Rhythm: Sinus Rhythm Summary of EKG Findings: Prolonged QT interval. No STEMI. ED Provider has reviewed and interpreted this EKG. 1722 Cardiac Rate: NL - 90 BPM Summary of EKG Findings: Prolonged QT interval. No STEMI. ED Provider has reviewed and interpreted this EKG. Re-Evaluation - Re-Evaluation First Eval Re-Evaluation Time: 17:09 Comment: Patient is still somnolent. 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 Intended to administer charcoal, however she refused it. We received a letter from her provider at [facility] that states that she has cognitive difficulties with benzodiazepines and anticholinergic medications and that these medications should be avoided. Discussed with Dr. Garcia, Clam Picker, states will call back with a [place] level. Dr. Garcia accepted the patient for admission to the ICU. - Diagnoses Provider Diagnoses: Overdose Discharge ED - Sign-Out/Discharge Documenting (check all that apply): Patient Departure - Admission - Discharge Plan Condition: Stable Disposition: ADMITTED TO [facility] Referrals: Vin Reyna MD [Primary Care Provider] - - Attestation Statements Document Initiated by Scribe: Yes Documenting Scribe: Kalen Wing Provider For Whom Scribe is Documenting (Include Credential): Edmund Carlisle MD Scribe Attestation: Kalen Liang, scribed for Edmund Carlisle MD on 01/20/19 at 0444. Status of Scribe Document: Ready
--- OUTSIDE RECORDS SUMMARY | 2019-01-20 16:28 | XMS REPORT ---
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 21772323804048763 age-related cataract, bilateral Problem Bipolar 1 disorder F31.9 Active 191021710 Problem Hyperlipidemia, E78.5 Active 20051812 unspecified hyperlipidemia type Problem Sleep apnea in G47.30 Active 79375502 adult Problem Tricompartment M17.11 Active 476276304 osteoarthritis of right knee Problem Hypertension I10 Active 75706566 Problem Primary M17.11 Active 005315338086966 osteoarthritis of right knee Problem Osteopenia of M85.851 Active 920911691 right hip Problem Obesity (BMI E66.9 Active 557716953 35.0-39.9 without comorbidity) Problem Stage 3 chronic N18.3 Active 892694986 kidney disease Problem Hypothyroidism, E03.9 Active 79754228 unspecified type Problem BMI Z68.36 Active 727004733 36.0-36.9,adult ALLERGIES No Information ENCOUNTERS Encounter Location Date Diagnosis [facility] [address] [facility], [place] [address] [facility] [address] [facility], [place] [address] Dec, [place] [address] [facility] [address] [facility], [place] [address] Dec, [place] [address] [place], Dec, Bipolar 1 disorder F31.9 [place] [address] and Left foot pain M79.[address] [place], [place] [address] [facility] [address] [place] [address] Dec, [place] [address] [facility] [address] [place] [address] Nov, [place] [address] [place], Nov, [place] [address] osteoarthritis of right knee M17.[address] [place], Nov, Bipolar 1 disorder F31.9 ; [place] [address] Osteopenia of right hip M85.851 ; Hypothyroidism, unspecified type E03.9 ; Hyperlipidemia, unspecified hyperlipidemia type E78.5 ; Urinary frequency R35.0 ; Acute pain of right knee M25.561 and Encounter for immunization Z23 [address] [place], [place] [address] [place], Oct, Ur[place] R35.0 [place] [address] [place], [place] [address] [place], [place] [address] [place], Sep, [place] [address] hematuria N30.00 ; Acute non-recurrent frontal sinusitis J01.10 ; Screening for breast cancer Z12.31 and Screening for osteoporosis Z13.[address] [place], [place] [address] [place], August, [place] [address] sinusitis J01.10 and Dysuria R30.[address] [place], [place] [address] [place], [place] [address] [place], [place], Cough R05 ; [place] [address] disorder F31.9 ; Stage 3 chronic kidney disease N18.3 and Hyperlipidemia, unspecified hyperlipidemia type E78.[address] [place] [address] [place], Jul, Cough R05 [place] [address] immunization Z23 [place] [address] [place], Jun, [place] [address] [facility] [address] [place], [place] [address] [place], Jun, Bipolar 1 disorder F31.9 ; [place] [address] Hyperlipidemia, unspecified hyperlipidemia type E78.5 and Cough R[address] [place] [address] [place], [place] [address] [place], Feb, Dysuria R30.0 [place] [address] for hepatitis C screening test for low risk patient Z11.[address] Jan, [place] [address] [place], [place] [address] [place], Jan, Bipolar 1 disorder F31.9 ; [place] [address] Pre-diabetes R73.03 ; Elevated serum creatinine R79.89 ; Dysuria R30.0 and Hyperlipidemia, unspecified hyperlipidemia type E78.[address] Jan, [place] [address] [place], Dec, [place] [address] R79.89 and [place] use Z79.[address] [place], Dec, Bipolar 1 disorder F31.9 ; [place] [address] Screening for breast cancer Z12.31 ; BMI 36.0-36.9,adult Z68.36 ; Obesity (BMI 35.0-39.9 without comorbidity) E66.9 and Hypothyroidism, unspecified type E03.[address] [place], [place] [address] [place] [address] Dec, Health Medical [place] [address] R[place] [address] Oct, [facility] [place] [address] [facility] Business Office [address] [place], [place] [address] [place], Jul, [place] [address] sinusitis J01.10 ; Screening for breast cancer Z12.31 ; Special screening for osteoporosis Z13.820 and Need for hepatitis C screening test Z11.[address] Jul, [place] [address] [facility] [address] [place], [place] [address] [place] [address] [place], [place], Pre-diabetes R73.03 ; [place] [address] Bipolar 1 disorder F31.9 ; Hypertension I10 ; Hyperlipidemia, unspecified hyperlipidemia type E78.5 and Sleep apnea in adult G47.[address] Apr, [place] [address] [place], [place] [address] [place] [address] [place], Apr, [place] [address] [place] [address] [place], [place] [address] [place], Cough R05 [place] [address] [place] [facility] [address] [place], [place] [address] [place] [address] [place], Apr, [place] [address] G47.20 [place] [facility] [address] [place], [place] [address] [place] [facility] [address] [place], [place] [address] [place] [facility] [address] [place], [place] [address] [place] [address] [place], [place] [address] [place] [facility] [address] [place], Apr, [place] [address] contractions M62.40 and Hypertension I10 [place] [facility] [address] [place], [place] [address] [place] [address] [place], Mar, [place] [address] extremities M62.838 [place] [facility] [address] [place], [place] [address] Nov, [place] [address] [facility] [address] [facility] [place], [place] [address] [place] [address] [place], Sep, [place], [place] [address] etiology J02.[address] [place], [place] [address] [place] [address] [place], Jul, Diarrhea R19.7 [place] [address] [place] [address] [place], [place] [address] [place] [address] [place], [place] [address] [place] [address] [place], Jul, Chronic diarrhea K52.9 [place] [address] [place], [place] [address] [place], [place] [address] [place], Mar, Bipolar disorder 296.80 [place] [address] [place], Jan, Other eczema L30.8 ; [place] [address] lesion L98.9 and Chronic sinusitis, unspecified location J32.[address] [place], [place] [address] [place], [place] [address] [place], [place] [address] [place], Jun, Abdominal pain 789.00 ; [place] [address] Elevated blood pressure 796.2 and Hematuria 599.[address] [place] [address] [place], Jan, Bipolar 1 disorder 296.7 ; [place] [address] Sinusitis 473.9 ; Vertigo 780.4 and Neck pain 723.[address] [place], Dec, Sinusitis 473.9 [place] [address] IMMUNIZATIONS No Known Immunizations SOCIAL HISTORY Never Assessed REASON FOR REFERRAL FUNCTIONAL STATUS PLAN OF CARE VITAL SIGNS MEDICATIONS Unknown Medications PROCEDURES No Known procedures RESULTS No Results REASON FOR VISIT hospital follow-up Insurance Providers [facility] Health Member Patient Patient Patient Patient Patient Subscriber Subscriber Subscriber Group Insurance Plan Plan Plan Plan ID Relationship Address Phone Name Date of ID Name Date of No Type Insurance Insurance Insurance Coverage to Subscriber Address Phone Name Dates Medicare National [id number] Medicare self [place] [id number] PPS Government 41 PPS [employer] [address] [facility] [id number] [employer] [phone] [employer] self Veronique [id number] Medicare [id number] Medicare [employer] 7 Adv [facility] [place] [facility] [id number] Case [phone] Case self Veronique [id number] [facility] 02 [facility] [address] [facility] Case [phone] Case self Veronique [id number] [facility] [address] [facility] MEDICAL (GENERAL) HISTORY Type Description Date [...] above Hospitalization History bipolar episodes Hospitalization History [facility] 01/2013 Hospitalization History Suicideal ideation 12/2017
--- OUTSIDE RECORDS SUMMARY | 2019-01-20 16:28 | XMS REPORT ---
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 88562129412148884 age-related cataract, bilateral Problem Bipolar 1 disorder F31.9 Active 831015394 Problem Hyperlipidemia, E78.5 Active 21982690 unspecified hyperlipidemia type Problem Sleep apnea in G47.30 Active 86931759 adult Problem Tricompartment M17.11 Active 976178679 osteoarthritis of right knee Problem Hypertension I10 Active 35066009 Problem Primary M17.11 Active 655213108447053 osteoarthritis of right knee Problem Osteopenia of M85.851 Active 044243657 right hip Problem Obesity (BMI E66.9 Active 119626975 35.0-39.9 without comorbidity) Problem Stage 3 chronic N18.3 Active 870073007 kidney disease Problem Hypothyroidism, E03.9 Active 84960305 unspecified type Problem BMI Z68.36 Active 687722399 36.0-36.9,adult ALLERGIES No Information ENCOUNTERS Encounter Location Date Diagnosis [facility] [address] [facility], [place] [address] Dec, [place] [address] [facility] [address] [facility], [place] [address] [facility] [address] [facility] Dec, [place] [address] [facility] [address] [facility], Dec, Bipolar 1 [place] F31.9 [place] [address] and Left foot pain M79.[address] [place], [place] [address] Dec, [place] [address] Nov, [place] [address] [place], Nov, [place] [address] osteoarthritis of right knee M17.[address] [place] [address] [place], Nov, Bipolar 1 disorder F31.9 ; [place] [address] Osteopenia of right hip M85.851 ; Hypothyroidism, unspecified type E03.9 ; Hyperlipidemia, unspecified hyperlipidemia type E78.5 ; Urinary frequency R35.0 ; Acute pain of right knee M25.561 and Encounter for immunization Z23 [address] [place], [place] [address] [place], Oct, Ur[place] R35.0 [place] [address] [place] [address] [place], [place] [address] [place], [place] [address] [place], Sep, [place] [address] hematuria N30.00 ; Acute non-recurrent frontal sinusitis J01.10 ; Screening for breast cancer Z12.31 and Screening for osteoporosis Z13.[address] [place], [place] [address] [place], [place], [place] [address] sinusitis J01.10 and Dysuria R30.[address] [place] [address] [place], [place] [address] [place], [place] [address] [place], [place], Cough R05 ; [place] [address] disorder F31.9 ; Stage 3 chronic kidney disease N18.3 and Hyperlipidemia, unspecified hyperlipidemia type E78.[address] [place], 11 Apr, 2019 Cough R05 [place] [address] immunization Z23 [place] [address] [place], Jun, [place] [address] [facility] [address] [place], [place] [address] [place] [address] [place], Jun, Bipolar 1 disorder F31.9 ; [place] [address] Hyperlipidemia, unspecified hyperlipidemia type E78.5 and Cough R05 [place] [address] [place], [place] [address] [place] [address] [place], Feb, Dysuria R30.0 [place] [address] for hepatitis C screening test for low risk patient Z11.[address] Jan, [place] [address] [place], [place] [address] [place] [address] [place], Jan, Bipolar 1 disorder F31.9 ; [place] [address] Pre-diabetes R73.03 ; Elevated serum creatinine R79.89 ; Dysuria R30.0 and Hyperlipidemia, unspecified hyperlipidemia type E78.[address] Jan, [place] [address] [place], Dec, [place] [address] R79.89 and [place] use Z79.[address] [place], Dec, Bipolar 1 disorder F31.9 ; [place] [address] Screening for breast cancer Z12.31 ; BMI 36.0-36.9,adult Z68.36 ; Obesity (BMI 35.0-39.9 without comorbidity) E66.9 and Hypothyroidism, unspecified type E03.[address] [place], [place] [address] [place] [address] Dec, Health Medical [place]BI[place] [address] [place] [address] Oct, Health Medical [place] [address] [facility] Business Office [address] [place], [place] [address] [place], Jul, [place] [address] sinusitis J01.10 ; Screening for breast cancer Z12.31 ; Special screening for osteoporosis Z13.820 and Need for hepatitis C screening test Z11.[address] Jul, [place] [address] [place] [facility] [address] [place], [place] [address] [place] [facility] [address] [place], [place], Pre-diabetes R73.03 ; [place] [address] Bipolar 1 disorder F31.9 ; Hypertension I10 ; Hyperlipidemia, unspecified hyperlipidemia type E78.5 and Sleep apnea in adult G47.[address] Apr, [place] [address] [place] [facility] [address] [place], [place] [address] [place] [facility] [address] [place], Apr, [place] [address] [place] [facility] [address] [place], [place] [address] [place], Cough R05 [place] [address] [place] [facility] [address] [place], [place] [address] [place] [facility] [address] [place], Apr, [place] [address] G47.20 [place] [facility] [address] [place], [place] [address] [place] [facility] [address] [place], [place] [address] [place] [facility] [address] [place], [place] [address] [place] [facility] [address] [place], [place] [address] [place] [facility] [address] [place], [place], [place] [address] contractions M62.40 and Hypertension I10 [place] [facility] [address] [place], [place] [address] [place] [facility] [address] [place], [place], [place] [address] extremities M62.838 [place] [facility] [address] [place], [place] [address] Nov, [place] [address] [place] [facility] [address] [place], [place] [address] [place] [facility] [address] [place], Sep, [place], [place] [address] etiology J02.9 [place] [address] [place], [place] [address] [place] [address] [place], Jul, [place]arrhea R19.7 [place] [address] [place] [facility] [address] [place], [place] [address] [facility] [address] [place], [place] [address] [facility] [address] [place], Jul, Chronic diarrhea K52.9 [place] [address] [place] [address] [place], [place] [address] [place], [place] [address] [place], Mar, Bipolar [place] 296.80 [place] [address] [place], Jan, Other eczema L30.8 ; [place] [address] lesion L98.9 and Chronic sinusitis, unspecified location J32.[address] [place], [place] [address] [place], [place] [address] [place], [place] [address] [place], Jun, Abdominal pain 789.00 ; [place] [address] Elevated blood pressure 796.2 and Hematuria [address] [place], Jan, Bipolar 1 disorder 296.7 ; [place] [address] Sinusitis 473.9 ; Vertigo 780.4 and Neck pain 723.[address] [place], Dec, Sinusitis 473.9 [place] [address] IMMUNIZATIONS No Known Immunizations SOCIAL HISTORY Never Assessed REASON FOR REFERRAL FUNCTIONAL STATUS PLAN OF CARE VITAL SIGNS MEDICATIONS Unknown Medications PROCEDURES No Known procedures RESULTS No Results REASON FOR VISIT RHIO Alert [facility] Discharge Insurance Providers [facility] Member Patient Patient Patient Patient Patient Subscriber Subscriber Subscriber Group Insurance Plan Plan Plan Plan ID Relationship Address Phone Name Date of ID Name Date of No Type Insurance Insurance Insurance Coverage to Subscriber Address Phone Name Dates Case [phone] Case self Veronique [id number] [facility] [place] [id number] [facility] Case [phone] Case self Veronique [id number] Management [place] [address] [employer] [phone] [employer] self Veronique [id number] Medicare [id number] Medicare [place] 7 Adv [facility] [place] [facility] [address] Medicare National [id number] Medicare self Veronique [id number] PPS [facility] 41 PPS [facility] [address] [facility] [id number] MEDICAL (GENERAL) HISTORY Type Description Date Medical History bipolar Medical History tardive dyskenestia Medical History Bipolar disorder Medical History Bipolar disorder Surgical History bladder surgey Surgical History hysterectomy Surgical History tubal ligation Surgical History surgery on left foot 2015 or 17 Surgical History revision of left tib/fib fractures Surgical History Right eye cataract removal 05/2016 Surgical History Left eye cataract removal 07/2016 Hospitalization History see above Hospitalization History bipolar episodes Hospitalization History [facility] 01/2013 Hospitalization History Suicideal ideation 12/2017
--- OUTSIDE RECORDS SUMMARY | 2019-01-20 16:28 | XMS REPORT ---
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 03646809559738837 age-related cataract, bilateral Problem Bipolar 1 disorder F31.9 Active 768605394 Problem Hyperlipidemia, E78.5 Active 81981975 unspecified hyperlipidemia type Problem Sleep apnea in G47.30 Active 84872111 adult Problem Tricompartment M17.11 Active 937234806 osteoarthritis of right knee Problem Hypertension I10 Active 14852750 Problem Primary M17.11 Active 714480419809991 osteoarthritis of right knee Problem Osteopenia of M85.851 Active 798487210 right hip Problem Obesity (BMI E66.9 Active 312677989 35.0-39.9 without comorbidity) Problem Stage 3 chronic N18.3 Active 964592495 kidney disease Problem Hypothyroidism, E03.9 Active 75748006 unspecified type Problem BMI Z68.36 Active 084860021 36.0-36.9,adult ALLERGIES No Information ENCOUNTERS Encounter Location Date Diagnosis [facility] [address] [facility], [place] [address] Dec, [place] [address] [facility] [address] [facility], [place] [address] [facility] [address] [facility] Dec, [place] [address] [facility] [address] [facility], Dec, Bipolar 1 disorder F31.9 [place] [address] and Left foot pain M79.[address] [place], [place] [address] Dec, [place] [address] Nov, [place] [address] [place], Nov, [place] [address] osteoarthritis of right knee M17.[address] [place] [address] [place], Nov, Bipolar 1 disorder F31.9 ; [place] [address] Osteopenia of right hip M85.851 ; Hypothyroidism, unspecified type E03.9 ; Hyperlipidemia, unspecified hyperlipidemia type E78.5 ; Urinary frequency R35.0 ; Acute pain of right knee M25.561 and Encounter for immunization Z23 [address] [place], [place] [address] [place], Oct, [place] R35.0 [place] [address] [place] [address] [place], [place] [address] [place], [place] [address] [place], Sep, [place] [address] hematuria N30.00 ; Acute non-recurrent frontal sinusitis J01.10 ; Screening for breast cancer Z12.31 and Screening for osteoporosis Z13.[address] [place], [place] [address] [place], August, [place] [address] sinusitis J01.10 and Dysuria R30.[address] [place] [address] [place], [place] [address] [place], [place] [address] [place], August, Cough R05 ; [place] [address] disorder F31.9 ; Stage 3 chronic kidney disease N18.3 and Hyperlipidemia, unspecified hyperlipidemia type E78.[address] [place], 11 Apr, 2019 Cough R05 [place] [address] immunization Z23 [place] [address] [place], Jun, [place] [address] [facility] [address] [place], [place] [address] [place] [address] [place], Jun, Bipolar 1 disorder F31.9 ; [place] [address] Hyperlipidemia, unspecified hyperlipidemia type E78.5 and Cough R[address] [place] [address] [place], [place] [address] [place], Feb, Dysuria R30.0 [place] [address] for hepatitis C screening test for low risk patient Z11.[address] Jan, [place] [address] [place], [place] [address] [place] [address] [place], Jan, Bipolar 1 disorder F31.9 ; [place] [address] Pre-diabetes R73.03 ; Elevated serum creatinine R79.89 ; Dysuria R30.0 and Hyperlipidemia, unspecified hyperlipidemia type E78.[address] Jan, [place] [address] [place], Dec, [place] [address] R79.89 and [place] use Z79.[address] [place], Dec, Bipolar 1 disorder F31.9 ; [place] [address] Screening for breast cancer Z12.31 ; BMI 36.0-36.9,adult Z68.36 ; Obesity (BMI 35.0-39.9 without comorbidity) E66.9 and Hypothyroidism, unspecified type E03.[address] [place], [place] [address] [place]ene [place] [address] Dec, Health Medical ROBBIE [place] [address] Oct, Health Medical [place] [address] [facility] Business Office [address] [place], [place] [address] [place], Jul, [place] [address] sinusitis J01.10 ; Screening for breast cancer Z12.31 ; Special screening for osteoporosis Z13.820 and Need for hepatitis C screening test Z11.[address] Jul, [place] [address] [place] [facility] [address] [place], [place] [address] [place] [facility] [address] [place], May, Pre-diabetes R73.03 ; [place] [address] Bipolar 1 disorder F31.9 ; Hypertension I10 ; Hyperlipidemia, unspecified hyperlipidemia type E78.5 and Sleep apnea in adult G47.[address] Apr, [place] [address] [place] [facility] [address] [place], [place] [address] [place] [facility] [address] [place], Apr, [place] [address] [place] [facility] [address] [place], [place] [address] [place], Cough R05 [place] [address] [place] [facility] [address] [place], [place] [address] [place] [facility] [address] [place], Apr, [place] [address] G47.20 [place] [facility] [address] [place], [place] [address] [place] [facility] [address] [place], [place] [address] [place] [facility] [address] [place], [place] [address] [place] [facility] [address] [place], [place] [address] [place] [facility] [address] [place], Apr, [place] [address] contractions M62.40 and Hypertension I10 [place] [facility] [address] [place], [place] [address] [place] [facility] [address] [place], Mar, [place] [address] extremities M62.838 [place] [facility] [address] [place], [place] [address] Nov, [place] [address] [place] [facility] [address] [place], [place] [address] [facility] [address] [facility] [place], Sep, [place], [place] [address] etiology [address]02[address] [place], [place] [address] [place], Jul, [place]arrhea R19.7 [place] [address] [place] [facility] [address] [place], [place] [address] [facility] [address] [place], [place] [address] [place] [address] [place], Jul, [place] diarrhea K52.9 [place] [address] [place], [place] [address] [place], [place] [address] [place], Mar, B[place] 296.[place] [address] [place], Jan, Other eczema L30.8 ; [place] [address] lesion L98.9 and Chronic sinusitis, unspecified location J32.[address] [place], [place] [address] [place], [place] [address] [place], [place] [address] [place], Jun, Abdominal pain 789.00 ; [place] [address] Elevated blood pressure 796.2 [address] [place], Jan, Bipolar 1 disorder 296.7 ; [place] [address] Sinusitis 473.9 ; Vertigo 780.4 and Neck pain 723.[address] [place], Dec, Sinusitis 473.9 [place] [address] IMMUNIZATIONS No Known Immunizations SOCIAL HISTORY Never Assessed REASON FOR REFERRAL FUNCTIONAL STATUS PLAN OF CARE VITAL SIGNS MEDICATIONS Unknown Medications PROCEDURES No Known procedures RESULTS No Results REASON FOR VISIT xray foot* Insurance Providers [facility] Member Patient Patient Patient Patient Patient Subscriber Subscriber Subscriber Group Insurance Plan Plan Plan Plan ID Relationship Address Phone Name Date of ID Name Date of No Type Insurance Insurance Insurance Coverage to Subscriber Address Phone Name Dates Medicare National [id number] Medicare self Veronique [id number] PPS Government 41 PPS [employer] [address] [facility] [id number] Case [phone] Case self Veronique [id number] [facility] [address] [employer] [phone] [employer] self Veronique [id number] Medicare [id number] Medicare [place] 7 [facility] [place] [facility] [id number] Case [phone] Case self Veronique [id number] [address] MEDICAL (GENERAL) HISTORY Type Description Date Medical [...] above Hospitalization History bipolar episodes Hospitalization History [facility] 01/2013 Hospitalization History Suicideal ideation 12/2017
--- OUTSIDE RECORDS SUMMARY | 2019-01-20 16:28 | XMS REPORT ---
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 25348969427047892 age-related cataract, bilateral Problem Bipolar 1 disorder F31.9 Active 360953739 Problem Hyperlipidemia, E78.5 Active 54494880 unspecified hyperlipidemia type Problem Sleep apnea in G47.30 Active 71418443 adult Problem Tricompartment M17.11 Active 855767250 osteoarthritis of right knee Problem Hypertension I10 Active 59982421 Problem Primary M17.11 Active 844594501548483 osteoarthritis of right knee Problem Osteopenia of M85.851 Active 898091011 right hip Problem Obesity (BMI E66.9 Active 511704124 35.0-39.9 without comorbidity) Problem Stage 3 chronic N18.3 Active 612430736 kidney disease Problem Hypothyroidism, E03.9 Active 61060744 unspecified type Problem BMI Z68.36 Active 032502876 36.0-36.9,adult ALLERGIES No Information ENCOUNTERS Encounter Location Date Diagnosis [facility] [address] [facility], [place] [address] [facility] [address] [facility], [place] [address] Dec, [place] [address] [facility] [address] [facility], Dec, Bipolar 1 [place] F31.9 [place] [address] and Left foot pain M79.[address] [place], [place] [address] Dec, [place] [address] Nov, [place] [address] [place], Nov, [place] [address] osteoarthritis of right knee M17.[address] [place] [address] [place], Nov, Bipolar 1 disorder F31.9 ; [place] [address] Osteopenia of right hip M85.851 ; Hypothyroidism, unspecified type E03.9 ; Hyperlipidemia, unspecified hyperlipidemia type E78.5 ; Urinary frequency R35.0 ; Acute pain of right knee M25.561 and Encounter for immunization Z23 [place] [address] [place], [place] [address] [place], Oct, [place] R35[place]0 [place] [address] [place] [address] [place], [place] [address] [place], [place] [address] [place], Sep, [place] [address] hematuria N30.00 ; Acute non-recurrent frontal sinusitis J01.10 ; Screening for breast cancer Z12.31 and Screening for osteoporosis Z13.[address] [place], [place] [address] [place], [place], [place] [address] sinusitis J01.10 and Dysuria R30.[address] [place], [place] [address] [place], [place] [address] [place], [place], Cough R05 ; [place] [address] disorder F31.9 ; Stage 3 chronic kidney disease N18.3 and Hyperlipidemia, unspecified hyperlipidemia type E78.[address] [place] [address] [place], Jul, Cough R05 [place] [address] immunization Z23 [place] [address] [place], Jun, [place] [address] [facility] [address] [place], [place] [address] [place], Jun, Bipolar 1 disorder F31.9 ; [place] [address] Hyperlipidemia, unspecified hyperlipidemia type E78.5 and Cough R[address] [place] [address] [place], [place] [address] [place], Feb, Dysuria R30.0 [place] [address] for hepatitis C screening test for low risk patient Z11.[address] Jan, [place] [address] [place], [place] [address] [place], Jan, Bipolar 1 disorder F31.9 ; [place] [address] Pre-diabetes R73.03 ; Elevated serum creatinine R79.89 ; Dysuria R30.0 and Hyperlipidemia, unspecified hyperlipidemia type E78.[address] Jan, [place] [address] [place], Dec, [place] [address] R79.89 and [place] use Z79.[address] [place], Dec, Bipolar 1 disorder F31.9 ; [place] [address] Screening for breast cancer Z12.31 ; BMI 36.0-36.9,adult Z68.36 ; Obesity (BMI 35.0-39.9 without comorbidity) E66.9 and Hypothyroidism, unspecified type E03.[address] [place], [place] [address] Dec, [facility] Medical ROBBIE [place] [address] Oct, Health Medical [place] [address] [facility] Business Office [address] [place], [place] [address] [place], Jul, [place] [address] sinusitis J01.10 ; Screening for breast cancer Z12.31 ; Special screening for osteoporosis Z13.820 and Need for hepatitis C screening test Z11.[address] Jul, [place] [address] [place] [facility] [address] [place], [place] [address] [facility] [address] [place], [place], Pre-diabetes R73.03 ; [place] [address] Bipolar 1 disorder F31.9 ; Hypertension I10 ; Hyperlipidemia, unspecified hyperlipidemia type E78.5 and Sleep apnea in adult G47.[address] Apr, [place] [address] [place] [facility] [address] [place], [place] [address] [place] [facility] [address] [place], Apr, [place] [address] [place] [facility] [address] [place], [place] [address] [place], Cough R05 [place] [address] [place] [facility] [address] [place], [place] [address] [facility] [address] [place], Apr, [place] [address] G47.20 [place] [facility] [address] [place], [place] [address] [place] [facility] [address] [place], [place] [address] [place] [facility] [address] [place], [place] [address] [place] [facility] [address] [place], [place] [address] [place] [facility] [address] [place], Apr, [place] [address] contractions M62.40 and Hypertension I10 [place] [facility] [address] [place], [place] [address] [facility] [address] [place], [place], [place] [address] extremities M62.838 [place] [facility] [address] [place], [place] [address] Nov, [place] [address] [place] [facility] [address] [place], [place] [address] [facility] [address] [place], Sep, [place] [address] etiology J02.[address] [place], [place] [address] [place], Jul, Diarrhea R19.7 [place] [address] [place], [place] [address] [place], [place] [address] [place], Jul, [place] K52.9 [place] [address] [place], [place] [address] [place], [place] [address] [place], Mar, Bipolar [place] 296.80 [place] [address] [place], Jan, Other eczema L30.8 ; [place] [address] lesion L98.9 and Chronic sinusitis, unspecified location J32.[address] [place], [place] [address] [place], [place] [address] [place], [place] [address] [place], Jun, Abdominal pain 789.00 ; [place] [address] Elevated blood pressure 796.2 and Hematuria [address] [place], Jan, Bipolar 1 disorder 296.7 ; [place] [address] Sinusitis 473.9 ; Vertigo 780.4 and Neck pain 723.[address] [place], Dec, Sinusitis 473.9 [place] [address] IMMUNIZATIONS No Known Immunizations SOCIAL HISTORY Never Assessed REASON FOR REFERRAL FUNCTIONAL STATUS PLAN OF CARE VITAL SIGNS MEDICATIONS Unknown Medications PROCEDURES No Known procedures RESULTS No Results REASON FOR VISIT Information Insurance Providers [facility] Member Patient Patient Patient Patient Patient Subscriber Subscriber Subscriber Group Insurance Plan Plan Plan Plan ID Relationship Address Phone Name Date of ID Name Date of No Type Insurance Insurance Insurance Coverage to Subscriber Address Phone Name Dates Case [phone] Case self Veronique [id number] [facility] [address] [facility] Medicare National [phone] Medicare self Veronique [id number] PPS Government 41 PPS [employer] [address] [facility] [id number] [employer] [phone] [employer] self Veronique [id number] Medicare [id number] Medicare [employer] 7 Adv [place] HMO [address] Case [phone] Case self Veronique [id number] Management Ashley [address] MEDICAL (GENERAL) HISTORY Type Description Date [...] Hospitalization History bipolar episodes Hospitalization History [facility] 01/2013 Hospitalization History Suicideal ideation 12/2017
[2019-01-20 16:44] LABS: ABS Eosinophils 0.1 10^3/ul (0-0.6); ABS Lymphocytes 1.7 10^3/ul (1.0-4.8); ABS Monocytes 0.5 10^3/ul (0-0.8); ABS Neutrophils 2.5 10^3/ul (1.5-7.7); Eosinophil % 2.4 %; Hematocrit 44 % (35-47); Hemoglobin 14.5 g/dL (12.0-16.0); Lymphocyte % 34.3 %; Mean Corpuscular HGB Conc 33 g/dL (31-36); Mean Corpuscular Hemoglobin 31 pg (27-31); Mean Corpuscular Volume 93 fL (80-97); Mean Platelet Volume 7.3 fL (7.4-10.4); Nucleated Red Blood Cells % 0.1; Platelet Count 273 10^3/uL (150-450); Red Blood Count 4.67 10^6 /uL (3.70-4.87); Red Cell Distribution Width 14 % (10-15); White Blood Count 4.8 10^3/uL (3.5-10.8)
[2019-01-20 16:57] LABS: ALT 27 U/L (7-52); AST 20 U/L (13-39); Albumin 4.2 g/dL (3.2-5.2); Albumin/Globulin Ratio 0.9 (1-3); Alkaline Phosphatase 105 U/L (34-104); Anion Gap 7 mmol/L (2-11); BUN/Creatinine Ratio 13.4 (8-20); Blood Urea Nitrogen 13 mg/dL (6-24); CO2 Carbon Dioxide 25 mmol/L (22-32); Calcium 10.3 mg/dL (8.6-10.3); Chloride 109 mmol/L (101-111); Creatine Kinase 46 U/L (10-223); EGFR African American 69.5 (>60); EGFR Non-African American 57.5 (>60); Globulin 4.6 g/dL (2-4); Glucose 88 mg/dL (70-100); Potassium 4.1 mmol/L (3.5-5.0); Sodium 141 mmol/L (135-145); Total Protein 8.8 g/dL (6.4-8.9)
[2019-01-20 16:58] LABS: Acetaminophen < 15 mcg/mL; Alcohol < 10 mg/dL (<10); Lithium 0.29 mmol/L (0.6-1.2); Salicylate < 2.50 mg/dL (<30)
[2019-01-20] MEDS ORDERED: Ammonia Inhalant* 1 EA AMP ONE (17:50)
[2019-01-20] MEDS ORDERED: Ammonia Inhalant* 1 EA AMP INH ONE (17:52)
[2019-01-20] MEDS ORDERED: Magnesium Sulfate 2 GM IV* 2 GM/50 ML BAG IVPB ONE (18:04)
--- NOTE | 2019-01-20 18:22 | HP ---
History of Present Illness - History of Present Illness Reason for Visit: overdose History of Present Illness: 68 F with hx of Bi-polar disease, multiple suicide attempts, EPS syndrome, found by police today with pills in mouth. She failed to appear at her medical appointment today so the office then called the Police to see if she was fine. Per ED, patient was awake when came to the hospital and refused treatment and blood draws and requested release from hospital. However, because she stated she tried to take her life patient was treated in the ED and the ICU was called. As per police, on the scene he was able to remove some pills from her mouth. Her pills except Neurontin were brought to the hospital. The neurontin bottle per police was empty. The following bottles were brought to the ED and practically full. Ocarbazepine, lipitor, norvasc., synthorid, wellbutrin, dicyclomine, clonidine, lithium. Her Ambien (#10 pills)(filled 12/26) and Hydoxyzine (12/26) bottles were empty. She did not come with any Latuda bottle though she was apparently on the medication. While in the ED, patient became more somnolent. Patient protecting airways. Hemodynamically stable and oxygen saturation 100%. Patient then brought to the ICU. Poison control was called and recommended Mg IV for prolonged Qt-C's. 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 - Medications/Allergies Allergies/Adverse Reactions: Allergies Allergy/AdvReac Type Severity Reaction Status Date / Time Antihistamines - Alkylamine Allergy Altered Verified 12/18/18 04:51 Mental Status Antihistamines - Ethanolamine Allergy Altered Verified 12/18/18 04:51 Mental Status Antihistamines - Allergy Altered Verified 12/18/18 04:51 Ethylenediamine Mental Status Antihistamines - Piperazine Allergy Altered Verified 12/18/18 04:51 Mental Status Antihistamines - Piperidine Allergy Altered Verified 12/18/18 04:51 Mental Status Benzodiazepines Allergy Altered Verified 12/18/18 04:51 Mental Status carisoprodol Allergy Altered Verified 12/18/18 04:51 Mental Status oxycodone AdvReac Mild Altered Verified 12/18/18 04:51 Mental Status Penicillins AdvReac Mild See Comment Verified 12/18/18 04:51 prochlorperazine AdvReac Mild Muscle Ache Verified 12/18/18 04:51 [From Compazine] anticholinergic agents AdvReac Mild Altered Uncoded 12/18/18 04:51 Mental Status muscle relaxants AdvReac Mild Altered Uncoded 12/18/18 04:51 Mental Status semi synthetic narcotics AdvReac Mild Altered Uncoded 12/18/18 04:51 Mental Status Medications: Current Medications Magnesium Sulfate (Magnesium Sulfate 2 Gm Iv*) 2 gm in 50 mls @ 50 mls/hr IVPB ONCE ONE Stop: 01/20/19 19:03 Exam - Exam Vital Signs: Vital Signs (72 hours) 01/20/19 01/20/19 01/20/19 15:56 15:59 16:03 Temperature 98.7 F Pulse Rate 88 90 86 Respiratory 16 16 19 Rate Blood Pressure 136/81 136/81 (mmHg) O2 Sat by Pulse 94 93 94 Oximetry 01/20/19 16:30 Temperature Pulse Rate 88 Respiratory 17 Rate Blood Pressure 154/83 (mmHg) O2 Sat by Pulse 94 Oximetry General: Other - somnolent. Not responding to questions. HEENT: Atraumatic Lungs: Clear to auscultation Cardiovascular: Regular rate, Normal S1, Normal S2 Abdomen: Normal bowel sounds, Soft, No tenderness Extremities: No clubbing, No cyanosis Skin: No rashes Neurological: Other - somnolent. non-responsive. wincing to sternal rub. Assessment/Plan - Assessment/Plan Assessment: Overdose in setting suicide attempt with unclear medications ? Bi-Polar Disorder Previous Suicide attempts prolonged qt-c Plan: Admit to ICU Low threshold for intubation Monitor Qt-C's. Give IV Magnesium repeat lithium levels and EKG in the AM please contact [facility] to get old records where she was apparently last week. Son in-law should also be contacted. He is proxy per records. CCM time 65 minutes
[2019-01-20 18:39] LABS: Urine Benzodiazepine Screen None Detected (None Detect); Urine Opiates Screen None Detected (None Detect)
[2019-01-20 18:49] LABS: Urine Appearance Clear; Urine Bilirubin Negative (Negative); Urine Blood Negative (Negative); Urine Color Straw; Urine Glucose Negative (Negative); Urine Ketones Trace (Negative); Urine Nitrite Negative (Negative); Urine Protein Negative (Negative); Urine Specific Gravity 1.004 (1.010-1.030); Urine Urobilinogen Negative (Negative)
[2019-01-20] MEDS: NS 0.9% 1000 ML** 1,000 ML IV SCH (18:57)
[2019-01-21 05:56] LABS: ABS Basophils 0.1 10^3/ul (0-0.2); ABS Eosinophils 0.1 10^3/ul (0-0.6); ABS Lymphocytes 1.1 10^3/ul (1.0-4.8); ABS Monocytes 0.8 10^3/ul (0-0.8); ABS Neutrophils 8.3 10^3/ul (1.5-7.7); Eosinophil % 0.8 %; Hematocrit 39 % (35-47); Hemoglobin 13.4 g/dL (12.0-16.0); Lymphocyte % 11.1 %; Mean Corpuscular HGB Conc 34 g/dL (31-36); Mean Corpuscular Hemoglobin 32 pg (27-31); Mean Corpuscular Volume 93 fL (80-97); Mean Platelet Volume 7.3 fL (7.4-10.4); Platelet Count 259 10^3/uL (150-450); Red Blood Count 4.26 10^6 /uL (3.70-4.87); Red Cell Distribution Width 14 % (10-15); White Blood Count 10.4 10^3/uL (3.5-10.8)
[2019-01-21 06:07] LABS: Albumin 3.8 g/dL (3.2-5.2); Calcium 9.4 mg/dL (8.6-10.3); EGFR African American 67.1 (>60); EGFR Non-African American 55.5 (>60); Globulin 3.8 g/dL (2-4); Potassium 4.3 mmol/L (3.5-5.0); Total Bilirubin 0.3 mg/dL (0.2-1.0); Total Protein 7.6 g/dL (6.4-8.9)
[2019-01-21 06:22] LABS: Lithium 0.19 mmol/L (0.6-1.2)
[2019-01-21] MEDS: NS 0.9% 1000 ML** 1,000 ML IV SCH (08:58)
[2019-01-21] MEDS ORDERED: Acetaminophen TAB* 325 MG PO PRN (09:48)
--- NOTE | 2019-01-21 10:36 | PN ---
Date of Service: 01/21/19 Critical Care Services: patient now awake. sitting up in bed. Ao times 3. patient states she did try to take her life. she stated she took Neurontin, Hydroxyzine and 8 Ambien. She could not quantify how many Neurontin and Hdyroxyzine pills she took. Patient discharged from [facility] 2 days ago after two week stay there. lithium levels remain low. labs wnl Vital Signs: Temp Pulse Resp BP SpO2 FiO2 100.0 F 97 41 135/74 98 01/21/19 10:01 01/21/19 10:01 01/21/19 10:01 01/21/19 10:01 01/21/19 10:01 Physical Exam: Gen: NAD. AO times 3, Heart: RRR, Lungs: Decreased Breath sounds, GI: +BSs, soft, NTP. No rebound or guarding. Neuro: No focal deficits. Extremities: No edema Fluid Balance (Past 24 Hours): I= O= Net Intake & Output 01/19/19 01/20/19 01/21/19 01/22/19 06:59 06:59 06:59 06:59 Intake Total 1082 440 Output Total 454 205 Balance 628 235 Weight 210 lb Intake: IV Fluids 1082 NS (0.9%) 1082 Oral 440 Output: Dick[place] 454 205 Other: Date of Last Bowel 01/21/19 Movement # Bowel Movements 1 Estimated Stool Amount Large Labs: Laboratory Results - last 24 hr 01/20/19 01/20/19 01/20/19 16:26 16:26 16:26 WBC 4.8 RBC 4.67 Hgb 14.5 Hct 44 MCV 93 MCH 31 MCHC 33 RDW 14 Plt Count 273 MPV 7.3 L Neut % (Auto) 52.2 Lymph % (Auto) 34.3 [place] % (Auto) 10.4 Eos % (Auto) 2.4 Baso % (Auto) 0.7 Absolute Neuts (auto) 2.5 Absolute Lymphs (auto) 1.7 Absolute Monos (auto) 0.5 Absolute Eos (auto) 0.1 Absolute Basos (auto) 0.0 Absolute Nucleated RBC 0.0 Nucleated RBC % 0.1 Sodium 141 Potassium 4.1 Chloride 109 Carbon Dioxide 25 Anion Gap 7 BUN 13 Creatinine 0.97 H Est GFR ( Amer) 69.5 Est GFR (Non-Af Amer) 57.5 BUN/Creatinine Ratio 13.4 Glucose 88 Lactic Acid 0.7 Calcium 10.3 Total Bilirubin 0.30 AST 20 ALT 27 Alkaline Phosphatase 105 H Total Creatine Kinase 46 Total Protein 8.8 Albumin 4.2 Globulin 4.6 H Albumin/Globulin Ratio 0.9 L Urine Color Urine Appearance Urine pH Ur Specific [place] Urine Protein Urine Ketones Urine Blood Urine Nitrate Urine Bilirubin Urine Urobilinogen Ur Leukocyte Esterase Urine Glucose Salicylates < 2.50 Urine Opiates Screen Acetaminophen < 15 Ur Barbiturates Screen Ur Phencyclidine Scrn Ur Amphetamines Screen U Benzodiazepines Scrn [place] 0.29 L Urine Cocaine Screen U Cannabinoids Screen Serum Alcohol < 10 01/20/19 01/20/19 01/21/19 18:04 18:04 05:36 WBC 10.4 RBC 4.26 Hgb 13.4 Hct 39 MCV 93 MCH 32 H MCHC 34 RDW 14 Plt Count 259 MPV 7.3 L Neut % (Auto) 79.9 Lymph % (Auto) 11.1 [place] % (Auto) 7.7 Eos % (Auto) 0.8 Baso % (Auto) 0.5 Absolute Neuts (auto) 8.3 H Absolute Lymphs (auto) 1.1 Absolute Monos (auto) 0.8 Absolute Eos (auto) 0.1 Absolute Basos (auto) 0.1 Absolute Nucleated RBC 0.0 Nucleated RBC % 0.0 Sodium Potassium Chloride Carbon Dioxide Anion Gap BUN Creatinine Est GFR ( Amer) Est GFR (Non-Af Amer) BUN/Creatinine Ratio Glucose Lactic Acid Calcium Total Bilirubin AST ALT Alkaline Phosphatase Total Creatine Kinase Total Protein Albumin Globulin Albumin/Globulin Ratio Urine Color Straw Urine Appearance Clear Urine pH 7.0 Ur Specific [place] 1.004 L Urine Protein Negative Urine Ketones Trace A Urine Blood Negative Urine Nitrate Negative Urine Bilirubin Negative Urine Urobilinogen Negative Ur Leukocyte Esterase Negative Urine Glucose Negative Salicylates Urine Opiates Screen None detected Acetaminophen Ur Barbiturates Screen None detected Ur Phencyclidine Scrn None detected Ur Amphetamines Screen None detected U Benzodiazepines Scrn None detected [place] Urine Cocaine Screen None detected U Cannabinoids Screen None detected Serum Alcohol 01/21/19 05:36 WBC RBC Hgb Hct MCV MCH MCHC RDW Plt Count MPV Neut % (Auto) Lymph % (Auto) [place] % (Auto) Eos % (Auto) Baso % (Auto) Absolute Neuts (auto) Absolute Lymphs (auto) Absolute Monos (auto) Absolute Eos (auto) Absolute Basos (auto) Absolute Nucleated RBC Nucleated RBC % Sodium 142 Potassium 4.3 Chloride 112 H Carbon Dioxide 24 Anion Gap 6 BUN 14 Creatinine 1.00 H Est GFR ( Amer) 67.1 Est GFR (Non-Af Amer) 55.5 BUN/Creatinine Ratio 14.0 Glucose 79 Lactic Acid Calcium 9.4 Total Bilirubin 0.30 AST 13 ALT 20 Alkaline Phosphatase 95 Total Creatine Kinase Total Protein 7.6 Albumin 3.8 Globulin 3.8 Albumin/Globulin Ratio 1.0 Urine Color Urine Appearance Urine pH Ur Specific [place] Urine Protein Urine Ketones Urine Blood Urine Nitrate Urine Bilirubin Urine Urobilinogen Ur Leukocyte Esterase Urine Glucose Salicylates Urine Opiates Screen Acetaminophen Ur Barbiturates Screen Ur Phencyclidine Scrn Ur Amphetamines Screen U Benzodiazepines Scrn [place] 0.19 L Urine Cocaine Screen U Cannabinoids Screen Serum Alcohol Impression: Bi-polar disorder Suicide attempt Plan: d/w Dr. Petersen, Psychiatry, patient's hospitalization. Patient medically cleared to go to psychiatric unit continue suicide precautions psych meds per psychiatry service transfer patient Critical Care Time: 44
[2019-01-21] MEDS ORDERED: Al Hydrox/Mg Hydrox/Simet LIQ* 30 ML UDC PO PRN ×2 (17:58→20:32)
--- NOTE | 2019-01-21 18:33 | HP ---
HISTORY AND PHYSICAL: DATE OF ADMISSION: IDENTIFYING DATA: Veronique is a 68-year-old mentally disabled female with long history of ment al illness, multiple psychiatric hospitalizations. She was recently discharged from this hospital an d date of discharge 12/27/18, came back to the emergency department on 01/20/19 complaining that she once again overdosed on prescription medications. She was hospitalized on ICU and this evening was t ransferred to behavioral science unit after medical stabilization. CHIEF COMPLAINT: "I could not take it anymore, so overdosed on my medications." HISTORY OF PRESENT ILLNESS: Since her discharge from this hospital, she was hospitalized in [facility] and was just released from there and she reportedly overdosed on her prescription medications renetta use she could not believe that her bipolar disorder will be in control without lithium. She reports that her doctor at the other hospital took her off lithium and that made her angry and frustrated. To day, she reports that she is very frustrated and her manic state is out of control and she continues to verbalize thoughts of hurting herself. However, she denies experiencing any psychotic symptoms. She was not very cooperative with the assessment after she was brought down to his unit and wanted to be left alone. PAST PSYCHIATRIC HISTORY: As mentioned earlier, she has multiple psychiatric hospitalizations in the past. Her last admission to this unit was on 12/18/18 almost under the similar circumstances. SUBSTANCE ABUSE HISTORY: Unremarkable. PAST MEDICAL HISTORY: She sees Neurology for neck pain, also suffers from tardive dyskinesia. Appar ently, she has uncontrollable tremors of her both extremities. ALLERGIES: She states that she is allergic to lot of medications; however, I do not see any record i ndicating that she is allergic to any medications. Please refer to her previous medical records. FAMILY HISTORY: Unremarkable. PERSONAL AND SOCIAL HISTORY: Veronique lives in [place] alone in her senior housing. She has a daughte r and a son-in-law, who live close to her senior housing and they are very supportive. She receives social security benefits, which is inadequate to pay her medical and hospital bills and has been a so urce of her stress. PHYSICAL EXAMINATION Physical exam was deferred per the patient's request. Moreover, she just came down from ICU and is n ot in very good mood at this time. MENTAL STATUS EXAMINATION: Veronique is a moderately obese, average height, physically healthy-appearing female, who is not in any physical distress. She is sitting on a wheelchair, alert and oriented to time, place, and person. She is visible anxious and tremulous with abnormal involuntary movements of orofacial region. Speech is little pressured, but goal directed. Describes her mood as horrible. Observed affect appears anxious and sad. Thought process is illogical, but goal directed. Thought co ntent is devoid of any delusions or paranoia. Although she continues to have suicidal ideation, breanna es any active plans at this time. Her intelligence appears to be of average range as evidenced by he r vocabulary and fund of knowledge. Memory functions are intact in all spheres. Insight and judgmen t appear to be poor. SUMMARY: This 68-year-old mentally disabled female who has a history of rapid mood dysregu lation, repeated suicide attempts in the context of psychosocial stressors is re-hospitalized on ICU following a reported suicide attempt by overdosing on her prescription medications and is currently t ransferred to BSU. DIAGNOSTIC IMPRESSION: MENTAL HEALTH DIAGNOSES: 1. Bipolar 1 disorder, most recent episode mixed. 2. History of cluster B traits. PHYSICAL HEALTH DIAGNOSES: 1. Moderate obesity. 2. Tardive dyskinesia. TREATMENT RECOMMENDATIONS: The patient will remain hospitalized on behavioral science unit for her s afety and stabilization of mood symptoms. Her code status will remain full. Supportive milieu, matt vidual and group therapy will be initiated. For now, I will keep her on her discharge medications an d reassess her in the morning to make any further adjustment to her psychotropic medications. Due to bad mood, she could not participate in any meaningful conversation to decide about her treatments, a lthough she says she wants to go back on lithium. I do not believe she has mental capacity today and I will defer that decision to tomorrow and decide about restarting her on lithium tomorrow. [id number]/[facility] #: [id number]
[2019-01-21] MEDS: Dicyclomine CAP* 10 MG PO SCH (21:19)
[2019-01-21] MEDS: QUEtiapine TAB* 25 MG PO PRN (21:20)
[2019-01-21] MEDS: cloNIDine TAB* 0.1 MG PO SCH (21:20)
[2019-01-21] MEDS: Atorvastatin* 20 MG TAB PO SCH (21:20)
[2019-01-21] MEDS: OXcarbazepine TAB(*) 300 MG PO SCH (21:21)
[2019-01-22] MEDS: traZODone TAB* 50 MG TAB PO SCH (00:54)
[2019-01-22] MEDS: Acetaminophen TAB* 325 MG PO PRN ×3 (01:39→16:30)
[2019-01-22] MEDS: Levothyroxine TAB* 25 MCG TAB PO SCH (07:01)
[2019-01-22] MEDS: Dicyclomine CAP* 10 MG PO SCH ×2 (08:50→20:22)
[2019-01-22] MEDS: OXcarbazepine TAB(*) 300 MG PO SCH ×2 (08:50→20:24)
[2019-01-22] MEDS: Vitamin THERAPEUTIC TAB PO SCH (08:50)
[2019-01-22] MEDS: BuPROPion XL* 150 MG TAB.XL PO SCH (08:50)
[2019-01-22 08:59] LABS: HDL Cholesterol 63.1 mg/dL
[2019-01-22] MEDS: QUEtiapine TAB* 25 MG PO PRN ×2 (20:23→22:53)
[2019-01-22] MEDS: Atorvastatin* 20 MG TAB PO SCH (20:24)
[2019-01-22] MEDS: cloNIDine TAB* 0.1 MG PO SCH (20:25)
[2019-01-23] MEDS: Levothyroxine TAB* 25 MCG TAB PO SCH (07:02)
[2019-01-23] MEDS: Dicyclomine CAP* 10 MG PO SCH ×5 (07:50→20:27)
[2019-01-23] MEDS: traZODone TAB* 50 MG TAB PO SCH ×2 (07:51→20:30)
[2019-01-23] MEDS: BuPROPion XL* 150 MG TAB.XL PO SCH (07:58)
[2019-01-23] MEDS: Vitamin THERAPEUTIC TAB PO SCH (07:58)
[2019-01-23] MEDS: Acetaminophen TAB* 325 MG PO PRN ×2 (07:59→14:19)
[2019-01-23] MEDS: OXcarbazepine TAB(*) 300 MG PO SCH ×2 (07:59→20:28)
--- NOTE | 2019-01-23 16:40 | PN ---
Subjective - Subjective Date of Service: 01/23/19 Service Type: 26963 Hosp care 25 min moderate complexity Subjective: Records available from [facility] reviewed. Attending psychiatrist recommends to avoid benzodiazepines and anticholinergics due to cognitive impairment. Patient reports "it's been a rough couple of days. I tried to overdose." Patient states she returned home from being hospitalized at [facility] last wednesday and by Wednesday she was so overwhelmed that she impulsively took an overdose of prescribed medications. She states she is overwhelmed with financial and family stressors. She states she is concerned about stopping lithium s/p hospitalization after 37 years of taking it. She reports she did well historically, especially when she had family obligations. She states her family "doesn't have time for me." Patient is receptive to ideas regarding community-based opportunities. Objective - General Observations Appearance: Well Groomed Stature: Overweight Posture: WNL Eye Contact: Average Behavior/Activity: WNL - Interaction Observations Attitude Towards Examiner: Cooperative, Anxious Stated Mood: Elevated, Anxious Speech Pattern/Tone: Clear, Appropriate, Normal Volume Thought Process: Coherent, Circumstantial Perception: WNL Thought Content: Depressive, Self-Deprecatory Thought Process: Lethality: Passive Wish Hallucination Type: Denies Delusion Type: Denies - Cognitive Function Orientation: A&O x 4 Level of Consciousness: Alert Cognition: WNL Estimated Intelligence: Normal Insight: WNL Judgment Within Normal Limits: No Ability to Make Reasonable Decisions: Moderately Impaired - Medication Compliance Cooperative with Inpatient Medication Regimen: Yes - Group Participation Participates in Group Activities: Yes Assessment - Assessment Merits Inpatient Hospitalization: For Immediate Safety, For Stabilization Inpatient DSM-V Dx: F31.4 Clinical Impression: 68yo wf with history of bipolar disorder and suicidality who presented to ED via EMS and police. She did not show up for an appt and found to have AMS during a welfare check. She was medically stabilized in ICU then transferred to [facility]. She has been hospitalized numerous times in the past few months and most recently at [facility]. She merits hospitalization for immediate safety and stabilization. Plan - Plan Treatment Plan: Name: SOFYA THOMAS Birthdate: 1950 [id number] continue acute intensive psychiatric treatment. obtain collateral from [facility] and family. restart outpatient medications, consider lithium. Continued Medication Management: Continue Outpt Medication Medications: Current Medications Acetaminophen (Tylenol Tab*) 650 mg PO Q4H PRN PRN Reason: PAIN or TEMP > 101 F Last Admin: 01/23/19 14:19 Dose: 650 mg Al Hydrox/Mg Hydrox/Simethicone (Maalox Plus*) 30 ml PO Q4H PRN PRN Reason: INDIGESTION Atorvastatin Calcium (Lipitor*) 20 mg PO BEDTIME [facility] Last Admin: 01/22/19 20:24 Dose: 20 mg Bupropion HCl (Wellbutrin Xl *) 300 mg PO DAILY [facility] Last Admin: 01/23/19 07:58 Dose: 300 mg Clonidine HCl (Catapres Tab*) 0.2 mg PO BEDTIME [facility] Last Admin: 01/22/19 20:25 Dose: 0.2 mg Dicyclomine HCl (Bentyl Cap*) 20 mg PO QID [facility] Last Admin: 01/23/19 13:01 Dose: 20 mg Levothyroxine Sodium (Synthroid Tab*) 25 mcg PO DAILY@0600 [facility] Last Admin: 01/23/19 07:02 Dose: 25 mcg Multivitamins (Theragran Tab*) 1 tab PO DAILY [facility] Last Admin: 01/23/19 07:58 Dose: 1 tab Oxcarbazepine (Trileptal Tab(*)) 300 mg PO BID [facility] Last Admin: 01/23/19 07:59 Dose: 300 mg Quetiapine Fumarate (Seroquel Tab*) 50 mg PO BEDTIME PRN PRN Reason: .SLEEP/INSOMNIA Last Admin: 01/22/19 22:53 Dose: 25 mg Trazodone HCl (Desyrel Tab*) 50 mg PO BEDTIME [facility] Last Admin: 01/23/19 07:51 Dose: Not Given - Discharge Plan Discharge Plan: Inpatient Hospitalization
[2019-01-23] MEDS: Gabapentin CAP(*) 300 MG PO SCH ×2 (17:02→20:29)
[2019-01-23] MEDS: cloNIDine TAB* 0.1 MG PO SCH (20:28)
[2019-01-23] MEDS: Atorvastatin* 20 MG TAB PO SCH (20:28)
[2019-01-23] MEDS: QUEtiapine TAB* 25 MG PO PRN (20:30)
[2019-01-24] MEDS: Levothyroxine TAB* 25 MCG TAB PO SCH (08:18)
[2019-01-24] MEDS: amLODIPine TAB* 5 MG PO SCH (08:19)
[2019-01-24] MEDS: BuPROPion XL* 150 MG TAB.XL PO SCH (08:19)
[2019-01-24] MEDS: Dicyclomine CAP* 10 MG PO SCH ×4 (08:20→20:49)
[2019-01-24] MEDS: Gabapentin CAP(*) 300 MG PO SCH ×3 (08:20→20:49)
[2019-01-24] MEDS: Vitamin THERAPEUTIC TAB PO SCH (08:21)
[2019-01-24] MEDS: OXcarbazepine TAB(*) 300 MG PO SCH ×2 (08:21→20:48)
[2019-01-24] MEDS ORDERED: amLODIPine TAB* 5 MG PO SCH (09:00)
[2019-01-24] MEDS: Acetaminophen TAB* 325 MG PO PRN ×2 (10:57→20:50)
--- NOTE | 2019-01-24 17:06 | PN ---
Subjective - Subjective Date of Service: 01/24/19 Service Type: 20481 Hosp care 25 min moderate complexity Subjective: Phoned [facility] and left message for Dr Guzman (attending psychiatrist), MISTY faxed to [phone]. Patient endorses adequate sleep, waking with good energy and mood. She has been ambulating without difficulty, as well as completing ADLs. She has completed an extensive list of wishes, as directed by health underwriter and SW yesterday. Also, patient has spent much time identifying upcoming medical appts and options of resources. She states she is most anxious about returning home and having "nothing to do" between the hours of 1pm and 4pm. She endorses dislike of being alone and being bored. Shipping Inspector is directive in that she will need to identify her own activities for those times and that tomorrow is day of discharge. She is able to state various calming techniques and DBT skills. She is validated for being resourceful. Patient given information by SW in regards to [facility] resources and transportation. Objective - General Observations Appearance: Well Groomed Stature: Overweight Posture: WNL Eye Contact: Average Behavior/Activity: WNL - Interaction Observations Attitude Towards Examiner: Cooperative Stated Mood: Euthymic Affect: Full Speech Pattern/Tone: Clear, Appropriate, Normal Volume Thought Process: Coherent, Goal Directed, Circumstantial Perception: WNL Thought Content: Depressive Hallucination Type: Denies Delusion Type: Denies - Cognitive Function Orientation: A&O x 4 Level of Consciousness: Alert Cognition: WNL Estimated Intelligence: Normal Insight: WNL Judgment Within Normal Limits: Yes - Medication Compliance Cooperative with Inpatient Medication Regimen: Yes - Group Participation Participates in Group Activities: Yes Assessment - Assessment Merits Inpatient Hospitalization: For Immediate Safety, For Stabilization Inpatient DSM-V Dx: F31.4 Clinical Impression: 68yo wf with history of bipolar disorder and suicidality who presented to ED via EMS and police. She did not show up for an appt and found to have AMS during a welfare check. She was medically stabilized in ICU then transferred to [facility]. She has been hospitalized numerous times in the past few months and most recently at [facility]. She is stabilizing in this structured setting. Plan - Plan Treatment Plan: Name: SOFYA THOMAS Birthdate: 1950 [id number] continue acute intensive psychiatric treatment. discharge to include outpatient providers. Continued Medication Management: Continue Outpt Medication Medications: Current Medications Acetaminophen (Tylenol Tab*) 650 mg PO Q4H PRN PRN Reason: PAIN or TEMP > 101 F Last Admin: 01/24/19 10:57 Dose: 650 mg Al Hydrox/Mg Hydrox/Simethicone (Maalox Plus*) 30 ml PO Q4H PRN PRN Reason: INDIGESTION Amlodipine Besylate (Norvasc Tab*) 5 mg PO DAILY [facility] Last Admin: 01/24/19 08:19 Dose: 5 mg Atorvastatin Calcium (Lipitor*) 20 mg PO BEDTIME [facility] Last Admin: 01/23/19 20:28 Dose: 20 mg Bupropion HCl (Wellbutrin Xl *) 300 mg PO DAILY [facility] Last Admin: 01/24/19 08:19 Dose: 300 mg Clonidine HCl (Catapres Tab*) 0.2 mg PO BEDTIME [facility] Last Admin: 01/23/19 20:28 Dose: 0.2 mg Dicyclomine HCl (Bentyl Cap*) 20 mg PO QID [facility] Last Admin: 01/24/19 13:14 Dose: 20 mg Gabapentin (Neurontin Cap(*)) 300 mg PO TID [facility] Last Admin: 01/24/19 13:16 Dose: 300 mg Levothyroxine Sodium (Synthroid Tab*) 25 mcg PO DAILY@0600 [facility] Last Admin: 01/24/19 08:18 Dose: 25 mcg Multivitamins (Theragran Tab*) 1 tab PO DAILY [facility] Last Admin: 01/24/19 08:21 Dose: 1 tab Oxcarbazepine (Trileptal Tab(*)) 300 mg PO BID [facility] Last Admin: 01/24/19 08:21 Dose: 300 mg Quetiapine Fumarate (Seroquel Tab*) 50 mg PO BEDTIME PRN PRN Reason: .SLEEP/INSOMNIA Last Admin: 01/23/19 20:30 Dose: 50 mg Trazodone HCl (Desyrel Tab*) 50 mg PO BEDTIME [facility] Last Admin: 01/23/19 20:30 Dose: Not Given - Discharge Plan Discharge Plan: Inpatient Hospitalization Outpatient Program: [facility]
[2019-01-24] MEDS: Atorvastatin* 20 MG TAB PO SCH (20:48)
[2019-01-24] MEDS: cloNIDine TAB* 0.1 MG PO SCH (20:49)
[2019-01-24] MEDS: traZODone TAB* 50 MG TAB PO SCH (23:02)
[2019-01-25] MEDS: Levothyroxine TAB* 25 MCG TAB PO SCH (07:38)
[2019-01-25] MEDS: amLODIPine TAB* 5 MG PO SCH (08:06)
[2019-01-25] MEDS: OXcarbazepine TAB(*) 300 MG PO SCH (08:07)
[2019-01-25] MEDS: Dicyclomine CAP* 10 MG PO SCH (08:07)
[2019-01-25] MEDS: Gabapentin CAP(*) 300 MG PO SCH (08:07)
[2019-01-25] MEDS: BuPROPion XL* 150 MG TAB.XL PO SCH (08:08)
[2019-01-25] MEDS: Vitamin THERAPEUTIC TAB PO SCH (08:08)
[2019-01-25 11:23] VITALS: BP 157/80
--- NOTE | 2019-01-25 12:11 | DCNOTE ---
Subjective - Subjective Service Types: 79442 Hosp DC Day Mgmt complex over 30 min Discharge Date: 01/25/19 Subjective: Patient is diligently working on lists of activities and appointments for herself. She states she is anxious about going home due to loneliness. We review her strengths and ability to advocate for self. We discuss current medication list, which includes antidepressant, anxiolytic, mood stabilizer and sleep aid. Wire Dropper left message for Dr Guzman in [place] regarding discontinuation of lithium. Wire Dropper and Effie Hunter LMSW spoke with patient's daughterCary and son-in- law, Giovanny. Discussed patient's presentation and recommendations for treatment. Objective - General Observations Appearance: Well Groomed Stature: Overweight Posture: WNL Eye Contact: Average Behavior/Activity: WNL - Interaction Observations Attitude Towards Examiner: Cooperative, Anxious Stated Mood: Euthymic Affect: Full Speech Pattern/Tone: Clear, Appropriate, Normal Volume Perception: WNL Thought Content: WNL Hallucination Type: Denies Delusion Type: Denies - Cognitive Function Orientation: A&O x 4 Level of Consciousness: Alert Cognition: WNL Estimated Intelligence: Normal Insight: WNL Judgment Within Normal Limits: Yes - Medication Compliance Cooperative with Inpatient Medication Regimen: Yes - Group Participation Participates in Group Activities: Partial DC Assessment - Assessment Clinical Impression: 68yo wf with history of bipolar disorder and suicidality who presented to ED via EMS and police. She did not show up for an appt and found to have AMS during a welfare check. She was medically stabilized in ICU then transferred to [facility]. She has been hospitalized numerous times in the past few months and most recently at [facility]. She is stabilizing in this structured setting. Merits Inpatient Hospitalization: No Clear for Discharge: Adequate Clinical Respons, Acceptable Safety Profile Inpatient DSM-V Dx: F31.4 Discharge Planning - Discharge Planning Discharge Plan: Outpatient Follow Up Outpatient Program: [facility] Recommendations for Continuing Care: Medication Management, Psychotherapy, Routine Metabolic Monitoring, Primary Care Followup Medications: Current Medications Acetaminophen (Tylenol Tab*) 650 mg PO Q4H PRN PRN Reason: PAIN or TEMP > 101 F Last Admin: 01/24/19 20:50 Dose: 650 mg Al Hydrox/Mg Hydrox/Simethicone (Maalox Plus*) 30 ml PO Q4H PRN PRN Reason: INDIGESTION Amlodipine Besylate (Norvasc Tab*) 5 mg PO DAILY [facility] Last Admin: 01/25/19 08:06 Dose: 5 mg Atorvastatin Calcium (Lipitor*) 20 mg PO BEDTIME [facility] Last Admin: 01/24/19 20:48 Dose: 20 mg Bupropion HCl (Wellbutrin Xl *) 300 mg PO DAILY [facility] Last Admin: 01/25/19 08:08 Dose: 300 mg Clonidine HCl (Catapres Tab*) 0.2 mg PO BEDTIME [facility] Last Admin: 01/24/19 20:49 Dose: 0.2 mg Dicyclomine HCl (Bentyl Cap*) 20 mg PO QID [facility] Last Admin: 01/25/19 08:07 Dose: 20 mg Gabapentin (Neurontin Cap(*)) 300 mg PO TID [facility] Last Admin: 01/25/19 08:07 Dose: 300 mg Levothyroxine Sodium (Synthroid Tab*) 25 mcg PO DAILY@0600 [facility] Last Admin: 01/25/19 07:38 Dose: 25 mcg Multivitamins (Theragran Tab*) 1 tab PO DAILY [facility] Last Admin: 01/25/19 08:08 Dose: 1 tab Oxcarbazepine (Trileptal Tab(*)) 300 mg PO BID [facility] Last Admin: 01/25/19 08:07 Dose: 300 mg Quetiapine Fumarate (Seroquel Tab*) 50 mg PO BEDTIME PRN PRN Reason: .SLEEP/INSOMNIA Last Admin: 01/23/19 20:30 Dose: 50 mg Discharge Planning: Prescriptions provided for discharge [x] Yes [] No Follow up care details as per social work arrangements: [facility] Patient response to discharge plan: [] eager for discharge [x] agreeable with discharge plan [] ambivalent about discharge [] disagrees with discharge today
--- NOTE | 2019-01-25 23:12 | DS ---
CC: [facility] ; Formerly [facility] under the office of Vin Reyna * DISCHARGE SUMMARY: DATE OF ADMISSION: 01/21/19 DATE OF DISCHARGE: 01/25/19 SUPERVISING PSYCHIATRIST: Dr. Hector Casarez.* (DICTATED BY JOVON CHISHOLM NP) PRIMARY CARE PROVIDER: Former[facility]. DISCHARGE DIAGNOSES: 1. Bipolar I disorder, most recent episode depressed. 2. Cluster B personality disorder. CONDITION AT THE TIME OF DISCHARGE: Improved. The patient denies suicidal ideation or passive wish. She continues to endorse anxiety about being home alone due to loneliness. We reviewed her strength and verified that she is a wonderful advocate for herself. She has written a list of activities and appointments that she wants to attend. She is also working diligently on a list of activities to self-sooth. We discussed the current medication list which includes antidepressant, anxiolytic, mood stabilizer, and a sleep aid. This abstract writer and Effie Hunter LMSW, spoke with the patient's daughter, Cary, and son-in-law, Giovanny, discussed her presentation and recommendations for treatment which include continuing outpatient services. We discussed that extended stays in the hospital are likely worsening her dependence on others. MENTAL STATUS EXAM: Veronique is a 68-year-old white female, overweight, who appears stated age. She is well groomed. Hair is meticulously done. She is dressed in her own clothing. She is cooperative and pleasant with interview. She is alert and oriented x3. Eye contact is good. Concentration is good. Memory 3/3. Speech is normal rate, rhythm, and volume. She has tardive dyskinesia movements in her mouth and tongue. Mood is euthymic with anxiety. Affect has full range. Thought process is logical, goal directed, and coherent. Thought content is negative for delusions or paranoia. She denies suicidal ideations or passive wish. She appears to have average intellect and her fund of knowledge is excellent. Insight and judgment are fair , improved. The patient is discharged to home. DISCHARGE INSTRUCTIONS GIVEN TO THE PATIENT: A. Medications: The patient will remain on the following medications as we did not change anything with the exception of addin. Quetiapine 50 mg at bedtime. 2. Norvasc 5 mg p.o. daily. 3. Lipitor 20 mg p.o. at bedtime. 4. Bupropion XL 300 mg p.o. daily. 5. Clonidine 0.2 mg p.o. at bedtime. 6. Dicyclomine 20 mg p.o. 4 times a day. 7. Gabapentin 300 mg p.o. t.i.d. 8. Synthroid 25 mcg p.o. q.a.m. 9. Multivitamins 1 tab daily. 10. Oxcarbazepine 300 mg p.o. b.i.d. B. Diet is regular. C. Activity: Ambulation as tolerated. Tobacco cessation is not applicable. There are no pending labs or diagnostic studies. D. Followup care: The patient will follow up with [facility]ging with [facility] and was given discharge instructions with these appointments detailed. E. Substance use followup is not applicable. HOSPITAL COURSE: Part A: Reason for admission: The patient presented to the emergency department via EMS when she missed her counseling appointment. Police were called for a welfare check. She was found with pills in her mouth and altered mental status. Upon arrival to the ED, she refused treatment and blood draws and requested release from the hospital. She was admitted to ICU due to the overdose. Her Neurontin pills were empty per police and the following medication bottles were nearly full: Oxcarbazepine, Lipitor, Norvasc, Synthroid, Wellbutrin, dicyclomine, clonidine, and lithium. Ambien and hydroxyzine were empty. While in the ED, the patient was more somnolent and the patient was admitted to ICU for IV magnesium and prolonged QTc. She was monitored and stabilized in the ED overnight and transferred to the [facility] the following day. Part B: Psychiatric treatment rendered: The patient was admitted to the adult behavioral services unit on 39 status. She was placed on 15-minute checks for safety. She was encouraged to participate in unit programming and psychoeducational groups. Her group attendance was noted to be much improved from previous hospitalizations. The patient was discharged from this hospital on 12/27/18, and apparently, she had been at [facility] in the interim between last discharge and this admission. She reported being angry and frustrated that the previous attending psychiatrist had stopped lithium. She denies psychotic symptoms. She was minimally cooperative with the admitting psychiatrist and she reported anxiety in regards to being treated by the same provider as previous admission. This abstract writer was assigned to her case on the Wednesday after her transfer from ICU. We reviewed medications that she is currently on, which includes Wellbutrin, gabapentin, and Trileptal. The patient reported much frustration that she was not continuing on lithium. She was adamant that she took this medicine while in [place] and was abruptly discontinued after discharge. I did reach out to [place] and send an MISTY to talk with the attending psychiatrist to clarify. Over the next few days, the patient was calm and in behavioral control. She reported anxiety and was receptive to therapeutic calming techniques. She was very focused on the idea that she does not like living alone. She states that she was able to identify multiple activities and routines that she engages in her own community. She reported lack of transportation is a stressor. She identified that she has been much more functional, especially when she had specific purpose such as baby sitting her grandchild. The patient slept well on the unit. She was well related. She was ambulating well and did not meet requirement for any sort of assisted living. The patient was knowledgeable about various coping skills and techniques, but often unable to identify these on her own. We discussed that she would benefit from a brief hospitalization, in that extended hospitalizations have enabled more avoidance behavior for her. Social Work identified activities and transportation assistance to the office of the aging in the patient's county. The day before discharge, the patient was knowledgeable about various DBT skills and activities that she can do between the hours of 1 and 4. She spent time identifying upcoming medical appointments and options of resource. She was validated for being resourceful. We discussed medication safety including preparing 1 week of medicines at a time rather than having all of her medicines in a bag in her bedroom. This was also discussed with her family members. The patient reported mild anxiety in regards to returning home. This was validated, in that transition for structured setting, it is anxiety producing. Again, she was reminded of strengths and she agreed that she is able to continue working in an outpatient setting. In fact, she even called and made her own appointments. JOVON CHISHOLM, DIMPLE [id number]/[facility] #: [id number] HYACINTH
== END 2019-01-25 13:19 | disposition home or self-care (01) | DRG 885 ==
LOC: ED 15:51 → ICU 18:03 → UNDODISIN 01-21 16:00 → BSU 01-21 16:15
PROVIDERS: ADMIT Internal Medicine; ATTEND Psychiatry & Neurology Psychiatry
DX: F31.4 Bipolar disorder, current episode depressed, severe, without psychotic features (principal); T42.6X2A Poisoning by other antiepileptic and sedative-hypnotic drugs, intentional self-harm, initial encounter; K58.9 Irritable bowel syndrome, unspecified; G43.909 Migraine, unspecified, not intractable, without status migrainosus; F41.9 Anxiety disorder, unspecified; H91.91 Unspecified hearing loss, right ear; I10 Essential (primary) hypertension; E78.5 Hyperlipidemia, unspecified; G89.29 Other chronic pain; M54.2 Cervicalgia; F60.89 Other specific personality disorders; E66.8 Other obesity; G24.01 Drug induced subacute dyskinesia; R94.31 Abnormal electrocardiogram [ECG] [EKG]; Y92.009 Unspecified place in unspecified non-institutional (private) residence as the place of occurrence of the external cause; Z88.8 Allergy status to other drugs, medicaments and biological substances; Z88.6 Allergy status to analgesic agent; Z88.0 Allergy status to penicillin; Z88.5 Allergy status to narcotic agent; Z97.4 Presence of external hearing-aid; Z90.710 Acquired absence of both cervix and uterus; Z98.51 Tubal ligation status; Z83.3 Family history of diabetes mellitus; Z91.5 Personal history of self-harm; Z68.33 Body mass index [BMI] 33.0-33.9, adult
CPT/HCPCS: 36415; 71045; 80053; 80061; 80178; 80307; 80320; 80329; 81003; 82550; 83036; 83605; 83735; 85025; 87040; 87641; 93005; 96374; 99222; 99232; 99238; 99285; A9270-GY; G0480; J3475

== ENCOUNTER 2019-05-14 19:32 | Emergency (ER) | payer MEDICARE, OTHER ==
[2019-05-14 20:15] LABS: ABS Eosinophils 0.1 10^3/ul (0-0.6); ABS Lymphocytes 1.3 10^3/ul (1.0-4.8); ABS Monocytes 0.6 10^3/ul (0-0.8); ABS Neutrophils 3.5 10^3/ul (1.5-7.7); Eosinophil % 2.2 %; Hematocrit 34 % (35-47); Hemoglobin 11.4 g/dL (12.0-16.0); Lymphocyte % 23.6 %; Mean Corpuscular HGB Conc 33 g/dL (31-36); Mean Corpuscular Hemoglobin 31 pg (27-31); Mean Corpuscular Volume 93 fL (80-97); Mean Platelet Volume 7.8 fL (7.4-10.4); Nucleated Red Blood Cells % 0.1; Platelet Count 300 10^3/uL (150-450); Red Blood Count 3.66 10^6 /uL (3.70-4.87); Red Cell Distribution Width 15 % (10-15); White Blood Count 5.6 10^3/uL (3.5-10.8)
[2019-05-14 20:30] LABS: ALT 18 U/L (7-52); AST 10 U/L (13-39); Albumin 3.8 g/dL (3.2-5.2); Alkaline Phosphatase 81 U/L (34-104); Anion Gap 6 mmol/L (2-11); BUN/Creatinine Ratio 22.1 (8-20); Blood Urea Nitrogen 31 mg/dL (6-24); C Reactive Protein 6.37 mg/L (<8.01); CO2 Carbon Dioxide 26 mmol/L (22-32); Calcium 9.3 mg/dL (8.6-10.3); Chloride 106 mmol/L (101-111); Creatine Kinase 21 U/L (10-223); EGFR African American 45.5 (>60); EGFR Non-African American 37.6 (>60); Globulin 3.8 g/dL (2-4); Glucose 102 mg/dL (70-100); Sodium 138 mmol/L (135-145); Total Protein 7.6 g/dL (6.4-8.9)
--- OUTSIDE RECORDS SUMMARY | 2019-05-14 20:38 | XMS REPORT ---
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 60833807100462826 age-related cataract, bilateral Problem Pre-diabetes R73.03 Active 927304173 Problem Hypertension I10 Active 94845703 Problem Irritable bowel K58.0 Active 298867758 syndrome with diarrhea Problem Hyperlipidemia, E78.5 Active 61493687 unspecified hyperlipidemia type Problem Bipolar 1 disorder F31.9 Active 456688411 Problem Stage 3 chronic N18.3 Active 763441681 kidney disease Problem Hypothyroidism, E03.9 Active 74612183 unspecified type Problem BMI Z68.36 Active 518388181 36.0-36.9,adult Problem Essential I10 Active 17597565 hypertension Problem Obesity (BMI E66.9 Active 160572997 35.0-39.9 without comorbidity) Problem Hypercalcemia E83.52 Active 89769556 Problem Sleep apnea in G47.30 Active 05781234 adult Problem Primary M17.11 Active 613185651782045 osteoarthritis of right knee Problem Tricompartment M17.11 Active 542373885 osteoarthritis of right knee Problem 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 [address] [place] [address] [place], [address], [place] [address] [facility] [place] [address] [facility] [place], [place] [address] [place] [facility] [address] [facility] [place], [place] [address] [facility] [place] [address] [place] [address] [place] [address] [place] [facility] [address] [facility] [place], [place] [address] [facility] [place] [address] [facility] [place], [place] [address] [place] [facility] [address] [facility] [place] [address] [place] [facility] [address] [place] [address] [place] [address] [facility] [place] [address] [place] [address] Apr, [place] [address] [place] [facility] [address] [place] [address] [place], [place] [address] [place] [facility] [address] [place] [address] [place], Apr, Hypertension I10 [place] [address] 3 chronic kidney disease N18.3 [facility] [place] [address] [place] [address] Apr, [place] [address] [place] [facility] [address] [place] [address] [place], [place] [address] [place] [facility] [address] [place] [address] [place], Elev[place] R79.9 [place] [address] [place] [facility] [address] [place] [address] [place] [address] [place] [facility] [address] [place] [address] [place], [place] [address] [place] [facility] [address] [place] [address] [place], [place], [place] R79.9 [place] [address] [place] [facility] [address] [place] [address] [place], [place], [place] [address] lower extremity R29.898 [place] [facility] [address] [place] [address] [place], [place] [address] [place] [facility] [address] [facility] [place], [place] [address] [facility] [place] [address] [facility] [place] [address] [facility] [place] [address] [facility] [place] [address] [facility] Business Office [address] [place] [address] [facility] [place] [address] [facility] [place], [place] [address] [facility] [address] [place] [address] [place], [place], [place]ard[place] G24.01 [place] [address] ; Bipolar 1 disorder F31.9 ; Transient weakness of lower extremity R29.898 and Essential hypertension I10 [address] [place], [place] [address] [place], [place] [address] [place], [place] [address] [facility] [place] [address] [facility] [place], [place] [address] [place], [place], Tongue ulceration K14.0 ; [place] [address] Tardive dyskinesia G24.01 and Bipolar [address] disorder [address] [place], [place], Hyper[place] E83.52 [place] [address] [place], [place] [address] [place], [place] [address] [facility] [place] [address] [facility] [place], [place] [address] [facility] [address] [facility] [place], [place] [address] [place], [place] [address] [place] [address] [place] [address] [place] [address] [place], [place] [address] Case [employer] [address] [place], [place] [address] [facility] [address] [facility] [place], [place] [address] [place], Feb, Bipolar 1 disorder F31.9 ; [place] [address] Hypercalcemia E83.52 ; Thrush B37.0 ; Dental infection K04.7 ; Tardive dyskinesia G24.01 and Leg weakness, bilateral R29.[address] [place], [place] [address] [employer] Feb, Dental infection K04.[address] [place], [place] [address] [facility] [address] [facility] [place], [place], Bipolar 1 disorder F31.9 ; [place] [address] Essential hypertension I10 ; Stage 3 chronic kidney disease N18.3 ; Hypercalcemia E83.52 ; Transient weakness of lower extremity R29.898 ; Dental infection K04.7 ; Tardive dyskinesia G24.01 and Encounter for immunization Z23 [place] [facility] [address] [facility] [place], [place] [address] [place], [place] [address] [facility] [address] [facility] [place], [place] [address] [facility] [address] [facility] [place], [place], Hypercalcemia E83.52 [place] [address] [place], [facility], [place] [address] [facility] [address] [facility] [place], [place], Bipolar 1 [place] F31.9 [place] [address] and 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 [place] [facility] [address] [facility] [place], [place] [address] [place], [facility], [place] [address] [place], [place] [address] [facility] [address] [facility] [place], [place] [address] Dec, [place] [address] [facility] [address] [facility] [place], [place] [address] Dec, [place] [address] [facility] [address] [facility] [place], Dec, Bipolar 1 [place] F31.9 [place] [address] and Left foot pain M79.672 [facility] [address] [facility] [place], [place] [address] Dec, [place] [address] Nov, [place] [address] [facility] [address] [facility] [place], [place], [place] [address] osteoarthritis of right knee M17.[address] [place] [address] [place], [place], Bipolar 1 disorder F31.9 ; [place] [address] Osteopenia of right hip M85.851 ; Hypothyroidism, unspecified type E03.9 ; Hyperlipidemia, unspecified hyperlipidemia type E78.5 ; Urinary frequency R35.0 ; Acute pain of right knee M25.561 and Encounter for immunization Z23 [place] [address] [place], [place] [address] [place], Oct, [place] R35[place]0 [place] [address] [place] [address] [place], [place] [address] [place], [place] [address] [place], [place], [place] [address] hematuria N30.00 ; Acute non-recurrent frontal sinusitis J01.10 ; Screening for breast cancer Z12.31 and Screening for osteoporosis Z13.[address] [place] [address] [place], [place] [address] [place], [place], [place] [address] frontal sinusitis J01.10 and Dysuria R30.[address] [place], [place] [address] [place], [place] [address] [place], [place], Cough R05 ; [place] [address] disorder F31.9 ; Stage 3 chronic kidney disease N18.3 and Hyperlipidemia, unspecified hyperlipidemia type E78.[address] [place] [address] [place], Jul, Cough R05 [place] [address] for immunization Z23 [address] [place], Jun, [place] [address] [facility] [address] [place], [place] [address] [place], Jun, Bipolar 1 disorder F31.9 ; [place] [address] Hyperlipidemia, unspecified hyperlipidemia type E78.5 and Cough R05 [address] [place], [place] [address] [place], Feb, Dysuria R30.0 [place] [address] Encounter for hepatitis C screening test for low risk patient Z11.[address] Jan, [place] [address] [place], [place] [address] [place], [place], Bipolar 1 disorder F31.9 ; [place] [address] Pre-diabetes R73.03 ; Elevated serum creatinine R79.89 ; Dysuria R30.0 and Hyperlipidemia, unspecified hyperlipidemia type E78.[address] Jan, [place] [address] [place], Dec, [place] [address] R79.89 and [place] use Z79.[address] [place], Dec, Bipolar 1 disorder F31.9 ; [place] [address] Screening for breast cancer Z12.31 ; BMI 36.0-36.9,adult Z68.36 ; Obesity (BMI 35.0-39.9 without comorbidity) E66.9 and Hypothyroidism, unspecified type E03.[address] [place], [place] [address] Dec, [facility] [place] [address] Oct, [facility] [place] [address] [facility] Business Office [address] [place], [place] [address] [place], Jul, [place] [address] frontal sinusitis J01.10 ; Screening for breast cancer Z12.31 ; Special screening for osteoporosis Z13.820 and Need for hepatitis C screening test Z11.[address] Jul, [place] [address] [place], [place] [address] [place], [place], Pre-diabetes R73.03 ; [place] [address] Bipolar 1 disorder F31.9 ; Hypertension I10 ; Hyperlipidemia, unspecified hyperlipidemia type E78.5 and Sleep apnea in adult G47.30 [facility] [address] [place] [address] Apr, [place] [address] [place] [facility] [address] [place], [place] [address] [facility] [address] [place], [place], [place] [address] [place] [facility] [address] [place], [place] [address] [place], Cough [address] [place] [address] [place] [facility] [address] [place], [place] [address] [place] [facility] [address] [place], Apr, [place] [address] G47.20 [place] [facility] [address] [place], [place] [address] [place] [facility] [address] [place], [place] [address] [place] [facility] [address] [place], [place] [address] [place] [facility] [address] [place], [place] [address] [place] [facility] [address] [place], Apr, [place] [address] contractions M62.40 and Hypertension I10 [place] [facility] [address] [place], [place] [address] [place] [facility] [address] [place], [place], [place] [address] lower extremities M62.838 [place] [facility] [address] [place], [place] [address] Nov, [place] [address] [place] [facility] [address] [place], [place] [address] [place] [facility] [address] [place], Sep, [place], [place] [address] etiology J02.9 [place] [facility] [address] [place], [place] [address] [place] [facility] [address] [place], Jul, [place]arrhea R19.7 [place] [address] [place] [facility] [address] [place], [place] [address] [place] [facility] [address] [place], [place] [address] [place] [facility] [address] [place] [address] [place], Jul, [place] K52.9 [place] [address] [place] [address] [place], [place] [address] [place], [place] [address] [place], [place], Bipolar disorder 296.80 [place] [address] [place] [address] [place], Jan, Other eczema L30.8 ; [place] [address] lesion L98.9 and Chronic sinusitis, unspecified location J32.[address] [place] [address] [place], [place] [address] [place], [place] [address] [place], [place] [address] [place], Jun, Abdominal pain 789.00 ; [place] [address] Elevated blood pressure 796.2 and Hematuria [address] [place], Jan, Bipolar 1 disorder 296.7 ; [place] [address] Sinusitis 473.9 ; Vertigo 780.4 and Neck pain 723.[address] [place], Dec, Sinusitis 473.9 [place] [address] IMMUNIZATIONS No Known Immunizations SOCIAL HISTORY Never Assessed REASON FOR REFERRAL FUNCTIONAL STATUS PLAN OF CARE VITAL SIGNS MEDICATIONS Unknown Medications PROCEDURES No Known procedures RESULTS No Results REASON FOR VISIT [place] transport Insurance Providers [facility] Member Patient Patient Patient Patient Patient Subscriber Subscriber Subscriber Group Insurance Plan Plan Plan Plan ID Relationship Address Phone Name Date of ID Name Date of No Type Insurance Insurance Insurance Coverage to Subscriber Address Phone Name Dates [employer] [phone] Excell[employer] self Veronique [id number] Medicare [id number] Medicare [employer] 7 Adv [place] [facility] [id number] Case [phone] Case self Veronique [id number] Management [place] [address] [facility] [address] Community Medicare National [phone] Medicare self Veronique [id number] PPS Government 41 PPS [employer] [address] [facility] [id number] MEDICAL (GENERAL) HISTORY Type Description Date Medical History bipolar Medical History tardive dyskenestia Surgical History bladder surgey Surgical History hysterectomy Surgical History tubal ligation Surgical History surgery on left foot 2015 or Surgical History revision of left tib/fib fractures Surgical History Right eye cataract removal 05/2016 Surgical History Left eye cataract removal 07/2016 Hospitalization History see above Hospitalization History bipolar episodes Hospitalization History [facility] 01/2013 Hospitalization History Suicideal ideation 12/2017
[2019-05-14 21:18] LABS: Rheumatoid Factor < 10 IU/mL (<15)
[2019-05-14 21:19] LABS: Erythrocyte Sed Rate 41 mm/Hr (0-29)
[2019-05-14 21:34] LABS: TSH (Thyroid Stimulating Horm) 0.78 mcIU/mL (0.34-5.60)
[2019-05-14 22:23] VITALS: BP 109/58
--- NOTE | 2019-05-14 22:24 | ED ---
Complex/Multi-Sys Presentation - HPI Summary HPI Summary: Patient is a 68 y/o F presenting to [facility] with complaints of left ankle swelling and pain. Patient states that on 05/05, she had onset of BLE weakness which she characterizes as her "knees buckling". Patient states that she kept falling over her left ankle and was experiencing pain and swelling at this ankle. She was evaluated at [facility] and by her PCP for these Sx. She states that she was given a boot for her left ankle and has been elevating and icing her left ankle with no relief in Sx. She claims no x-ray has been done of her ankle. Patient states that she had Hx of similar Sx several months ago. However , these episodes resolved when she did her home exercises. Patient reports Hx of surgery at this ankle years ago. Patient is concerned for recurrence of injury to the ankle. Patient reports BOYD and nausea secondary to her ankle pain. CP and SOB are denied. No Hx of arthritis noted. Patient reports Hx of bipolar disorder and tardive dyskinesia. Home medications and allergies are reviewed. - History Of Current Complaint Chief Complaint: EDExtremityLower Time Seen by Provider: 05/14/19 19:43 Hx Obtained From: Patient Onset/Duration: Lasting Days, Still Present Timing: Constant, Days Severity Currently: Severe Location: Pain At: - LEFT ANKLE, HEAD Character: Typical Headache Associated Signs And Symptoms: Positive: Weakness - BLE, Headache, Nausea, Other - POSITIVE - LEFT ANKLE PAIN. Negative: SOB, Chest Pain - Allergies/Home Medications Allergies/Adverse Reactions: Allergies Allergy/AdvReac Type Severity Reaction Status Date / Time Antihistamines - Alkylamine Allergy Altered Verified 05/18/19 05:26 Mental Status Antihistamines - Ethanolamine Allergy Altered Verified 05/18/19 05:26 Mental Status Antihistamines - Allergy Altered Verified 05/18/19 05:26 Ethylenediamine Mental Status Antihistamines - Piperazine Allergy Altered Verified 05/18/19 05:26 Mental Status Antihistamines - Piperidine Allergy Altered Verified 05/18/19 05:26 Mental Status Benzodiazepines Allergy Altered Verified 05/18/19 05:26 Mental Status carisoprodol Allergy Altered Verified 05/18/19 05:26 Mental Status oxycodone AdvReac Mild Altered Verified 05/18/19 05:26 Mental Status Penicillins AdvReac Mild See Comment Verified 05/18/19 05:26 prochlorperazine AdvReac Mild Muscle Ache Verified 05/18/19 05:26 [From Compazine] anticholinergic agents AdvReac Mild Altered Uncoded 05/18/19 05:27 Mental Status muscle relaxants AdvReac Mild Altered Uncoded 05/18/19 05:27 Mental Status semi synthetic narcotics AdvReac Mild Altered Uncoded 05/18/19 05:27 Mental Status PMH/Surg Hx/FS Hx/Imm Hx Endocrine/Hematology History: Denies: Hx Diabetes Cardiovascular History: Reports: Hx Hypertension Denies: Hx Congestive Heart Failure, Other Cardiovascular Problems/Disorders Respiratory History: Denies: Hx Asthma GI History: Reports: Hx Irritable Bowel Denies: Other GI Disorders History: Denies: Hx Renal Disease, Other Problems/Disorders Musculoskeletal History: Reports: Hx Orthopedic Injury Sensory History: Reports: Hx Contacts or Glasses, Hx Hearing Aid, Hx Hearing Problem - right ear has difficulty hearintg Denies: Hx Deafness Opthamlomology History: Reports: Hx Contacts or Glasses Neurological History: Reports: Hx Migraine - last migraine in 2000, Other Neuro Impairments/Disorders - BIPOLAR DISORDER Denies: Hx Seizures Psychiatric History: Reports: Hx Anxiety, Hx Depression, Hx Inpatient Treatment , Hx Community Mental Health Tx, Hx Bipolar Disorder Denies: Hx Eating Disorder, Hx of Violent Episodes Against Others - Cancer History Cancer Type, Location and Year: None - Surgical History Surgery Procedure, Year, and Place: hysterectomy, 1994, [facility] left ankle r/t fx - pins/plates , bladder surgery for incontinence, 2011, [facility]. TUBAL LIGATION [place]. CARPAL TUNNEL RIGHT 03/1984, [facility]. Hx Anesthesia Reactions: No - Immunization History Immunizations Up to Date: Yes Infectious Disease History: No Infectious Disease History: Denies: Hx Clostridium Difficile, Hx Hepatitis, Hx Human Immunodeficiency Virus (HIV), Hx of Known/Suspected MRSA, Hx Shingles, Hx Tuberculosis, Hx Known/ Suspected VRE, Hx Known/Suspected VRSA, History Other Infectious Disease, Traveled Outside the in Last 30 Days - Family History Known Family History: Positive: Diabetes Negative: Cardiac Disease, Hypertension - Social History Alcohol Use: None Hx Substance Use: No Substance Use Type: Reports: None Hx Tobacco Use: No Smoking Status (MU): Never Smoked Tobacco Have You Smoked in the Last Year: No Review of Systems Negative: Chest Pain Negative: Shortness Of Breath Positive: Nausea Positive: Myalgia - LEFT ANKLE , Edema - LEFT ANKLE Positive: Headache All Other Systems Reviewed And Are Negative: Yes Physical Exam - Summary Physical Exam Summary: Appearance: Well-appearing, Well-nourished, lying in bed comfortable Skin: Warm, dry, no obvious rash Eyes: sclera anicteric, no conjunctival pallor ENT: mucous membranes moist Neck: deferred Respiratory: No signs of respiratory distress Cardiovascular: Appears well perfused, pulses are nml Abdomen: deferred Musculoskeletal: Both knees are normal without swelling and warmth. Effusion of left ankle noted, the ankle is tender and warm as well. Neurological: Awake and alert, mentation is normal, speech is fluent and appropriate Psychiatric: affect is normal, does not appear anxious or depressed Triage Information Reviewed: Yes Vital Signs On Initial Exam: Initial Vitals Temp Pulse Resp BP Pulse Ox 97.9 F 73 20 134/59 98 05/14/19 19:34 05/14/19 19:34 05/14/19 19:34 05/14/19 19:34 05/14/19 19:34 Vital Signs Reviewed: Yes Procedures - Sedation Patient Received Moderate/Deep Sedation with Procedure: No Diagnostics - Vital Signs Vital Signs Temp Pulse Resp BP Pulse Ox 05/14/19 19:34 97.9 F 73 20 134/59 98 - Laboratory Lab Results: Lab Results 05/14/19 05/14/19 Range/Units 20:04 20:04 WBC 5.6 (3.5-10.8) 10^3/uL RBC 3.66 L (3.70-4.87) 10^6 /uL Hgb 11.4 L (12.0-16.0) g/dL Hct 34 L (35-47) % MCV 93 (80-97) fL MCH 31 (27-31) pg MCHC 33 (31-36) g/dL RDW 15 (10-15) % Plt Count 300 (150-450) 10^3/uL MPV 7.8 (7.4-10.4) fL Neut % (Auto) 63.3 % Lymph % (Auto) 23.6 % [place] % (Auto) 10.3 % Eos % (Auto) 2.2 % Baso % (Auto) 0.6 % Absolute Neuts (auto) 3.5 (1.5-7.7) 10^3/ul Absolute Lymphs (auto) 1.3 (1.0-4.8) 10^3/ul Absolute Monos (auto) 0.6 (0-0.8) 10^3/ul Absolute Eos (auto) 0.1 (0-0.6) 10^3/ul Absolute Basos (auto) 0.0 (0-0.2) 10^3/ul Absolute Nucleated RBC 0.0 10^3/ul Nucleated RBC % 0.1 ESR 41 H (0-29) mm/Hr Sodium 138 (135-145) mmol/L Potassium 4.0 (3.5-5.0) mmol/L Chloride 106 (101-111) mmol/L Carbon Dioxide 26 (22-32) mmol/L Anion Gap 6 (2-11) mmol/L BUN 31 H (6-24) mg/dL Creatinine 1.40 H (0.51-0.95) mg/dL Est GFR ( Amer) 45.5 (>60) Est GFR (Non-Af Amer) 37.6 (>60) BUN/Creatinine Ratio 22.1 H (8-20) Glucose 102 H (70-100) mg/dL Calcium 9.3 (8.6-10.3) mg/dL Total Bilirubin 0.20 (0.2-1.0) mg/dL AST 10 L (13-39) U/L ALT 18 (7-52) U/L Alkaline Phosphatase 81 (34-104) U/L Total Creatine Kinase 21 (10-223) U/L C-Reactive Protein 6.37 (<8.01) mg/L Total Protein 7.6 (6.4-8.9) g/dL Albumin 3.8 (3.2-5.2) g/dL Globulin 3.8 (2-4) g/dL Albumin/Globulin Ratio 1.0 (1-3) TSH 0.78 (0.34-5.60) mcIU/mL Rheumatoid Factor < 10 (<15) IU/mL Result Diagrams: 05/14/19 20:04 05/14/19 20:04 Lab Statement: Any lab studies that have been ordered have been reviewed, and results considered in the medical decision making process. - Radiology LEFT ANKLE X-RAY Radiology Interpretation Completed By: ED Physician Summary of Radiographic Findings: Left ankle x-ray showed no acute fracture or dislocation, pending official report. Re-Evaluation - Re-Evaluation First Eval Re-Evaluation Time: 22:02 Comment: Patient ambulating well in ED, patient to be discharged to home. Complex Multi-Symp Course/Dx Course Of Treatment: Patient is a 68 y/o F presenting to [facility] with complaints of left ankle swelling and pain. Patient states that on 05/05, she had onset of BLE weakness which she characterizes as her "knees buckling". Patient states that she kept falling over her left ankle and was experiencing pain and swelling at this ankle. She was evaluated at [facility] and by her PCP for these Sx. She states that she was given a boot for her left ankle and has been elevating and icing her left ankle with no relief in Sx. She claims no x-ray has been done of her ankle. Patient states that she had Hx of similar Sx several months ago. However, these episodes resolved when she did her home exercises. Patient reports Hx of surgery at this ankle years ago. Patient is concerned for recurrence of injury to the ankle. Patient reports BOYD and nausea secondary to her ankle pain. CP and SOB are denied. No Hx of arthritis noted. Patient reports Hx of bipolar disorder and tardive dyskinesia. Musculoskeletal: Both knees are normal without swelling and warmth. Effusion of left ankle noted, the ankle is tender and warm as well. Left ankle x-ray showed no acute fracture or dislocation. Bloodwork was obtained, abnormal values include RBC 3.66, Hgb 11.4 , Hct 34, ESR 41, BUN 31, creatinine 1.4, BUN/creatinine ratio 22.1, glucose 102 , AST 10. Rheumatoid factor was <10. Patient ambulated well in the ED. She was discharged to home and will follow up with orthopedics. - Diagnoses Provider Diagnoses: Left ankle sprain Discharge ED - Sign-Out/Discharge Documenting (check all that apply): Patient Departure - discharge - Discharge Plan Condition: Good Disposition: HOME Patient Education Materials: Ankle Sprain (ED) Referrals: Kalen Meng MD [Medical Doctor] - As Soon As Possible - Billing Disposition and Condition Condition: GOOD Disposition: Home - Attestation Statements Document Initiated by Scribe: Yes Documenting Scribe: JEFF TOLEDO Provider For Whom Scribe is Documenting (Include Credential): KOREY SILVESTRE MD Scribe Attestation: I, JEFF TOLEDO, scribed for KOREY SILVESTRE MD on 05/18/19 at 1845. Scribe Documentation Reviewed: Yes Provider Attestation: The documentation as recorded by the scribeJEFF accurately reflects the service I personally performed and the decisions made by me, KOREY SILVESTRE MD Status of Scribe Document: Viewed
== END 2019-05-14 22:30 | disposition home or self-care (01) ==
LOC: ED 19:32
DX: S93.402A Sprain of unspecified ligament of left ankle, initial encounter (principal); R51 Headache; I10 Essential (primary) hypertension; F41.9 Anxiety disorder, unspecified; F31.9 Bipolar disorder, unspecified; W19.XXXA Unspecified fall, initial encounter; Y92.9 Unspecified place or not applicable; Z88.0 Allergy status to penicillin; Z88.5 Allergy status to narcotic agent
CPT/HCPCS: 36415; 80053; 82550; 84443; 85025; 85652; 86140; 86431; 99283

== ENCOUNTER 2019-05-18 04:52 | Inpatient (IN) | payer MEDICARE, OTHER ==
[2019-05-18] MEDS ORDERED: NS 0.9% 1000 ML** 2,000 ML IV ONE (05:01)
--- NOTE | 2019-05-18 05:03 | ED ---
Neurological HPI - HPI Summary HPI Summary: This pt is a 68 Y/O F presenting to [facility] with a CC weakness that occurred while she got out of bed this morning. She states that she took PRN Seroquel before sleeping at 1030 and was feeling normal. She states that she has no use of her hands and her feet when waking up. She states that she thinks it is either a pinched nerve or a side effect of her Seroquel. She also reports that she becomes dizzy and lightheaded. She states that her vision is kind of active. She denies any fevers, chills, headaches, coughs, SOB, N/V, and CP. She has no alleviating factors. She has a PMHx of bipolar disorder and HTN. - History of Current Complaint Chief Complaint: EDWeakness Stated Complaint: WEAKNESS PER EMS Time Seen by Provider: 05/18/19 04:52 Last Known Well Date: 10305/17/2019 Hx Obtained From: Patient Hx Last Menstrual Period: N/A Onset/Duration: Sudden Onset, Resolved Timing: Sudden Onset Number of Seizures: 0 Pain Intensity: 0 Character: Lightheaded, Dizzy Syncope Timin Number of Episodes: 0 Aggravating: Alcohol/Drug Ingestion - States that the Seroquel has been affecting her negatively Alleviating: Nothing Associated Signs and Symptoms: Positive: Negative - cough, Weakness, Lightheadness. Negative: Headache, Nausea/Vomiting, Fever, Chest Pain, Shortness of Breath TPA Considered: No - Pt shows no signs, and has no complaints, of a potential stroke. - Additional Pertinent History Primary Care Physician: [id number] - Allergy/Home Medications Allergies/Adverse Reactions: Allergies Allergy/AdvReac Type Severity Reaction Status Date / Time Antihistamines - Alkylamine Allergy Altered Verified 05/18/19 05:26 Mental Status Antihistamines - Ethanolamine Allergy Altered Verified 05/18/19 05:26 Mental Status Antihistamines - Allergy Altered Verified 05/18/19 05:26 Ethylenediamine Mental Status Antihistamines - Piperazine Allergy Altered Verified 05/18/19 05:26 Mental Status Antihistamines - Piperidine Allergy Altered Verified 05/18/19 05:26 Mental Status Benzodiazepines Allergy Altered Verified 05/18/19 05:26 Mental Status carisoprodol Allergy Altered Verified 05/18/19 05:26 Mental Status oxycodone AdvReac Mild Altered Verified 05/18/19 05:26 Mental Status Penicillins AdvReac Mild See Comment Verified 05/18/19 05:26 prochlorperazine AdvReac Mild Muscle Ache Verified 05/18/19 05:26 [From Compazine] anticholinergic agents AdvReac Mild Altered Uncoded 05/18/19 05:27 Mental Status muscle relaxants AdvReac Mild Altered Uncoded 05/18/19 05:27 Mental Status semi synthetic narcotics AdvReac Mild Altered Uncoded 05/18/19 05:27 Mental Status Home Medications: Home Medications Deutetrabenazine [Austedo] 6 mg PO AC 05/18/19 [History Confirmed 05/18/19] Quetiapine Fumarate [Quetiapine 100 mg] 100 mg PO BEDTIME 05/18/19 [History Confirmed 05/18/19] PMH/Surg Hx/FS Hx/Imm Hx Previously Healthy: Yes Endocrine/Hematology History: Denies: Hx Diabetes Cardiovascular History: Reports: Hx Hypertension Denies: Hx Congestive Heart Failure, Other Cardiovascular Problems/Disorders Respiratory History: Denies: Hx Asthma GI History: Reports: Hx Irritable Bowel Denies: Other GI Disorders History: Denies: Hx Renal Disease, Other Problems/Disorders Musculoskeletal History: Reports: Hx Orthopedic Injury Sensory History: Reports: Hx Contacts or Glasses, Hx Hearing Aid, Hx Hearing Problem - right ear has difficulty hearintg Denies: Hx Deafness Opthamlomology History: Reports: Hx Contacts or Glasses Neurological History: Reports: Hx Migraine - last migraine in 2000, Other Neuro Impairments/Disorders - BIPOLAR DISORDER Denies: Hx Seizures Psychiatric History: Reports: Hx Anxiety, Hx Depression, Hx Inpatient Treatment , Hx Community Mental Health Tx, Hx Bipolar Disorder Denies: Hx Eating Disorder, Hx of Violent Episodes Against Others - Cancer History Cancer Type, Location and Year: None - Surgical History Surgical History: Yes Surgery Procedure, Year, and Place: hysterectomy, 1994, [facility] left ankle r/t fx - pins/plates , bladder surgery for incontinence, 2011, [facility]. TUBAL LIGATION [place]. CARPAL TUNNEL RIGHT 03/1984, [facility]. Hx Anesthesia Reactions: No - Immunization History Immunizations Up to Date: Yes Infectious Disease History: Denies: Hx Clostridium Difficile, Hx Hepatitis, Hx Human Immunodeficiency Virus (HIV), Hx of Known/Suspected MRSA, Hx Shingles, Hx Tuberculosis, Hx Known/ Suspected VRE, Hx Known/Suspected VRSA, History Other Infectious Disease - Family History Known Family History: Positive: Diabetes Negative: Cardiac Disease, Hypertension - Social History Occupation: Disabled Lives: [facility] Alcohol Use: None Hx Substance Use: No Substance Use Type: Reports: None Hx Tobacco Use: No Smoking Status (MU): Never Smoked Tobacco Have You Smoked in the Last Year: No Review of Systems Positive: Other - POSITIVE: dizziness and lightheadedness . Negative: Fever, Chills Negative: Chest Pain Negative: Shortness Of Breath Negative: Vomiting, Nausea Positive: Weakness. Negative: Headache All Other Systems Reviewed And Are Negative: Yes Physical Exam - Summary Physical Exam Summary: Appearance: Well-appearing, Well-nourished, lying in bed comfortably in no acute distress, appears a bit somnolent Skin: Warm, dry, no obvious rash Eyes: sclera anicteric, no conjunctival pallor ENT: mucous membranes moist, pharynx appears normal Neck: Supple, nontender Respiratory: Clear to auscultation, no signs of respiratory distress Cardiovascular: Normal S1, S2. No murmurs. Normal distal pulses in tibial and radial bilaterally. Abdomen: Soft, nontender, normal active bowel sounds present Musculoskeletal: Normal, Strength/ROM Intact Neurological: A&Ox3, awake and alert, mentation is normal, speech is fluent and appropriate Psychiatric: affect is normal, does not appear anxious or depressed Triage Information Reviewed: Yes Vital Signs On Initial Exam: Temp Pulse Resp BP SpO2 FiO2 Vital Signs Reviewed: Yes Procedures - Sedation Patient Received Moderate/Deep Sedation with Procedure: No Diagnostics - Laboratory Result Diagrams: 05/18/19 05:28 05/18/19 05:28 Lab Statement: Any lab studies that have been ordered have been reviewed, and results considered in the medical decision making process. - EKG 0507 Cardiac Rate: NL - [address] Segment: Normal Ectopy: None Summary of EKG Findings: EKG at 0507 reveals normal sinus rhythm with rate of 64 BPM, no acute changes, no ischemic changes. This EKG was reviewed and interpreted by Dr. Graf at 0510 05/18/2019. Course/Dx - Course Course Of Treatment: This pt is a 68 Y/O F presenting to [facility] with a CC weakness that occurred while she got out of bed this morning. She states that she has been taking Seroquel before sleeping. She states that she has no use of her hands and her feet when waking up. She states that she thinks it is either a pinched nerve or a side effect of her Seroquel. She also reports that she becomes dizzy and lightheaded. She states that her vision is kind of active.. Her PE found that she appears a bit somnolent. Her labratory results are consistent with a UTI. She was admitted by Dr. Faria, Hospitalist, at 0630 for further care. She was Dx with hypotension and a UTI. - Diagnoses Provider Diagnoses: UTI (urinary tract infection), Hypotension - Physician Notifications Discussed Care Of Patient With: Obie Faria Time Discussed With Above Provider: 06:32 Instructed by Provider To: Admit As Inpatient Admit/Transition Orders Completed By ED Provider: Yes - Critical Care Time Critical Care Time: 30-74 min - 30 minutes Discharge ED - Sign-Out/Discharge Documenting (check all that apply): Patient Departure - admitted - Discharge Plan Condition: Stable Disposition: ADMITTED TO [facility] - Billing Disposition and Condition Condition: STABLE Disposition: Admitted to [facility] - Attestation Statements Document Initiated by Scribe: Yes Documenting Scribe: Lang Moreno Provider For Whom Suleman is Documenting (Include Credential): Tommy Graf MD Scribe Attestation: Lang Liang, scribed for Tommy Graf MD on 05/19/19 at 0410. Scribe Documentation Reviewed: Yes Provider Attestation: The documentation as recorded by the Lang traylor accurately reflects the service I personally performed and the decisions made by me, Tommy Graf MD Status of Scribe Document: Viewed
[2019-05-18 05:34] LABS: ABS Eosinophils 0.2 10^3/ul (0-0.6); ABS Lymphocytes 1.5 10^3/ul (1.0-4.8); ABS Monocytes 0.6 10^3/ul (0-0.8); ABS Neutrophils 2.9 10^3/ul (1.5-7.7); Eosinophil % 3.6 %; Hematocrit 32 % (35-47); Hemoglobin 10.6 g/dL (12.0-16.0); Mean Corpuscular HGB Conc 33 g/dL (31-36); Mean Corpuscular Hemoglobin 31 pg (27-31); Mean Corpuscular Volume 93 fL (80-97); Mean Platelet Volume 7.2 fL (7.4-10.4); Nucleated Red Blood Cells % 0.1; Platelet Count 260 10^3/uL (150-450); Red Blood Count 3.38 10^6 /uL (3.70-4.87); Red Cell Distribution Width 15 % (10-15); White Blood Count 5.3 10^3/uL (3.5-10.8)
[2019-05-18 05:53] LABS: Urine Appearance Cloudy; Urine Bilirubin Negative (Negative); Urine Blood Negative (Negative); Urine Color Yellow; Urine Glucose Negative (Negative); Urine Ketones Negative (Negative); Urine Nitrite Negative (Negative); Urine Protein Negative (Negative); Urine Specific Gravity 1.011 (1.010-1.030); Urine Urobilinogen Negative (Negative)
[2019-05-18 06:01] LABS: Urine Bacteria 1+ (Absent); Urine Red Blood Cell Absent (Absent); Urine Squamous Epithelial Cell Present (Absent); Urine Transitional Epithelial Present (Absent); Urine White Blood Cell 3+(>20/hpf) (Absent)
[2019-05-18 06:03] LABS: Albumin 3.3 g/dL (3.2-5.2); BUN/Creatinine Ratio 19.5 (8-20); Calcium 8.8 mg/dL (8.6-10.3); EGFR African American 40.8 (>60); EGFR Non-African American 33.7 (>60); Globulin 3.3 g/dL (2-4); Potassium 4.1 mmol/L (3.5-5.0); Total Bilirubin 0.3 mg/dL (0.2-1.0); Total Protein 6.6 g/dL (6.4-8.9)
[2019-05-18] MEDS ORDERED: cefTRIAXone(*) 1 GM in NS 0.9% 50 ML* 50 ML IVPB ONE (06:25)
--- OUTSIDE RECORDS SUMMARY | 2019-05-18 06:25 | XMS REPORT ---
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 36529859975507864 age-related cataract, bilateral Problem Pre-diabetes R73.03 Active 460454914 Problem Hypertension I10 Active 36107972 Problem Irritable bowel K58.0 Active 278483703 syndrome with diarrhea Problem Hyperlipidemia, E78.5 Active 38195306 unspecified hyperlipidemia type Problem Bipolar 1 disorder F31.9 Active 554264877 Problem Stage 3 chronic N18.3 Active 135150547 kidney disease Problem Hypothyroidism, E03.9 Active 09482896 unspecified type Problem BMI Z68.36 Active 710784219 36.0-36.9,adult Problem Essential I10 Active 06386066 hypertension Problem Obesity (BMI E66.9 Active 017277652 35.0-39.9 without comorbidity) Problem Hypercalcemia E83.52 Active 53445621 Problem Sleep apnea in G47.30 Active 09103387 adult Problem Primary M17.11 Active 449407875493842 osteoarthritis of right knee Problem Tricompartment M17.11 Active 876425960 osteoarthritis of right knee Problem 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 95283438 disorder Problem Tardive dyskinesia G24.01 Active 317107066 ALLERGIES No Information ENCOUNTERS Encounter Location Date Diagnosis On [facility] [address] [place] [address], [place] [address] [facility] [address] [place] [address] [place], [place] [address] [place], [place] [address] [place] [facility]ending [facility] To [facility] [address] [place], [place] [address] [place] [facility] [address] [place], [place] [address] [place] [facility] [address] [place], [place], Epis[place] R53.1 [place] [address] [facility] - Resource - [place] [address] [place], [place] [address] [place] Pending [facility] To [facility] [address] [place], [place] [address] [place] [facility] [address] [place], [place] [address] [facility] - Resource - [place] [address] Apr, [place] [address] [place] [address] [place], [place] [address] [place] [address] [place], Apr, Hypertension I10 [place] [address] 3 chronic kidney disease N18.3 [facility] - Resource - [place] [address] Apr, [place] [address] [place] Pending [facility] To [facility] [address] [place], [place] [address] [place] [address] [place], Apr, [place] R79[place]9 [place] [address] [place] [address] [place], [place] [address] [place] [address] [place], [place] [address] [place] [address] [place], [place], [place] R79.9 [place] [address] [place] [address] [place], [place], [place] [address] lower extremity R29.898 [place] Pending [facility] [address] [place], [place] [address] [place] Pending [facility] To [facility] [address] [place], [place] [address] [facility] - Resource - [place] [address] [place], [place] [address] [facility] - Resource - [place] [address] [place], [place] [address] [facility] Business Office [address] [place] [address] [facility] - Resource - [place] [address] [place], [place] [address] On License [facility] [address] [facility] [place], [place], [place] G24.01 [place] [address] ; Bipolar 1 disorder F31.9 ; Transient weakness of lower extremity R29.898 and Essential hypertension I10 [place] [facility] [address] [place] [address] [place], [place] [address] On License [facility] [address] [place] [address] [place] [address] [place], [place] [address] [facility] - Resource - [place] [address] [facility] [place], [place] [address] [place], [place] Tongue ulceration K14.0 ; [place] [address] Tardive dyskinesia G24.01 and Bipolar [address] disorder [address] [place], [place], Hyper[place] E83.52 [place] [address] [place], [place] [address] [place], [place] [address] [facility] - Resource - [place] [address] [facility] [place], [place] [address] [place] [facility] [address] [facility] [place], [place] [address] [facility] [address] [place] [address] Feb, [place] [address] [place] [address] Feb, [place] [address] [place], [place] [address] Case Management [address] [place], [place] [address] [place] [address] [facility] Feb, [place] [address] [place], [place], Bipolar 1 disorder F31.9 ; [place] [address] Hypercalcemia E83.52 ; Thrush B37.0 ; Dental infection K04.7 ; Tardive dyskinesia G24.01 and Leg weakness, bilateral R29.[address] [place], [place] [address] [employer] [facility] Feb, Dental infection K04.[address] [place], [place] [address] [place], [place], Bipolar 1 disorder F31.9 ; [place] [address] Essential hypertension I10 ; Stage 3 chronic kidney disease N18.3 ; Hypercalcemia E83.52 ; Transient weakness of lower extremity R29.898 ; Dental infection K04.7 ; Tardive dyskinesia G24.01 and Encounter for immunization Z23 On License [facility] [address] [facility] [place], [place] [address] [place], [place] [address] On License [facility] [address] [facility] [place], [place] [address] On License [facility] [address] [facility] [place], [place], Hypercalcemia E83.52 [place] [address] [place], [facility], [place] [address] [place], [place], Bipolar 1 [place] F31.9 [place] [address] and 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 On [facility] [address] [place] [address] [place], [place] [address] [place], [facility], [place] [address] [place] [address] On License [facility] [address] [facility] [place], [place] [address] [place], [place] [address] On License [facility] [address] [facility] [place], [place] [address] Dec, [place] [address] On License [facility] [address] [facility] [place], Dec, Bipolar 1 [place] F31.9 [place] [address] and Left foot pain M79.672 On [facility] [address] [facility] [place], [place] [address] Dec, [place] [address] Nov, [place] [address] On License [facility] [address] [facility] [place], [place], [place] [address] osteoarthritis of right knee M17.[address] [place] [address] [place], Nov, Bipolar 1 disorder F31.9 ; [place] [address] Osteopenia of right hip M85.851 ; Hypothyroidism, unspecified type E03.9 ; Hyperlipidemia, unspecified hyperlipidemia type E78.5 ; Urinary frequency R35.0 ; Acute pain of right knee M25.561 and Encounter for immunization Z23 [place] [address] [place], [place] [address] [place] [address] [place], Oct, [place] R35[place]0 [place] [address] [place] [address] [place], [place] [address] [place], [place] [address] [place], [place], [place] [address] hematuria N30.00 ; Acute non-recurrent frontal sinusitis J01.10 ; Screening for breast cancer Z12.31 and Screening for osteoporosis Z13.[address] [place], [place] [address] [place], [place], [place] [address] frontal sinusitis J01.10 and Dysuria R30.[address] [place], [place] [address] [place], [place] [address] [place], [place], Cough R05 ; [place] [address] disorder F31.9 ; Stage 3 chronic kidney disease N18.3 and Hyperlipidemia, unspecified hyperlipidemia type E78.[address] [place] [address] [place], Jul, Cough R05 [place] [address] for immunization Z23 [address] [place], Jun, [place] [address] [facility] [address] [place], [place] [address] [place], [place], Bipolar 1 disorder F31.9 ; [place] [address] Hyperlipidemia, unspecified hyperlipidemia type E78.5 and Cough R05 [address] [place], [place] [address] [place], Feb, Dysuria R30[place]0 [place] [address] Encounter for hepatitis C screening test for low risk patient Z11.[address] [place], [place] [address], [place] [address], [place], Bipolar 1 disorder F31.9 ; [place] [address] Pre-diabetes R73.03 ; Elevated serum creatinine R79.89 ; Dysuria R30.0 and Hyperlipidemia, unspecified hyperlipidemia type E78.[address] [place], [place] [address], Dec, [place] [address] R79.89 and Volta use Z79.[address], Dec, Bipolar 1 disorder F31.9 ; [place] [address] Screening for breast cancer Z12.31 ; BMI 36.0-36.9,adult Z68.36 ; Obesity (BMI 35.0-39.9 without comorbidity) E66.9 and Hypothyroidism, unspecified type E03.[address], [place] [address] Dec, [facility] [place] [address] Oct, [facility] [place] [address] [facility] Business Office [address] [place], [place] [address] [place], [place], [place] [address] frontal sinusitis J01.10 ; Screening for breast cancer Z12.31 ; Special screening for osteoporosis Z13.820 and Need for hepatitis C screening test Z11.[address] Jul, [place] [address] [place], [place] [address] [place], [place], Pre-diabetes R73.03 ; [place] [address] Bipolar 1 disorder F31.9 ; Hypertension I10 ; Hyperlipidemia, unspecified hyperlipidemia type E78.5 and Sleep apnea in adult G47.30 [facility] [address] [facility] Apr, [place] [address] [place] Pending Sale To [facility] [address] [place], [place] [address] [place] [facility] [address] [place], [place], [place] [address] [place] Pending Sale To [facility] [address] [place], [place] [address] [facility] [address] [place] [address] [place], [address] [place] [address] [place] Pending Sale To [facility] [address] [place], [place] [address] [place] Pending [facility] To [facility] [address] [place], [place], [place] [address] G47.20 [place] Pending [facility] To [facility] [address] [place], [place] [address] [place] [facility] [address] [place] [address] [place] [facility] [address] [place], [place] [address] [place] [facility] [address] [place], [place] [address] [place] [facility] [address] [place], [place], [place] [address] contractions M62.40 and Hypertension I10 [place] Pending [facility] To [facility] [address] [place], [place] [address] [place] [facility] [address] [place], [place], [place] [address] lower extremities M62.838 [place] Pending Sale To [facility] [address] [place], [place] [address] [facility] [address] [facility] [address], [place] [address] [place] Pending [facility] To [facility] [address] [place], [place] [address] [place] Pending Sale To [facility] [address] [place], Sep, [place], [place] [address] etiology J02.9 [place] Pending [facility] To [facility] [address] [place], [place] [address] [place] [facility] [address] [place], Jul, [place]arrhea R19[place]7 [place] [address] [place] Pending Sale To [facility] [address] [place], [place] [address] [place] Pending [facility] To [facility] [address] [place], [place] [address] On License Of [facility] [address] [place], Jul, Chronic diarrhea K52.9 [place] [address] On License Of [facility] [address] [place] [address] [place], [place] [address] [place], [place] [address] [place], [place], Bipolar disorder 296.80 [place] [address] [place], Jan, Other eczema L30.8 ; [place] [address] lesion L98.9 and Chronic sinusitis, unspecified location J32.[address] [place] [address] [place], [place] [address] [place], [place] [address] [place], [place] [address] [place], Jun, Abdominal pain 789.00 ; [place] [address] Elevated blood pressure 796.2 and Hematuria 599.[address] [place], [place], Bipolar 1 disorder 296.7 ; [place] [address] Sinusitis 473.9 ; Vertigo 780.4 and Neck pain 723.[address] [place], Dec, Sinusitis 473.9 [place] [address] IMMUNIZATIONS No Known Immunizations SOCIAL HISTORY Never Assessed REASON FOR REFERRAL FUNCTIONAL STATUS PLAN OF CARE VITAL SIGNS MEDICATIONS Unknown Medications PROCEDURES No Known procedures RESULTS No Results REASON FOR VISIT Referral Insurance Providers [facility] Member Patient Patient Patient Patient Patient Subscriber Subscriber Subscriber Group Insurance Plan Plan Plan Plan ID Relationship Address Phone Name Date of ID Name Date of No Type Insurance Insurance Insurance Coverage to Subscriber Address Phone Name Dates Case [phone] Case self [place] [id number] Management [place] [address] [facility] [address] Community Medicare National [id number] Medicare self [place] [id number] PPS Government 41 PPS [employer] [address] [place] [id number] [employer] [address] [employer] self [place] [id number] Medicare [id number] Medicare [employer] 7 Adv [facility] [place] [facility] [address] MEDICAL (GENERAL) HISTORY Type Description Date Medical [...] Hospitalization History bipolar episodes Hospitalization History [facility] 01/2013 Hospitalization History Suicideal ideation 12/2017
--- OUTSIDE RECORDS SUMMARY | 2019-05-18 06:25 | XMS REPORT ---
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 17841373333993078 age-related cataract, bilateral Problem Pre-diabetes R73.03 Active 085174212 Problem Hypertension I10 Active 84169707 Problem Irritable bowel K58.0 Active 509877720 syndrome with diarrhea Problem Hyperlipidemia, E78.5 Active 60670205 unspecified hyperlipidemia type Problem Bipolar 1 disorder F31.9 Active 225318579 Problem Stage 3 chronic N18.3 Active 783596622 kidney disease Problem Hypothyroidism, E03.9 Active 79350017 unspecified type Problem BMI Z68.36 Active 522471060 36.0-36.9,adult Problem Essential I10 Active 47365112 hypertension Problem Obesity (BMI E66.9 Active 320987305 35.0-39.9 without comorbidity) Problem Hypercalcemia E83.52 Active 35635226 Problem Sleep apnea in G47.30 Active 17228649 adult Problem Primary M17.11 Active 301766103753381 osteoarthritis of right knee Problem Tricompartment M17.11 Active 540748676 osteoarthritis of right knee Problem 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 78684200 disorder Problem Tardive dyskinesia G24.01 Active 015074346 ALLERGIES Substance Reaction Event Type Date Status muscle relaxants Unknown Non Drug Allergy May, Active Highly anti-cholinergic agents Unknown Non Drug Allergy May, Active Benzodiazepines Unknown Non Drug Allergy May, Active Compazine muscle cramps Drug Allergy May, Active Penicillin bipolar Drug Allergy May, Active Oxycodone HCl Unknown Drug Allergy May, Active ENCOUNTERS Encounter Location Date Diagnosis [place] [facility] [address] [place] [address] [place], [place] [address] [facility]LY [facility] - [place] [address] [facility] [place], [place] [address] [place] [facility] [address] [facility] [place] [address] [facility] - [place] [address] [facility] [place], [place] [address] [place] [facility] [address] [facility] [place], [place] [address] [place] [facility] [address] [place] [address] [place], [place] [address] [place] [address] [place], [place], Episodic [place] R53.1 [place] [address] [facility] - [place] [address] [place] [address] [place], [place] [address] [place] [address] [place] [address] [place] [address] [place] [address] [facility] - [place] [address] [place] [address] Apr, [place] [address] [place] [address] [place], [place] [address] [place] [address] [place], [place], Hypertension I10 [place] [address] 3 chronic kidney disease N18.3 [facility] - Resource - [place] [address] [place] [address] Apr, [place] [address] [place] [address] [place], [place] [address] [place] [address] [place], [place], [place] R79.9 [place] [address] [place] [facility] [address] [place], [place] [address] [place] [facility] [address] [place], [place] [address] [place] [address] [place], [place] R79[place]9 [place] [address] [place] [facility] [address] [place], [place], [place] [address] lower extremity R29.898 [place] [facility] [address] [place], [place] [address] [place] [facility] [address] [place], [place] [address] [facility] - [place] - [place] [address] [facility] [place], [place] [address] [facility] Resource [place] [address] [place] [address] [place], [place] [address] [facility] Business Office [address] [place], [place] [address] [facility] - [place] - [place] [address] [facility] [place], [place] [address] [place] [facility] [address] [place] [address] [place], [place], Tard[place] G24.01 [place] [address] ; Bipolar 1 disorder F31.9 ; Transient weakness of lower extremity R29.898 and Essential hypertension I10 [place] [facility] [address] [place] [address] [place], [place] [address] [place], [place] [address] [place] [address] [facility] - [place] - [place] [address] [place] [address] [place], [place] [address] [place] [address] [place], [place], Tongue ulceration K14.0 ; [place] [address] Tardive dyskinesia G24.01 and Bipolar [address] [place], [place], Hyper[place] E83.52 [place] [address] [place], [place] [address] [place], [place] [address] [facility] - [facility] [place] [address] [place] [address] Feb, [place] [address] [facility] [address] [facility] [place], [place] [address] [facility] [address] [place] [address] Feb[place] [address] Feb, [place] [address] [place], [place] [address] Case Management [address] [place], [place] [address] [facility] [address] [facility] Feb, [place] [address] [facility] [address] [place] [address] [place], [place], Bipolar 1 disorder F31.9 ; [place] [address] Hypercalcemia E83.52 ; Thrush B37.0 ; Dental infection K04.7 ; Tardive dyskinesia G24.01 and Leg weakness, bilateral R29.898 [facility] [address] [facility] [place], [place] [address] [employer] Feb, Dental infection K04.7 HEALTH Former[facility] [address] [facility] [place], [place] [address] [facility] [address] [place] [address] [place], [place], Bipolar 1 disorder F31.9 ; [place] [address] Essential hypertension I10 ; Stage 3 chronic kidney disease N18.3 ; Hypercalcemia E83.52 ; Transient weakness of lower extremity R29.898 ; Dental infection K04.7 ; Tardive dyskinesia G24.01 and Encounter for immunization Z23 [facility] [address] [facility] [place], [place] [address] [place], [place] [address] [facility] [address] [facility] [place], [place] [address] [place], [place], Hypercalcemia E83.52 [place] [address] [place], [facility] [place] [address] [facility] [address] [place] [address] [place], [place], Bipolar 1 [place] F31.9 [place] [address] and 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 [facility] [address] [place] [address], [place] [address] [place], [facility] [place] [address] [place], [place] [address] [facility] [address] [facility] [place], [place] [address] [place], [place] [address] [facility] [address] [facility] [place], [place] [address] Dec, [place] [address] [facility] [address] [facility], Dec, Bipolar 1 [place] F31.9 [place] [address] and Left foot pain M79.[address] [place], [place] [address] [facility] [address] [facility] Dec, [place] [address] [facility] [address] [facility] Nov, [place] [address] [place], [place], [place] [address] osteoarthritis of right knee M17.[address] [place] [address] [place], [place], Bipolar 1 disorder F31.9 ; [place] [address] Osteopenia of right hip M85.851 ; Hypothyroidism, unspecified type E03.9 ; Hyperlipidemia, unspecified hyperlipidemia type E78.5 ; Urinary frequency R35.0 ; Acute pain of right knee M25.561 and Encounter for immunization Z23 [address] [place], [place] [address] [place], Oct, Ur[place] R35.0 [place] [address] [place] [address] [place], [place] [address] [place], [place] [address] [place], [place], [place] [address] hematuria N30.00 ; Acute non-recurrent frontal sinusitis J01.10 ; Screening for breast cancer Z12.31 and Screening for osteoporosis Z13.[address] [place], [place] [address] [place], [place], [place] [address] frontal sinusitis J01.10 and Dysuria R30.[address] [place], [place] [address] [place], [place] [address] [place], [place], Cough R05 ; [place] [address] disorder F31.9 ; Stage 3 chronic kidney disease N18.3 and Hyperlipidemia, unspecified hyperlipidemia type E78.[address] [place], Jul, Cough R05 [place] [address] for immunization Z23 [address] [place], [place], [place] [address] [facility] [address] [place], [place] [address] [place], [place], Bipolar 1 disorder F31.9 ; [place] [address] Hyperlipidemia, unspecified hyperlipidemia type E78.5 and Cough R05 [address] [place], [place] [address] [place], [place], Dysuria R30[place]0 [place] [address] Encounter for hepatitis C screening test for low risk patient Z11.[address] [place], [place] [address] [place], [place] [address] [place], [place], Bipolar 1 disorder F31.9 ; [place] [address] Pre-diabetes R73.03 ; Elevated serum creatinine R79.89 ; Dysuria R30.0 and Hyperlipidemia, unspecified hyperlipidemia type E78.5 [facility] [address] [facility] Jan, [place] [address] [place], [place], [place] [address] R79.89 and [place] use Z79.[address] [place], [place], Bipolar 1 disorder F31.9 ; [place] [address] Screening for breast cancer Z12.31 ; BMI 36.0-36.9,adult Z68.36 ; Obesity (BMI 35.0-39.9 without comorbidity) E66.9 and Hypothyroidism, unspecified type E03.[address] [place], [place] [address] [place] Dec, [facility] Medical ROBBIE Zhang [address] [place] Oct, Health Medical ROBBIE Zhang [address] [facility] Business Office [address] [place], [place] [address] [place], [place], [place] [address] frontal sinusitis J01.10 ; Screening for breast cancer Z12.31 ; Special screening for osteoporosis Z13.820 and Need for hepatitis C screening test Z11.59 [facility] [address] [place] [address] Jul, [place] [address] [facility] [address] [place], [place] [address] [facility] [address] [place], [place], Pre-diabetes R73.03 ; [place] [address] Bipolar 1 disorder F31.9 ; Hypertension I10 ; Hyperlipidemia, unspecified hyperlipidemia type E78.5 and Sleep apnea in adult G47.[address] Apr, [place] [address] [facility] [address] [place], [place] [address] [facility] [address] [place], [place], [place] [address] [place] [facility] [address] [place], [place] [address] [place], Cough R05 [place] [address] [place] [facility] [address] [place], [place] [address] [facility] [address] [place], [place], [place] [address] G47.20 [place] [facility] [address] [place], [place] [address] [facility] [address] [place], [place] [address] [facility] [address] [place], [place] [address] [facility] [address] [place], [place] [address] [facility] [address] [place], [place], [place] [address] contractions M62.40 and Hypertension I10 [place] [facility] [address] [place], [place] [address] [facility] [address] [place], [place], [place] [address] lower extremities M62.838 [place] [facility] [address] [place], [place] [address] Nov, [place] [address] [facility] [address] [place], [place] [address] [facility] [address] [place], [place], [place], [place] [address] etiology J02.9 [place] [facility] [address] [place] [address] [place], [place] [address] [place], [place], [place]arrhea R19.7 [place] [address] [place] [facility] [address] [place] [address] [place] [address] [place] [facility] [address] [place] [address] [place], [place] [address] [place], [place], Chronic diarrhea K52.9 [place] [address] [place] [address] [place], [place] [address] [place], [place] [address] [place], [place], Bipolar [place] 296.80 [place] [address] [place], [place], Other eczema L30.8 ; [place] [address] lesion L98.9 and Chronic sinusitis, unspecified location J32.[address] [place] [address] [place], [place] [address] [place], [place] [address] [place], [place] [address] [place], Jun, Abdominal pain 789.00 ; [place] [address] Elevated blood pressure 796.2 and Hematuria 599.[address] [place], [place], Bipolar 1 disorder 296.7 ; [place] [address] Sinusitis 473.9 ; Vertigo 780.4 and Neck pain 723.[address] [place], Dec, Sinusitis 473.9 [place] [address] IMMUNIZATIONS No Known Immunizations SOCIAL HISTORY Never Assessed REASON FOR REFERRAL FUNCTIONAL STATUS PLAN OF CARE Activity Details Follow Up As scheduled 05/25/19 Reason: VITAL SIGNS Temperature 98.4 degrees Fahrenheit 2019-05-11 Heart Rate 18 2019-05-11 Weight 165.9 2019-05-11 Height 62 in 2019-05-11 BMI 30.34 kg/m2 2019-05-11 Oximetry 98 % 2019-05-11 Blood pressure systolic 115 mm Hg 2019-05-11 Blood pressure diastolic 74 mm Hg 2019-05-11 MEDICATIONS Medication Instructions Dosage Frequency Start End Duration Status Date Date Acetaminophen Orally every 6 1 capsule 6h Unknown 500 MG hrs as needed ibuprofen 1 tab Unknown Amlodipine TAKE ONE Unknown Besylate 10 mg TABLET BY MOUTH EVERY DAY FOR HIGH BLOOD PRESSURE Levothyroxine Orally Once a 1 tablet on 24h 30 Unknown Sodium 25 MCG day an empty stomach in the morning Clonidine HCl Orally at 1 tablet Unknown 0.2 MG bedtime as needed Seroquel 100 MG Orally Once a 1 tablet at 24h Unknown day bedtime Oxcarbazepine Oral Every 1 tablet Unknown 300 MG morning and take Two tablets by mouth at bedtime Lisinopril-Kennett Orally Once a 1 tablet 24h Apr, day(s) Unknown chlorothiazide day 2019 10-12.5 MG Dicyclomine HCl p.o. 4 times a 1 cap(s) Unknown 20 mg day. Gabapentin 300 Orally 3 times 1 capsule 8h Unknown MG a day Wellbutrin XL Orally Once a 1 tablet in 24h Dec, Unknown 300 MG day the morning 2017 [place] 6 MG TAKE ONE 30 Unknown TABLET BY MOUTH EVERY DAY WITH MEALS Imodium A-D 2 MG Orally Four 1 tablet as 6h Unknown times a day needed PROCEDURES Procedure Date Ordered Result Body Site BODY MASS INDEX DOCD May 11, 2019 Oxygen saturation results documented and reviewed May 11, 2019 BLOOD PRESSURE, MEASURED May 11, 2019 RESULTS No Results REASON FOR VISIT falling Insurance Providers [facility] Member Patient Patient Patient Patient Patient Subscriber Subscriber Subscriber Group Insurance Plan Plan Plan Plan ID Relationship Address Phone Name Date of ID Name Date of No Type Insurance Insurance Insurance Coverage to Subscriber Address Phone Name Dates [employer] [phone] [employer] self [place] [id number] Medicare [id number] Medicare [facility] [place] [facility] [address] [phone] Case self [place] [id number] Management [place] [facility] [address] Community Medicare National [phone] Medicare self [place] [id number] [place] [address] PPS [employer] [address] [place] [id number] MEDICAL (GENERAL) HISTORY Type Description Date Medical [...] Hospitalization History bipolar episodes Hospitalization History [facility] 01/2013 Hospitalization History Suicideal ideation 12/2017
--- OUTSIDE RECORDS SUMMARY | 2019-05-18 06:25 | XMS REPORT ---
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 Active 29166813388608684 age-related cataract, bilateral Problem Pre-diabetes R73.03 Active 715906415 Problem Hypertension I10 Active 80026521 Problem Irritable bowel K58.0 Active 323128244 syndrome with diarrhea Problem Hyperlipidemia, E78.5 Active 00829968 unspecified hyperlipidemia type Problem Bipolar 1 disorder F31.9 Active 721501539 Problem Stage 3 chronic N18.3 Active 118965134 kidney disease Problem Hypothyroidism, E03.9 Active 35196543 unspecified type Problem BMI Z68.36 Active 206677231 36.0-36.9,adult Problem Essential I10 Active 28431835 hypertension Problem Obesity (BMI E66.9 Active 453523506 35.0-39.9 without comorbidity) Problem Hypercalcemia E83.52 Active 22775098 Problem Sleep apnea in G47.30 Active 67234816 adult Problem Primary M17.11 Active 399398331941637 osteoarthritis of right knee Problem Tricompartment M17.11 Active 928176381 osteoarthritis of right knee Problem 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 12750833 disorder Problem Tardive dyskinesia G24.01 Active 630180526 ALLERGIES No Information ENCOUNTERS Encounter Location Date Diagnosis [facility] [address] [facility], [place] [address] [facility] [address] [place] [address] [place], [address] [place] [address], [place] [address] [facility] [place] [address] [facility] [place], [place] [address] [place] [facility] [address] [place] [address] [place] [address] [place] [facility] [address] [place] [address] [place], [place] [address] [place] [facility] [address] [place] [address] [place], [place], Epis[place] R53.1 [place] [address] [facility] [place] [address] [place] [address] [place], [place] [address] [place] [facility] [address] [place] [address] [place] [address] [place] [facility] [address] [place] [address] [place], [place] [address] [facility] [place] [address] [place] [address] [place], [place] [address] [place] [facility] [address] [place] [address] [place], [place] [address] [place] [facility] [address] [place] [address] [place], Apr, Hypertension I10 [place] [address] 3 chronic kidney disease N18.3 [facility] [place] [address] [place] [address] [place], [place] [address] [place] [facility] [address] [place] [address] [place], [place] [address] [place] [facility] [address] [place] [address] [place], Apr, Elev[place] R79.9 [place] [address] [place] [facility] [address] [place] [address] [place], [place] [address] [place] [facility] [address] [place] [address] [place], [place] [address] [place] [facility] [address] [place] [address] [place], [place] R79[place]9 [place] [address] [place] [facility] [address] [place] [address] [place], [place] [address] lower extremity R29.898 [place] [facility] [address] [place] [address] [place], [place] [address] [place] [facility] [address] [place] [address] [place] [address] [facility] [place] [address] [place] [address] [place] [address] [facility] [place] [address] [place] [address] [place], [place] [address] [facility] Business Office [address] [place] [address] [facility] [place] [address] [facility] [place], [place] [address] [facility] [address] [place] [address] [place], [place]ard[place] G24.01 [place] [address] ; Bipolar 1 disorder F31.9 ; Transient weakness of lower extremity R29.898 and Essential hypertension I10 [address] [place], [place] [address] [place], [place] [address] [place], [place] [address] [facility] [address] [facility] [place], [place] [address] [place], [place], Tongue ulceration K14.0 ; [place] [address] Tardive dyskinesia G24.01 and Bipolar [address] disorder [address] [place], [place], Hyper[place] E83.52 [place] [address] [place], [place] [address] [place], [place] [address] [facility] [address] [place] [address] [place], [place] [address] [facility] [address] [facility] [place], [place] [address] Feb, [place] [address] [place] [address] Feb[address] [place], [place] [address] [employer] [address] [place], [place] [address] [place], [place] [address] [place], [place], Bipolar 1 disorder F31.9 ; [place] [address] Hypercalcemia E83.52 ; Thrush B37.0 ; Dental infection K04.7 ; Tardive dyskinesia G24.01 and Leg weakness, bilateral R29.[address] [place], [place] [address] [employer] Feb, Dental infection K04.[address] [place], [place] [address] [facility] [address] [facility] [place], [place], Bipolar 1 disorder F31.9 ; [place] [address] Essential hypertension I10 ; Stage 3 chronic kidney disease N18.3 ; Hypercalcemia E83.52 ; Transient weakness of lower extremity R29.898 ; Dental infection K04.7 ; Tardive dyskinesia G24.01 and Encounter for immunization Z23 [place] [facility] [address] [facility] [place], [place] [address] [place], [place] [address] [facility] [address] [facility] [place], [place] [address] [facility] [address] [facility] [place], [place], Hypercalcemia E83.52 [place] [address] [place], [place] [address] [facility] [address] [place] [address] [place], [place], Bipolar 1 [place] F31.9 [place] [address] and 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 [facility] [address] [facility] [place], [place] [address] [place], [place] [address] [place] [address] [facility] [address] [facility] [place] [address] Dec, [place] [address] [facility] [address] [facility] [place], [place] [address] Dec, [place] [address] [facility] [address] [facility] [place], Dec, Bipolar 1 [place] F31.9 [place] [address] and Left foot pain M79.672 [facility] [address] [facility] [place], [place] [address] Dec, [place] [address] Nov, [place] [address] [facility] [address] [facility] [place], 09 Aug, [place] [address] osteoarthritis of right knee M17.[address] [place] [address] [place], [place], Bipolar 1 disorder F31.9 ; [place] [address] Osteopenia of right hip M85.851 ; Hypothyroidism, unspecified type E03.9 ; Hyperlipidemia, unspecified hyperlipidemia type E78.5 ; Urinary frequency R35.0 ; Acute pain of right knee M25.561 and Encounter for immunization Z23 [place] [address] [place], [place] [address] [place], Oct, [place] R35.0 [place] [address] [place] [address] [place], [place] [address] [place] [address] [place], [place], [place] [address] hematuria N30.00 ; Acute non-recurrent frontal sinusitis J01.10 ; Screening for breast cancer Z12.31 and Screening for osteoporosis Z13.[address] [place], [place] [address] [place], [place], [place] [address] frontal sinusitis J01.10 and Dysuria R30.[address] [place], [place] [address] [place], [place] [address] [place], [place], Cough R05 ; [place] [address] disorder F31.9 ; Stage 3 chronic kidney disease N18.3 and Hyperlipidemia, unspecified hyperlipidemia type E78.[address] [place], Jul, Cough R05 [place] [address] for immunization Z23 [address] [place], [place], [place] [address] [facility] [address] [place], [place] [address] [place], [place], Bipolar 1 disorder F31.9 ; [place] [address] Hyperlipidemia, unspecified hyperlipidemia type E78.5 and Cough R05 [address] [place], [place] [address] [place], [place], Dysuria R30[place]0 [place] [address] Encounter for hepatitis C screening test for low risk patient Z11.[address] Jan, [place] [address] [place], [place] [address] [place], [place], Bipolar 1 disorder F31.9 ; [place] [address] Pre-diabetes R73.03 ; Elevated serum creatinine R79.89 ; Dysuria R30.0 and Hyperlipidemia, unspecified hyperlipidemia type E78.[address] Jan, [place] [address] [place], [place], [place] [address] R79.89 and [place] use Z79.[address] [place], Dec, Bipolar 1 disorder F31.9 ; [place] [address] Screening for breast cancer Z12.31 ; BMI 36.0-36.9,adult Z68.36 ; Obesity (BMI 35.0-39.9 without comorbidity) E66.9 and Hypothyroidism, unspecified type E03.[address] [place], [place] [address] Dec, [facility] [place] [address] Oct, [facility] [address] [facility] Business Office [address] [place], [place] [address] [place], [place], [place] [address] frontal sinusitis J01.10 ; Screening for breast cancer Z12.31 ; Special screening for osteoporosis Z13.820 and Need for hepatitis C screening test Z11.[address] Jul, [place] [address] [place], [place] [address] [place], [place], Pre-diabetes R73.03 ; [place] [address] Bipolar 1 disorder F31.9 ; Hypertension I10 ; Hyperlipidemia, unspecified hyperlipidemia type E78.5 and Sleep apnea in adult G47.30 [facility] [address] [place] [address] Apr, [place] [address] [place] [facility] [address] [place], [place] [address] [place] [facility] [address] [place], Apr, [place] [address] [place] [facility] [address] [place], [place] [address] [place], Cough R05 [place] [address] [place] [facility] [address] [place], [place] [address] [place] [facility] [address] [place], [place], [place] [address] G47.20 [place] [facility] [address] [place], [place] [address] [place] [facility] [address] [place], [place] [address] [place] [facility] [address] [place], [place] [address] [place] [facility] [address] [place], [place] [address] [place] [facility] [address] [place], [place], [place] [address] contractions M62.40 and Hypertension I10 [place] [facility] [address] [place] [address] [place] [facility] [address] [place], [place] [address] lower extremities M62.838 [place] [facility] [address] [place], [place] [address] [place], [place] [address] [place] [facility] [address] [place] [address] [place] [facility] [address] [place], Sep, [place], [place] [address] etiology J02.9 [place] [facility] [address] [place] [address] [place] [facility] [address] [place], Jul, Diarrhea R19.7 [place] [address] [place] [facility] [address] [place], [place] [address] [place], [place] [address] [place], [place], Chronic diarrhea K52.9 [place] [address] [place], [place] [address] [place], [place] [address] [place], [place], Bipolar disorder 296.80 [place] [address] [place], [place], Other eczema L30.8 ; [place] [address] lesion L98.9 and Chronic sinusitis, unspecified location J32.[address] [place], [place] [address] [place], [place] [address] [place], [place] [address] [place], [place], Abdominal pain 789.00 ; [place] [address] Elevated blood pressure 796.2 and Hematuria [address] [place], [place], Bipolar 1 disorder 296.7 ; [place] [address] Sinusitis 473.9 ; Vertigo 780.4 and Neck pain 723.[address] [place], [place], Sinusitis 473.9 [place] [address] IMMUNIZATIONS No Known Immunizations SOCIAL HISTORY Never Assessed REASON FOR REFERRAL FUNCTIONAL STATUS PLAN OF CARE VITAL SIGNS MEDICATIONS Unknown Medications PROCEDURES No Known procedures RESULTS No Results REASON FOR VISIT Cancelled appt for bloodwork Insurance Providers [facility] Member Patient Patient Patient Patient Patient Subscriber Subscriber Subscriber Group Insurance Plan Plan Plan Plan ID Relationship Address Phone Name Date of ID Name Date of No Type Insurance Insurance Insurance Coverage to Subscriber Address Phone Name Dates Case [phone] Case self [place] [id number] Management [place] [address] [facility] [address] [facility] Excell[employer] [phone] Excell[employer] self [place]onique [id number] Medicare [id number] Medicare [place] [facility] [place] [facility] [address] Medicare [place] [phone] Medicare self [place] [id number] [place] [address] P[place] [facility] [address] [facility] [id number] MEDICAL (GENERAL) HISTORY Type Description Date Medical History bipolar Medical History tardive dyskenestia Surgical History bladder surgey Surgical History hysterectomy Surgical History tubal ligation Surgical History surgery on left foot 2015 or Surgical History revision of left tib/fib fractures Surgical History Right eye cataract removal 05/2016 Surgical History Left eye cataract removal 07/2016 Hospitalization History see above Hospitalization History bipolar episodes Hospitalization History [facility] 01/2013 Hospitalization History Suicideal ideation 12/2017
--- OUTSIDE RECORDS SUMMARY | 2019-05-18 06:25 | XMS REPORT | Continuity of Care Document ---
:1950 External Reference #:[id number] Author Name Kalen Meng M.D. (transmitted by agent of provider Venus Cheney) Address [address] [place] [address] [place] [address] Care Team Providers Name Role Phone Vin Reyna MD - Family Medicine Care Team Information [employer] Problems Active Problems Provider Date Disturbance in sleep behavior Purnima Fry MD Onset: 06/30/2016 Obstructive sleep apnea syndrome Purnima Fry MD Onset: 09/09/2016 Social History Type Date Description Comments Sex Unknown ETOH Use Denies alcohol use Tobacco Use Start: Unknown Patient has never smoked Recreational Drug Use Denies Drug Use Smoking Status Reviewed: 05/16/19 Patient has never smoked Exercise Type/Frequency Does not exercise Allergies, Adverse Reactions, Alerts Active Allergies Reaction Severity Comments Date Benzodiazepines 05/03/2015 Oxycodone 05/03/2015 NSAIDs 05/03/2015 Penicillin 06/30/2016 Compazine 06/30/2016 Antihistamines- Alkylamine Altered mental status 05/16/2019 Antihistamines- Ethanolamine Altered mental status 05/16/2019 Ethylenediamine 05/16/2019 Piperazine 05/16/2019 Piperidine 05/16/2019 Carisoprodol 05/16/2019 Inhaled Anticholinergic Agents 05/16/2019 Muscle Relaxants 05/16/2019 Medications Active Medications SIG Qnty Indications Ordering Provider Date [place] Carbonate ER 1 by mouth in Unknown 06/29/2016 450mg evening Tablets ER Latuda 1 by mouth every Unknown 06/29/2016 20mg Tablets day Gabapentin 1 by mouth three Unknown 300mg Capsules times a day Fluoxetine HCL 1 by mouth every Unknown 10mg day Capsules Atorvastatin Calcium take 1 tablet at Unknown 20mg bedtime Tablets Dicyclomine HCL Take 1 Capsule By Unknown 10mg Mouth Twice Daily Capsules Amlodipine Besylate 1 by mouth every Unknown 10mg day Tablets Bupropion Hydrochloride 1 by mouth every Unknown ER (XL) day 300mg Tablets ER 24HR Clonidine change patch Unknown 0.2mg/24HR weekly Patches Weekly Levothyroxine Sodium 1 by mouth every Unknown 25mcg day Tablets Oxcarbazepine take one tab and Unknown 300mg Tablets a half tabs by mouth twice a day (take with 150 mg tab to equal 450 mg twice a day). Lisinopril-Hydrochlorot 1 by mouth every Unknown hiazide day 10-12.5mg Tablets Seroquel 100 mg Unknown [place] Unknown 6mg Tablets Immunizations Description No Information Available Vital Signs Date Vital Result Comment 05/16/2019 9:43am Height 62 inches 5'2" Weight 165.75 lb Heart Rate 95 /min BP Systolic 146 mmHg BP Diastolic 88 mmHg Respiratory Rate 16 /min Pain Level 10 BMI (Body Mass Index) 30.3 kg/m2 09/09/2016 9:36am Height 62 inches 5'2" Weight 218.00 lb w/ shoes Heart Rate 74 /min reg BP Systolic Sitting 110 mmHg Lue, lg cuff BP Diastolic Sitting 60 mmHg Lue, lg cuff Respiratory Rate 16 /min O2 % BldC Oximetry 95 % on Ra BMI (Body Mass Index) 39.9 kg/m2 Results Description No Information Available Procedures Date Code Description Status 01/21/2019 96840 EKG, Interpretation Only Completed Medical Devices Description No Information Available Encounters Type Date Location Provider Dx Diagnosis Office Visit 05/16/2019 [facility] Kalen Meng, F31.9 Bipolar disorder, 9:00a at [place] unspecified S82.842D Displ bimalleol fx l low leg, subs for clos fx w routn heal Office Visit 01/21/2019 8:08a [facility] Oral Gallardo, F31.9 Bipolar disorder, Yina unspecified T42.6x2A Poisn by oth antieplptc and sed-hypntc drugs, slf-hrm, init Office Visit 01/20/2019 8:07a [facility] Oral Gallardo M.D. R40.0 Somnolence T42.6x2A Poisn by oth antieplptc and sed-hypntc drugs, slf-hrm, init Office Visit 12/24/2018 9:01a [facility] Tony Suggs, R53.1 [facility] [place] R29.6 Repeated falls Office Visit 12/19/2018 10:58a [facility] S92.355A Nondisp fx of Orthopedics at [facility] fifth metatarsal [place] bone, left foot, init Assessments Date Code Description Provider 05/16/2019 F31.9 Bipolar disorder, unspecified Kalen Meng M.D. 05/16/2019 S82.842D Displaced bimalleolar fracture of left Kalen Meng M.D. lower leg, subsequent encounter for closed fracture with routine healing 01/21/2019 R94.31 Abnormal electrocardiogram [ECG] [EKG] Galo Price M.D. 01/21/2019 F31.9 Bipolar disorder, unspecified Oral Gallardo M.D. 01/21/2019 T42.6x2A Poisoning by other antiepileptic and Oral Gallardo M.D. sedative-hypnotic drugs, intentional self-harm, initial encounter 01/20/2019 R40.0 Somnolence Oral Gallardo M.D. 01/20/2019 T42.6x2A Poisoning by other antiepileptic and Oral Gallardo M.D. sedative-hypnotic drugs, intentional self-harm, initial encounter 12/24/2018 R53.1 Weakness RYLEE Caraballo 12/24/2018 R29.6 Repeated falls RYLEE Caraballo 12/19/2018 S92.355A Nondisplaced fracture of fifth Jo RYLEE Estrada metatarsal bone, left foot, initial encounter for closed fracture Plan of Treatment Future Appointment(s):06/08/2019 10:15 am - Kalen Meng M.D. at [facility] at [id number]/16/2019 - Kalen Meng M.D.F31.9 Bipolar disorder, unspecifiedReferral:Jovan Brito M.D., NeurologyFollow up:3 [id number] Displaced bimalleolar fracture of left lower leg, subsequent encounter for closed fracture with routine healing Functional Status Description No Information Available Mental Status Description No Information Available Referrals Refer to Reason for Referral Status Appt Date Jovan Brito M.D. please eval for generalized tremor, Created weakness, inability to stand, upper extremity involvement [address] [facility] [address] [place] [address] [phone]
[2019-05-18 08:00] LABS: C Reactive Protein 7.77 mg/L (<8.01)
[2019-05-18] MEDS ORDERED: NS 0.9% 1000 ML** 1,000 ML IV SCH (08:00)
[2019-05-18] MEDS: Levothyroxine TAB* 25 MCG TAB PO SCH ×2 (09:54→09:59)
[2019-05-18] MEDS: OXcarbazepine TAB(*) 300 MG PO SCH ×2 (09:54→22:17)
[2019-05-18] MEDS: Docusate CAP* 100 MG PO SCH ×3 (09:55→22:17)
[2019-05-18] MEDS: BuPROPion XL* 300 MG TAB.XL PO SCH ×2 (09:56→10:01)
--- NOTE | 2019-05-18 10:15 | HP ---
CC: Dr. Vin Reyna; Dr. Meng * HISTORY AND PHYSICAL: DATE OF ADMISSION: 05/18/19 PRIMARY CARE PROVIDER: Dr. Vin Reyna. PSYCHIATRIST: Naty Shelton NP. CHIEF COMPLAINT: Generalized weakness. HISTORY OF PRESENT ILLNESS: Veronique Kerr is a 68-year-old female with a history of bipolar disease, who stated that she has been having episodes with generalized weakness. She would wake up in the morning and she has problems with getting out of bed. Today, in the morning it happened again and she was brought into the ED for evaluation. The patient's systolic pressures were in the 50s. She received 2 L of intravenous fluid boluses and currently have risen into the 80s. She denies any dizziness, chest pain, or shortness of breath. She states that she has had chronic shooting pain in the back of her bilateral legs, for which she had been evaluated by Dr. Meng who sent her to a neurologist that she has not seen yet. Her urinalysis was grossly positive for UTI, although the patient had no symptoms of dysuria. She does complain of generalized symptoms as mentioned above. She is going to be placed on overnight observation with the diagnoses of generalized weakness and UTI. PAST MEDICAL HISTORY: 1. History of bipolar disease with a history of major depression and suicide attempts in the past. 2. Left ankle ORIF with chronic pain. The patient stated that she has chronic left leg weakness due to that. 3. Hysterectomy. 4. Tubal. 5. Carpal tunnel surgery. 6. Dyslipidemia. 7. Chronic kidney disease, stage 3. 8. Tardive dyskinesia. MEDICATIONS AT HOME: Include: 1. Zestoretic 01/14.5 one tablet daily. 2. Bentyl 20 mg up to 4 times a day p.r.n. 3. Seroquel 100 mg at bedtime. 4. Trileptal 300 mg in the morning, 600 mg at bedtime. 5. Austedo 6 mg daily. 6. Levothyroxine 25 mcg daily. 7. Gabapentin 600 mg 4 times a day. 8. Bupropion XL 300 mg daily. 9. Lipitor 20 mg daily. 10. Clonidine 0.2 mg at bedtime. 11. Amlodipine 10 mg daily 12. Seroquel 100 mg at bedtime. ALLERGIES: Multiple and include ANTIHISTAMINES, BENZODIAZEPINES, SOMA, OXYCODONE, COMPAZINE, ANTICHOLINERGIC AGENTS, MUSCLE RELAXANTS, and "SEMI- SYNTHETIC NARCOTICS." All of them cause alteration of mental status. FAMILY HISTORY: Both parents in the 70s. Mother of lung cancer, father of pelvic cancer. SOCIAL HISTORY: The patient denies any tobacco, alcohol, or drug use. She lives by herself in senior apartment living. She has Meals on Wheels. She ambulates with a walker. She is unable to name a surrogate today. REVIEW OF SYSTEMS: Please see history of present illness. In addition to the above mentioned, all the other 12 systems reviewed with the patient and were otherwise negative. PHYSICAL EXAMINATION GENERAL: The patient is a very pleasant 68-year-old female who is in no acute distress. The patient is alert and oriented x3. VITAL SIGNS: Blood pressure of 103/56, heart rate 72 and regular, respiratory rate 18, oxygen saturation 100% on room air, temperature of 97.0. HEENT: Head atraumatic, normocephalic. Eyes: Pupils are equal and reactive to light and accommodation. Oropharynx clear. Mucosa moist. NECK: Supple. No JVD. No bruit bilaterally. RESPIRATORY: Clear to auscultation bilaterally. CARDIOVASCULAR: Regular rate and rhythm. No murmur. ABDOMEN: Soft, nontender. Bowel sounds present in all 4 quadrants. EXTREMITIES: There is no edema. +2 pulses bilaterally. No clubbing or cyanosis. NEURO EVALUATION: The patient has slight flattening of right-sided nasolabial fold which as per the patient is chronic. The patient has problems with raising her left leg off bed and that is also chronic related to her history of left ankle fracture. Otherwise, motor strength is 5/5 bilaterally in upper extremities and right lower extremity. Speech is clear. The patient is alert and oriented x3. SKIN: On evaluation of the skin, the patient has mild ecchymotic area in the distal right lower extremity. PSYCHIATRY EVALUATION: The patient is alert and oriented x3, pleasant and cooperative with the evaluation with no evidence of anxiety or depression. DIAGNOSTIC STUDIES/LAB DATA: White blood cell count 5.3, hemoglobin 10.6, hematocrit 32, and platelets of 166. Sodium of 136, potassium of 4.1, chloride of 105, carbon dioxide 28, BUN 30, creatinine 1.54. Liver function tests unremarkable. Lactic acid of 1. Urinalysis is positive for +3 esterase, +3 wbc's, +1 bacteria. EKG showed sinus rhythm with a heart rate of 64 beats per minute with no ST changes. ASSESSMENT AND PLAN: 1. Generalized weakness with low blood pressure. The patient otherwise is nontoxic appearing. I will obtain the patient's random cortisol level to evaluate further. It is also possible that the patient develops morning weakness due to the amount of medications she takes at night. She takes gabapentin 600, Trileptal 600, Seroquel 100 mg at night as well clonidine at 0.2 mg at bedtime. At this point, those medications are going to be held. We will obtain physical therapy and occupational therapy to evaluate further. 2. Urinary tract infection. Although the patient is asymptomatic from dysuria , she does have generalized weakness and low pressures. She is going to be treated with ceftriaxone and we will follow up the patient's cultures. 4. In regards to the patient's bipolar disease, appears to be well controlled at this point. Outpatient medications including Trileptal is going to be continued. We will also obtain Trileptal levels. 5. The patient has a history of tardive dyskinesia in the past due to antipsychotics that she took in the past. We will continue her on her home medication Austedo. 6. In regards to the patient's history of hypertension. Currently, the patient is hypotensive and all of her medications for blood pressure are going to be held. 7. The patient's code status is full. His surrogate is unable to be determined 8. For DVT prophylaxis, the patient will be placed on heparin subcutaneously. TIME SPENT: Approximately 62 minutes was spent on admission of this patient, more than half that time was spent [id number] with the patient during the interview and physical exam. [id number]/[facility] #: [id number] HYACINTH
[2019-05-18] MEDS: DEUTETRABENAZINE 6 MG PO SCH ×2 (12:54→15:19)
[2019-05-18] MEDS: Heparin VIAL(*) 5000 UNITS/ML VIAL (FIVE THOUSAND) SUBCUT SCH ×2 (12:55→22:20)
[2019-05-18] MEDS: Ibuprofen TAB* 600 MG PO PRN (15:19)
[2019-05-18] MEDS: Gabapentin CAP(*) 300 MG PO SCH ×2 (17:49→22:18)
[2019-05-18] MEDS ORDERED: QUEtiapine TAB* 100 MG PO SCH (21:00)
[2019-05-18] MEDS: Atorvastatin* 20 MG TAB PO SCH (22:19)
[2019-05-18] MEDS: Dicyclomine CAP* 10 MG PO PRN (22:35)
[2019-05-19] MEDS: Ibuprofen TAB* 600 MG PO PRN ×2 (04:47→20:24)
[2019-05-19] MEDS: Heparin VIAL(*) 5000 UNITS/ML VIAL (FIVE THOUSAND) SUBCUT SCH ×2 (04:50→12:25)
[2019-05-19] MEDS: Levothyroxine TAB* 25 MCG TAB PO SCH (05:11)
[2019-05-19] MEDS ORDERED: cefTRIAXone(*) 1 GM in NS 0.9% 50 ML* 50 ML IVPB SCH (06:00)
[2019-05-19] MEDS: BuPROPion XL* 300 MG TAB.XL PO SCH (07:53)
[2019-05-19] MEDS: Gabapentin CAP(*) 300 MG PO SCH ×4 (07:54→20:23)
[2019-05-19] MEDS: OXcarbazepine TAB(*) 300 MG PO SCH ×2 (07:54→20:38)
[2019-05-19] MEDS: Docusate CAP* 100 MG PO SCH (07:55)
[2019-05-19] MEDS: DEUTETRABENAZINE 6 MG PO SCH ×3 (07:57→16:35)
[2019-05-19] MEDS: Dicyclomine CAP* 10 MG PO PRN ×3 (08:01→22:10)
[2019-05-19 10:58] LABS: ABS Eosinophils 0.2 10^3/ul (0-0.6); ABS Lymphocytes 1.2 10^3/ul (1.0-4.8); ABS Monocytes 0.5 10^3/ul (0-0.8); ABS Neutrophils 3.1 10^3/ul (1.5-7.7); Eosinophil % 3.1 %; Hematocrit 36 % (35-47); Hemoglobin 11.9 g/dL (12.0-16.0); Mean Corpuscular HGB Conc 33 g/dL (31-36); Mean Corpuscular Hemoglobin 31 pg (27-31); Mean Corpuscular Volume 95 fL (80-97); Mean Platelet Volume 7.1 fL (7.4-10.4); Nucleated Red Blood Cells % 0.1; Platelet Count 297 10^3/uL (150-450); Red Blood Count 3.79 10^6 /uL (3.70-4.87); Red Cell Distribution Width 15 % (10-15)
[2019-05-19 11:16] LABS: Calcium 9.3 mg/dL (8.6-10.3); Potassium 4.6 mmol/L (3.5-5.0)
[2019-05-19 11:21] LABS: BUN/Creatinine Ratio 19.8 (8-20); EGFR African American 66.4 (>60); EGFR Non-African American 54.8 (>60)
[2019-05-19] MEDS: Acetaminophen TAB* 325 MG PO PRN ×2 (12:26→17:14)
--- NOTE | 2019-05-19 16:24 | PN ---
Subjective Date of Service: 05/19/19 Interval History: HD 2 on 05/19 68 F with PMH of Bipolar disorder, Tardive dyskinesia, Hypertension, CKD and chronic pain presented with generalised weakness. Found to have hypotension and abnormal urinalysis. Responded with IV fluids. No acute overnight events vitals: stable: although hypertensive Patient tearful this morning. She states that she is having frequent falls since january and has fallen every week. She has numbness and tingling on her hands. She is following with Dr. Meng for left ankle pain who is planning for surgery. She has been referred to outpatient Neurology for frequent falls. Patient tearful; does not feel safe going home alone; thinks she might fall again; frequent fall was the main reason why she came to the hospital. No burning micturition and increased frequency. Objective Active Medications: Acetaminophen (Tylenol Tab*) 650 mg PO Q4H PRN PRN Reason: PAIN-MILD/TEMP >/= 100.4 Last Admin: 05/19/19 12:26 Dose: 650 mg Al Hydrox/Mg Hydrox/Simethicone (Maalox Plus*) 30 ml PO Q6H PRN PRN Reason: INDIGESTION Amlodipine Besylate (Norvasc Tab*) 10 mg PO DAILY [facility] Atorvastatin Calcium (Lipitor*) 20 mg PO BEDTIME [facility] Last Admin: 05/18/19 22:19 Dose: 20 mg Bupropion HCl (Bupropion Xl*) 300 mg PO QAM [facility] Last Admin: 05/19/19 07:53 Dose: 300 mg Clonidine HCl (Catapres Tab*) 0.1 mg PO BEDTIME [facility] Dicyclomine HCl (Bentyl Cap*) 20 mg PO QID PRN PRN Reason: abdominal cramping/pain Last Admin: 05/19/19 08:01 Dose: 20 mg Gabapentin (Neurontin Cap(*)) 600 mg PO QID [facility] Last Admin: 05/19/19 12:25 Dose: 600 mg Heparin Sodium (Porcine) (Heparin Vial(*)) 5,000 units SUBCUT Q8HR [facility] Last Admin: 05/19/19 12:25 Dose: 5,000 units Ibuprofen (Motrin Tab*) 600 mg PO Q8H PRN PRN Reason: PAIN - MODERATE Last Admin: 05/19/19 04:47 Dose: 600 mg Levothyroxine Sodium (Synthroid Tab*) 25 mcg PO 0600 [facility] Last Admin: 05/19/19 05:11 Dose: 25 mcg Deutetrabenazine [ (Austedo] 6 Mg) 6 mg PO AC [facility] Last Admin: 05/19/19 12:27 Dose: Not Given Oxcarbazepine (Trileptal Tab(*)) 300 mg PO QAM [facility] Last Admin: 05/19/19 07:54 Dose: 300 mg Oxcarbazepine (Trileptal Tab(*)) 600 mg PO BEDTIME [facility] Last Admin: 05/18/19 22:17 Dose: 600 mg Vital Signs - 8 hr 05/19/19 05/19/19 05/19/19 11:35 11:36 11:50 Temperature 98.1 F Pulse Rate 83 Respiratory 18 18 20 Rate Blood Pressure 165/66 (mmHg) O2 Sat by Pulse 98 Oximetry 05/19/19 05/19/19 05/19/19 12:25 15:39 15:41 Temperature 98.0 F Pulse Rate 72 Respiratory 18 16 16 Rate Blood Pressure 120/55 (mmHg) O2 Sat by Pulse 98 Oximetry Oxygen Devices in Use Now: None Exam: Patient is sitting on a chair with no acute distress. HEENT: Normocephalic and atraumatic Lungs: clear with no added sounds Heart: S1/S2 heard with no murmur Abdomen: soft, nontender and nondistended Extremities: No swelling Neuro: ALert, oriented and coperative. HAs decreased motor strength on left hand and left feet. Decreased sensation of left feet. Result Diagrams: 05/19/19 10:47 05/19/19 10:47 Assess/Plan/Problems-Billing Assessment: 68 F with PMH of Bipolar disorder, Tardive dyskinesia, Hypertension, CKD and chronic pain presented with generalised weakness. Found to have hypotension and abnormal urinalysis. Responded with IV fluids. Her main concern is frequent falls that is happening for 3-4 months. Has focal weakness. Pending MRI brain - Patient Problems (1) Frequent falls Current Visit: Yes Status: Acute Code(s): R29.6 - REPEATED FALLS SNOMED Code(s): 610916156 Comment: -According to patient patient is falling frequently for 3-4 months. -Although she has chronic pain on her left ankle and is going to have surgery; her fall is new and she also has focal weakness. -we will try to rule out brain pathology with MRI -If necessary we will do Neurology consult here; otherwise she can follow up as an oupatient. -Physical therapy evaluation- needs rehab (2) Hypotension Current Visit: Yes Status: Acute Comment: -On presentation her BP was in 50's. -responded well with IV fluid; could be from dehydration -now BP high; stopped IV fluid -cortisol normal (3) Abnormal urinalysis Current Visit: Yes Status: Acute Code(s): R82.90 - UNSPECIFIED ABNORMAL FINDINGS IN URINE SNOMED Code(s): 930839274 Comment: -Asymptomatic -Urine analysis shows leucocyte esterase, WBC, and hyaline casts -urine culture normal -stopped antibiotics (4) Tardive dyskinesia Current Visit: Yes Status: Acute Code(s): G24.01 - DRUG INDUCED SUBACUTE DYSKINESIA SNOMED Code(s): 261036280 Comment: -present for years; after using abilify. -now on Austedo (5) History of hypertension Current Visit: Yes Status: Acute Code(s): Z86.79 - PERSONAL HISTORY OF OTHER DISEASES OF THE CIRCULATORY SYSTEM SNOMED Code(s): 709022235 Comment: -Has history of hypertension -is on amlodipine, lisinopril and hctz; takes clonidine for insomnia -held all anti-hypertensive on admission -now filippo has high BP -will slowly taper; for rebound hypertension -will start her other bp med step by step. -Monitor BP (6) CKD (chronic kidney disease) Current Visit: Yes Status: Acute Code(s): N18.9 - CHRONIC KIDNEY DISEASE, UNSPECIFIED SNOMED Code(s): 938441328 Comment: -has baseline creatinine of 1-1.35 -Creatinine was 1.5 on presentation -now 1.01 after iv fluids; not sure if had VINNY on top of CKD because of dehydration/hypotension or this is baseline -will monitor. (7) Bipolar 1 disorder Current Visit: No Status: Acute Code(s): F31.9 - BIPOLAR DISORDER, UNSPECIFIED SNOMED Code(s): 656783282 Comment: -takes trileptal, bupropion and seroquel -has chronic diffuse body pain- takes gabapentin (8) DVT prophylaxis Current Visit: Yes Status: Acute Code(s): Z29.9 - ENCOUNTER FOR PROPHYLACTIC MEASURES, UNSPECIFIED SNOMED Code(s): 726380454 Comment: -heparin (9) Full code status Current Visit: Yes Status: Acute Code(s): Z78.9 - OTHER SPECIFIED HEALTH STATUS SNOMED Code(s): 951607411 Status and Disposition: Inpatient will need [facility] Attending: Lizzette Sy Attestation Documenting Resident: Jennifer Sawnn Supervising Physician: Lizzette Sy Attestation: This service has been performed in part by a resident under the direction of a teaching physician.I, Lizzette Sy, performed the service, or was physically present during the critical, or [place]ck[place] portions of the service, furnished by the resident. I participated in the management of the patient.
[2019-05-19] MEDS: Al Hydrox/Mg Hydrox/Simet LIQ* 30 ML UDC PO PRN (20:22)
[2019-05-19] MEDS: Atorvastatin* 20 MG TAB PO SCH (20:24)
[2019-05-19] MEDS: cloNIDine TAB* 0.1 MG PO SCH (20:24)
[2019-05-19] MEDS: Enoxaparin(*) 40 MG/0.4 ML SYR SUBCUT SCH (20:24)
[2019-05-19] MEDS ORDERED: cloNIDine TAB* 0.1 MG PO SCH (21:00)
[2019-05-20] MEDS: Levothyroxine TAB* 25 MCG TAB PO SCH (05:36)
[2019-05-20] MEDS: Ibuprofen TAB* 600 MG PO PRN ×2 (05:41→20:24)
--- NOTE | 2019-05-20 07:07 | PN ---
Subjective Date of Service: 05/20/19 Interval History: HD 3 on 05/20 68 F with PMH of Bipolar disorder, Tardive dyskinesia, Hypertension, CKD and chronic pain presented with generalized weakness. Found to have hypotension and abnormal urinalysis. Responded with IV fluids. Normal MRI Brain No acute overnight events vitals: stable Patient seen and examined at bedside. Discussed about MRI results with the patient. patient has chronic shooting pain from head to toe. Patient anxious about going home; wants to go to rehab. Objective Active Medications: Acetaminophen (Tylenol Tab*) 650 mg PO Q4H PRN PRN Reason: PAIN-MILD/TEMP >/= 100.4 Last Admin: 05/19/19 17:14 Dose: 650 mg Al Hydrox/Mg Hydrox/Simethicone (Maalox Plus*) 30 ml PO Q6H PRN PRN Reason: INDIGESTION Last Admin: 05/19/19 20:22 Dose: 30 ml Amlodipine Besylate (Norvasc Tab*) 10 mg PO DAILY [facility] Atorvastatin Calcium (Lipitor*) 20 mg PO BEDTIME [facility] Last Admin: 05/19/19 20:24 Dose: 20 mg Bupropion HCl (Bupropion Xl*) 300 mg PO QAM [facility] Last Admin: 05/19/19 07:53 Dose: 300 mg Clonidine HCl (Catapres Tab*) 0.1 mg PO BEDTIME [facility] Last Admin: 05/19/19 20:24 Dose: 0.1 mg Dicyclomine HCl (Bentyl Cap*) 20 mg PO QID PRN PRN Reason: abdominal cramping/pain Last Admin: 05/19/19 22:10 Dose: 20 mg Enoxaparin Sodium (Lovenox(*)) 40 mg SUBCUT BEDTIME [facility] Last Admin: 05/19/19 20:24 Dose: 40 mg Gabapentin (Neurontin Cap(*)) 600 mg PO QID [facility] Last Admin: 05/19/19 20:23 Dose: 600 mg Ibuprofen (Motrin Tab*) 600 mg PO Q8H PRN PRN Reason: PAIN - MODERATE Last Admin: 05/20/19 05:41 Dose: 600 mg Levothyroxine Sodium (Synthroid Tab*) 25 mcg PO 0600 [facility] Last Admin: 05/20/19 05:36 Dose: 25 mcg Deutetrabenazine [ (Austedo] 6 Mg) 6 mg PO AC [facility] Last Admin: 05/19/19 16:35 Dose: Not Given Oxcarbazepine (Trileptal Tab(*)) 300 mg PO QAM [facility] Last Admin: 05/19/19 07:54 Dose: 300 mg Oxcarbazepine (Trileptal Tab(*)) 600 mg PO BEDTIME [facility] Last Admin: 05/19/19 20:38 Dose: 600 mg Vital Signs - 8 hr 05/19/19 05/20/19 23:33 02:50 Temperature 97.4 F 98.2 F Pulse Rate 68 75 Respiratory 18 18 Rate Blood Pressure 108/76 118/63 (mmHg) O2 Sat by Pulse 100 98 Oximetry Oxygen Devices in Use Now: None Exam: Patient is sitting on a chair with no acute distress. HEENT: Normocephalic and atraumatic Lungs: clear with no added sounds Heart: S1/S2 heard with no murmur Abdomen: soft, nontender and nondistended Extremities: No swelling Neuro: ALert, oriented and coperative. HAs decreased motor strength on left hand and left feet. Decreased sensation of left feet. Result Diagrams: 05/19/19 10:47 05/20/19 07:47 Assess/Plan/Problems-Billing Assessment: 68 F with PMH of Bipolar disorder, Tardive dyskinesia, Hypertension, CKD and chronic pain presented with generalised weakness. Found to have hypotension and abnormal urinalysis. Responded with IV fluids. Her main concern is frequent falls that is happening for 3-4 months. Has focal weakness. MRI brain normal - Patient Problems (1) Frequent falls Current Visit: Yes Status: Acute Code(s): R29.6 - REPEATED FALLS SNOMED Code(s): 934644410 Comment: -According to patient patient is falling frequently for 3-4 months. -Although she has chronic pain on her left ankle and is going to have surgery; her fall is new and she also has focal weakness. -we will try to rule out brain pathology with MRI- MRI normal. -Physical therapy evaluation- needs rehab -will follow up with Neurology as an outpatient (2) Hypotension Current Visit: Yes Status: Acute Comment: -On presentation her BP was in 50's. -responded well with IV fluid; could be from dehydration -now BP high; stopped IV fluid -cortisol normal (3) Abnormal urinalysis Current Visit: Yes Status: Acute Code(s): R82.90 - UNSPECIFIED ABNORMAL FINDINGS IN URINE SNOMED Code(s): 405728054 Comment: -Asymptomatic -Urine analysis shows leucocyte esterase, WBC, and hyaline casts -urine culture normal -stopped antibiotics (4) Tardive dyskinesia Current Visit: Yes Status: Acute Code(s): G24.01 - DRUG INDUCED SUBACUTE DYSKINESIA SNOMED Code(s): 798742720 Comment: -present for years; after using abilify. -now on Austedo (5) History of hypertension Current Visit: Yes Status: Acute Code(s): Z86.79 - PERSONAL HISTORY OF OTHER DISEASES OF THE CIRCULATORY SYSTEM SNOMED Code(s): 689510645 Comment: -Has history of hypertension -is on amlodipine, lisinopril and hctz; takes clonidine for insomnia -held all anti-hypertensive on admission -now filippo has high BP -will slowly taper clonidine; for rebound hypertension- can be stopped tomorrow. -will start her other bp med step by step watching her BP -Monitor BP (6) CKD (chronic kidney disease) Current Visit: Yes Status: Acute Code(s): N18.9 - CHRONIC KIDNEY DISEASE, UNSPECIFIED SNOMED Code(s): 254541982 Comment: -has baseline creatinine of 1-1.35 -Creatinine was 1.5 on presentation -now 1.01 after iv fluids; not sure if had VINNY on top of CKD because of dehydration/hypotension or this is baseline -will monitor. (7) Bipolar 1 disorder Current Visit: No Status: Acute Code(s): F31.9 - BIPOLAR DISORDER, UNSPECIFIED SNOMED Code(s): 913435123 Comment: -takes trileptal, bupropion and seroquel -has chronic diffuse body pain- takes gabapentin (8) DVT prophylaxis Current Visit: Yes Status: Acute Code(s): Z29.9 - ENCOUNTER FOR PROPHYLACTIC MEASURES, UNSPECIFIED SNOMED Code(s): 232245253 Comment: -lovenox (9) Full code status Current Visit: Yes Status: Acute Code(s): Z78.9 - OTHER SPECIFIED HEALTH STATUS SNOMED Code(s): 352931775 Status and Disposition: Inpatient will need [facility]- pending approval Attending: Lizzette Sy Attestation Documenting Resident: Jennifer Swann Supervising Physician: Lizzette Sy Attestation: This service has been performed in part by a resident under the direction of a teaching physician.I, Lizzette Sy, performed the service, or was physically present during the critical, or beck[place] portions of the service, furnished by the resident. I participated in the management of the patient.
[2019-05-20] MEDS: Gabapentin CAP(*) 300 MG PO SCH ×4 (08:05→20:23)
[2019-05-20] MEDS: OXcarbazepine TAB(*) 300 MG PO SCH ×2 (08:05→20:24)
[2019-05-20] MEDS: BuPROPion XL* 300 MG TAB.XL PO SCH (08:06)
[2019-05-20] MEDS: Dicyclomine CAP* 10 MG PO PRN ×2 (08:07→20:25)
[2019-05-20] MEDS: DEUTETRABENAZINE 6 MG PO SCH ×3 (08:07→17:03)
[2019-05-20 08:27] LABS: Calcium 9.1 mg/dL (8.6-10.3); Potassium 4.6 mmol/L (3.5-5.0)
[2019-05-20 08:32] LABS: BUN/Creatinine Ratio 20.6 (8-20); EGFR African American 65.6 (>60); EGFR Non-African American 54.2 (>60)
[2019-05-20] MEDS ORDERED: amLODIPine TAB* 5 MG PO SCH (09:00)
[2019-05-20] MEDS: Acetaminophen TAB* 325 MG PO PRN ×2 (12:52→16:32)
[2019-05-20] MEDS: Atorvastatin* 20 MG TAB PO SCH (20:24)
[2019-05-20] MEDS: Enoxaparin(*) 40 MG/0.4 ML SYR SUBCUT SCH (20:25)
[2019-05-20] MEDS: cloNIDine TAB* 0.1 MG PO SCH (20:25)
[2019-05-21] MEDS: Dicyclomine CAP* 10 MG PO PRN ×3 (04:42→21:04)
[2019-05-21] MEDS: Ibuprofen TAB* 600 MG PO PRN ×2 (04:45→13:39)
[2019-05-21] MEDS: Levothyroxine TAB* 25 MCG TAB PO SCH (04:45)
[2019-05-21 06:30] LABS: Calcium 9.5 mg/dL (8.6-10.3); Potassium 4.3 mmol/L (3.5-5.0)
[2019-05-21 06:35] LABS: BUN/Creatinine Ratio 21.1 (8-20); EGFR African American 75.8 (>60); EGFR Non-African American 62.6 (>60)
[2019-05-21] MEDS: BuPROPion XL* 300 MG TAB.XL PO SCH (09:48)
[2019-05-21] MEDS: Al Hydrox/Mg Hydrox/Simet LIQ* 30 ML UDC PO PRN (09:48)
[2019-05-21] MEDS: Acetaminophen TAB* 325 MG PO PRN ×2 (09:49→20:49)
[2019-05-21] MEDS: Gabapentin CAP(*) 300 MG PO SCH ×3 (09:49→20:48)
[2019-05-21] MEDS: OXcarbazepine TAB(*) 300 MG PO SCH ×2 (09:50→20:49)
[2019-05-21] MEDS: DEUTETRABENAZINE 6 MG PO SCH ×2 (10:14→16:13)
--- NOTE | 2019-05-21 11:05 | PN ---
Subjective Date of Service: 05/21/19 Interval History: No acute events overnight. Patient still intermittently complaining of 15/10 pain from "head to toe" while appearing very comfortable. Pt tearful when recounting how she was waken up for vitals overnight while sleeping, which caused her chronic pain to recur. Pt reports that she was told by an orthopedic surgeon that her total body pain could be from Parkinsons disease, MS, or a pinched nerve. Discussed with patient that these are all unlikely. Discussed possibility of fibromyalgia. She reports she's never heard of this diagnosis before. Objective Active Medications: Acetaminophen (Tylenol Tab*) 650 mg PO Q4H PRN PRN Reason: PAIN-MILD/TEMP >/= 100.4 Last Admin: 05/21/19 09:49 Dose: 650 mg Al Hydrox/Mg Hydrox/Simethicone (Maalox Plus*) 30 ml PO Q6H PRN PRN Reason: INDIGESTION Last Admin: 05/21/19 09:48 Dose: 30 ml Atorvastatin Calcium (Lipitor*) 20 mg PO BEDTIME [facility] Last Admin: 05/20/19 20:24 Dose: 20 mg Bupropion HCl (Bupropion Xl*) 300 mg PO QAM [facility] Last Admin: 05/21/19 09:48 Dose: 300 mg Clonidine HCl (Catapres Tab*) 0.1 mg PO BEDTIME [facility] Last Admin: 05/20/19 20:25 Dose: 0.1 mg Dicyclomine HCl (Bentyl Cap*) 20 mg PO QID PRN PRN Reason: abdominal cramping/pain Last Admin: 05/21/19 09:48 Dose: 20 mg Enoxaparin Sodium (Lovenox(*)) 40 mg SUBCUT BEDTIME [facility] Last Admin: 05/20/19 20:25 Dose: 40 mg Gabapentin (Neurontin Cap(*)) 600 mg PO QID [facility] Last Admin: 05/21/19 09:49 Dose: 600 mg Ibuprofen (Motrin Tab*) 600 mg PO Q8H PRN PRN Reason: PAIN - MODERATE Last Admin: 05/21/19 04:45 Dose: 600 mg Levothyroxine Sodium (Synthroid Tab*) 25 mcg PO 0600 [facility] Last Admin: 05/21/19 04:45 Dose: 25 mcg Deutetrabenazine [ (Austedo] 6 Mg) 6 mg PO AC [facility] Last Admin: 05/21/19 10:14 Dose: Not Given Oxcarbazepine (Trileptal Tab(*)) 300 mg PO QAM [facility] Last Admin: 05/21/19 09:50 Dose: 300 mg Oxcarbazepine (Trileptal Tab(*)) 600 mg PO BEDTIME [facility] Last Admin: 05/20/19 20:24 Dose: 600 mg Vital Signs - 8 hr 05/21/19 05/21/19 05/21/19 04:42 07:17 07:26 Temperature 97.8 F Pulse Rate 82 Respiratory 20 18 14 Rate Blood Pressure 130/62 (mmHg) O2 Sat by Pulse 99 Oximetry 05/21/19 05/21/19 09:48 09:49 Temperature Pulse Rate Respiratory 18 18 Rate Blood Pressure (mmHg) O2 Sat by Pulse Oximetry Oxygen Devices in Use Now: None Appearance: snoring before interview, appears comfortable, alert and interactive when woken up Eyes: No Scleral Icterus Ears/Nose/Mouth/Throat: Clear Oropharnyx, Mucous Membranes Moist Neck: NL Appearance and Movements; NL JVP, Trachea Midline Respiratory: Symmetrical Chest Expansion and Respiratory Effort, Clear to Auscultation Cardiovascular: NL Sounds; No Murmurs; No JVD, RRR Abdominal: NL Sounds; No Tenderness; No Distention, No Hepatosplenomegaly Extremities: No Edema, - - brace over L ankle Skin: No Rash or Ulcers Neurological: Alert and Oriented x 3 Result Diagrams: 05/19/19 10:47 05/21/19 05:57 Microbiology and Other Data: Microbiology 05/18/19 06:53 Aerobic Blood Culture - Preliminary Blood Venous No Growth Day 3 Anaerobic Blood Culture - Preliminary No Growth Day 3 05/18/19 07:08 Aerobic Blood Culture - Preliminary Blood Venous No Growth Day 3 Anaerobic Blood Culture - Preliminary No Growth Day 3 05/18/19 05:35 Urine Culture - Final Urine Assess/Plan/Problems-Billing Assessment: 68W with bipolar disorder, Tardive dyskinesia, HTN, and chronic pain, presents with generalized weakness, found with significant hypotension responsive to IV fluids. Her main concern is frequent falls for 3-4 months. Has focal weakness but MRI brain normal. - Patient Problems (1) Frequent falls Comment: According to patient patient is falling frequently for 3-4 months. Although she has chronic pain on her left ankle and is going to have surgery; her fall is new and she also has focal weakness. Brain MRI normal. -Physical therapy evaluation- needs rehab -will follow up with Neurology as an outpatient (2) History of hypertension Comment: Although presented with hypotension. - at home was on: amlodipine, lisinopril and hctz; clonidine - here with BP at goal off all meds, but would restart amlodipine first if needed - monitor vitals (3) Hypotension Comment: On presentation her SBP were in the 50s. Responded well with IV fluid; could be from dehydration in setting of poor PO and HCTZ. Cortisol normal. - resolved (4) Tardive dyskinesia Comment: -present for years; after using abilify. -now on Austedo (5) Bipolar 1 disorder Comment: -takes Trileptal, bupropion -has chronic diffuse body pain; takes gabapentin - change from 600 qid to 600bid and 1200 qhs (6) DVT prophylaxis Comment: -lovenox (7) Full code status Current Visit: Yes Status: Acute Code(s): Z78.9 - OTHER SPECIFIED HEALTH STATUS SNOMED Code(s): 127436673 Status and Disposition: Inpatient will need [facility]- pending approval
[2019-05-21] MEDS: Enoxaparin(*) 40 MG/0.4 ML SYR SUBCUT SCH (20:47)
[2019-05-21] MEDS: Atorvastatin* 20 MG TAB PO SCH (20:50)
[2019-05-22] MEDS: Ibuprofen TAB* 600 MG PO PRN ×2 (05:45→16:26)
[2019-05-22] MEDS: Dicyclomine CAP* 10 MG PO PRN ×2 (05:45→12:55)
[2019-05-22] MEDS: Levothyroxine TAB* 25 MCG TAB PO SCH (05:46)
[2019-05-22] MEDS: Gabapentin CAP(*) 300 MG PO SCH ×3 (05:46→21:24)
--- NOTE | 2019-05-22 07:02 | PN ---
Subjective Date of Service: 05/22/19 Interval History: HD 4 on 05/22 68 F with PMH of Bipolar disorder, Tardive dyskinesia, Hypertension, CKD and chronic pain presented with generalized weakness. Found to have hypotension and abnormal urinalysis. Responded with IV fluids. Normal MRI Brain No acute overnight events vitals: stable Patient seen and examined at bedside. Patient states she has chronic pain from her head to toe. She is going to see neurologist as an outpatient. Says she is doing leg exercises while sitting on a bed and is also working with physical therapy. Patient says her knees were hurting this morning when she was going to commode Objective Active Medications: Acetaminophen (Tylenol Tab*) 975 mg PO Q8H PRN PRN Reason: Pain - MIld to Mod Last Admin: 05/21/19 20:49 Dose: 975 mg Al Hydrox/Mg Hydrox/Simethicone (Maalox Plus*) 30 ml PO Q6H PRN PRN Reason: INDIGESTION Last Admin: 05/21/19 09:48 Dose: 30 ml Atorvastatin Calcium (Lipitor*) 20 mg PO BEDTIME [facility] Last Admin: 05/21/19 20:50 Dose: 20 mg Bupropion HCl (Bupropion Xl*) 300 mg PO QAM [facility] Last Admin: 05/21/19 09:48 Dose: 300 mg Dicyclomine HCl (Bentyl Cap*) 20 mg PO QID PRN PRN Reason: abdominal cramping/pain Last Admin: 05/22/19 05:45 Dose: 20 mg Enoxaparin Sodium (Lovenox(*)) 40 mg SUBCUT BEDTIME [facility] Last Admin: 05/21/19 20:47 Dose: 40 mg Gabapentin (Neurontin Cap(*)) 600 mg PO 0600,1300 [facility] Last Admin: 05/22/19 05:46 Dose: 600 mg Gabapentin (Neurontin Cap(*)) 1,200 mg PO BEDTIME [facility] Last Admin: 05/21/19 20:48 Dose: 1,200 mg Ibuprofen (Motrin Tab*) 600 mg PO Q8H PRN PRN Reason: PAIN - MODERATE Last Admin: 05/22/19 05:45 Dose: 600 mg Levothyroxine Sodium (Synthroid Tab*) 25 mcg PO 0600 [facility] Last Admin: 05/22/19 05:46 Dose: 25 mcg Deutetrabenazine [ (Austedo] 6 Mg) 6 mg PO AC [facility] Last Admin: 05/21/19 16:13 Dose: Not Given Oxcarbazepine (Trileptal Tab(*)) 300 mg PO QAM [facility] Last Admin: 05/21/19 09:50 Dose: 300 mg Oxcarbazepine (Trileptal Tab(*)) 600 mg PO BEDTIME [facility] Last Admin: 05/21/19 20:49 Dose: 600 mg Vital Signs - 8 hr 05/22/19 05/22/19 05/22/19 00:16 03:00 05:45 Temperature 98.2 F Pulse Rate 80 Respiratory 20 18 18 Rate Blood Pressure 143/72 (mmHg) O2 Sat by Pulse 97 Oximetry 05/22/19 05:46 Temperature Pulse Rate Respiratory 18 Rate Blood Pressure (mmHg) O2 Sat by Pulse Oximetry Oxygen Devices in Use Now: None Exam: Patient is sitting on a chair with no acute distress. HEENT: Normocephalic and atraumatic Lungs: clear with no added sounds Heart: S1/S2 heard with no murmur Abdomen: soft, nontender and nondistended Extremities: No swelling Neuro: ALert, oriented and coperative. HAs decreased motor strength on left hand and left feet. Decreased sensation of left feet. Result Diagrams: 05/19/19 10:47 05/21/19 05:57 Microbiology and Other Data: Microbiology 05/18/19 06:53 Aerobic Blood Culture - Preliminary Blood Venous No Growth Day 3 Anaerobic Blood Culture - Preliminary No Growth Day 3 05/18/19 07:08 Aerobic Blood Culture - Preliminary Blood Venous No Growth Day 3 Anaerobic Blood Culture - Preliminary No Growth Day 3 05/18/19 05:35 Urine Culture - Final Urine Assess/Plan/Problems-Billing Assessment: 68W with bipolar disorder, Tardive dyskinesia, HTN, and chronic pain, presents with generalized weakness, found with significant hypotension responsive to IV fluids. Her main concern is frequent falls for 3-4 months. Has focal weakness but MRI brain normal. - Patient Problems (1) Frequent falls Current Visit: Yes Status: Acute Code(s): R29.6 - REPEATED FALLS SNOMED Code(s): 649176896 Comment: -According to patient patient is falling frequently for 3-4 months. Although she has chronic pain on her left ankle and is going to have surgery; her fall is new and she also has focal weakness. Brain MRI normal. -Physical therapy evaluation- needs rehab -will follow up with Neurology as an outpatient- not sure if her frequent falls is from left ankle problem or from peripheral neuropathy; can be worked up as an outpatient (2) Hypotension Current Visit: Yes Status: Acute Comment: -On presentation her SBP were in the 50s. Responded well with IV fluid; could be from dehydration in setting of poor PO and HCTZ. Cortisol normal. - resolved (3) Abnormal urinalysis Current Visit: Yes Status: Acute Code(s): R82.90 - UNSPECIFIED ABNORMAL FINDINGS IN URINE SNOMED Code(s): 757226283 Comment: -Asymptomatic -Urine analysis shows leucocyte esterase, WBC, and hyaline casts -urine culture normal -stopped antibiotics (4) Tardive dyskinesia Current Visit: Yes Status: Acute Code(s): G24.01 - DRUG INDUCED SUBACUTE DYSKINESIA SNOMED Code(s): 974678065 Comment: -present for years; after using abilify. -now on Austedo (5) History of hypertension Current Visit: Yes Status: Acute Code(s): Z86.79 - PERSONAL HISTORY OF OTHER DISEASES OF THE CIRCULATORY SYSTEM SNOMED Code(s): 783857017 Comment: -Although presented with hypotension. - at home was on: amlodipine, lisinopril and hctz; clonidine - here with BP at goal off all meds but slightly hypertensive today -will start on amlodipine 5 mg. - monitor vitals (6) CKD (chronic kidney disease) Current Visit: Yes Status: Acute Code(s): N18.9 - CHRONIC KIDNEY DISEASE, UNSPECIFIED SNOMED Code(s): 622041266 Comment: -has baseline creatinine of 1-1.35 -Creatinine was 1.5 on presentation -now normal after iv fluids; not sure if had VINNY on top of CKD because of dehydration/hypotension or always presented with VINNY; but her GFR is 62. -will monitor. (7) Bipolar 1 disorder Current Visit: No Status: Acute Code(s): F31.9 - BIPOLAR DISORDER, UNSPECIFIED SNOMED Code(s): 648636052 Comment: -takes Trileptal, bupropion. -has chronic diffuse body pain; takes gabapentin - change from 600 qid to 600bid and 1200 qhs (8) DVT prophylaxis Current Visit: Yes Status: Acute Code(s): Z29.9 - ENCOUNTER FOR PROPHYLACTIC MEASURES, UNSPECIFIED SNOMED Code(s): 856038430 Comment: -lovenox (9) Full code status Current Visit: Yes Status: Acute Code(s): Z78.9 - OTHER SPECIFIED HEALTH STATUS SNOMED Code(s): 026193628 Status and Disposition: Inpatient will need [facility]- pending approval Attending: Lizzette Sy Attestation Documenting Resident: Jennifer Swann Supervising Physician: Lizzette Sy Attending/Supervising Physician Comment: Agree with resident findings and note. Attending A/P: 68F with bipolar disorder c/b medication induced tardive dyskinesia, HTN, and chronic pain, presents with generalized weakness, found with significant orthostatic hypotension responsive to IV fluids, frequent falls. Appears to be multifactorial with polypharmacy and aggressive HTN regimen, deconditioning, and polyneuropathy/ankle pain leading to falls in setting of normal MRI. Plan: -waiting [facility], off all HTN meds except amlodipine -Changed Cely dose around to help with pain and sleep -Per Care coordination, b/c of mental health decompensation in the past needs sign off by health dept before going to [facility], awaiting their inpatient evaluation. Attestation: This service has been performed in part by a resident under the direction of a teaching physician.I, Lizzette Sy, performed the service, or was physically present during the critical, or [place] portions of the service, furnished by the resident. I participated in the management of the patient.
[2019-05-22] MEDS: DEUTETRABENAZINE 6 MG PO SCH ×3 (07:47→15:01)
[2019-05-22] MEDS: BuPROPion XL* 300 MG TAB.XL PO SCH (08:55)
[2019-05-22] MEDS: OXcarbazepine TAB(*) 300 MG PO SCH ×2 (08:55→21:25)
[2019-05-22] MEDS: Acetaminophen TAB* 325 MG PO PRN ×2 (08:59→21:24)
[2019-05-22] MEDS: Atorvastatin* 20 MG TAB PO SCH (21:25)
[2019-05-22] MEDS: Enoxaparin(*) 40 MG/0.4 ML SYR SUBCUT SCH (21:25)
[2019-05-22] MEDS: Melatonin 3 MG TAB PO SCH (21:53)
[2019-05-23] MEDS: Gabapentin CAP(*) 300 MG PO SCH ×3 (06:18→20:08)
[2019-05-23] MEDS: Levothyroxine TAB* 25 MCG TAB PO SCH (06:18)
[2019-05-23] MEDS: DEUTETRABENAZINE 6 MG PO SCH ×3 (08:43→16:19)
[2019-05-23] MEDS: BuPROPion XL* 300 MG TAB.XL PO SCH (08:44)
[2019-05-23] MEDS: OXcarbazepine TAB(*) 300 MG PO SCH ×2 (08:45→20:08)
[2019-05-23] MEDS: amLODIPine TAB* 5 MG PO SCH (08:45)
[2019-05-23] MEDS: Acetaminophen TAB* 325 MG PO PRN ×2 (08:45→17:02)
[2019-05-23] MEDS: Ibuprofen TAB* 600 MG PO PRN ×2 (10:06→20:09)
--- NOTE | 2019-05-23 15:07 | PN ---
Subjective Date of Service: 05/23/19 Interval History: HD 5 on 05/23 68 F with PMH of Bipolar disorder, Tardive dyskinesia, Hypertension, CKD and chronic pain presented with generalized weakness. Found to have hypotension and abnormal urinalysis. Responded with IV fluids. Normal MRI Brain No acute overnight events vitals: stable Patient seen and examined on bedside. Patient states that she is feeling better today. her pain is minimal and her knee is pkay. Waiting for placement. Objective Active Medications: Acetaminophen (Tylenol Tab*) 975 mg PO Q8H PRN PRN Reason: Pain - MIld to Mod Last Admin: 05/23/19 08:45 Dose: 975 mg Al Hydrox/Mg Hydrox/Simethicone (Maalox Plus*) 30 ml PO Q6H PRN PRN Reason: INDIGESTION Last Admin: 05/21/19 09:48 Dose: 30 ml Amlodipine Besylate (Norvasc Tab*) 5 mg PO DAILY [facility] Last Admin: 05/23/19 08:45 Dose: 5 mg Atorvastatin Calcium (Lipitor*) 20 mg PO BEDTIME [facility] Last Admin: 05/22/19 21:25 Dose: 20 mg Bupropion HCl (Bupropion Xl*) 300 mg PO QAM [facility] Last Admin: 05/23/19 08:44 Dose: 300 mg Dicyclomine HCl (Bentyl Cap*) 20 mg PO QID PRN PRN Reason: abdominal cramping/pain Last Admin: 05/22/19 12:55 Dose: 20 mg Enoxaparin Sodium (Lovenox(*)) 40 mg SUBCUT BEDTIME [facility] Last Admin: 05/22/19 21:25 Dose: 40 mg Gabapentin (Neurontin Cap(*)) 600 mg PO 0600,1300 [facility] Last Admin: 05/23/19 12:24 Dose: 600 mg Gabapentin (Neurontin Cap(*)) 1,200 mg PO BEDTIME [facility] Last Admin: 05/22/19 21:24 Dose: 1,200 mg Ibuprofen (Motrin Tab*) 600 mg PO Q8H PRN PRN Reason: PAIN - MODERATE Last Admin: 05/23/19 10:06 Dose: 600 mg Levothyroxine Sodium (Synthroid Tab*) 25 mcg PO 0600 [facility] Last Admin: 05/23/19 06:18 Dose: 25 mcg Melatonin (Melatonin) 3 mg PO BEDTIME [facility] Last Admin: 05/22/19 21:53 Dose: 3 mg Deutetrabenazine [ (Austedo] 6 Mg) 6 mg PO AC [facility] Last Admin: 05/23/19 11:03 Dose: Not Given Oxcarbazepine (Trileptal Tab(*)) 300 mg PO QAM [facility] Last Admin: 05/23/19 08:45 Dose: 300 mg Oxcarbazepine (Trileptal Tab(*)) 600 mg PO BEDTIME [facility] Last Admin: 05/22/19 21:25 Dose: 600 mg Vital Signs - 8 hr 05/23/19 05/23/19 05/23/19 07:15 08:00 08:28 Temperature 98.1 F 97.5 F Pulse Rate 66 81 Respiratory 16 19 19 Rate Blood Pressure 112/88 107/53 (mmHg) O2 Sat by Pulse 100 98 Oximetry 05/23/19 05/23/19 11:15 12:24 Temperature 97.2 F Pulse Rate 83 Respiratory 20 16 Rate Blood Pressure 112/70 (mmHg) O2 Sat by Pulse 99 Oximetry Oxygen Devices in Use Now: None Exam: Patient is sitting on a chair with no acute distress. HEENT: Normocephalic and atraumatic Lungs: clear with no added sounds Heart: S1/S2 heard with no murmur Abdomen: soft, nontender and nondistended Extremities: No swelling Neuro: ALert, oriented and coperative. HAs decreased motor strength on left hand and left feet. Decreased sensation of left feet. Result Diagrams: 05/19/19 10:47 05/21/19 05:57 Microbiology and Other Data: Microbiology 05/18/19 06:53 Aerobic Blood Culture - Preliminary Blood Venous No Growth Day 3 Anaerobic Blood Culture - Preliminary No Growth Day 3 05/18/19 07:08 Aerobic Blood Culture - Preliminary Blood Venous No Growth Day 3 Anaerobic Blood Culture - Preliminary No Growth Day 3 05/18/19 05:35 Urine Culture - Final Urine Assess/Plan/Problems-Billing Assessment: 68W with bipolar disorder, Tardive dyskinesia, HTN, and chronic pain, presents with generalized weakness, found with significant hypotension responsive to IV fluids. Her main concern is frequent falls for 3-4 months. Has focal weakness but MRI brain normal. - Patient Problems (1) Frequent falls Current Visit: Yes Status: Acute Code(s): R29.6 - REPEATED FALLS SNOMED Code(s): 048542379 Comment: -According to patient patient is falling frequently for 3-4 months. Although she has chronic pain on her left ankle and is going to have surgery; her fall is new and she also has focal weakness. Brain MRI normal. -Physical therapy evaluation- needs rehab -will follow up with Neurology as an outpatient- not sure if her frequent falls is from left ankle problem or from peripheral neuropathy; can be worked up as an outpatient (2) Hypotension Current Visit: Yes Status: Acute Comment: -On presentation her SBP were in the 50s. Responded well with IV fluid; could be from dehydration in setting of poor PO and HCTZ. Cortisol normal. - resolved (3) Abnormal urinalysis Current Visit: Yes Status: Acute Code(s): R82.90 - UNSPECIFIED ABNORMAL FINDINGS IN URINE SNOMED Code(s): 161902826 Comment: -Asymptomatic -Urine analysis shows leucocyte esterase, WBC, and hyaline casts -urine culture normal -stopped antibiotics (4) Tardive dyskinesia Current Visit: Yes Status: Acute Code(s): G24.01 - DRUG INDUCED SUBACUTE DYSKINESIA SNOMED Code(s): 747409699 Comment: -present for years; after using abilify. -now on Austedo (5) History of hypertension Current Visit: Yes Status: Acute Code(s): Z86.79 - PERSONAL HISTORY OF OTHER DISEASES OF THE CIRCULATORY SYSTEM SNOMED Code(s): 047532478 Comment: -Although presented with hypotension. - at home was on: amlodipine, lisinopril and hctz; clonidine - here with BP at goal off all meds but slightly hypertensive -will start on amlodipine 5 mg- bp well controlled - monitor vitals (6) CKD (chronic kidney disease) Current Visit: Yes Status: Acute Code(s): N18.9 - CHRONIC KIDNEY DISEASE, UNSPECIFIED SNOMED Code(s): 015295037 Comment: -has baseline creatinine of 1-1.35 -Creatinine was 1.5 on presentation -now normal after iv fluids; not sure if had VINNY on top of CKD because of dehydration/hypotension or always presented with VINNY; but her GFR is 62. -will monitor. (7) Bipolar 1 disorder Current Visit: No Status: Acute Code(s): F31.9 - BIPOLAR DISORDER, UNSPECIFIED SNOMED Code(s): 758641547 Comment: -takes Trileptal, bupropion. -has chronic diffuse body pain; takes gabapentin - change from 600 qid to 600bid and 1200 qhs -melatonin for sleep (8) DVT prophylaxis Current Visit: Yes Status: Acute Code(s): Z29.9 - ENCOUNTER FOR PROPHYLACTIC MEASURES, UNSPECIFIED SNOMED Code(s): 961713046 Comment: -lovenox (9) Full code status Current Visit: Yes Status: Acute Code(s): Z78.9 - OTHER SPECIFIED HEALTH STATUS SNOMED Code(s): 362319933 Status and Disposition: Inpatient will need [facility] pending approval from health department Attending: Kim Perkins Attestation Documenting Resident: Jennifer Swann Supervising Physician: Kim Perkins Attending/Supervising Physician Comment: Agree with resident findings and note. Attending A/P: 68F with bipolar disorder c/b medication induced tardive dyskinesia, HTN, and chronic pain, presents with generalized weakness, found with significant orthostatic hypotension responsive to IV fluids, frequent falls. Appears to be multifactorial with polypharmacy and aggressive HTN regimen, deconditioning, and polyneuropathy/ankle pain leading to falls in setting of normal MRI. Plan: -waiting [facility] off all HTN meds except amlodipine -Changed Cely dose around to help with pain and sleep -Per Care coordination, b/c of mental health decompensation in the past needs sign off by health dept before going to [facility] awaiting their inpatient evaluation. Attestation: This service has been performed in part by a resident under the direction of a teaching physician.I, Kim Perkins, performed the service, or was physically present during the critical, or [place] portions of the service, furnished by the resident. I participated in the management of the patient.
[2019-05-23] MEDS: Atorvastatin* 20 MG TAB PO SCH (20:08)
[2019-05-23] MEDS: Al Hydrox/Mg Hydrox/Simet LIQ* 30 ML UDC PO PRN (20:08)
[2019-05-23] MEDS: Enoxaparin(*) 40 MG/0.4 ML SYR SUBCUT SCH (20:09)
[2019-05-23] MEDS: Melatonin 3 MG TAB PO SCH (23:19)
[2019-05-24] MEDS: Dicyclomine CAP* 10 MG PO PRN (03:34)
[2019-05-24] MEDS: Ibuprofen TAB* 600 MG PO PRN ×2 (03:35→13:13)
[2019-05-24] MEDS: Levothyroxine TAB* 25 MCG TAB PO SCH (06:02)
[2019-05-24] MEDS: Acetaminophen TAB* 325 MG PO PRN ×2 (06:02→20:37)
[2019-05-24] MEDS: Gabapentin CAP(*) 300 MG PO SCH ×3 (06:03→20:35)
[2019-05-24] MEDS: DEUTETRABENAZINE 6 MG PO SCH ×3 (09:22→16:43)
[2019-05-24] MEDS: amLODIPine TAB* 5 MG PO SCH (09:24)
[2019-05-24] MEDS: BuPROPion XL* 300 MG TAB.XL PO SCH (09:24)
[2019-05-24] MEDS: OXcarbazepine TAB(*) 300 MG PO SCH ×2 (09:24→20:37)
[2019-05-24] MEDS: Al Hydrox/Mg Hydrox/Simet LIQ* 30 ML UDC PO PRN ×2 (13:13→22:18)
--- NOTE | 2019-05-24 16:36 | PN ---
Subjective Date of Service: 05/24/19 Interval History: HD 6 on 05/24 68 F with PMH of Bipolar disorder, Tardive dyskinesia, Hypertension, CKD and chronic pain presented with generalized weakness. Found to have hypotension and abnormal urinalysis. Responded with IV fluids. Normal MRI Brain No acute overnight events. vitals: stable Patient seen and examined at bedside. patient is feeling better and is asymptomatic. Waiting for placement Objective Active Medications: Acetaminophen (Tylenol Tab*) 975 mg PO Q8H PRN PRN Reason: Pain - MIld to Mod Last Admin: 05/24/19 06:02 Dose: 975 mg Al Hydrox/Mg Hydrox/Simethicone (Maalox Plus*) 30 ml PO Q6H PRN PRN Reason: INDIGESTION Last Admin: 05/24/19 13:13 Dose: 30 ml Amlodipine Besylate (Norvasc Tab*) 5 mg PO DAILY [facility] Last Admin: 05/24/19 09:24 Dose: 5 mg Atorvastatin Calcium (Lipitor*) 20 mg PO BEDTIME [facility] Last Admin: 05/23/19 20:08 Dose: 20 mg Bupropion HCl (Bupropion Xl*) 300 mg PO QAM [facility] Last Admin: 05/24/19 09:24 Dose: 300 mg Dicyclomine HCl (Bentyl Cap*) 20 mg PO QID PRN PRN Reason: abdominal cramping/pain Last Admin: 05/24/19 03:34 Dose: 20 mg Enoxaparin Sodium (Lovenox(*)) 40 mg SUBCUT BEDTIME [facility] Last Admin: 05/23/19 20:09 Dose: 40 mg Gabapentin (Neurontin Cap(*)) 600 mg PO 0600,1300 [facility] Last Admin: 05/24/19 13:15 Dose: 600 mg Gabapentin (Neurontin Cap(*)) 1,200 mg PO BEDTIME [facility] Last Admin: 05/23/19 20:08 Dose: 1,200 mg Ibuprofen (Motrin Tab*) 600 mg PO Q8H PRN PRN Reason: PAIN - MODERATE Last Admin: 05/24/19 13:13 Dose: 600 mg Levothyroxine Sodium (Synthroid Tab*) 25 mcg PO 0600 [facility] Last Admin: 05/24/19 06:02 Dose: 25 mcg Melatonin (Melatonin) 3 mg PO BEDTIME [facility] Last Admin: 05/23/19 23:19 Dose: 3 mg Deutetrabenazine [ (Austedo] 6 Mg) 6 mg PO AC [facility] Last Admin: 05/24/19 11:06 Dose: Not Given Oxcarbazepine (Trileptal Tab(*)) 300 mg PO QAM [facility] Last Admin: 05/24/19 09:24 Dose: 300 mg Oxcarbazepine (Trileptal Tab(*)) 600 mg PO BEDTIME [facility] Last Admin: 05/23/19 20:08 Dose: 600 mg Vital Signs - 8 hr 05/24/19 13:15 Respiratory 19 Rate Oxygen Devices in Use Now: None Exam: Patient is sitting on a chair with no acute distress. HEENT: Normocephalic and atraumatic Lungs: clear with no added sounds Heart: S1/S2 heard with no murmur Abdomen: soft, nontender and nondistended Extremities: No swelling Neuro: ALert, oriented and coperative. HAs decreased motor strength on left hand and left feet. Decreased sensation of left feet. Result Diagrams: Result Diagrams: 05/19/19 10:47 05/21/19 05:57 Microbiology and Other Data: Microbiology 05/18/19 06:53 Aerobic Blood Culture - Preliminary Blood Venous No Growth Day 3 Anaerobic Blood Culture - Preliminary No Growth Day 3 05/18/19 07:08 Aerobic Blood Culture - Preliminary Blood Venous No Growth Day 3 Anaerobic Blood Culture - Preliminary No Growth Day 3 05/18/19 05:35 Urine Culture - Final Urine Assess/Plan/Problems-Billing Assessment: 68W with bipolar disorder, Tardive dyskinesia, HTN, and chronic pain, presents with generalized weakness, found with significant hypotension responsive to IV fluids. Her main concern is frequent falls for 3-4 months. Has focal weakness but MRI brain normal. - Patient Problems (1) Frequent falls Comment: -According to patient patient is falling frequently for 3-4 months. Although she has chronic pain on her left ankle and is going to have surgery; her fall is new and she also has focal weakness. Brain MRI normal. -Physical therapy evaluation- needs rehab -will follow up with Neurology as an outpatient- not sure if her frequent falls is from left ankle problem or from peripheral neuropathy; can be worked up as an outpatient (2) Hypotension Comment: -On presentation her SBP were in the 50s. Responded well with IV fluid; could be from dehydration in setting of poor PO and HCTZ. Cortisol normal. - resolved (3) Abnormal urinalysis Current Visit: Yes Status: Acute Code(s): R82.90 - UNSPECIFIED ABNORMAL FINDINGS IN URINE SNOMED Code(s): 963005942 Comment: -Asymptomatic -Urine analysis shows leucocyte esterase, WBC, and hyaline casts -urine culture normal -stopped antibiotics (4) Tardive dyskinesia Comment: -present for years; after using abilify. -now on Austedo (5) History of hypertension Comment: -Although presented with hypotension. - at home was on: amlodipine, lisinopril and hctz; clonidine - here with BP at goal off all meds but slightly hypertensive -will start on amlodipine 5 mg- bp well controlled - monitor vitals (6) CKD (chronic kidney disease) Current Visit: Yes Status: Acute Code(s): N18.9 - CHRONIC KIDNEY DISEASE, UNSPECIFIED SNOMED Code(s): 541255524 Comment: -has baseline creatinine of 1-1.35 -Creatinine was 1.5 on presentation -now normal after iv fluids; not sure if had VINNY on top of CKD because of dehydration/hypotension or always presented with VINNY; but her GFR is 62. -will monitor. (7) Bipolar 1 disorder Comment: -takes Trileptal, bupropion. -has chronic diffuse body pain; takes gabapentin - change from 600 qid to 600bid and 1200 qhs -melatonin for sleep (8) DVT prophylaxis Comment: -lovenox (9) Full code status Current Visit: Yes Status: Acute Code(s): Z78.9 - OTHER SPECIFIED HEALTH STATUS SNOMED Code(s): 559507892 Status and Disposition: Inpatient will need [facility]- pending approval from health department Attending: Lizzette Sy Attestation Documenting Resident: Jennifer Swann Supervising Physician: Lizzette Sy Attending/Supervising Physician Comment: 68W bipolar disorder with multiple suicide attempts, h/o iatrogenic tardive dyskinesia, HTN, and chronic pain, presented with weakness and frequent falls in the context of recent ankle issues. Found with severe hypotension, which resolved with IVF and discontinuation of home meds. Waiting for [facility] placement after health department evaluation. Attestation: This service has been performed in part by a resident under the direction of a teaching physician.I, Lizzette Sy, performed the service, or was physically present during the critical, or [place] portions of the service, furnished by the resident. I participated in the management of the patient.
[2019-05-24] MEDS: Atorvastatin* 20 MG TAB PO SCH (20:38)
[2019-05-24] MEDS: Enoxaparin(*) 40 MG/0.4 ML SYR SUBCUT SCH (20:42)
[2019-05-24] MEDS: Melatonin 3 MG TAB PO SCH (23:32)
[2019-05-25] MEDS: Levothyroxine TAB* 25 MCG TAB PO SCH (05:40)
[2019-05-25] MEDS: Gabapentin CAP(*) 300 MG PO SCH ×3 (05:40→21:04)
[2019-05-25] MEDS: Ibuprofen TAB* 600 MG PO PRN ×2 (05:41→14:07)
[2019-05-25] MEDS: DEUTETRABENAZINE 6 MG PO SCH ×3 (09:01→15:46)
[2019-05-25] MEDS: Al Hydrox/Mg Hydrox/Simet LIQ* 30 ML UDC PO PRN ×2 (09:04→18:10)
[2019-05-25] MEDS: Dicyclomine CAP* 10 MG PO PRN (09:04)
[2019-05-25] MEDS: BuPROPion XL* 300 MG TAB.XL PO SCH (09:05)
[2019-05-25] MEDS: OXcarbazepine TAB(*) 300 MG PO SCH ×2 (09:05→21:04)
[2019-05-25] MEDS: amLODIPine TAB* 5 MG PO SCH (09:05)
[2019-05-25] MEDS: Acetaminophen TAB* 325 MG PO PRN ×2 (09:08→18:10)
[2019-05-25] MEDS: Ondansetron TAB* 4 MG PO PRN (09:49)
--- NOTE | 2019-05-25 10:52 | PN ---
Subjective Date of Service: 05/25/19 Interval History: HD 7 on 05/25 68 F with PMH of Bipolar disorder, Tardive dyskinesia, Hypertension, CKD and chronic pain presented with generalized weakness. Found to have hypotension and abnormal urinalysis. Responded with IV fluids. Normal MRI Brain No acute overnight events. vitals: stable Patient seen and examined at bedside. Feeling nauseous but no other sx. waiting for placement and approval. Objective Active Medications: Acetaminophen (Tylenol Tab*) 975 mg PO Q8H PRN PRN Reason: Pain - MIld to Mod Last Admin: 05/25/19 09:08 Dose: 975 mg Al Hydrox/Mg Hydrox/Simethicone (Maalox Plus*) 30 ml PO Q6H PRN PRN Reason: INDIGESTION Last Admin: 05/25/19 09:04 Dose: 30 ml Amlodipine Besylate (Norvasc Tab*) 5 mg PO DAILY [facility] Last Admin: 05/25/19 09:05 Dose: 5 mg Atorvastatin Calcium (Lipitor*) 20 mg PO BEDTIME [facility] Last Admin: 05/24/19 20:38 Dose: 20 mg Bupropion HCl (Bupropion Xl*) 300 mg PO QAM [facility] Last Admin: 05/25/19 09:05 Dose: 300 mg Dicyclomine HCl (Bentyl Cap*) 20 mg PO QID PRN PRN Reason: abdominal cramping/pain Last Admin: 05/25/19 09:04 Dose: 20 mg Enoxaparin Sodium (Lovenox(*)) 40 mg SUBCUT BEDTIME [facility] Last Admin: 05/24/19 20:42 Dose: 40 mg Gabapentin (Neurontin Cap(*)) 600 mg PO 0600,1300 [facility] Last Admin: 05/25/19 05:40 Dose: 600 mg Gabapentin (Neurontin Cap(*)) 1,200 mg PO BEDTIME [facility] Last Admin: 05/24/19 20:35 Dose: 1,200 mg Ibuprofen (Motrin Tab*) 600 mg PO Q8H PRN PRN Reason: PAIN - MODERATE Last Admin: 05/25/19 05:41 Dose: 600 mg Levothyroxine Sodium (Synthroid Tab*) 25 mcg PO 0600 [facility] Last Admin: 05/25/19 05:40 Dose: 25 mcg Melatonin (Melatonin) 3 mg PO BEDTIME [facility] Last Admin: 05/24/19 23:32 Dose: 3 mg Deutetrabenazine [ (Austedo] 6 Mg) 6 mg PO AC [facility] Last Admin: 05/25/19 09:01 Dose: Not Given Ondansetron HCl (Zofran Tab*) 4 mg PO Q8H PRN PRN Reason: NAUSEA/VOMITING Last Admin: 05/25/19 09:49 Dose: 4 mg Oxcarbazepine (Trileptal Tab(*)) 300 mg PO QAM [facility] Last Admin: 05/25/19 09:05 Dose: 300 mg Oxcarbazepine (Trileptal Tab(*)) 600 mg PO BEDTIME [facility] Last Admin: 05/24/19 20:37 Dose: 600 mg Vital Signs - 8 hr 05/25/19 05/25/19 05/25/19 03:43 05:40 07:15 Temperature 97.5 F 97.8 F Pulse Rate 78 76 Respiratory 20 18 20 Rate Blood Pressure 144/60 159/63 (mmHg) O2 Sat by Pulse 91 96 Oximetry 05/25/19 05/25/19 05/25/19 08:00 09:04 09:17 Temperature Pulse Rate Respiratory 16 16 16 Rate Blood Pressure (mmHg) O2 Sat by Pulse Oximetry Oxygen Devices in Use Now: None Exam: Patient is sitting on a chair with no acute distress. HEENT: Normocephalic and atraumatic Lungs: clear with no added sounds Heart: S1/S2 heard with no murmur Abdomen: soft, nontender and nondistended Extremities: No swelling Neuro: ALert, oriented and coperative. HAs decreased motor strength on left hand and left feet. Result Diagrams: 05/19/19 10:47 05/21/19 05:57 Microbiology and Other Data: Microbiology 05/18/19 06:53 Aerobic Blood Culture - Preliminary Blood Venous No Growth Day 3 Anaerobic Blood Culture - Preliminary No Growth Day 3 05/18/19 07:08 Aerobic Blood Culture - Preliminary Blood Venous No Growth Day 3 Anaerobic Blood Culture - Preliminary No Growth Day 3 05/18/19 05:35 Urine Culture - Final Urine Assess/Plan/Problems-Billing Assessment: 68W with bipolar disorder, Tardive dyskinesia, HTN, and chronic pain, presents with generalized weakness, found with significant hypotension responsive to IV fluids. Her main concern is frequent falls for 3-4 months. Has focal weakness but MRI brain normal. - Patient Problems (1) Frequent falls Comment: -According to patient patient is falling frequently for 3-4 months. Although she has chronic pain on her left ankle and is going to have surgery; her fall is new and she also has focal weakness. Brain MRI normal and no progression of weakness. -Physical therapy evaluation- needs rehab -will follow up with Neurology as an outpatient- not sure if her frequent falls is from left ankle problem or from peripheral neuropathy; can be worked up as an outpatient (2) Hypotension Comment: -On presentation her SBP were in the 50s. Responded well with IV fluid; could be from dehydration in setting of poor PO and HCTZ. Cortisol normal. - resolved (3) Abnormal urinalysis Current Visit: Yes Status: Acute Code(s): R82.90 - UNSPECIFIED ABNORMAL FINDINGS IN URINE SNOMED Code(s): 900631577 Comment: -Asymptomatic -Urine analysis shows leucocyte esterase, WBC, and hyaline casts -urine culture normal -stopped antibiotics (4) Tardive dyskinesia Comment: -present for years; after using abilify. -now on Austedo (5) History of hypertension Comment: -Although presented with hypotension. - at home was on: amlodipine, lisinopril and hctz; clonidine - here with BP at goal off all meds but slightly hypertensive -will start on amlodipine 5 mg- bp well controlled - monitor vitals (6) CKD (chronic kidney disease) Current Visit: Yes Status: Acute Code(s): N18.9 - CHRONIC KIDNEY DISEASE, UNSPECIFIED SNOMED Code(s): 613527660 Comment: -has baseline creatinine of 1-1.35 -Creatinine was 1.5 on presentation -now normal after iv fluids; not sure if had VINNY on top of CKD because of dehydration/hypotension or always presented with VINNY; but her GFR is 62. -will monitor. (7) Bipolar 1 disorder Comment: -takes Trileptal, bupropion. -has chronic diffuse body pain; takes gabapentin - change from 600 qid to 600bid and 1200 qhs -melatonin for sleep (8) DVT prophylaxis Comment: -lovenox (9) Full code status Current Visit: Yes Status: Acute Code(s): Z78.9 - OTHER SPECIFIED HEALTH STATUS SNOMED Code(s): 108835250 Status and Disposition: Inpatient will need [facility]- pending approval from health department Attending: Lizzette Sy Attestation Documenting Resident: Jennifer Swann Supervising Physician: Lizzette Sy Attending/Supervising Physician Comment: 68W bipolar disorder with multiple suicide attempts, h/o iatrogenic tardive dyskinesia, HTN, and chronic pain, presented with weakness and frequent falls in the context of recent ankle issues. Found with severe hypotension, which resolved with IVF and discontinuation of home meds. Waiting for [facility] placement after health department evaluation. Attestation: This service has been performed in part by a resident under the direction of a teaching physician.I, Lizzette Sy, performed the service, or was physically present during the critical, or [place] portions of the service, furnished by the resident. I participated in the management of the patient.
[2019-05-25] MEDS: Atorvastatin* 20 MG TAB PO SCH (21:04)
[2019-05-25] MEDS: Enoxaparin(*) 40 MG/0.4 ML SYR SUBCUT SCH (21:07)
[2019-05-25] MEDS: Melatonin 3 MG TAB PO SCH (22:46)
[2019-05-26] MEDS: Gabapentin CAP(*) 300 MG PO SCH ×3 (05:45→20:53)
[2019-05-26] MEDS: Levothyroxine TAB* 25 MCG TAB PO SCH (05:46)
[2019-05-26] MEDS: Ibuprofen TAB* 600 MG PO PRN ×2 (05:46→19:32)
[2019-05-26] MEDS: DEUTETRABENAZINE 6 MG PO SCH ×3 (07:13→14:44)
[2019-05-26] MEDS: Acetaminophen TAB* 325 MG PO PRN (09:24)
[2019-05-26] MEDS: BuPROPion XL* 300 MG TAB.XL PO SCH (09:24)
[2019-05-26] MEDS: Ondansetron TAB* 4 MG PO PRN ×2 (09:25→19:35)
[2019-05-26] MEDS: amLODIPine TAB* 5 MG PO SCH (09:25)
[2019-05-26] MEDS: Al Hydrox/Mg Hydrox/Simet LIQ* 30 ML UDC PO PRN ×2 (09:26→19:32)
[2019-05-26] MEDS: OXcarbazepine TAB(*) 300 MG PO SCH ×2 (09:26→20:54)
--- NOTE | 2019-05-26 10:27 | PN ---
Subjective Date of Service: 05/26/19 Interval History: HD 8 on 05/26 68 F with PMH of Bipolar disorder, Tardive dyskinesia, Hypertension, CKD and chronic pain presented with generalized weakness. Found to have hypotension and abnormal urinalysis. Responded with IV fluids. Normal MRI Brain No acute overnight events. vitals: stable patient seen and examined at bedside. Patient waiting for approval for [facility] for level 2 clearance. patient working well with PT Objective Active Medications: Acetaminophen (Tylenol Tab*) 975 mg PO Q8H PRN PRN Reason: Pain - MIld to Mod Last Admin: 05/26/19 09:24 Dose: 975 mg Al Hydrox/Mg Hydrox/Simethicone (Maalox Plus*) 30 ml PO Q6H PRN PRN Reason: INDIGESTION Last Admin: 05/26/19 09:26 Dose: 30 ml Amlodipine Besylate (Norvasc Tab*) 5 mg PO DAILY [facility] Last Admin: 05/26/19 09:25 Dose: 5 mg Atorvastatin Calcium (Lipitor*) 20 mg PO BEDTIME [facility] Last Admin: 05/25/19 21:04 Dose: 20 mg Bupropion HCl (Bupropion Xl*) 300 mg PO QAM [facility] Last Admin: 05/26/19 09:24 Dose: 300 mg Dicyclomine HCl (Bentyl Cap*) 20 mg PO QID PRN PRN Reason: abdominal cramping/pain Last Admin: 05/25/19 09:04 Dose: 20 mg Enoxaparin Sodium (Lovenox(*)) 40 mg SUBCUT BEDTIME [facility] Last Admin: 05/25/19 21:07 Dose: 40 mg Gabapentin (Neurontin Cap(*)) 600 mg PO 0600,1300 [facility] Last Admin: 05/26/19 05:45 Dose: 600 mg Gabapentin (Neurontin Cap(*)) 1,200 mg PO BEDTIME [facility] Last Admin: 05/25/19 21:04 Dose: 1,200 mg Ibuprofen (Motrin Tab*) 600 mg PO Q8H PRN PRN Reason: PAIN - MODERATE Last Admin: 05/26/19 05:46 Dose: 600 mg Levothyroxine Sodium (Synthroid Tab*) 25 mcg PO 0600 [facility] Last Admin: 05/26/19 05:46 Dose: 25 mcg Melatonin (Melatonin) 3 mg PO BEDTIME [facility] Last Admin: 05/25/19 22:46 Dose: 3 mg Deutetrabenazine [ (Austedo] 6 Mg) 6 mg PO AC [facility] Last Admin: 05/26/19 07:13 Dose: Not Given Ondansetron HCl (Zofran Tab*) 4 mg PO Q8H PRN PRN Reason: NAUSEA/VOMITING Last Admin: 05/26/19 09:25 Dose: 4 mg Oxcarbazepine (Trileptal Tab(*)) 300 mg PO QAM [facility] Last Admin: 05/26/19 09:26 Dose: 300 mg Oxcarbazepine (Trileptal Tab(*)) 600 mg PO BEDTIME [facility] Last Admin: 05/25/19 21:04 Dose: 600 mg Vital Signs - 8 hr 05/26/19 05/26/19 05/26/19 02:29 05:45 07:15 Temperature 98.2 F 97.5 F Pulse Rate 100 81 Respiratory 18 16 16 Rate Blood Pressure 121/75 132/66 (mmHg) O2 Sat by Pulse 100 95 Oximetry 05/26/19 09:28 Temperature Pulse Rate Respiratory 18 Rate Blood Pressure (mmHg) O2 Sat by Pulse Oximetry Oxygen Devices in Use Now: None Exam: Patient is sitting on a chair with no acute distress. HEENT: Normocephalic and atraumatic Lungs: clear with no added sounds Heart: S1/S2 heard with no murmur Abdomen: soft, nontender and nondistended Extremities: No swelling Neuro: ALert, oriented and coperative. HAs decreased motor strength on left hand and left feet. Result Diagrams: 05/19/19 10:47 05/21/19 05:57 Microbiology and Other Data: Microbiology 05/18/19 06:53 Aerobic Blood Culture - Preliminary Blood Venous No Growth Day 3 Anaerobic Blood Culture - Preliminary No Growth Day 3 05/18/19 07:08 Aerobic Blood Culture - Preliminary Blood Venous No Growth Day 3 Anaerobic Blood Culture - Preliminary No Growth Day 3 05/18/19 05:35 Urine Culture - Final Urine Assess/Plan/Problems-Billing Assessment: 68W with bipolar disorder, Tardive dyskinesia, HTN, and chronic pain, presents with generalized weakness, found with significant hypotension responsive to IV fluids. Her main concern is frequent falls for 3-4 months. Has focal weakness but MRI brain normal. - Patient Problems (1) Frequent falls Comment: -According to patient patient is falling frequently for 3-4 months. Although she has chronic pain on her left ankle and is going to have surgery; her fall is new and she also has focal weakness. Brain MRI normal and no progression of weakness. -Physical therapy evaluation- needs rehab -will follow up with Neurology as an outpatient- not sure if her frequent falls is from left ankle problem or from peripheral neuropathy; can be worked up as an outpatient (2) Hypotension Comment: -On presentation her SBP were in the 50s. Responded well with IV fluid; could be from dehydration in setting of poor PO and HCTZ. Cortisol normal. - resolved (3) Abnormal urinalysis Current Visit: Yes Status: Acute Code(s): R82.90 - UNSPECIFIED ABNORMAL FINDINGS IN URINE SNOMED Code(s): 442786808 Comment: -Asymptomatic -Urine analysis shows leucocyte esterase, WBC, and hyaline casts -urine culture normal -stopped antibiotics (4) Tardive dyskinesia Comment: -present for years; after using abilify. -now on Austedo (5) History of hypertension Comment: -Although presented with hypotension. - at home was on: amlodipine, lisinopril and hctz; clonidine - here with BP at goal off all meds but slightly hypertensive -will start on amlodipine 5 mg- bp well controlled - monitor vitals (6) CKD (chronic kidney disease) Current Visit: Yes Status: Acute Code(s): N18.9 - CHRONIC KIDNEY DISEASE, UNSPECIFIED SNOMED Code(s): 091801480 Comment: -has baseline creatinine of 1-1.35 -Creatinine was 1.5 on presentation -now normal after iv fluids; not sure if had VINNY on top of CKD because of dehydration/hypotension or always presented with VINNY; but her GFR is 62. -will monitor. (7) Bipolar 1 disorder Comment: -takes Trileptal, bupropion. -has chronic diffuse body pain; takes gabapentin - change from 600 qid to 600bid and 1200 qhs -melatonin for sleep (8) DVT prophylaxis Comment: -lovenox (9) Full code status Current Visit: Yes Status: Acute Code(s): Z78.9 - OTHER SPECIFIED HEALTH STATUS SNOMED Code(s): 495535281 Status and Disposition: Inpatient will need [facility]- pending approval from health department Attending: Lizzette Sy Attestation Documenting Resident: Jennifer Swann Supervising Physician: Lizzette Sy Attending/Supervising Physician Comment: 68W bipolar disorder with multiple suicide attempts, h/o iatrogenic tardive dyskinesia, HTN, and chronic pain, presented with weakness and frequent falls in the context of recent ankle issues. Found with severe hypotension, which resolved with IVF and discontinuation of home meds. Waiting for [facility] placement after health department evaluation. Attestation: This service has been performed in part by a resident under the direction of a teaching physician.I, Lizzette Sy, performed the service, or was physically present during the critical, or [place] portions of the service, furnished by the resident. I participated in the management of the patient.
[2019-05-26] MEDS: Atorvastatin* 20 MG TAB PO SCH (20:54)
[2019-05-26] MEDS: Melatonin 3 MG TAB PO SCH (20:54)
[2019-05-26] MEDS: Enoxaparin(*) 40 MG/0.4 ML SYR SUBCUT SCH (20:55)
[2019-05-27] MEDS: Ibuprofen TAB* 600 MG PO PRN ×2 (03:29→17:48)
[2019-05-27] MEDS: Gabapentin CAP(*) 300 MG PO SCH ×3 (05:46→20:45)
[2019-05-27] MEDS: Levothyroxine TAB* 25 MCG TAB PO SCH (05:46)
[2019-05-27] MEDS: DEUTETRABENAZINE 6 MG PO SCH ×3 (07:19→14:51)
[2019-05-27] MEDS: Acetaminophen TAB* 325 MG PO PRN (09:05)
[2019-05-27] MEDS: BuPROPion XL* 300 MG TAB.XL PO SCH (09:06)
[2019-05-27] MEDS: amLODIPine TAB* 5 MG PO SCH (09:06)
[2019-05-27] MEDS: OXcarbazepine TAB(*) 300 MG PO SCH ×2 (09:06→20:46)
[2019-05-27] MEDS: Ondansetron TAB* 4 MG PO PRN (13:08)
--- NOTE | 2019-05-27 15:38 | PN ---
Subjective Date of Service: 05/27/19 Interval History: [place] nauseous but better now no other complaints Objective Active Medications: Acetaminophen (Tylenol Tab*) 975 mg PO Q8H PRN PRN Reason: Pain - MIld to Mod Last Admin: 05/27/19 09:05 Dose: 975 mg Al Hydrox/Mg Hydrox/Simethicone (Maalox Plus*) 30 ml PO Q6H PRN PRN Reason: INDIGESTION Last Admin: 05/26/19 19:32 Dose: 30 ml Amlodipine Besylate (Norvasc Tab*) 5 mg PO DAILY [facility] Last Admin: 05/27/19 09:06 Dose: 5 mg Atorvastatin Calcium (Lipitor*) 20 mg PO BEDTIME [facility] Last Admin: 05/26/19 20:54 Dose: 20 mg Bupropion HCl (Bupropion Xl*) 300 mg PO QAM [facility] Last Admin: 05/27/19 09:06 Dose: 300 mg Dicyclomine HCl (Bentyl Cap*) 20 mg PO QID PRN PRN Reason: abdominal cramping/pain Last Admin: 05/25/19 09:04 Dose: 20 mg Enoxaparin Sodium (Lovenox(*)) 40 mg SUBCUT BEDTIME [facility] Last Admin: 05/26/19 20:55 Dose: 40 mg Gabapentin (Neurontin Cap(*)) 600 mg PO 0600,1300 [facility] Last Admin: 05/27/19 14:44 Dose: 600 mg Gabapentin (Neurontin Cap(*)) 1,200 mg PO BEDTIME [facility] Last Admin: 05/26/19 20:53 Dose: 1,200 mg Ibuprofen (Motrin Tab*) 600 mg PO Q8H PRN PRN Reason: PAIN - MODERATE Last Admin: 05/27/19 03:29 Dose: 600 mg Levothyroxine Sodium (Synthroid Tab*) 25 mcg PO 0600 [facility] Last Admin: 05/27/19 05:46 Dose: 25 mcg Melatonin (Melatonin) 3 mg PO BEDTIME [facility] Last Admin: 05/26/19 20:54 Dose: 3 mg Deutetrabenazine [ (Austedo] 6 Mg) 6 mg PO AC [facility] Last Admin: 05/27/19 14:51 Dose: Not Given Ondansetron HCl (Zofran Tab*) 4 mg PO Q8H PRN PRN Reason: NAUSEA/VOMITING Last Admin: 05/27/19 13:08 Dose: 4 mg Oxcarbazepine (Trileptal Tab(*)) 300 mg PO QAM [facility] Last Admin: 05/27/19 09:06 Dose: 300 mg Oxcarbazepine (Trileptal Tab(*)) 600 mg PO BEDTIME [facility] Last Admin: 05/26/19 20:54 Dose: 600 mg Vital Signs - 8 hr 05/27/19 05/27/19 05/27/19 08:00 11:15 14:44 Temperature 98.2 F Pulse Rate 81 Respiratory 20 18 18 Rate Blood Pressure 128/52 (mmHg) O2 Sat by Pulse 97 Oximetry Oxygen Devices in Use Now: None Appearance: NAD Ears/Nose/Mouth/Throat: NL Teeth, Lips, Gums, Clear Oropharnyx Neck: NL Appearance and Movements; NL JVP Respiratory: Symmetrical Chest Expansion and Respiratory Effort, Clear to Auscultation Cardiovascular: RRR Abdominal: NL Sounds; No Tenderness; No Distention, No Hepatosplenomegaly Lymphatic: No Cervical Adenopathy Extremities: - - left hand and foot 4/5 strength Neurological: Alert and Oriented x 3 Result Diagrams: 05/19/19 10:47 05/21/19 05:57 Microbiology and Other Data: Microbiology 05/18/19 06:53 Aerobic Blood Culture - Preliminary Blood Venous No Growth Day 3 Anaerobic Blood Culture - Preliminary No Growth Day 3 05/18/19 07:08 Aerobic Blood Culture - Preliminary Blood Venous No Growth Day 3 Anaerobic Blood Culture - Preliminary No Growth Day 3 05/18/19 05:35 Urine Culture - Final Urine Assess/Plan/Problems-Billing Assessment: 68W h/o bipolar disorder c/b tardive dyskinesia, HTN, chronic pain, p/w generalized weakness found with hypotension in setting of 3-4 months frequent falls - Patient Problems (1) Bipolar 1 disorder Comment: -c/w trileptal, bupropion. -notes chronic and diffuse body pain - c/w gabapentin - changed from 600 qid to 600bid and 1200 qhs -melatonin for sleep -evaluation for placement performed but documentation still pending (2) CKD (chronic kidney disease) Comment: -normalized (3) Frequent falls Comment: -falls for 3-4 months. -chronic pain and past surgery in left ankle - focal wekaness in left hand and foot - MRI brain wnl - has o/p neuro follow up for this reason (4) Hypotension Comment: -hypotensive on presention on multiple home medications including: amlodipine, lisinopril and hctz; clonidine - norvasc restarted at 5mg -volume depleted, responded to fluids (5) DVT prophylaxis Comment: -lovenox Status and Disposition: Inpatient will need [facility]
[2019-05-27] MEDS: Al Hydrox/Mg Hydrox/Simet LIQ* 30 ML UDC PO PRN (17:46)
[2019-05-27] MEDS: Atorvastatin* 20 MG TAB PO SCH (20:46)
[2019-05-27] MEDS: Enoxaparin(*) 40 MG/0.4 ML SYR SUBCUT SCH (20:47)
[2019-05-27] MEDS: Melatonin 3 MG TAB PO SCH (21:39)
[2019-05-28] MEDS: Levothyroxine TAB* 25 MCG TAB PO SCH (05:41)
[2019-05-28] MEDS: Gabapentin CAP(*) 300 MG PO SCH ×3 (05:41→20:11)
[2019-05-28] MEDS: Ibuprofen TAB* 600 MG PO PRN (05:41)
[2019-05-28 06:17] LABS: Hematocrit 36 % (35-47); Hemoglobin 11.9 g/dL (12.0-16.0); Mean Platelet Volume 7.7 fL (7.4-10.4); Platelet Count 273 10^3/uL (150-450)
[2019-05-28 06:34] LABS: EGFR African American 66.4 (>60); EGFR Non-African American 54.8 (>60)
[2019-05-28] MEDS: DEUTETRABENAZINE 6 MG PO SCH ×3 (08:15→14:55)
[2019-05-28] MEDS: OXcarbazepine TAB(*) 300 MG PO SCH ×2 (08:15→20:12)
[2019-05-28] MEDS: BuPROPion XL* 300 MG TAB.XL PO SCH (08:15)
[2019-05-28] MEDS: amLODIPine TAB* 5 MG PO SCH (08:15)
[2019-05-28] MEDS: Al Hydrox/Mg Hydrox/Simet LIQ* 30 ML UDC PO PRN (11:32)
--- NOTE | 2019-05-28 12:50 | PN ---
Subjective Date of Service: 05/28/19 Interval History: HD 10 on 05/28 68 F with PMH of Bipolar disorder, Tardive dyskinesia, Hypertension, CKD and chronic pain presented with generalized weakness. Found to have hypotension and abnormal urinalysis. Responded with IV fluids. Normal MRI Brain No acute overnight events. vitals: stable patient seen and examined at bedside. Patient pleasant and denies any complaint at present. patient working well with PT. probable dc to [facility] tomorrow. Objective Active Medications: Acetaminophen (Tylenol Tab*) 975 mg PO Q8H PRN PRN Reason: Pain - MIld to Mod Last Admin: 05/27/19 09:05 Dose: 975 mg Al Hydrox/Mg Hydrox/Simethicone (Maalox Plus*) 30 ml PO Q6H PRN PRN Reason: INDIGESTION Last Admin: 05/28/19 11:32 Dose: 30 ml Amlodipine Besylate (Norvasc Tab*) 5 mg PO DAILY [facility] Last Admin: 05/28/19 08:15 Dose: 5 mg Atorvastatin Calcium (Lipitor*) 20 mg PO BEDTIME [facility] Last Admin: 05/27/19 20:46 Dose: 20 mg Bupropion HCl (Bupropion Xl*) 300 mg PO QAM [facility] Last Admin: 05/28/19 08:15 Dose: 300 mg Dicyclomine HCl (Bentyl Cap*) 20 mg PO QID PRN PRN Reason: abdominal cramping/pain Last Admin: 05/25/19 09:04 Dose: 20 mg Enoxaparin Sodium (Lovenox(*)) 40 mg SUBCUT BEDTIME [facility] Last Admin: 05/27/19 20:47 Dose: 40 mg Gabapentin (Neurontin Cap(*)) 600 mg PO 0600,1300 [facility] Last Admin: 05/28/19 12:43 Dose: 600 mg Gabapentin (Neurontin Cap(*)) 1,200 mg PO BEDTIME [facility] Last Admin: 05/27/19 20:45 Dose: 1,200 mg Ibuprofen (Motrin Tab*) 600 mg PO Q8H PRN PRN Reason: PAIN - MODERATE Last Admin: 05/28/19 05:41 Dose: 600 mg Levothyroxine Sodium (Synthroid Tab*) 25 mcg PO 0600 [facility] Last Admin: 05/28/19 05:41 Dose: 25 mcg Melatonin (Melatonin) 3 mg PO BEDTIME [facility] Last Admin: 05/27/19 21:39 Dose: 3 mg Deutetrabenazine [ (Austedo] 6 Mg) 6 mg PO AC [facility] Last Admin: 05/28/19 09:37 Dose: Not Given Ondansetron HCl (Zofran Tab*) 4 mg PO Q8H PRN PRN Reason: NAUSEA/VOMITING Last Admin: 05/27/19 13:08 Dose: 4 mg Oxcarbazepine (Trileptal Tab(*)) 300 mg PO QAM [facility] Last Admin: 05/28/19 08:15 Dose: 300 mg Oxcarbazepine (Trileptal Tab(*)) 600 mg PO BEDTIME [facility] Last Admin: 05/27/19 20:46 Dose: 600 mg Vital Signs - 8 hr 05/28/19 05/28/19 05/28/19 05:41 07:12 07:15 Temperature 98.4 F Pulse Rate 74 Respiratory 18 18 18 Rate Blood Pressure 122/64 (mmHg) O2 Sat by Pulse 97 Oximetry 05/28/19 05/28/19 07:30 12:43 Temperature Pulse Rate Respiratory 18 18 Rate Blood Pressure (mmHg) O2 Sat by Pulse Oximetry Oxygen Devices in Use Now: None Exam: Patient is sitting on a chair with no acute distress. HEENT: Normocephalic and atraumatic Lungs: clear with no added sounds Heart: S1/S2 heard with no murmur Abdomen: soft, nontender and nondistended Extremities: No swelling Neuro: ALert, oriented and coperative. HAs decreased motor strength on left hand and left feet. Result Diagrams: 05/28/19 05:39 05/28/19 05:39 Microbiology and Other Data: Microbiology 05/18/19 06:53 Aerobic Blood Culture - Preliminary Blood Venous No Growth Day 3 Anaerobic Blood Culture - Preliminary No Growth Day 3 05/18/19 07:08 Aerobic Blood Culture - Preliminary Blood Venous No Growth Day 3 Anaerobic Blood Culture - Preliminary No Growth Day 3 05/18/19 05:35 Urine Culture - Final Urine Assess/Plan/Problems-Billing Assessment: 68W h/o bipolar disorder c/b tardive dyskinesia, HTN, chronic pain, p/w generalized weakness found with hypotension in setting of 3-4 months frequent falls. MRI brain normal - Patient Problems (1) Frequent falls Comment: -falls for 3-4 months. -chronic pain and past surgery in left ankle - focal weakness in left hand and foot - MRI brain wnl - No progression of weakness - has o/p neuro follow up for this reason (2) Hypotension Comment: -hypotensive on presention on multiple home medications including: amlodipine, lisinopril and hctz; clonidine - norvasc restarted at 5mg -volume depleted, responded to fluids (3) Abnormal urinalysis Current Visit: Yes Status: Acute Code(s): R82.90 - UNSPECIFIED ABNORMAL FINDINGS IN URINE SNOMED Code(s): 091628022 Comment: -Asymptomatic -Urine analysis shows leucocyte esterase, WBC, and hyaline casts -urine culture normal -stopped antibiotics (4) Tardive dyskinesia Current Visit: Yes Status: Acute Code(s): G24.01 - DRUG INDUCED SUBACUTE DYSKINESIA SNOMED Code(s): 295518038 Comment: -present for years; after using abilify. -now on Austedo (5) History of hypertension Current Visit: Yes Status: Acute Code(s): Z86.79 - PERSONAL HISTORY OF OTHER DISEASES OF THE CIRCULATORY SYSTEM SNOMED Code(s): 651994350 Comment: -hypotensive on presention on multiple home medications including: amlodipine, lisinopril and hctz; clonidine - norvasc restarted at 5mg (6) CKD (chronic kidney disease) Comment: -normalized (7) Bipolar 1 disorder Comment: -c/w trileptal, bupropion. -notes chronic and diffuse body pain - c/w gabapentin - changed from 600 qid to 600bid and 1200 qhs -melatonin for sleep -evaluation for placement performed but documentation still pending (8) DVT prophylaxis Comment: -lovenox (9) Full code status Current Visit: Yes Status: Acute Code(s): Z78.9 - OTHER SPECIFIED HEALTH STATUS SNOMED Code(s): 728189554 Status and Disposition: Inpatient has bed in [facility] -waiting level 2 clearance- according to patient they have cleared her but need to discuss with case management Attending: Kalen Abdul Attestation Documenting Resident: Jennifer Swann Supervising Physician: Kalen Abdul Attending/Supervising Physician Comment: Agree with plan as outlined by Dr. Niraula unless indicated here. 68 F with iatrogenic hypotension now stable on norvasc pending result from state evaluation for placement Attestation: This service has been performed in part by a resident under the direction of a teaching physician.I, Kalen Abdul, performed the service, or was physically present during the critical, or [place] portions of the service, furnished by the resident. I participated in the management of the patient.
[2019-05-28] MEDS: Dicyclomine CAP* 10 MG PO PRN ×2 (13:51→18:04)
[2019-05-28] MEDS: Ondansetron TAB* 4 MG PO PRN (13:54)
[2019-05-28] MEDS: Acetaminophen TAB* 325 MG PO PRN (19:28)
[2019-05-28] MEDS: Atorvastatin* 20 MG TAB PO SCH (20:11)
[2019-05-28] MEDS: Melatonin 3 MG TAB PO SCH (20:11)
[2019-05-28] MEDS: Enoxaparin(*) 40 MG/0.4 ML SYR SUBCUT SCH (20:12)
[2019-05-29] MEDS: Levothyroxine TAB* 25 MCG TAB PO SCH (06:04)
[2019-05-29] MEDS: Gabapentin CAP(*) 300 MG PO SCH ×3 (06:04→20:53)
[2019-05-29] MEDS: DEUTETRABENAZINE 6 MG PO SCH ×3 (08:20→16:25)
[2019-05-29] MEDS: Acetaminophen TAB* 325 MG PO PRN (09:31)
[2019-05-29] MEDS: amLODIPine TAB* 5 MG PO SCH (09:32)
[2019-05-29] MEDS: OXcarbazepine TAB(*) 300 MG PO SCH ×2 (09:32→20:53)
[2019-05-29] MEDS: BuPROPion XL* 300 MG TAB.XL PO SCH (09:32)
[2019-05-29] MEDS: Dicyclomine CAP* 10 MG PO PRN ×3 (09:43→20:53)
[2019-05-29] MEDS: Ondansetron TAB* 4 MG PO PRN (14:18)
--- NOTE | 2019-05-29 14:24 | PN ---
Subjective Date of Service: 05/29/19 Interval History: Patient is anxious and would like to get transferred today. I explained to her the work process and we were still waiting for clearance. Otherwise she denied any symptoms, weakness improving. According to PT, she is walking x 2 in units steady with a rollng walker. Objective Active Medications: Acetaminophen (Tylenol Tab*) 975 mg PO Q8H PRN PRN Reason: Pain - MIld to Mod Last Admin: 05/29/19 09:31 Dose: 975 mg Al Hydrox/Mg Hydrox/Simethicone (Maalox Plus*) 30 ml PO Q6H PRN PRN Reason: INDIGESTION Last Admin: 05/28/19 11:32 Dose: 30 ml Amlodipine Besylate (Norvasc Tab*) 5 mg PO DAILY [facility] Last Admin: 05/29/19 09:32 Dose: 5 mg Atorvastatin Calcium (Lipitor*) 20 mg PO BEDTIME [facility] Last Admin: 05/28/19 20:11 Dose: 20 mg Bupropion HCl (Bupropion Xl*) 300 mg PO QAM [facility] Last Admin: 05/29/19 09:32 Dose: 300 mg Dicyclomine HCl (Bentyl Cap*) 20 mg PO QID PRN PRN Reason: abdominal cramping/pain Last Admin: 05/29/19 09:43 Dose: 20 mg Enoxaparin Sodium (Lovenox(*)) 40 mg SUBCUT BEDTIME [facility] Last Admin: 05/28/19 20:12 Dose: 40 mg Gabapentin (Neurontin Cap(*)) 600 mg PO 0600,1300 [facility] Last Admin: 05/29/19 06:04 Dose: 600 mg Gabapentin (Neurontin Cap(*)) 1,200 mg PO BEDTIME [facility] Last Admin: 05/28/19 20:11 Dose: 1,200 mg Ibuprofen (Motrin Tab*) 600 mg PO Q8H PRN PRN Reason: PAIN - MODERATE Last Admin: 05/28/19 05:41 Dose: 600 mg Levothyroxine Sodium (Synthroid Tab*) 25 mcg PO 0600 [facility] Last Admin: 05/29/19 06:04 Dose: 25 mcg Melatonin (Melatonin) 3 mg PO BEDTIME [facility] Last Admin: 05/28/19 20:11 Dose: 3 mg Deutetrabenazine [ (Austedo] 6 Mg) 6 mg PO AC [facility] Last Admin: 05/29/19 12:43 Dose: Not Given Ondansetron HCl (Zofran Tab*) 4 mg PO Q8H PRN PRN Reason: NAUSEA/VOMITING Last Admin: 05/28/19 13:54 Dose: 4 mg Oxcarbazepine (Trileptal Tab(*)) 300 mg PO QAM [facility] Last Admin: 05/29/19 09:32 Dose: 300 mg Oxcarbazepine (Trileptal Tab(*)) 600 mg PO BEDTIME [facility] Last Admin: 05/28/19 20:12 Dose: 600 mg Vital Signs - 8 hr 05/29/19 05/29/19 05/29/19 07:15 09:43 11:55 Temperature 98.8 F Pulse Rate 76 Respiratory 16 20 20 Rate Blood Pressure 134/69 (mmHg) O2 Sat by Pulse 97 Oximetry Oxygen Devices in Use Now: None Exam: Patient is sitting on the bed with no acute distress. HEENT: Normocephalic and atraumatic Lungs: clear with no added sounds Heart: S1/S2 heard with no murmur Abdomen: soft, nontender and nondistended Extremities: No swelling Neuro: Alert, oriented and coperative. HAs decreased motor strength on left hand and left feet. Result Diagrams: 05/28/19 05:39 05/28/19 05:39 Microbiology and Other Data: Microbiology 05/18/19 06:53 Aerobic Blood Culture - Preliminary Blood Venous No Growth Day 3 Anaerobic Blood Culture - Preliminary No Growth Day 3 05/18/19 07:08 Aerobic Blood Culture - Preliminary Blood Venous No Growth Day 3 Anaerobic Blood Culture - Preliminary No Growth Day 3 05/18/19 05:35 Urine Culture - Final Urine Assess/Plan/Problems-Billing Assessment: 68W h/o bipolar disorder c/b tardive dyskinesia, HTN, chronic pain, p/w generalized weakness in the setting of 3-4 months frequent falls, found with hypotension due to multiple antihypertensive use, resolved, now awaiting placement. - Patient Problems (1) Hypotension Comment: -hypotensive on presention on multiple home medications including: amlodipine, lisinopril and hctz; clonidine; also volume depleted - norvasc restarted at 5mg, blood pressure well controlled at 120-130s now (2) Frequent falls Comment: -falls for 3-4 months. -chronic pain and past surgery in left ankle - focal weakness in left hand and foot - MRI brain wnl - No progression of weakness - has o/p neuro follow up for this reason - will go to [facility] on discharge. (3) Bipolar 1 disorder Comment: -c/w trileptal, bupropion. -notes chronic and diffuse body pain - c/w gabapentin - changed from 600 qid to 600bid and 1200 qhs -melatonin for sleep -evaluation for placement performed awaiting feedback from health department (4) History of hypertension Current Visit: Yes Status: Acute Code(s): Z86.79 - PERSONAL HISTORY OF OTHER DISEASES OF THE CIRCULATORY SYSTEM SNOMED Code(s): 817596046 Comment: -Decrease antihypertensive to norvasc 5mg only (5) CKD (chronic kidney disease) Comment: -normalized (6) Tardive dyskinesia Current Visit: Yes Status: Acute Code(s): G24.01 - DRUG INDUCED SUBACUTE DYSKINESIA SNOMED Code(s): 133700299 Comment: -present for years; after using abilify. -now on Austedo (7) DVT prophylaxis Comment: -lovenox (8) Full code status Current Visit: Yes Status: Acute Code(s): Z78.9 - OTHER SPECIFIED HEALTH STATUS SNOMED Code(s): 432474786 Status and Disposition: Inpatient has bed in [facility] -waiting level 2 clearance feedback Attestation Documenting Resident: Raquel Mortensen Supervising Physician: Kalen Abdul Attending/Supervising Physician Comment: Awaiting results from [facility] for clearance to go to [place]. Attestation: This service has been performed in part by a resident under the direction of a teaching physician.I, Kalen Abdul, performed the service, or was physically present during the critical, or [place] portions of the service, furnished by the resident. I participated in the management of the patient.
[2019-05-29] MEDS: Al Hydrox/Mg Hydrox/Simet LIQ* 30 ML UDC PO PRN (16:30)
[2019-05-29] MEDS: Ibuprofen TAB* 600 MG PO PRN (16:35)
[2019-05-29] MEDS: Melatonin 3 MG TAB PO SCH (20:54)
[2019-05-29] MEDS: Atorvastatin* 20 MG TAB PO SCH (20:54)
[2019-05-29] MEDS: Enoxaparin(*) 40 MG/0.4 ML SYR SUBCUT SCH (20:54)
[2019-05-30] MEDS: Ibuprofen TAB* 600 MG PO PRN ×2 (05:54→18:11)
[2019-05-30] MEDS: Levothyroxine TAB* 25 MCG TAB PO SCH (05:54)
[2019-05-30] MEDS: Gabapentin CAP(*) 300 MG PO SCH ×3 (05:54→21:09)
[2019-05-30] MEDS: BuPROPion XL* 300 MG TAB.XL PO SCH (09:09)
[2019-05-30] MEDS: Acetaminophen TAB* 325 MG PO PRN (09:09)
[2019-05-30] MEDS: OXcarbazepine TAB(*) 300 MG PO SCH ×2 (09:10→21:09)
[2019-05-30] MEDS: Dicyclomine CAP* 10 MG PO PRN ×3 (09:10→21:09)
[2019-05-30] MEDS: amLODIPine TAB* 5 MG PO SCH (09:10)
[2019-05-30] MEDS: DEUTETRABENAZINE 6 MG PO SCH (15:55)
--- NOTE | 2019-05-30 16:40 | PN ---
Subjective Date of Service: 05/30/19 Interval History: Patient felt upset staying here for quite some time. She told SW today that she was informed by Dr. Meng that her ankle needed a surgery . But apparently SW checked with Dr. Meng, that was not true. Objective Active Medications: Acetaminophen (Tylenol Tab*) 975 mg PO Q8H PRN PRN Reason: Pain - MIld to Mod Last Admin: 05/30/19 09:09 Dose: 975 mg Al Hydrox/Mg Hydrox/Simethicone (Maalox Plus*) 30 ml PO Q6H PRN PRN Reason: INDIGESTION Last Admin: 05/29/19 16:30 Dose: 30 ml Amlodipine Besylate (Norvasc Tab*) 5 mg PO DAILY [facility] Last Admin: 05/30/19 09:10 Dose: 5 mg Atorvastatin Calcium (Lipitor*) 20 mg PO BEDTIME [facility] Last Admin: 05/29/19 20:54 Dose: 20 mg Bupropion HCl (Bupropion Xl*) 300 mg PO QAM [facility] Last Admin: 05/30/19 09:09 Dose: 300 mg Dicyclomine HCl (Bentyl Cap*) 20 mg PO QID PRN PRN Reason: abdominal cramping/pain Last Admin: 05/30/19 13:02 Dose: 20 mg Enoxaparin Sodium (Lovenox(*)) 40 mg SUBCUT BEDTIME [facility] Last Admin: 05/29/19 20:54 Dose: 40 mg Gabapentin (Neurontin Cap(*)) 600 mg PO 0600,1300 [facility] Last Admin: 05/30/19 12:23 Dose: 600 mg Gabapentin (Neurontin Cap(*)) 1,200 mg PO BEDTIME [facility] Last Admin: 05/29/19 20:53 Dose: 1,200 mg Ibuprofen (Motrin Tab*) 600 mg PO Q8H PRN PRN Reason: PAIN - MODERATE Last Admin: 05/30/19 05:54 Dose: 600 mg Levothyroxine Sodium (Synthroid Tab*) 25 mcg PO 0600 [facility] Last Admin: 05/30/19 05:54 Dose: 25 mcg Melatonin (Melatonin) 3 mg PO BEDTIME [facility] Last Admin: 05/29/19 20:54 Dose: 3 mg Deutetrabenazine [ (Austedo] 6 Mg) 6 mg PO AC [facility] Last Admin: 05/30/19 15:55 Dose: Not Given Ondansetron HCl (Zofran Tab*) 4 mg PO Q8H PRN PRN Reason: NAUSEA/VOMITING Last Admin: 05/29/19 14:18 Dose: 4 mg Oxcarbazepine (Trileptal Tab(*)) 300 mg PO QAM [facility] Last Admin: 05/30/19 09:10 Dose: 300 mg Oxcarbazepine (Trileptal Tab(*)) 600 mg PO BEDTIME [facility] Last Admin: 05/29/19 20:53 Dose: 600 mg Quetiapine Fumarate (Seroquel Tab*) 100 mg PO BEDTIME [facility] Vital Signs - 8 hr 05/30/19 05/30/19 05/30/19 09:10 10:55 12:23 Temperature 97.2 F Pulse Rate 77 Respiratory 18 20 20 Rate Blood Pressure 141/63 (mmHg) O2 Sat by Pulse 98 Oximetry 05/30/19 13:02 Temperature Pulse Rate Respiratory 18 Rate Blood Pressure (mmHg) O2 Sat by Pulse Oximetry Oxygen Devices in Use Now: None Result Diagrams: 05/28/19 05:39 05/28/19 05:39 Microbiology and Other Data: Microbiology 05/18/19 06:53 Aerobic Blood Culture - Preliminary Blood Venous No Growth Day 3 Anaerobic Blood Culture - Preliminary No Growth Day 3 05/18/19 07:08 Aerobic Blood Culture - Preliminary Blood Venous No Growth Day 3 Anaerobic Blood Culture - Preliminary No Growth Day 3 05/18/19 05:35 Urine Culture - Final Urine Assess/Plan/Problems-Billing Assessment: 68W h/o bipolar disorder c/b tardive dyskinesia, HTN, chronic pain, p/w generalized weakness in the setting of 3-4 months frequent falls, found with hypotension due to multiple antihypertensive use, resolved, now awaiting placement. - Patient Problems (1) Hypotension Comment: -hypotensive on presention on multiple home medications including: amlodipine, lisinopril and hctz; clonidine; also volume depleted - norvasc restarted at 5mg, blood pressure well controlled at 120-130s now (2) Frequent falls Comment: -falls for 3-4 months. -chronic pain and past surgery in left ankle - focal weakness in left hand and foot - MRI brain wnl - No progression of weakness - has o/p neuro follow up for this reason - will go to [facility] on discharge. (3) Bipolar 1 disorder Comment: -c/w trileptal, bupropion. -notes chronic and diffuse body pain - c/w gabapentin - changed from 600 qid to 600bid and 1200 qhs -melatonin for sleep -evaluation for placement performed awaiting feedback from health department (4) History of hypertension Current Visit: Yes Status: Acute Code(s): Z86.79 - PERSONAL HISTORY OF OTHER DISEASES OF THE CIRCULATORY SYSTEM SNOMED Code(s): 620744014 Comment: -Decrease antihypertensive to norvasc 5mg only (5) CKD (chronic kidney disease) Comment: -normalized (6) Tardive dyskinesia Current Visit: Yes Status: Acute Code(s): G24.01 - DRUG INDUCED SUBACUTE DYSKINESIA SNOMED Code(s): 219654235 Comment: -present for years; after using abilify. -now on Austedo (7) DVT prophylaxis Comment: -lovenox (8) Full code status Current Visit: Yes Status: Acute Code(s): Z78.9 - OTHER SPECIFIED HEALTH STATUS SNOMED Code(s): 597898523 Status and Disposition: Inpatient has bed in [facility] level 2 clearance feedback Attestation Documenting Resident: Raquel Mortensen Supervising Physician: Kalen Abdul Attending/Supervising Physician Comment: Agree with plan as outlined in today's note by Dr. Mortensen unless indicated here. Awaiting placement Seroquel was held on admission. We will restart it today. Attestation: This service has been performed in part by a resident under the direction of a teaching physician.I, Kalen Abdul, performed the service, or was physically present during the critical, or [place] portions of the service, furnished by the resident. I participated in the management of the patient.
[2019-05-30] MEDS: Ondansetron TAB* 4 MG PO PRN (18:12)
[2019-05-30] MEDS ORDERED: QUEtiapine TAB* 100 MG PO SCH (21:00)
[2019-05-30] MEDS: Enoxaparin(*) 40 MG/0.4 ML SYR SUBCUT SCH (21:08)
[2019-05-30] MEDS: Atorvastatin* 20 MG TAB PO SCH (21:09)
[2019-05-30] MEDS: Melatonin 3 MG TAB PO SCH (22:01)
[2019-05-31] MEDS: Ibuprofen TAB* 600 MG PO PRN ×2 (02:32→18:42)
[2019-05-31] MEDS: Gabapentin CAP(*) 300 MG PO SCH ×4 (07:06→20:45)
[2019-05-31] MEDS: Levothyroxine TAB* 25 MCG TAB PO SCH ×2 (07:07→08:34)
[2019-05-31] MEDS: DEUTETRABENAZINE 6 MG PO SCH ×3 (08:00→17:31)
[2019-05-31] MEDS: amLODIPine TAB* 5 MG PO SCH (08:50)
[2019-05-31] MEDS: Acetaminophen TAB* 325 MG PO PRN ×2 (08:51→20:55)
[2019-05-31] MEDS: BuPROPion XL* 300 MG TAB.XL PO SCH (08:53)
[2019-05-31] MEDS: OXcarbazepine TAB(*) 300 MG PO SCH ×2 (08:54→20:47)
[2019-05-31] MEDS: Dicyclomine CAP* 10 MG PO PRN ×2 (13:24→20:54)
[2019-05-31] MEDS: Al Hydrox/Mg Hydrox/Simet LIQ* 30 ML UDC PO PRN (13:24)
--- NOTE | 2019-05-31 14:33 | PN ---
Subjective Date of Service: 05/31/19 Interval History: Patient had concern of seroquel causing her weakness. She stated today she felt exactly the same symptoms she had when she came in. She described as "buckling in her knee" and "dizziness". She has been taking Seroquel for months, prescribed by [facility]ATION TEND[facility]. She stated she had reactions to Seroquel and requested [employer] RE[employer]AMATION TENDER to change medication for her. She would like to follow up with them after this discharge. According to PT, she refused ambulation today as she said she was too weak. Objective Active Medications: Acetaminophen (Tylenol Tab*) 975 mg PO Q8H PRN PRN Reason: Pain - MIld to Mod Last Admin: 05/31/19 08:51 Dose: 975 mg Al Hydrox/Mg Hydrox/Simethicone (Maalox Plus*) 30 ml PO Q6H PRN PRN Reason: INDIGESTION Last Admin: 05/31/19 13:24 Dose: 30 ml Amlodipine Besylate (Norvasc Tab*) 5 mg PO DAILY [facility] Last Admin: 05/31/19 08:50 Dose: 5 mg Atorvastatin Calcium (Lipitor*) 20 mg PO BEDTIME [facility] Last Admin: 05/30/19 21:09 Dose: 20 mg Bupropion HCl (Bupropion Xl*) 300 mg PO QAM [facility] Last Admin: 05/31/19 08:53 Dose: 300 mg Dicyclomine HCl (Bentyl Cap*) 20 mg PO QID PRN PRN Reason: abdominal cramping/pain Last Admin: 05/31/19 13:24 Dose: 20 mg Enoxaparin Sodium (Lovenox(*)) 40 mg SUBCUT BEDTIME [facility] Last Admin: 05/30/19 21:08 Dose: 40 mg Gabapentin (Neurontin Cap(*)) 600 mg PO 0600,1300 [facility] Last Admin: 05/31/19 13:24 Dose: 600 mg Gabapentin (Neurontin Cap(*)) 1,200 mg PO BEDTIME [facility] Last Admin: 05/30/19 21:09 Dose: 1,200 mg Ibuprofen (Motrin Tab*) 600 mg PO Q8H PRN PRN Reason: PAIN - MODERATE Last Admin: 05/31/19 02:32 Dose: 600 mg Levothyroxine Sodium (Synthroid Tab*) 25 mcg PO 0600 [facility] Last Admin: 05/31/19 08:34 Dose: 25 mcg Melatonin (Melatonin) 3 mg PO BEDTIME [facility] Last Admin: 05/30/19 22:01 Dose: 3 mg Deutetrabenazine [ (Austedo] 6 Mg) 6 mg PO AC [facility] Last Admin: 05/31/19 13:18 Dose: Not Given Ondansetron HCl (Zofran Tab*) 4 mg PO Q8H PRN PRN Reason: NAUSEA/VOMITING Last Admin: 05/30/19 18:12 Dose: 4 mg Oxcarbazepine (Trileptal Tab(*)) 300 mg PO QAM [facility] Last Admin: 05/31/19 08:54 Dose: 300 mg Oxcarbazepine (Trileptal Tab(*)) 600 mg PO BEDTIME [facility] Last Admin: 05/30/19 21:09 Dose: 600 mg Vital Signs - 8 hr 05/31/19 05/31/19 05/31/19 07:15 08:00 08:34 Temperature 97.4 F Pulse Rate 71 Respiratory 18 15 15 Rate Blood Pressure 113/60 (mmHg) O2 Sat by Pulse 99 Oximetry 05/31/19 05/31/19 12:05 13:24 Temperature 97.8 F Pulse Rate 72 Respiratory 16 17 Rate Blood Pressure 130/71 (mmHg) O2 Sat by Pulse 100 Oximetry Oxygen Devices in Use Now: None Exam: Patient is sitting on the bed with no acute distress. HEENT: Normocephalic and atraumatic Lungs: clear with no added sounds Heart: S1/S2 heard with no murmur Abdomen: soft, nontender and nondistended Extremities: No swelling Neuro: Alert, oriented and coperative. HAs decreased motor strength on left hand and left feet. other motor strength not changed. Result Diagrams: 05/28/19 05:39 05/28/19 05:39 Microbiology and Other Data: Microbiology 05/18/19 06:53 Aerobic Blood Culture - Preliminary Blood Venous No Growth Day 3 Anaerobic Blood Culture - Preliminary No Growth Day 3 05/18/19 07:08 Aerobic Blood Culture - Preliminary Blood Venous No Growth Day 3 Anaerobic Blood Culture - Preliminary No Growth Day 3 05/18/19 05:35 Urine Culture - Final Urine Assess/Plan/Problems-Billing Assessment: 68W h/o bipolar disorder c/b tardive dyskinesia, HTN, chronic pain, p/w generalized weakness in the setting of 3-4 months frequent falls, found with hypotension due to multiple antihypertensive use, resolved, now awaiting placement. - Patient Problems (1) Hypotension Comment: -hypotensive on presention on multiple home medications including: amlodipine, lisinopril and hctz; clonidine; also volume depleted - norvasc restarted at 5mg, blood pressure well controlled at 120-130s now (2) Frequent falls Comment: -falls for 3-4 months. -chronic pain and past surgery in left ankle - focal weakness in left hand and foot - MRI brain wnl - No progression of weakness - has o/p neuro follow up for this reason - will go to [facility] on discharge. (3) Bipolar 1 disorder Comment: -c/w trileptal, bupropion. -notes chronic and diffuse body pain - c/w gabapentin - changed from 600 qid to 600bid and 1200 qhs -melatonin for sleep -seroquel was held off as patient stated side effects of weakness by Seroquel. (4) History of hypertension Current Visit: Yes Status: Acute Code(s): Z86.79 - PERSONAL HISTORY OF OTHER DISEASES OF THE CIRCULATORY SYSTEM SNOMED Code(s): 758255906 Comment: -Decrease antihypertensive to norvasc 5mg only (5) CKD (chronic kidney disease) Comment: -normalized (6) Tardive dyskinesia Current Visit: Yes Status: Acute Code(s): G24.01 - DRUG INDUCED SUBACUTE DYSKINESIA SNOMED Code(s): 337905544 Comment: -present for years; after using abilify. -now on Austedo (7) DVT prophylaxis Comment: -lovenox (8) Full code status Current Visit: Yes Status: Acute Code(s): Z78.9 - OTHER SPECIFIED HEALTH STATUS SNOMED Code(s): 158178088 Status and Disposition: Inpatient Level 2 clearance completed need insurance approval to get to [facility], may need to go to [facility] if not improved by insurance, Attestation Documenting Resident: Raquel Mortensen Supervising Physician: Kalen Abdul Attending/Supervising Physician Comment: Agree with plan as outlined in Dr. Mortensen's note from today unless indicated. Pending discharge We restarted seroquel but will stop it again Pending placement at [place] Attestation: This service has been performed in part by a resident under the direction of a teaching physician.I, Kalen Abdul, performed the service, or was physically present during the critical, or [place] portions of the service, furnished by the resident. I participated in the management of the patient.
[2019-05-31] MEDS: Atorvastatin* 20 MG TAB PO SCH (20:47)
[2019-05-31] MEDS: Enoxaparin(*) 40 MG/0.4 ML SYR SUBCUT SCH (20:49)
[2019-05-31] MEDS: Melatonin 3 MG TAB PO SCH (22:11)
[2019-06-01] MEDS: Ibuprofen TAB* 600 MG PO PRN (03:49)
[2019-06-01] MEDS: Levothyroxine TAB* 25 MCG TAB PO SCH (06:06)
[2019-06-01] MEDS: Acetaminophen TAB* 325 MG PO PRN (06:06)
[2019-06-01] MEDS: Gabapentin CAP(*) 300 MG PO SCH ×2 (06:06→12:37)
[2019-06-01] MEDS: BuPROPion XL* 300 MG TAB.XL PO SCH (07:45)
[2019-06-01] MEDS: amLODIPine TAB* 5 MG PO SCH (07:45)
[2019-06-01] MEDS: OXcarbazepine TAB(*) 300 MG PO SCH (07:45)
[2019-06-01] MEDS: DEUTETRABENAZINE 6 MG PO SCH (07:52)
--- NOTE | 2019-06-01 11:29 | DS ---
Resident Discharge Summary Discharge Summary: Date of Admission: 05/19/19 Date of Discharge: Admitting MD: Goldie Cruz MD Attending MD: Kalen Abdul MD Primary Care Physician: Vin Reyna MD Home Medications Medication Instructions Recorded Confirmed Type Atorvastatin* [Lipitor 20 MG*] 20 mg PO BEDTIME 01/20/19 05/18/19 History amLODIPine TAB* [Norvasc 5 mg TAB*] 10 mg PO DAILY 01/20/19 05/18/19 History Levothyroxine TAB* [Synthroid 25 25 mcg PO DAILY #7 tab 01/25/19 05/18/19 Rx MCG TAB*] OXcarbazepine TAB(*) [Trileptal 600 mg PO BEDTIME #14 tab 01/25/19 05/18/19 Rx 300 mg TAB(*)] BuPROPion XL* [Bupropion XL*] 300 mg PO QAM 05/05/19 05/18/19 History Dicyclomine CAP* [Bentyl CAP*] 20 mg PO QID PRN 05/05/19 05/18/19 History Gabapentin TAB(NF) [Neurontin 600 600 mg PO QID 05/05/19 05/18/19 History mg TAB(NF)] OXcarbazepine TAB(*) [Trileptal 300 mg PO QAM 05/05/19 05/18/19 History 300 mg TAB(*)] QUEtiapine TAB* [Seroquel 100 MG *] 100 mg PO BEDTIME 05/05/19 05/18/19 History Deutetrabenazine (NF) [Austedo] 6 mg PO AC 05/18/19 05/18/19 History Quetiapine Fumarate [Quetiapine 100 mg PO BEDTIME 05/18/19 05/18/19 History 100 mg] Disposition: Discharge to [facility] Condition: Stable Primary Diagnosis: 1. Hypotension 2. Frequent falls Secondary Diagnosis: 1. Bipolar disorder 2. Tardive dyskinesia 3. HTN 4. Chronic Pain Diagnostic Imaging: Brain MRI: normal. Pertinent Laboratory Results: CBC 05/19/19: TW 5.0, Hb 11.9, Plt 297. BMP: Na 139, K 4.3, Cl 109, bicarb 26, creatinine 0.90. Hospital Course: Veronique Kerr is a 68 years old female with history of bipolar disorder, tardive dyskinesia, hypertension, CKD, and chronic pain, who presented to [facility] for generalized weakness. Please refer to H&P dated 05/18/19 for more information. She was found to have significant hypotension on admission which is contributed by multiple antihypertensives. Her antihypertensive was cut down to 5mg amlodipine only and her blood pressure is ranging from 120-140/50- 65mmhg. Her weakness improved with the adjustment of antihypertensive, however she was still noted to be unsteady gait. She stated she had multiple falls recently. She had her MRI brain done which is negative. She was assessed by physical therapy who suggested rehabilitation. It will be beneficial for her to follow up in outpatient setting for her frequent fall, not sure this is related to her left ankle problem or peripheral neuropathy. She will receive [facility] after discharge in [facility]. Her bipolar and pain medication was adjusted during this admission. She used to take Seroquel, she felt Seroquel contributed to her extreme weakness thus it was stopped.We also increased her gabapentin from 600 qid to 600mg bid and 1200qhs for better sleep at night. She will be following up with mental health providers after discharge for further management. Follow Up Instructions: Discharged to [facility], will go to [facility]'s home after completing [facility]. Follow up with 1) PCP within 1 week 2) [facility] in 2-4 weeks In case of an emergency or after clinic hours, please go to your nearest Emergency Department. You may also call the [facility] wood pile driver operator at . Attestation Documenting Resident: Raquel Mortensen Supervising Physician: Kalen Abdul Attending/Supervising Physician Comment: Agree with discharge as outlined here unless indicated. Discharged on amlodipine 5mg as only antihypertensive. Discharge seems to indicate 10mg but I confirmed with prescribed medications in discharge rec and she was prescribed the appropriate 5mg. Attestation: This service has been performed in part by a resident under the direction of a teaching physician.I, Kalen Abdul, performed the service, or was physically present during the critical, or [place] portions of the service, furnished by the resident. I participated in the management of the patient.
[2019-06-01] MEDS: Al Hydrox/Mg Hydrox/Simet LIQ* 30 ML UDC PO PRN (12:37)
[2019-06-01] MEDS: Dicyclomine CAP* 10 MG PO PRN (12:45)
[2019-06-01] MEDS: Ondansetron TAB* 4 MG PO PRN (12:45)
[2019-06-01 20:37] VITALS: BP 132/70
== END 2019-06-01 15:20 | DRG 316 ==
LOC: ED 04:52 → MED 07:53 → OBSVTOIN 05-19 13:46 → MED 05-24 00:12
PROVIDERS: ADMIT Internal Medicine; ATTEND Internal Medicine
DX: I95.89 Other hypotension (principal); G43.909 Migraine, unspecified, not intractable, without status migrainosus; F41.9 Anxiety disorder, unspecified; F31.9 Bipolar disorder, unspecified; N18.3 Chronic kidney disease, stage 3 (moderate); I12.9 Hypertensive chronic kidney disease with stage 1 through stage 4 chronic kidney disease, or unspecified chronic kidney disease; E78.5 Hyperlipidemia, unspecified; G24.01 Drug induced subacute dyskinesia; H91.91 Unspecified hearing loss, right ear; K58.9 Irritable bowel syndrome, unspecified; R29.6 Repeated falls; R53.1 Weakness; T43.595A Adverse effect of other antipsychotics and neuroleptics, initial encounter; G62.9 Polyneuropathy, unspecified; R26.81 Unsteadiness on feet; R82.90 Unspecified abnormal findings in urine; G89.29 Other chronic pain; R11.0 Nausea; Y92.009 Unspecified place in unspecified non-institutional (private) residence as the place of occurrence of the external cause; Z88.0 Allergy status to penicillin; Z88.8 Allergy status to other drugs, medicaments and biological substances; Z88.5 Allergy status to narcotic agent; Z91.5 Personal history of self-harm; Z88.6 Allergy status to analgesic agent; Z97.4 Presence of external hearing-aid; Z79.899 Other long term (current) drug therapy
CPT/HCPCS: 36415; 70551; 80048; 80053; 80183; 81003; 81015; 82533; 82565; 82607; 83605; 84484; 84520; 85014; 85018; 85025; 85049; 86140; 87040; 87077; 87086; 93005; 99285; A9270-GY; J0696; J1644; J1650

== ENCOUNTER 2019-07-16 13:07 | Inpatient (IN) | payer MEDICARE, MEDICAID, OTHER ==
[2019-07-16] MEDS ORDERED: NS 0.9% 1000 ML** 1,000 ML IV ONE (13:15)
--- NOTE | 2019-07-16 13:39 | ED ---
Abdominal Pain/Female - HPI Summary HPI Summary: Pt. is a 69 y.o female who presents to the ER for lower abd. pain that started yesterday. Pt. notes diarrhea x 1 day. Denies fever, cough, vomiting, dysuria, cp, sob. Surgical hx of . Past hx of bipolar, HTN, CKD. Sxs are moderate in severity. No current modifying factors. - History of Current Complaint Chief Complaint: EDAbdPain Stated Complaint: ABD PAIN PER EMS Time Seen by Provider: 07/16/19 13:09 Hx Obtained From: Patient Hx Last Menstrual Period: N/A Pain Intensity: 10 Allergies/Adverse Reactions: Allergies Allergy/AdvReac Type Severity Reaction Status Date / Time Antihistamines - Alkylamine Allergy Altered Verified 07/16/19 13:14 Mental Status Antihistamines - Ethanolamine Allergy Altered Verified 07/16/19 13:14 Mental Status Antihistamines - Allergy Altered Verified 07/16/19 13:14 Ethylenediamine Mental Status Antihistamines - Piperazine Allergy Altered Verified 07/16/19 13:14 Mental Status Antihistamines - Piperidine Allergy Altered Verified 07/16/19 13:14 Mental Status Benzodiazepines Allergy Altered Verified 07/16/19 13:14 Mental Status carisoprodol Allergy Altered Verified 07/16/19 13:14 Mental Status NSAIDS (Non-Steroidal Allergy Unknown Verified 07/16/19 13:14 Anti-Inflamma Reaction Details piperazine Allergy Unknown Verified 07/16/19 13:14 Reaction Details oxycodone AdvReac Mild Altered Verified 07/16/19 13:14 Mental Status Penicillins AdvReac Mild See Comment Verified 07/16/19 13:14 prochlorperazine AdvReac Mild Muscle Ache Verified 07/16/19 13:14 [From Compazine] quetiapine [From Seroquel] AdvReac See Comment Verified 07/16/19 13:14 Piperidine Allergy Unknown Uncoded 07/16/19 13:14 Reaction Details anticholinergic agents AdvReac Mild Altered Uncoded 07/16/19 13:14 Mental Status muscle relaxants AdvReac Mild Altered Uncoded 07/16/19 13:14 Mental Status semi synthetic narcotics AdvReac Mild Altered Uncoded 07/16/19 13:14 Mental Status Home Medications: Home Medications Atorvastatin* [Lipitor 20 MG*] 20 mg PO BEDTIME 01/20/19 [History Confirmed 03/24] Levothyroxine TAB* [Synthroid 25 MCG TAB*] 25 mcg PO DAILY #7 tab 01/25/19 [Rx Confirmed 07/16/19] OXcarbazepine TAB(*) [Trileptal 300 mg TAB(*)] 600 mg PO BEDTIME #14 tab [Rx Confirmed 07/16/19] BuPROPion XL* [Bupropion XL*] 300 mg PO QAM 05/05/19 [History Confirmed 07/16/19 ] Dicyclomine CAP* [Bentyl CAP*] 20 mg PO QID PRN 05/05/19 [History Confirmed 03/24] OXcarbazepine TAB(*) [Trileptal 300 mg TAB(*)] 300 mg PO QAM 05/05/19 [History Confirmed 07/16/19] Deutetrabenazine (NF) [Austedo (NF)] 6 mg PO AC 05/18/19 [History Confirmed 03/24] amLODIPine TAB* [Norvasc 5 mg TAB*] 5 mg PO DAILY tab 06/01/19 [Rx Confirmed ] Gabapentin CAP(*) [Neurontin 300 CAP(*)] 600 mg PO TID 07/16/19 [History Confirmed 07/16/19] PMH/Surg Hx/FS Hx/Imm Hx Previously Healthy: Yes Endocrine/Hematology History: Denies: Hx Diabetes Cardiovascular History: Denies: Hx Congestive Heart Failure, Hx Hypertension, Hx Pacemaker/ICD, Other Cardiovascular Problems/Disorders Respiratory History: Denies: Hx Asthma, Hx Chronic Obstructive Pulmonary Disease (COPD) GI History: Reports: Hx Irritable Bowel Denies: Other GI Disorders History: Denies: Hx Dialysis, Hx Renal Disease, Other Problems/Disorders Musculoskeletal History: Reports: Hx Orthopedic Injury Sensory History: Reports: Hx Contacts or Glasses, Hx Hearing Problem - right ear has difficulty hearintg Denies: Hx Deafness, Hx Hearing Aid Opthamlomology History: Reports: Hx Contacts or Glasses Neurological History: Reports: Hx Migraine - last migraine in 2000, Other Neuro Impairments/Disorders - BIPOLAR DISORDER Denies: Hx Dementia, Hx Seizures Psychiatric History: Reports: Hx Anxiety, Hx Depression, Hx Inpatient Treatment , Hx Community Mental Health Tx, Hx Bipolar Disorder Denies: Hx Eating Disorder, Hx Panic Disorder, Hx of Violent Episodes Against Others - Cancer History Cancer Type, Location and Year: None - Surgical History Surgery Procedure, Year, and Place: hysterectomy, 1994, [facility] left ankle r/t fx - pins/plates , bladder surgery for incontinence, 2011, [facility]. TUBAL LIGATION 1984, [facility]. CARPAL TUNNEL RIGHT 03/1984, [facility]. Hx Anesthesia Reactions: No Infectious Disease History: No Infectious Disease History: Denies: Hx Clostridium Difficile, Hx Hepatitis, Hx Human Immunodeficiency Virus (HIV), Hx of Known/Suspected MRSA, Hx Shingles, Hx Tuberculosis, Hx Known/ Suspected VRE, Hx Known/Suspected VRSA, History Other Infectious Disease, Traveled Outside the in Last 30 Days - Family History Known Family History: Positive: Diabetes Negative: Cardiac Disease, Hypertension - Social History Occupation: Retired Lives: With Family Alcohol Use: None Hx Substance Use: No Substance Use Type: Reports: None Hx Tobacco Use: No Smoking Status (MU): Never Smoked Tobacco Have You Smoked in the Last Year: No Review of Systems Constitutional: Negative Negative: Fever, Chills Cardiovascular: Negative Negative: Chest Pain Respiratory: Negative Negative: Shortness Of Breath, Cough Positive: Abdominal Pain, Diarrhea. Negative: Vomiting Genitourinary: Negative Negative: dysuria Neurological/Mental Status: Negative All Other Systems Reviewed And Are Negative: Yes Physical Exam Triage Information Reviewed: Yes Vital Signs On Initial Exam: Initial Vitals Temp Pulse Resp BP Pulse Ox 98.6 F 96 16 145/112 96 07/16/19 13:09 07/16/19 13:09 07/16/19 13:09 07/16/19 13:09 07/16/19 13:09 Vital Signs Reviewed: Yes Appearance: Positive: Well-Appearing - Pt. sitting up in bed in NAD. Skin: Positive: Warm, Dry Head/Face: Positive: Normal Head/Face Inspection Eyes: Positive: Normal, EOMI Neck: Positive: Supple Respiratory/Lung Sounds: Positive: Clear to Auscultation, Breath Sounds Present Cardiovascular: Positive: Normal, RRR Abdomen Description: Positive: Other: - Obese. Abd. is soft with tenderness and guarding in all 4 quadrants. Neurological: Positive: Normal, CN Intact II-III Psychiatric: Positive: Affect/Mood Appropriate Procedures - Sedation Patient Received Moderate/Deep Sedation with Procedure: No Diagnostics - Vital Signs Vital Signs Temp Pulse Resp BP Pulse Ox 07/16/19 13:09 98.6 F 96 16 145/112 96 - Laboratory Result Diagrams: 07/16/19 13:32 07/16/19 13:32 Lab Statement: Any lab studies that have been ordered have been reviewed, and results considered in the medical decision making process. Abdominal Pain Fem Course/Dx - Course Course Of Treatment: Pt. with diffuse abd. pain but most focal to r and l LQs. Afebrile. Will obtain labs ct scan for further evaluation. Pt .notes she took tylenol [employer] and declines pain medication. ECG done at 1323 shows a sinus rhythm of 84bpm, normal axis, no ST elevation or depression. Labs show mild elevation in creatine and bun. CRP 20. CT per radiology: IMPRESSION: #. Proximal high-grade partial small bowel obstruction. No definitive etiology for the. obstruction identified. Consider potential adhesion. #. Hepatosteatosis. Pt. examined by Dr. Motley, surgery, in ED. He recommends fluids, observation and admission to hospitalist, he will consult. Case discussed with Dr. Abdul who will admit pt. his service. This report is only to be considered final once signed by the Provider(s) as displayed in the "<Electronically Signed by > " field (s). Absence of a. signature indicates the report is in a draft status and still needs to be finalized. In the event this document was created by someone other than the. signing Provider, the individual initiating the document will be listed in the "Entered by:" or "Dictated by:" johnson. 2 of 2 - Diagnoses Differential Diagnosis: Positive: Appendicitis, Bowel Obstruction, Constipation , Diverticulitis, Gall Bladder Disease, Renal Colic, Urinary Tract Infection Provider Diagnoses: Abdominal pain, Partial small bowel obstruction Discharge ED - Sign-Out/Discharge Documenting (check all that apply): Patient Departure - Discharge Plan Condition: Stable Disposition: HOME - Billing Disposition and Condition Condition: STABLE Disposition: Home - Attestation Statements Provider Attestation: I was available for consult. This patient was seen by the LE. The patient was not presented to, seen by, or examined by me. Eleazar Khanna MD Addendum entered and electronically signed by Tristian Rocha PA 07/16/19 16:27: ED Addendum Addendum: DISPOSITION: ADMIT TO [facility]
[2019-07-16 13:41] LABS: ABS Eosinophils 0.1 10^3/ul (0-0.6); ABS Lymphocytes 1.4 10^3/ul (1.0-4.8); ABS Monocytes 0.5 10^3/ul (0-0.8); ABS Neutrophils 7.3 10^3/ul (1.5-7.7); Eosinophil % 1.5 %; Hematocrit 43 % (35-47); Hemoglobin 14.2 g/dL (12.0-16.0); Lymphocyte % 14.8 %; Mean Corpuscular HGB Conc 33 g/dL (31-36); Mean Corpuscular Hemoglobin 31 pg (27-31); Mean Corpuscular Volume 94 fL (80-97); Mean Platelet Volume 7.4 fL (7.4-10.4); Platelet Count 320 10^3/uL (150-450); Red Blood Count 4.57 10^6 /uL (3.70-4.87); Red Cell Distribution Width 15 % (10-15); White Blood Count 9.3 10^3/uL (3.5-10.8)
[2019-07-16 13:57] LABS: Albumin 3.9 g/dL (3.2-5.2); BUN/Creatinine Ratio 26.4 (8-20); C Reactive Protein 20.4 mg/L (<8.01); Calcium 9.6 mg/dL (8.6-10.3); EGFR African American 59.9 (>60); EGFR Non-African American 49.5 (>60); Globulin 3.9 g/dL (2-4); Potassium 4.6 mmol/L (3.5-5.0); Total Bilirubin 0.2 mg/dL (0.2-1.0); Total Protein 7.8 g/dL (6.4-8.9)
[2019-07-16] MEDS ORDERED: Iodixanol* (CONTRAST) 320 MG/ML 100 ML SDV IV ONE (14:25)
--- OUTSIDE RECORDS SUMMARY | 2019-07-16 15:08 | XMS REPORT ---
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 54813304040048708 age-related cataract, bilateral Problem Pre-diabetes R73.03 Active 519135596 Problem Hypertension I10 Active 48588721 Problem Irritable bowel K58.0 Active 520500186 syndrome with diarrhea Problem Hyperlipidemia, E78.5 Active 81791451 unspecified hyperlipidemia type Problem Bipolar 1 disorder F31.9 Active 075951583 Problem Stage 3 chronic N18.3 Active 582773443 kidney disease Problem Hypothyroidism, E03.9 Active 69267496 unspecified type Problem BMI Z68.36 Active 185597451 36.0-36.9,adult Problem Essential I10 Active 38307905 hypertension Problem Obesity (BMI E66.9 Active 342017076 35.0-39.9 without comorbidity) Problem Hypercalcemia E83.52 Active 04731797 Problem Sleep apnea in G47.30 Active 37122084 adult Problem Primary M17.11 Active 529940201292813 osteoarthritis of right knee Problem Tricompartment M17.11 Active 928880905 osteoarthritis of right knee Problem 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 64536307 disorder Problem Tardive dyskinesia G24.01 Active 424736771 ALLERGIES No Information ENCOUNTERS Encounter Location Date Diagnosis [facility] [address], [place] [address] [facility] [address] [facility], [place] [address] [facility] [address] [facility], [place] [address] [place] [facility] [address] [place] [address] [place] [address] Rene Jordan [address] [place] [address] [place] [facility] [address] [facility] [place], [place] [address] [place] [facility] [address] [place] [address] [place], [place] [address] [place] [address] [place], [place], Episodic weakness R53.1 [place] [address] [facility] - Resource - [place] [address] [facility] [place], [place] [address] [place] [facility] [address] [place] [address] [place] [address] [place] [address] [place], [place] [address] [facility] - Resource - [place] [address] [place] [address] Apr, [place] [address] [place] [address] [place], [place] [address] [place] [address] [place], [place], Hypertension I10 [place] [address] 3 chronic kidney disease N18.3 [facility] - Resource - [place] [address] [place] [address] Apr, [place] [address] [place] [address] [place], [place] [address] [place] [address] [place], [place], Elev[place] R79.9 [place] [address] [place] [address] [place], [place] [address] [place] [address] [place], [place] [address] [place] [facility] [address] [place] [address] [place], [place], Elev[place] R79.9 [place] [address] [place] [facility] [address] [place] [address] [place], [place], [place] [address] lower extremity R29.898 [place] [facility] [address] [place] [address] [place], [place] [address] [place] [facility] [address] [place] [address] [place], [place] [address] [facility] - Resource - [place] [address] [facility] [place], [place] [address] [facility] - Resource - [place] [address] [place] [address] [place], [place] [address] [facility] Business Office [address] [place], [place] [address] [facility] - Resource - [place] [address] [facility] [place], [place] [address] [facility] [address] [facility] [place], [place], Tard[place] G24.01 [place] [address] ; Bipolar 1 disorder F31.9 ; Transient weakness of lower extremity R29.898 and Essential hypertension I10 [facility] [address] [place] [address] [place], [place] [address] [facility] [address] [place] [address] [place] [address] [place] [facility] [address] [place] [address] [place] [address] [facility] - [facility] - [place] [address] [facility] [place], [place] [address] [place], [place], Tongue ulceration K14.0 ; [place] [address] Tardive dyskinesia G24.01 and Bipolar [address] [place], [place], Hypercal[place] E83.52 [place] [address] [place], [place] [address] [place], [place] [address] [facility] Resource - [place] [address] [place] [address] [place], [place] [address] [facility] [address] [facility] [place], [place] [address] [facility] [address] [place] [address] Feb, [place] [address] [place], [place] [address] [place] [address] [place], [place] [address] Case Management [address] [place], [place] [address] [facility] [address] [facility] [place], [place] [address] [place], [place], Bipolar 1 disorder F31.9 ; [place] [address] Hypercalcemia E83.52 ; Thrush B37.0 ; Dental infection K04.7 ; Tardive dyskinesia G24.01 and Leg weakness, bilateral R29.[address] [place], [place] [address] [employer] Feb, Dental infection K04.7 HEALTH [facility] [address] [facility] [place], [place] [address] [facility] [address] [facility] [place], [place], Bipolar 1 disorder F31.9 ; [place] [address] Essential hypertension I10 ; Stage 3 chronic kidney disease N18.3 ; Hypercalcemia E83.52 ; Transient weakness of lower extremity R29.898 ; Dental infection K04.7 ; Tardive dyskinesia G24.01 and Encounter for immunization Z23 [facility] [address] [facility] [place], [place] [address] [place], [place] [address] [facility] [address] [facility] [place], [place] [address] [place], [place], Hypercalcemia E83.52 [place] [address] [place], [facility] [place] [address] [place], [place], Bipolar 1 [place] F31.9 [place] [address] and 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 [facility] [address] [place] [address] [place], [place] [address] [place], [facility] [place] [address] [place], [place] [address] [facility] [address] [facility] [place], [place] [address] Dec, [place] [address] [facility] [address] [facility] [place], [place] [address] [place], [place] [address] [facility] [address] [facility] [place], [place], Bipolar 1 [place] F31.9 [place] [address] and Left foot pain M79.672 [facility] [address] [facility] [place], [place] [address] Dec, [place] [address] Nov, [place] [address] [place], [place], [place] [address] osteoarthritis of right knee M17.[address] [place] [address] [place], [place], Bipolar 1 disorder F31.9 ; [place] [address] Osteopenia of right hip M85.851 ; Hypothyroidism, unspecified type E03.9 ; Hyperlipidemia, unspecified hyperlipidemia type E78.5 ; Urinary frequency R35.0 ; Acute pain of right knee M25.561 and Encounter for immunization Z23 [place] [address] [place], [place] [address] [place], Oct, Ur[place] R35.0 [place] [address] [place], [place] [address] [place], [place] [address] [place], [place], [place] [address] hematuria N30.00 ; Acute non-recurrent frontal sinusitis J01.10 ; Screening for breast cancer Z12.31 and Screening for osteoporosis Z13.[address] [place], [place] [address] [place], [place], [place] [address] frontal sinusitis J01.10 and Dysuria R30.[address] [place], [place] [address] [place], [place] [address] [place], [place], Cough R05 ; [place] [address] disorder F31.9 ; Stage 3 chronic kidney disease N18.3 and Hyperlipidemia, unspecified hyperlipidemia type E78.[address] [place], Jul, Cough R05 [place] [address] for immunization Z23 [address] [place], [place], [place] [address] [facility] [address] [place], [place] [address] [place], [place], Bipolar 1 disorder F31.9 ; [place] [address] Hyperlipidemia, unspecified hyperlipidemia type E78.5 and Cough R05 [address] [place], [place] [address] [place], [place], Dysuria R30.0 [place] [address] Encounter for hepatitis C screening test for low risk patient Z11.[address] [place], [place] [address] [place], [place] [address] [place], [place], Bipolar 1 disorder F31.9 ; [place] [address] Pre-diabetes R73.03 ; Elevated serum creatinine R79.89 ; Dysuria R30.0 and Hyperlipidemia, unspecified hyperlipidemia type E78.[address] [place], [place] [address] [place], [place], [place] [address] R79.89 and [place] use Z79.[address] [place], Dec, Bipolar 1 disorder F31.9 ; [place] [address] Screening for breast cancer Z12.31 ; BMI 36.0-36.9,adult Z68.36 ; Obesity (BMI 35.0-39.9 without comorbidity) E66.9 and Hypothyroidism, unspecified type E03.[address] [place], [place] [address] Dec, [facility] [place] [address] Oct, [facility] [place] [address] [facility] Business Office [address] [place], [place] [address] [place], [place], [place] [address] frontal sinusitis J01.10 ; Screening for breast cancer Z12.31 ; Special screening for osteoporosis Z13.820 and Need for hepatitis C screening test Z11.[address] [place], [place] [address], [place] [address] [place], [place], Pre-diabetes R73.03 ; [place] [address] Bipolar 1 disorder F31.9 ; Hypertension I10 ; Hyperlipidemia, unspecified hyperlipidemia type E78.5 and Sleep apnea in adult G47.30 [facility] [address] [facility] Apr, [place] [address] [facility] [address] [place], [place] [address] [facility] [address] [place], Apr, [place] [address] [place] [facility] [address] [place], [place] [address] [facility] [address] [facility] [place], Cough R05 [place] [address] [place] [facility] [address] [place], [place] [address] [facility] [address] [place], [place], [place] [address] G47.20 [place] [facility] [address] [place], [place] [address] [place] [facility] [address] [place], [place] [address] [place] [facility] [address] [place], [place] [address] [place] [facility] [address] [place], [place] [address] [facility] [address] [place], [place], [place] [address] contractions M62.40 and Hypertension I10 [place] [facility] [address] [place], [place] [address] [place] [facility] [address] [place], [place], [place] [address] lower extremities M62.838 [place] [facility] [address] [place], [place] [address] [facility] [address] [facility] [place], [place] [address] [place] [facility] [address] [place], [place] [address] [place] [facility] [address] [place], Sep, [place], [place] [address] etiology J02.9 [place] [facility] [address] [place], [place] [address] [place] [facility] [address] [place], Jul, [place]arrhea R19.7 [place] [address] [place] [facility] [address] [place], [place] [address] [facility] [address] [place] [address] [place], [place] [address] [facility] [address] [place] [address] [place], [place], Chronic diarrhea K52.9 [place] [address] [facility] [address] [place] [address] [place], [place] [address] [place], [place] [address] [place], [place], Bipolar [place] 296.80 [place] [address] [place], [place], Other eczema L30.8 ; [place] [address] lesion L98.9 and Chronic sinusitis, unspecified location J32.[address] [place], [place] [address] [place], [place] [address] [place], [place] [address] [place], [place], Abdominal pain 789.00 ; [place] [address] Elevated blood pressure 796.2 and Hematuria 599.[address] [place], [place], Bipolar 1 disorder 296.7 ; [place] [address] Sinusitis 473.9 ; Vertigo 780.4 and Neck pain 723.[address] [place], Dec, Sinusitis 473.9 [place] [address] IMMUNIZATIONS No Known Immunizations SOCIAL HISTORY Never Assessed REASON FOR REFERRAL FUNCTIONAL STATUS PLAN OF CARE VITAL SIGNS MEDICATIONS Unknown Medications PROCEDURES No Known procedures RESULTS No Results REASON FOR VISIT Pt transport [place] Insurance Providers [facility] Health Member Patient Patient Patient Patient Patient Subscriber Subscriber Subscriber Group Insurance Plan Plan Plan Plan ID Relationship Address Phone Name Date of ID Name Date of No Type Insurance Insurance Insurance Coverage to Subscriber Address Phone Name Dates Case [phone] Case self [place]onique [id number] Management Rene Jordan [address] [facility] [address] Community Medicare National [id number] Medicare self [place] [id number] PPS Government 41 PPS [employer] [address] [facility] [id number] [employer] [address] [employer] self [place]ique [id number] Medicare [id number] Medicare [facility] 7 [facility] [place] [facility] [address] MEDICAL (GENERAL) HISTORY Type Description Date Medical [...] Hospitalization History bipolar episodes Hospitalization History [facility] 01/2013 Hospitalization History Suicideal ideation 12/2017
--- OUTSIDE RECORDS SUMMARY | 2019-07-16 15:08 | XMS REPORT | Continuity of Care Document ---
:1950 External Reference #:[id number] Author Name Jovan Brito M.D. Address [address], [place] [address] Care Team Providers Name Role Phone Adriel Adams MD - Hospitalist Care Team Information Anesthesia Tech [phone] Problems Active Problems Provider Date Disturbance in sleep behavior Purnima Fry MD Onset: 06/30/2016 Obstructive sleep apnea syndrome Purnima Fry MD Onset: 09/09/2016 Skin sensation disturbance Jovan Brito M.D. Onset: 07/14/2019 Nervous system symptoms Jovan Brito M.D. Onset: 07/14/2019 Malaise and fatigue Jovan Brito M.D. Onset: 07/14/2019 Low back pain Jovan Brito M.D. Onset: 07/14/2019 Social History Type Date Description Comments Sex Unknown ETOH Use Denies alcohol use Tobacco Use Start: Unknown Patient has never smoked Recreational Drug Use Denies Drug Use Smoking Status Reviewed: 07/14/19 Patient has never smoked Exercise Type/Frequency Does not exercise Allergies, Adverse Reactions, Alerts Active Allergies Reaction Severity Comments Date Benzodiazepines 05/03/2015 Oxycodone 05/03/2015 NSAIDs 05/03/2015 Penicillin 06/30/2016 Compazine 06/30/2016 Antihistamines- Alkylamine Altered mental status 05/16/2019 Antihistamines- Ethanolamine Altered mental status 05/16/2019 Ethylenediamine 05/16/2019 Piperazine 05/16/2019 Piperidine 05/16/2019 Carisoprodol 05/16/2019 Inhaled Anticholinergic Agents 05/16/2019 Muscle Relaxants 05/16/2019 Seroquel 06/02/2019 Medications Active Medications SIG Qnty Indications Ordering Provider Date Gabapentin 1 by mouth 90tabs Jovan Brito, 07/14/2019 600mg Tablets three times a M.D. day Amlodipine Besylate 1 by mouth 90tabs Adriel Adams MD 06/02/2019 5mg every day Tablets Ergocalciferol take 1 tab 16caps Adriel Adams MD 06/02/2019 1.25mg weekly (99987 Ut) Capsules Atorvastatin Calcium take 1 tablet 30tabs Margarita Cruz, DO 20mg at bedtime Tablets Dicyclomine HCL by mouth four 90tabs Unknown 20mg times a day Tablets Bupropion 1 by mouth Unknown Hydrochloride ER (XL) every day 300mg Tablets ER 24HR Levothyroxine Sodium 1 by mouth 30tabs Margarita Cruz, DO every day 25mcg Tablets Oxcarbazepine take one tab in Unknown 300mg am and two tabs Tablets at night [place] Unknown 6mg Tablets Ibuprofen as needed Unknown 200mg Tablets Immunizations CPT Code Status Date Vaccine Lot # [id number] Given 06/02/2019 Pneumococcal Conjugate Vaccine 13 Valent For [id number] Intramuscular Use Vital Signs Date Vital Result Comment 07/14/2019 10:43am Height 62 inches 5'2" Weight 165.00 lb Heart Rate 88 /min BP Systolic Sitting 180 mmHg BP Diastolic Sitting 100 mmHg Body Temperature 99.2 F BMI (Body Mass Index) 30.2 kg/m2 06/08/2019 10:03am Height 62 inches 5'2" Weight 165.00 lb Heart Rate 90 /min BP Systolic Sitting 168 mmHg BP Diastolic Sitting 98 mmHg Respiratory Rate 16 /min Pain Level 3 O2 % BldC Oximetry 98 % BMI (Body Mass Index) 30.2 kg/m2 Results Test Acquired Date Facility Test Result H/L Range Note Laboratory test 06/02/2019 [facility] Vitamin D 12.9 ng/mL Low 20-[address] [place] [address] [phone] 1 Total 25-Hydroxyvitamin D2 and D3 (25-OH-VitD) <10 ng/mL (severe deficiency) 10-19 ng/mL (mild to moderate deficiency) 20-50 ng/mL (optimum levels) 51-80 ng/mL (increased risk of hypercalciuria) >80 ng/mL (toxicity possible) Procedures Date Code Description Status 01/21/2019 41913 EKG, Interpretation Only Completed Medical Devices Description No Information Available Encounters Type Date Location Provider Dx Diagnosis Office Visit 07/14/2019 [facility] Jovan Brito, M54.5 Low back pain 11:15a [facility] R53.1 Weakness R29.6 Repeated falls R20.2 Paresthesia of skin Office Visit 06/08/2019 [facility] M25.572 Pain in left ankle 10:15a [facility] at [facility] and joints of left [place] foot Office Visit 06/02/2019 [facility] Internal Adriel Adams MD I10 Essential 10:20a Medicine - Suite (primary) R hypertension F31.9 Bipolar disorder, unspecified R53.1 Weakness R29.6 Repeated falls Z23 Encounter for immunization E55.9 Vitamin D deficiency, unspecified Office Visit 06/01/2019 9:22a [facility] Kalen I95.9 Hypotension, Assocsushil M.D. unspecified Hospitalists R29.6 Repeated falls F31.9 Bipolar disorder, unspecified G24.01 Drug induced subacute dyskinesia G89.29 Other chronic pain Office Visit 05/31/2019 9:21a [facility] Karely Higuera I95.9 Hypotension, sushil Mckeon M.D. unspecified Hospitalists R29.6 Repeated falls F31.9 Bipolar disorder, unspecified G24.01 Drug induced subacute dyskinesia Office Visit 05/30/2019 9:21a [facility] Kal[place] I95.9 Hypotension, Assocsushil M.D. unspecified Hospitalists R29.6 Repeated falls F31.9 Bipolar disorder, unspecified G24.01 Drug induced subacute dyskinesia Office Visit 05/29/2019 9:21a [facility] Kalen I95.9 Hypotension, Assocsushil M.D. unspecified Hospitalists R29.6 Repeated falls F31.9 Bipolar disorder, unspecified G24.01 Drug induced subacute dyskinesia Office Visit 05/28/2019 9:20a [facility] Karely Higuera R29.6 Repeated falls Assoc,pc [place], M.D. Hospitalists I95.9 Hypotension, unspecified G24.01 Drug induced subacute dyskinesia F31.9 Bipolar disorder, unspecified Office Visit 05/27/2019 9:20a [facility] Kal[place] F31.9 Bipolar disorder, Assoc,sushil Abdul M.D. unspecified Hospitalists I95.9 Hypotension, unspecified R29.6 Repeated falls Office Visit 05/26/2019 9:19a [facility] Lizzette I95.9 Hypotension, Assoc,sushil Sy MD unspecified Hospitalists R29.6 Repeated falls R82.90 Unspecified abnormal findings in urine F31.9 Bipolar disorder, unspecified Office Visit 05/25/2019 9:19a [facility] Lizzette I95.9 Hypotension, Assoc,sushil Sy MD unspecified Hospitalists R29.6 Repeated falls G24.01 Drug induced subacute dyskinesia F31.9 Bipolar disorder, unspecified Office Visit 05/24/2019 9:17a [facility] Lizzette I95.9 Hypotension, Assoc,pc MD Yossi unspecified Hospitalists R29.6 Repeated falls M54.9 Dorsalgia, unspecified F31.9 Bipolar disorder, unspecified Office Visit 05/23/2019 9:13a [facility] Kim Dill, I95.9 Hypotension , Assoc,sushil ALEGRE unspecified Hospitalists R29.6 Repeated falls N18.9 Chronic kidney disease, unspecified Office Visit 05/22/2019 9:13a [facility] Lizzette I95.9 Hypotension, Assoc,sushil Sy MD unspecified Hospitalists R29.6 Repeated falls R82.90 Unspecified abnormal findings in urine F31.9 Bipolar disorder, unspecified Office Visit 05/21/2019 9:11a [facility] Lizzette I95.9 Hypotension, Assoc,sushil Sy MD unspecified Hospitalists R29.6 Repeated falls F31.9 Bipolar disorder, unspecified Office Visit 05/20/2019 9:10a [facility] Lizzette I95.9 Hypotension, Assoc,sushil Sy MD unspecified Hospitalists R29.6 Repeated falls R82.90 Unspecified abnormal findings in urine F31.9 Bipolar disorder, unspecified Office Visit 05/19/2019 9:10a [facility] Lizzette I95.9 Hypotension, Assoc,sushil Sy MD unspecified Hospitalists R29.6 Repeated falls R82.90 Unspecified abnormal findings in urine G24.01 Drug induced subacute dyskinesia N18.9 Chronic kidney disease, unspecified F31.9 Bipolar disorder, unspecified [facility]9 [facility]otension, 9:06a sushil Mckeon M.D. unspecified Hospitalists M62.81 Muscle weakness (generalized) N39.0 Urinary tract infection, site not specified Office Visit 05/16/2019 9:00a [facility] Kalen F31.9 Bipolar disorder, at [facility] Meng M.D. unspecified S82.842D Displ bimalleol fx l low leg, subs for clos fx w routn heal M25.572 Pain in left ankle and joints of left foot R53.1 Weakness Office Visit 01/21/2019 8:08a [facility] Oral Gallardo F31.9 Bipolar nini, MJacqui unspecified T42.6x2A Poisn by oth antieplptc and sed-hypntc drugs, slf-hrm, init Office Visit 01/20/2019 8:07a [facility] Oral Gallardo M.D. R40.0 Somnolence T42.6x2A Poisn by oth antieplptc and sed-hypntc drugs, slf-hrm, init Assessments Date Code Description Provider 07/14/2019 M54.5 Low back pain Jovan Brito M.D. 07/14/2019 R53.1 Weakness Jovan Brito M.D. 07/14/2019 R29.6 Repeated falls Jovan Brito M.D. 07/14/2019 R20.2 Paresthesia of skin Jovan Brito M.D. 06/08/2019 M25.572 Pain in left ankle and joints of left Kalen Meng M.D. foot 06/02/2019 I10 Essential (primary) hypertension Adriel Adams MD 06/02/2019 F31.9 Bipolar disorder, unspecified Adriel Adams MD 06/02/2019 R53.1 Weakness Adriel Adams MD 06/02/2019 R29.6 Repeated falls Adriel Adams MD 06/02/2019 Z23 Encounter for immunization Adriel Adams MD 06/02/2019 E55.9 Vitamin D deficiency, unspecified Adriel Adams MD 06/01/2019 I95.9 Hypotension, unspecified Kalen Abdul M.D. 06/01/2019 R29.6 Repeated falls Kalen Abdul M.D. 06/01/2019 F31.9 Bipolar disorder, unspecified Kalen Abdul M.D. 06/01/2019 G24.01 Drug induced subacute dyskinesia Kalen Abdul M.D. 06/01/2019 G89.29 Other chronic pain Kalen Abdul M.D. 05/31/2019 I95.9 Hypotension, unspecified Kalen Abdul M.D. 05/31/2019 R29.6 Repeated falls Kalen Abdul M.D. 05/31/2019 F31.9 Bipolar disorder, unspecified Kalen Abdul M.D. 05/31/2019 G24.01 Drug induced subacute dyskinesia Kalen Abdul M.D. 05/30/2019 I95.9 Hypotension, unspecified Kalen Abdul M.D. 05/30/2019 R29.6 Repeated dada Abdul M.D. 05/30/2019 F31.9 Bipolar disorder, unspecified Kalen Abdul M.D. 05/30/2019 G24.01 Drug induced subacute dyskinesia Kalen Abdul M.D. 05/29/2019 I95.9 Hypotension, unspecified Kalen Abdul M.D. 05/29/2019 R29.6 Repeated falls Kalen Abdul M.D. 05/29/2019 F31.9 Bipolar disorder, unspecified Kalen Abdul M.D. 05/29/2019 G24.01 Drug induced subacute dyskinesia Kalen Abdul M.D. 05/28/2019 R29.6 Repeated dada Abdul M.D. 05/28/2019 I95.9 Hypotension, unspecified Kalen Abdul M.D. 05/28/2019 G24.01 Drug induced subacute dyskinesia Kalen Abdul M.D. 05/28/2019 F31.9 Bipolar disorder, unspecified Kalen Abdul M.D. 05/27/2019 F31.9 Bipolar disorder, unspecified Kalen Abdul M.D. 05/27/2019 I95.9 Hypotension, unspecified Kalen Abdul M.D. 05/27/2019 R29.6 Repeated falls Kalen Abdul M.D. 05/26/2019 I95.9 Hypotension, unspecified Lizzette Sy MD 05/26/2019 R29.6 Repeated dada Sy MD 05/26/2019 R82.90 Unspecified abnormal findings in urine Lizzette Sy MD 05/26/2019 F31.9 Bipolar disorder, unspecified Lizzette Sy MD 05/25/2019 I95.9 Hypotension, unspecified Lizzette Sy MD 05/25/2019 R29.6 Repeated dada Sy MD 05/25/2019 G24.01 Drug induced subacute dyskinesia Lizzette Sy MD 05/25/2019 F31.9 Bipolar disorder, unspecified Lizzette Sy MD 05/24/2019 I95.9 Hypotension, unspecified Lizzette Sy MD 05/24/2019 R29.6 Repeated dada Sy MD 05/24/2019 M54.9 Dorsalgia, unspecified Lizzette Sy MD 05/24/2019 F31.9 Bipolar disorder, unspecified Lizzette Sy MD 05/23/2019 I95.9 Hypotension, unspecified Kim Perkins MD 05/23/2019 R29.6 Repeated dada Perkins MD 05/23/2019 N18.9 Chronic kidney disease, unspecified Kim Pekrins MD 05/22/2019 I95.9 Hypotension, unspecified Lizzette Sy MD 05/22/2019 R29.6 Repeated dada Sy MD 05/22/2019 R82.90 Unspecified abnormal findings in urine Lizzette Sy MD 05/22/2019 F31.9 Bipolar disorder, unspecified Lizzette Sy MD 05/21/2019 I95.9 Hypotension, unspecified Lizzette Sy MD 05/21/2019 R29.6 Repeated dada Sy MD 05/21/2019 F31.9 Bipolar disorder, unspecified Lizzette Sy MD 05/20/2019 I95.9 Hypotension, unspecified Lizzette Sy MD 05/20/2019 R29.6 Repeated dada Sy MD 05/20/2019 R82.90 Unspecified abnormal findings in urine Lizzette Sy MD 05/20/2019 F31.9 Bipolar disorder, unspecified Lizzette Sy MD 05/19/2019 I95.9 Hypotension, unspecified Lizzette Sy MD 05/19/2019 R29.6 Repeated falls Lizzette Sy MD 05/19/2019 R82.90 Unspecified abnormal findings in urine Lizzette Sy MD 05/19/2019 G24.01 Drug induced subacute dyskinesia Lizzette Sy MD 05/19/2019 N18.9 Chronic kidney disease, unspecified Lizzette Sy MD 05/19/2019 F31.9 Bipolar disorder, unspecified Lizzette Sy MD 05/18/2019 I95.9 Hypotension, unspecified Goldie Cruz M.D. 05/18/2019 M62.81 Muscle weakness (generalized) Goldie Cruz M.D. 05/18/2019 N39.0 Urinary tract infection, site not Goldie Cruz M.D. specified 05/16/2019 F31.9 Bipolar disorder, unspecified Kalen Meng M.D. 05/16/2019 S82.842D Displaced bimalleolar fracture of left Kalen Meng M.D. lower leg, subsequent encounter for closed fracture with routine healing 05/16/2019 M25.572 Pain in left ankle and joints of left Kalen Meng M.D. foot 05/16/2019 R53.1 Weakness Kalen Meng M.D. 01/21/2019 R94.31 Abnormal electrocardiogram [ECG] [EKG] Galo Price M.D. 01/21/2019 F31.9 Bipolar disorder, unspecified Oral Gallardo M.D. 01/21/2019 T42.6x2A Poisoning by other antiepileptic and Oral Gallardo M.D. sedative-hypnotic drugs, intentional self-harm, initial encounter 01/20/2019 R40.0 Somnolence Oral Gallardo M.D. 01/20/2019 T42.6x2A Poisoning by other antiepileptic and Oral Gallardo M.D. sedative-hypnotic drugs, intentional self-harm, initial encounter Plan of Treatment 07/14/2019 - Jovan Brito M.D.M54.5 Low back painNew Xrays:MRI Lumbar Spine W/O, Ordered: 07/14/19Follow up:Follow up in 3 months Please contact her at [phone] and can leave a messageRecommendations:Call me 1 week after the MRI to discuss the cpdzimnJ54.1 OotmwrpnB68.6 Repeated zlxptG91.2 Paresthesia of skin Functional Status Description No Information Available Mental Status Description No Information Available Referrals Refer to Reason for Referral Status Appt Date Jovan Brito M.D. please eval for generalized tremor, Closed 2019 weakness, inability to stand, upper extremity involvement [address] [place] [address] [phone]
--- OUTSIDE RECORDS SUMMARY | 2019-07-16 15:08 | XMS REPORT ---
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 Active 35271975659247339 age-related cataract, bilateral Problem Pre-diabetes R73.03 Active 872234224 Problem Hypertension I10 Active 14775861 Problem Irritable bowel K58.0 Active 184224273 syndrome with diarrhea Problem Hyperlipidemia, E78.5 Active 74317101 unspecified hyperlipidemia type Problem Bipolar 1 disorder F31.9 Active 481100512 Problem Stage 3 chronic N18.3 Active 604771173 kidney disease Problem Hypothyroidism, E03.9 Active 55350974 unspecified type Problem BMI Z68.36 Active 874545880 36.0-36.9,adult Problem Essential I10 Active 66488744 hypertension Problem Obesity (BMI E66.9 Active 135504448 35.0-39.9 without comorbidity) Problem Hypercalcemia E83.52 Active 99669910 Problem Sleep apnea in G47.30 Active 06680677 adult Problem Primary M17.11 Active 621595249092370 osteoarthritis of right knee Problem Tricompartment M17.11 Active 236238148 osteoarthritis of right knee Problem 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 73811327 disorder Problem Tardive dyskinesia G24.01 Active 764515318 ALLERGIES No Information ENCOUNTERS Encounter Location Date Diagnosis [place] [facility] [address] [place], [place] [address] [place] [facility] [address] [place], [place] [address] [place] [facility] [address] [place] [address] [place] [facility] [address] [place] [address] [place] [facility] [address] [facility] [place] [address] [place] [address] [place] [address] [place] [facility] [address] [place], [place] [address] [place] [facility] [address] [place] [address] [place], [place] [address] [place] [address] [place], [place], [place] R53[place]1 [place] [address] [facility] [place] [address] [facility] [place], [place] [address] [place] [facility] [address] [place] [address] [place], [place] [address] [place] [address] [place] [address] [facility] - Resource - [place] [address] [place] [address] Apr, [place] [address] [place] [address] [place], [place] [address] [place] [facility] [address] [place] [address] [place], Apr, Hypertension I10 [place] [address] 3 chronic kidney disease N18.3 [facility] - [place] [address] [facility] [place], [place] [address] [place] [facility] [address] [place] [address] [place], [place] [address] [place] [address] [place], [place], [place] R79[place] [address] [place] [address] [place], [place] [address] [place] [facility] [address] [place] [address] [place], [place] [address] [place] [facility] [address] [place] [address] [place], [place], [place] R79.9 [place] [address] [place] [facility] [address] [place] [address] [place], [place], [place] [address] lower extremity R29.898 [place] [facility] [address] [place], [place] [address] [place] [facility] [address] [place] [address] [place], [place] [address] [facility] [place] [address] [facility] [place], [place] [address] [facility] - Resource - [place] [address] [place] [address] [place], [place] [address] [facility] Business Office [address] [place], [place] [address] [facility] - Resource - [place] [address] [facility] [place], [place] [address] [facility] [address] [facility] [place], [place], [place] G24.01 [place] [address] ; Bipolar 1 disorder F31.9 ; Transient weakness of lower extremity R29.898 and Essential hypertension I10 [facility] [address] [facility] [place], [place] [address] [facility] [address] [facility] [place], [place] [address] [facility] [address] [place] [address] [place] [address] [facility] - [facility] [place] [address] [facility] [place], [place] [address] [place], [place], Tongue ulceration K14.0 ; [place] [address] Tardive dyskinesia G24.01 and Bipolar [address] disorder [address] [place], [place], Hypercalcemia E83.52 [place] [address] [place], [place] [address] [facility] [address] [place] [address] [place], [place] [address] [facility] - Resource - [place] [address] [place] [address] [place] [address] [facility] [address] [facility] [place], [place] [address] Feb, [place] [address] [place] [address] Feb, [place] [address] [place] [address] [place], [place] [address] Case Management [address] [place], [place] [address] [facility] [place], [place] [address] [place], Feb, Bipolar 1 disorder F31.9 ; [place] [address] Hypercalcemia E83.52 ; Thrush B37.0 ; Dental infection K04.7 ; Tardive dyskinesia G24.01 and Leg weakness, bilateral R29.[address] [place], [place] [address] [employer] 04 Nov, 2019 Dental infection K04.7 HEALTH [facility] [address] [facility] [place], [place] [address] [facility] [address] [facility] [place], [place], Bipolar 1 disorder F31.9 ; [place] [address] Essential hypertension I10 ; Stage 3 chronic kidney disease N18.3 ; Hypercalcemia E83.52 ; Transient weakness of lower extremity R29.898 ; Dental infection K04.7 ; Tardive dyskinesia G24.01 and Encounter for immunization Z23 [facility] [address] [facility] [place], [place] [address] [place], [place] [address] [facility] [address] [facility] [place], [place] [address] [place], [place], Hypercalcemia E83.52 [place] [address] [place], [place] [address] [facility] [address] [place] [address] [place], [place], Bipolar 1 [place] F31.9 [place] [address] and 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 [facility] [address] [place] [address] [place], [place] [address] [place], [place] [address] [place], [place] [address] [facility] [address] [facility] [place], [place] [address] [place], [place] [address] [facility] [address] [facility] [place], [place] [address] [place], [place] [address] [facility] [address] [facility] [place], [place], Bipolar 1 [place] F31.9 [place] [address] and Left foot pain M79.672 [facility] [address] [facility] [place], [place] [address] [place], [place] [address] Nov, [place] [address] [place], [place], [place] [address] osteoarthritis of right knee M17.[address] [place] [address] [place], [place], Bipolar 1 disorder F31.9 ; [place] [address] Osteopenia of right hip M85.851 ; Hypothyroidism, unspecified type E03.9 ; Hyperlipidemia, unspecified hyperlipidemia type E78.5 ; Urinary frequency R35.0 ; Acute pain of right knee M25.561 and Encounter for immunization Z23 [place] [address] [place], [place] [address] [place], Oct, Ur[place] R35.0 [place] [address] [place], [place] [address] [place], [place] [address] [place], [place], [place] [address] hematuria N30.00 ; Acute non-recurrent frontal sinusitis J01.10 ; Screening for breast cancer Z12.31 and Screening for osteoporosis Z13.[address] [place], [place] [address] [place], [place], [place] [address] frontal sinusitis J01.10 and Dysuria R30.[address] [place], [place] [address] [place], [place] [address] [place], [place], Cough R05 ; [place] [address] disorder F31.9 ; Stage 3 chronic kidney disease N18.3 and Hyperlipidemia, unspecified hyperlipidemia type E78.[address] [place], Jul, Cough R05 [place] [address] for immunization Z23 [address] [place], Jun, [place] [address] [facility] [address] [place], [place] [address] [place], Jun, Bipolar 1 disorder F31.9 ; [place] [address] Hyperlipidemia, unspecified hyperlipidemia type E78.5 and Cough R05 [address] [place], [place] [address], Feb, Dysuria R30.0 [place] [address] Encounter for hepatitis C screening test for low risk patient Z11.[address] [place], [place] [address] [place] [address], [place] [address] [place], Jan, Bipolar 1 disorder F31.9 ; [place] [address] Pre-diabetes R73.03 ; Elevated serum creatinine R79.89 ; Dysuria R30.0 and Hyperlipidemia, unspecified hyperlipidemia type E78.[address] [place], [place] [address], Dec, [place] [address] R79.89 and [place] use Z79.[address], Dec, Bipolar 1 disorder F31.9 ; [place] [address] Screening for breast cancer Z12.31 ; BMI 36.0-36.9,adult Z68.36 ; Obesity (BMI 35.0-39.9 without comorbidity) E66.9 and Hypothyroidism, unspecified type E03.[address], [place] [address] Dec, [facility] [place] [address] Oct, [facility] [place] [address] [facility] Business Office [address] [facility], [place] [address] [place], Jul, [place] [address] frontal sinusitis J01.10 ; Screening for breast cancer Z12.31 ; Special screening for osteoporosis Z13.820 and Need for hepatitis C screening test Z11.[address] Jul, [place] [address], [place] [address] [place], [place], Pre-diabetes R73.03 ; [place] [address] Bipolar 1 disorder F31.9 ; Hypertension I10 ; Hyperlipidemia, unspecified hyperlipidemia type E78.5 and Sleep apnea in adult G47.30 [facility] [address] [facility] Apr, [place] [address] [facility] [address] [place], [place] [address] [place] [facility], [facility] [address] [place], [place], [place] [address] [place] [facility], [facility] [address] [place], [place] [address] [facility] [address] [facility] [place], Cough R05 [place] [address] [place] [facility], [facility] [address] [place], [place] [address] [facility] [address] [place], Apr, [place] [address] G47.20 [place] [facility], [facility] [address] [place], [place] [address] [place] [facility], [facility] [address] [place], [place] [address] [place] [facility], [facility] [address] [place], [place] [address] [place] [facility], [facility] [address] [place], [place] [address] [facility] [address] [place], Apr, [place] [address] contractions M62.40 and Hypertension I10 [place] [facility], [facility] [address] [place], [place] [address] [place] [facility], [facility] [address] [place], [place], [place] [address] lower extremities M62.838 [place] [facility], [facility] [address] [place], [place] [address] [facility] [address] [facility] Nov, [place] [address] [place] [facility] [address] [place], [place] [address] [place] [facility], [facility] [address] [place], Sep, [place], [place] [address] etiology J02.9 [place] [facility], [facility] [address] [place], [place] [address] [place] [facility], [facility] [address] [place], Jul, [place] R19.7 [place] [address] [place] [facility], [facility] [address] [place], [place] [address] [facility] [address] [place], [place] [address] [place], Jul, Chronic [place] K52.9 [place] [address] [place] [address] [place], [place] [address] [place], [place] [address] [place], [place], B[place] 296.80 [place] [address] [place] [address] [place], Jan, Other eczema L30.8 ; [place] [address] lesion L98.9 and Chronic sinusitis, unspecified location J32.[address] [place], [place] [address] [place], [place] [address] [place], [place] [address] [place], Jun, Abdominal pain 789.00 ; [place] [address] Elevated blood pressure 796.2 and Hematuria [address] [place], Jan, Bipolar 1 disorder 296.7 ; [place] [address] Sinusitis 473.9 ; Vertigo 780.4 and Neck pain 723.[address] [place], Dec, Sin[place] 473.9 [place] [address] IMMUNIZATIONS No Known Immunizations SOCIAL HISTORY Never Assessed REASON FOR REFERRAL FUNCTIONAL STATUS PLAN OF CARE VITAL SIGNS MEDICATIONS Unknown Medications PROCEDURES No Known procedures RESULTS No Results REASON FOR VISIT Needs call back for appt Insurance Providers [facility] Member Patient Patient Patient Patient Patient Subscriber Subscriber Subscriber Group Insurance Plan Plan Plan Plan ID Relationship Address Phone Name Date of ID Name Date of No Type Insurance Insurance Insurance Coverage to Subscriber Address Phone Name Dates Medicare National [id number] Medicare self [place] [id number] PPS Government 41 PPS [employer] [address] [place] [id number] [place] [phone] [employer] self [place] [id number] Medicare [id number] Medicare [employer] 7 Adv [facility] [place] [facility] [address] Case [phone] Case self [place] [id number] Management [place] 02 Management [facility] [address] [facility] MEDICAL (GENERAL) HISTORY Type Description Date Medical [...] Hospitalization History bipolar episodes Hospitalization History [facility] 01/2013 Hospitalization History Suicideal ideation 12/2017
--- OUTSIDE RECORDS SUMMARY | 2019-07-16 15:08 | XMS REPORT | Continuity of Care Document ---
:1950 External Reference #:[id number] Author Name Adriel Adams MD (transmitted by agent of provider Shagufta Thomas) Address [address] [place] [id number] Care Team Providers Name Role Phone Adriel Adams MD - Hospitalist Care Team Information Criminal Attorney [phone] Problems Active Problems Provider Date Disturbance in sleep behavior Purnima Fry MD Onset: 06/30/2016 Obstructive sleep apnea syndrome Purnima Fry MD Onset: 09/09/2016 Social History Type Date Description Comments Sex Unknown ETOH Use Denies alcohol use Tobacco Use Start: Unknown Patient has never smoked Recreational Drug Use Denies Drug Use Smoking Status Reviewed: 06/08/19 Patient has never smoked Exercise Type/Frequency Does [...] Medications Active Medications SIG Qnty Indications Ordering Date Provider Amlodipine Besylate 1 by mouth every 90tabs Adriel Adams MD 06/02/2019 5mg day Tablets Ergocalciferol take 1 tab 16caps Adriel Adams MD 06/02/2019 1.25mg weekly (14972 Ut) Capsules Atorvastatin Calcium take 1 tablet at Unknown 20mg bedtime Tablets Dicyclomine HCL by mouth four 90tabs Unknown 20mg times a day Tablets Bupropion Hydrochloride 1 by mouth every Unknown ER (XL) day 300mg Tablets ER 24HR Levothyroxine Sodium 1 by mouth every Unknown 25mcg day Tablets Oxcarbazepine take one tab and Unknown 300mg Tablets two tabs at night [place] Unknown 6mg Tablets Ibuprofen as needed Unknown 200mg Tablets Gabapentin take one/half 90tabs Unknown 600mg Tablets tablet by mouth three times a day Immunizations CPT Code Status Date Vaccine Lot # [id number] Given 06/02/2019 Pneumococcal Conjugate Vaccine 13 Valent For [id number] Intramuscular Use Vital Signs Date Vital Result Comment 06/08/2019 10:03am Height 62 inches 5'2" Weight 165.00 lb Heart Rate 90 /min BP Systolic Sitting 168 mmHg BP Diastolic Sitting 98 mmHg Respiratory Rate 16 /min Pain Level 3 O2 % BldC Oximetry 98 % BMI (Body Mass Index) 30.2 kg/m2 06/02/2019 10:02am Height 62 inches 5'2" Weight 166.00 lb Heart Rate 86 /min BP Systolic Sitting 135 mmHg BP Diastolic Sitting 78 mmHg Body Temperature 98.2 F O2 % BldC Oximetry 98 % BMI (Body Mass Index) 30.4 kg/m2 Results Test Acquired Date Facility Test Result H/L Range Note Laboratory test 06/02/2019 [facility] Vitamin D 12.9 ng/mL Low 20-[address]) [place] [address] [phone] 1 Total 25-Hydroxyvitamin D2 and D3 (25-OH-VitD) <10 ng/mL (severe deficiency) 10-19 ng/mL (mild to moderate deficiency) 20-50 ng/mL (optimum levels) 51-80 ng/mL (increased risk of hypercalciuria) >80 ng/mL (toxicity possible) Procedures Date Code Description Status 01/21/2019 35555 EKG, Interpretation Only Completed Medical Devices Description No Information Available Encounters Type Date Location Provider Dx Diagnosis Office Visit 06/02/2019 [employer] [facility] Adriel Adams MD I10 Essential (primary) 10:20a Medicine - [address] hypertension F31.9 Bipolar disorder, unspecified R53.1 Weakness R29.6 Repeated falls Z23 Encounter for immunization E55.9 Vitamin D deficiency, unspecified Office Visit 06/01/2019 9:22a [facility] Kalen I95.9 Hypotension, Assoc,sushil Abdul M.D. unspecified Hospitalists R29.6 Repeated falls F31.9 Bipolar disorder, unspecified G24.01 Drug induced subacute dyskinesia G89.29 Other chronic pain Office Visit 05/31/2019 9:21a [facility] Kalen I95.9 Hypotension, Assocsushil M.D. unspecified Hospitalists R29.6 Repeated falls F31.9 Bipolar disorder, unspecified G24.01 Drug induced subacute dyskinesia Office Visit 05/30/2019 9:21a [facility] Kalen I95.9 Hypotension, Assoc,sushil Abdul M.D. unspecified Hospitalists R29.6 Repeated falls F31.9 Bipolar disorder, unspecified G24.01 Drug induced subacute dyskinesia Office Visit 05/29/2019 9:21a [facility] Kalen I95.9 Hypotension, Assocsushil M.D. unspecified Hospitalists R29.6 Repeated falls F31.9 Bipolar disorder, unspecified G24.01 Drug induced subacute dyskinesia Office Visit 05/28/2019 9:20a [facility] Kal[place] R29.6 Repeated falls Asssushil rhodes M.D. Hospitalists I95.9 Hypotension, unspecified G24.01 Drug induced subacute dyskinesia F31.9 Bipolar disorder, unspecified Office Visit 05/27/2019 9:20a [facility] Kalen F31.9 Bipolar disorder, Assoc,sushil Abdul M.D. unspecified Hospitalists I95.9 Hypotension, unspecified R29.6 Repeated falls [facility]oc,sushil Sy MD unspecified Hospitalists R29.6 Repeated falls R82.90 Unspecified abnormal findings in urine F31.9 Bipolar disorder, unspecified Office Visit 05/25/2019 9:19a [facility] Lizzette I95.9 Hypotension, Assoc,pc MD Yossi unspecified Hospitalists R29.6 Repeated falls G24.01 Drug induced subacute dyskinesia F31.9 Bipolar disorder, unspecified Office Visit 05/24/2019 9:17a [facility] Lizzette I95.9 Hypotension, Assoc,sushil Sy MD unspecified Hospitalists R29.6 Repeated falls M54.9 Dorsalgia, unspecified F31.9 Bipolar disorder, unspecified Office Visit 05/23/2019 9:13a [facility] Kim Perkins, I95.9 Hypotension , Assoc,pc unspecified Hospitalists R29.6 Repeated falls N18.9 Chronic kidney disease, unspecified Office Visit 05/22/2019 9:13a [facility] Lizzette I95.9 Hypotension, Assoc,pc MD Yossi unspecified Hospitalists R29.6 Repeated falls R82.90 Unspecified abnormal findings in urine F31.9 Bipolar disorder, unspecified Office Visit 05/21/2019 9:11a [facility] Lizzette I95.9 Hypotension, Assoc,sushil Sy MD unspecified Hospitalists R29.6 Repeated falls F31.9 Bipolar disorder, unspecified Office Visit 05/20/2019 9:10a [facility] Lizzette I95.9 Hypotension, Assoc,sushil Sy MD unspecified Hospitalists R29.6 Repeated falls R82.90 Unspecified abnormal findings in urine F31.9 Bipolar disorder, unspecified Office Visit 05/19/2019 9:10a [facility] Lizzette I95.9 Hypotension, Assoc,sushil Sy MD unspecified Hospitalists R29.6 Repeated falls R82.90 Unspecified abnormal findings in urine G24.01 Drug induced subacute dyskinesia N18.9 Chronic kidney disease, unspecified F31.9 Bipolar disorder, unspecified Office Visit 05/18/2019 [facility] Goldie Cruz, I95.9 Hypotension, 9:06a Asssushil rhodes M.D. unspecified Hospitalists M62.81 Muscle weakness (generalized) N39.0 Urinary tract infection, site not specified Office Visit 05/16/2019 9:00a [facility] Kalen F31.9 Bipolar disorder, at Mere Meng M.D. unspecified S82.842D Displ bimalleol fx l low leg, subs for clos fx w routn heal M25.572 Pain in left ankle and joints of left foot R53.1 Weakness Office Visit 01/21/2019 8:08a [facility] Oral Gallardo, F31.9 Bipolar disorder, M.D. unspecified T42.6x2A Poisn by oth antieplptc and sed-hypntc drugs, slf-hrm, init Office Visit 01/20/2019 8:07a [facility] Oral Gallardo M.D. R40.0 Somnolence T42.6x2A Poisn by oth antieplptc and sed-hypntc drugs, slf-hrm, init Office Visit 12/24/2018 9:01a [facility] Es, R53.1 Weakness Assoc, Hospitalists [place] R29.6 Repeated falls Assessments Date Code Description Provider 06/08/2019 M25.572 Pain in left ankle and [...] dyskinesia Kalen Abdul M.D. 05/28/2019 R29.6 Repeated falls Kalen Abdul M.D. 05/28/2019 I95.9 Hypotension, unspecified Kalen [...] Repeated dada Sy MD 05/24/2019 M54.9 Dorsalgia, unspecmarialuisa Sy MD 05/24/2019 F31.9 Bipolar disorder, unspecified Lizzette Sy MD 05/23/2019 I95.9 Hypotension, unspecified Kim Perkins MD 05/23/2019 R29.6 Repeated falls Kim Perkins MD 05/23/2019 N18.9 Chronic kidney disease, unspecified Kim Perkins MD 05/22/2019 I95.9 Hypotension, unspecified Lizzette Sy MD 05/22/2019 R29.6 Repeated falls Lizzette Sy MD 05/22/2019 R82.90 Unspecified abnormal findings in urine Lizzette Sy MD 05/22/2019 F31.9 Bipolar disorder, unspecified Lizzette Sy MD 05/21/2019 I95.9 Hypotension, unspecified Lizzette Sy MD 05/21/2019 R29.6 Repeated falls Lizzette Sy MD 05/21/2019 F31.9 Bipolar disorder, unspecified Lizzette Sy MD 05/20/2019 I95.9 Hypotension, unspecified Lizzette Sy MD 05/20/2019 R29.6 Repeated falls Lizzette Sy MD 05/20/2019 R82.90 Unspecified abnormal findings [...] Caraballo 12/24/2018 R29.6 Repeated falls RYLEE Caraballo Plan of Treatment Future Appointment(s):07/11/2019 3:00 pm - Adriel Adams MD at [facility] - [address]/24/2019 11:15 am - Jovan Brito M.D. at [facility]06/08/2019 - Kalen Meng M.D.M25.572 Pain in left ankle and joints of left footFollow up:Follow up: As needed Functional Status Description No Information Available Mental Status Description No Information Available Referrals Refer to Dr Reason for Referral Status Appt Date Jovan Brito M.D. please eval for generalized tremor, Closed 2019 weakness, inability to stand, upper extremity involvement [address] [facility] [place] [address] [phone]
--- OUTSIDE RECORDS SUMMARY | 2019-07-16 15:08 | XMS REPORT ---
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 01184435819084432 age-related cataract, bilateral Problem Pre-diabetes R73.03 Active 279871166 Problem Hypertension I10 Active 87706586 Problem Irritable bowel K58.0 Active 015754901 syndrome with diarrhea Problem Hyperlipidemia, E78.5 Active 52446743 unspecified hyperlipidemia type Problem Bipolar 1 disorder F31.9 Active 252496586 Problem Stage 3 chronic N18.3 Active 850589842 kidney disease Problem Hypothyroidism, E03.9 Active 51325839 unspecified type Problem BMI Z68.36 Active 284521368 36.0-36.9,adult Problem Essential I10 Active 72197269 hypertension Problem Obesity (BMI E66.9 Active 665845109 35.0-39.9 without comorbidity) Problem Hypercalcemia E83.52 Active 54312874 Problem Sleep apnea in G47.30 Active 11619707 adult Problem Primary M17.11 Active [id number] osteoarthritis of right knee Problem Tricompartment M17.11 Active 615162492 osteoarthritis of right knee Problem 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 26391687 disorder Problem Tardive dyskinesia G24.01 Active 584029088 ALLERGIES No Information ENCOUNTERS Encounter Location Date Diagnosis [facility] [address] [facility], [place] [address] [facility] [address] [place], [place] [address] [place], [facility] [place] [address] [facility] [address] [facility] [place], [place] [address] [place] [facility] By [facility] [address] [place], [place] [address] [place] [facility] [address] [place], [place], Ep[place] R53.1 [place] [address] [facility] [place] [address] [facility] [place], [place] [address] [place] [facility] [address] [facility] [place], [place] [address] [place] [facility] [address] [place], [place] [address] [facility] [place] [address] [facility] Apr, [place] [address] [place] [facility] [address] [facility] [place], [place] [address] [place], [place], Hypertension [place]10 [place] [address] 3 chronic kidney disease N18.3 [facility] [place] [address] [facility] Apr, [place] [address] [place] [facility] [address] [place] [address] [place], [place] [address] [place] [facility] [address] [place] [address] [place], Apr, [place] R79[place] [address] [place] [facility] [address] [place] [address] [place], [place] [address] [place] [facility] [address] [place] [address] [place], [place] [address] [place] [address] [place], [place] R79.9 [place] [address] [place] [address] [place], [place], [place] [address] lower extremity R29.898 [place] [facility] [address] [place], [place] [address] [place] [facility] [address] [place] [address] [place], [place] [address] [facility] [place] [address] [facility] [place], [place] [address] [facility] - [facility] [place] [address] [place] [address] [place], [place] [address] [facility] Business Office [address] [place], [place] [address] [facility] [place] [address] [facility] [place], [place] [address] [place] [facility] [address] [facility] [place], [place], [place] G24.01 [place] [address] ; Bipolar 1 disorder F31.9 ; Transient weakness of lower extremity R29.898 and Essential hypertension I10 [place] [facility] [address] [facility] [place], [place] [address] [place] [facility] [address] [place] [address] [place], [place] [address] [facility] [address] [place] [address] [place], [place] [address] [facility] [place] [address] [place], [place] [address] [place] [facility] [address] [place] [address] [place], [place], Tongue ulceration K14.0 ; [place] [address] Tardive dyskinesia G24.01 and Bipolar 1 disorder F31.9 [facility] [address] [place] [address] [place], [place], Hyper[place] E83.52 [place] [address] [place], [place] [address] [place], [place] [address] [facility] - [facility] [place] [address] [place], [place] [address] [facility] [address] [facility] [address] [place], [place] [address] Pending Sale To [facility] [address] [place] [address] Feb, [place] [address] [place] [address] Feb, [place] [address] [place] [address] [place], [place] [address] Case Management [address] [place], [place] [address] [facility] Feb, [place] [address] [place], Feb, Bipolar 1 disorder F31.9 ; [place] [address] Hypercalcemia E83.52 ; Thrush B37.0 ; Dental infection K04.7 ; Tardive dyskinesia G24.01 and Leg weakness, bilateral R29.[address] [place], [place] [address] [employer] Feb, Dental infection K04.7 HEALTH [facility] [address] [facility] [place], [place] [address] [facility] [address] [facility] [place], [place], Bipolar 1 disorder F31.9 ; [place] [address] Essential hypertension I10 ; Stage 3 chronic kidney disease N18.3 ; Hypercalcemia E83.52 ; Transient weakness of lower extremity R29.898 ; Dental infection K04.7 ; Tardive dyskinesia G24.01 and Encounter for immunization Z23 [facility] [address] [facility] [place], [place] [address] [place], [place] [address] [facility] [address] [facility] [place], [place] [address] [place], [place], Hyper[place] E83.52 [place] [address] [place], [facility] [place] [address] [place], [place], Bipolar 1 [place] F31.9 [place] [address] and 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 [place], [place] [address] [place], [facility] [address] [place], [place] [address] [facility] [address] [facility], [place] [address] [place], [place] [address] [place], [place] [address] Dec, [place] [address] [facility] [address] [facility] [place], Dec, Bipolar 1 [place] F31.9 [place] [address] and Left foot pain M79.672 [facility] [address] [facility] [place], [place] [address] Dec, [place] [address] Nov, [place] [address] [place] [address] [address] [facility] [place], [place], [place] [address] osteoarthritis of right knee M17.[address] [place], Nov, Bipolar 1 disorder F31.9 ; [place] [address] Osteopenia of right hip M85.851 ; Hypothyroidism, unspecified type E03.9 ; Hyperlipidemia, unspecified hyperlipidemia type E78.5 ; Urinary frequency R35.0 ; Acute pain of right knee M25.561 and Encounter for immunization Z23 [place] [address] [place], [place] [address] [place] [address] [place], Oct, [place] R35[place]0 [place] [address] [place] [address] [place], [place] [address] [place], [place] [address] [place], [place] [address] hematuria N30.00 ; Acute non-recurrent frontal sinusitis J01.10 ; Screening for breast cancer Z12.31 and Screening for osteoporosis Z13.[address] [place], [place] [address] [place] [address] [place], [place], [place] [address] frontal sinusitis J01.10 and Dysuria R30.[address] [place], [place] [address] [place], [place] [address] [place], [place], Cough R05 ; [place] [address] disorder F31.9 ; Stage 3 chronic kidney disease N18.3 and Hyperlipidemia, unspecified hyperlipidemia type E78.[address] [place], Jul, Cough R05 [place] [address] for immunization Z23 [address] [place], Jun, [place] [address] [facility] [address] [place], [place] [address] [place], Jun, Bipolar 1 disorder F31.9 ; [place] [address] Hyperlipidemia, unspecified hyperlipidemia type E78.5 and Cough R[address] [place] [address] [place], [place] [address] [place], Feb, [place]ysuria R30[place] [address] Encounter for hepatitis C screening test for low risk patient Z11.[address] [place], [place] [address], [place] [address], Jan, Bipolar 1 disorder F31.9 ; [place] [address] Pre-diabetes R73.03 ; Elevated serum creatinine R79.89 ; Dysuria R30.0 and Hyperlipidemia, unspecified hyperlipidemia type E78.[address] [place], [place] [address], Dec, [place] [address] R79.89 and [place] use Z79.[address], Dec, Bipolar 1 disorder F31.9 ; [place] [address] Screening for breast cancer Z12.31 ; BMI 36.0-36.9,adult Z68.36 ; Obesity (BMI 35.0-39.9 without comorbidity) E66.9 and Hypothyroidism, unspecified type E03.[address], [place] [address] Dec, [facility] [place] [address] Oct, [facility] [place] [address] [facility] Business Office [address] [place], [place] [address], Jul, [place] [address] frontal sinusitis J01.10 ; Screening for breast cancer Z12.31 ; Special screening for osteoporosis Z13.820 and Need for hepatitis C screening test Z11.[address] [place], [place] [address], [place] [address], [place], Pre-diabetes R73.03 ; [place] [address] Bipolar 1 disorder F31.9 ; Hypertension I10 ; Hyperlipidemia, unspecified hyperlipidemia type E78.5 and Sleep apnea in adult G47.[address] [place] Apr, [place] [address] [place] Replaced By [facility] [address] [place], [place] [address] [place] Replaced By [facility] [address] [place], [place], [place] [address] [place] Replaced By [facility] [address] [place], [place] [address] Pending Sale To [facility] [address] [facility] [place], Cough R05 [place] [address] [place] Replaced By [facility] [address] [place], [place] [address] [place] Replaced By [facility] [address] [place], [place], [place] [address] G47.20 [place] [facility] [address] [place], [place] [address] [place] Re[facility] [address] [place], [place] [address] [place] [facility] [address] [place], [place] [address] [place] [facility] [address] [place], [place] [address] [place] [facility] [address] [place], [place], [place] [address] contractions M62.40 and Hypertension I10 [place] [facility] [address] [place], [place] [address] [place] [facility] [address] [place], [place], [place] [address] lower extremities M62.838 [place] [facility] [address] [place], [place] [address] Pending Sale To [facility] [address] [facility] [place], [place] [address] [place] [facility] [address] [place], [place] [address] [place] [facility] [address] [place], Sep, [place], [place] [address] etiology J02.9 [place] [facility] [address] [place], [place] [address] [place] Replaced By [facility] [address] [place], [place], [place] R19[place]7 [place] [address] [place] [facility]placed By [facility] [address] [place], [place] [address] [place] Replaced By [facility] [address] [place], [place] [address] [place] [facility]placed By [facility] [address] [place], [place], Chronic [place] K52.9 [place] [address] [facility] [address] [facility] [place], [place] [address] [facility] [address] [place] [address] [place], [place] [address] [place], [place], B[place] 296.80 [place] [address] [place], Jan, Other eczema L30.8 ; [place] [address] lesion L98.9 and Chronic sinusitis, unspecified location J32.[address] [place], [place] [address] [place], [place] [address] [place], [place] [address] [place], Jun, Abdominal pain 789.00 ; [place] [address] Elevated blood pressure 796.2 and Hematuria [address] [place], Jan, Bipolar 1 disorder 296.7 ; [place] [address] Sinusitis 473.9 ; Vertigo 780.4 and Neck pain 723.[address] [place], Dec, Sinusitis 473.9 [place] [address] IMMUNIZATIONS No Known Immunizations SOCIAL HISTORY Never Assessed REASON FOR REFERRAL FUNCTIONAL STATUS PLAN OF CARE VITAL SIGNS MEDICATIONS Unknown Medications PROCEDURES No Known procedures RESULTS No Results REASON FOR VISIT Transportation cancelled Insurance Providers [facility] Health Member Patient Patient Patient Patient Patient Subscriber Subscriber Subscriber Group Insurance Plan Plan Plan Plan ID Relationship Address Phone Name Date of ID Name Date of No Type Insurance Insurance Insurance Coverage to Subscriber Address Phone Name Dates Medicare National [id number] Medicare self [place] [id number] PPS Government 41 PPS [employer] [address] [place] [id number] [employer] [address] [employer] self [place] [id number] Medicare [id number] Medicare [employer] 7 Adv H[place] [facility] [address] Case [phone] Case self [place] [id number] Management [place] [address] [facility] [place] [address] Replaced By [facility] MEDICAL (GENERAL) HISTORY Type Description Date Medical History bipolar Medical History tardive dyskenestia Surgical History bladder surgey Surgical History hysterectomy Surgical History tubal ligation Surgical History surgery on left foot 2016 or 17 Surgical History revision of left tib/fib fractures Surgical History Right eye cataract removal 05/2016 Surgical History Left eye cataract removal 07/2016 Hospitalization History see above Hospitalization History bipolar episodes Hospitalization History [facility] 01/2013 Hospitalization History Suicideal ideation 12/2017
--- OUTSIDE RECORDS SUMMARY | 2019-07-16 15:08 | XMS REPORT ---
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 Active 16194627716734600 age-related cataract, bilateral Problem Pre-diabetes R73.03 Active 680050506 Problem Hypertension I10 Active 91718432 Problem Irritable bowel K58.0 Active 514493378 syndrome with diarrhea Problem Hyperlipidemia, E78.5 Active 91762713 unspecified hyperlipidemia type Problem Bipolar 1 disorder F31.9 Active 294847803 Problem Stage 3 chronic N18.3 Active 674800756 kidney disease Problem Hypothyroidism, E03.9 Active 15900192 unspecified type Problem BMI Z68.36 Active 778683584 36.0-36.9,adult Problem Essential I10 Active 81470876 hypertension Problem Obesity (BMI E66.9 Active 601119691 35.0-39.9 without comorbidity) Problem Hypercalcemia E83.52 Active 51750062 Problem Sleep apnea in G47.30 Active 65734514 adult Problem Primary M17.11 Active 353650451202501 osteoarthritis of right knee Problem Tricompartment M17.11 Active 184135582 osteoarthritis of right knee Problem 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 68664409 disorder Problem Tardive dyskinesia G24.01 Active 785174671 ALLERGIES No Information ENCOUNTERS Encounter Location Date Diagnosis [facility] [address] [facility], [place] [address] [facility] Resource - [place] [address] [facility] [place], [place], [place] [address] [place] [address] [place] [address], [place] [address] [place] [address] Feb, 2020 [place] [address] [facility] [address] [place], [place] [address] [facility] [address] [place], [place] [address] [facility] [address] [place], [place], Epis[place] R53.1 [place] [address] [facility] - Resource - [place] [address] [place], [place] [address] [facility] [address] [place] [address] [facility] [address] [place] [address] [facility] - Resource - [place] [address] Apr, [place] [address] [facility] [address] [place], [place] [address] [place] [address] [address] [place] [facility], Apr, Hypertension I10 [place] [address] 3 chronic kidney disease N18.3 [facility] - Resource - [place] [address] Apr, [place] [address] [facility] [address] [place], [place] [address] [facility] [address] [place], [place], [place] R79[place] [address] [facility] [place] [address] [place], [place] [address] [facility] [place] [address] [place], [place] [address] [facility] [place] [address] [address] [place] [facility] [place], [place] R79[place]9 [place] [address] [facility] [address] [place], [place], [place] [address] lower extremity R29.898 [facility] [address] [place], [place] [address] [facility] [address] [place], [place] [address] [facility] - Resource - [place] [address] [place] [address] [facility] - Resource - [place] [facility] [address] [place], [place] [address] [facility] Business Office [address] [place] [address] [facility] - Resource - [place] [address] [facility] [address] [place], [place] [address] [facility] [address] [facility] [place], [place]ard[place] G24.01 [place] [address] ; Bipolar 1 disorder F31.9 ; Transient weakness of lower extremity R29.898 and Essential hypertension I10 [facility] [address] [facility] [place], [place] [address] [facility] [address] [place] [address] [place] [address] [facility] [address] [place] [address] [place] [address] [facility] - Resource - [place] [address] [facility] [place], [place] [address] [place], [place], Tongue ulceration K14.0 ; [place] [address] Tardive dyskinesia G24.01 and Bipolar [address] disorder [address] [place], [place], Hyper[place] E83.52 [place] [address] [place], [place] [address] [place], [place] [address] [facility] - Resource - [place] [address] [facility] Feb, [place] [address] [facility] [address] [facility] [place], [place] [address] Feb, [place] [address] [place] [address] Feb, [place] [address] [place] [address], [place] [address] Case Management [address] [place], [place] [address] [facility] [address] [facility] Feb, [place] [address] [place], [place], Bipolar 1 disorder F31.9 ; [place] [address] Hypercalcemia E83.52 ; Thrush B37.0 ; Dental infection K04.7 ; Tardive dyskinesia G24.01 and Leg weakness, bilateral R29.[address] [place], [place] [address] [employer] Feb, Dental infection K04.[address] [place], [place] [address] [place], [place], Bipolar 1 disorder F31.9 ; [place] [address] Essential hypertension I10 ; Stage 3 chronic kidney disease N18.3 ; Hypercalcemia E83.52 ; Transient weakness of lower extremity R29.898 ; Dental infection K04.7 ; Tardive dyskinesia G24.01 and Encounter for immunization Z23 [facility] [address] [facility] [place], [place] [address] [place], [place] [address] [facility] [address] [facility] [place], [place] [address] [facility] [address] [facility] [place], [place], Hypercalcemia E83.52 [place] [address] [place], [facility] [place] [address] [place], [place], Bipolar 1 [place] F31.9 [place] [address] and 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 [facility] [address] [facility] [place], [place] [address] [place], [facility] [place] [address] [place], [place] [address] [facility] [address] [facility] [place] [address] Dec, [place] [address] [facility] [address] [facility] [place], [place] [address] Dec, [place] [address] [facility] [address] [facility] [place], [place], Bipolar 1 [place] F31.9 [place] [address] and Left foot pain M79.672 [facility] [address] [facility] [place], [place] [address] Dec, [place] [address] [place] [address] [place], [place] [address] [facility] [address] [facility] [place], [place], [place] [address] osteoarthritis of right knee M17.[address] [facility] [address] [place], [place], Bipolar 1 disorder F31.9 ; [place] [address] Osteopenia of right hip M85.851 ; Hypothyroidism, unspecified type E03.9 ; Hyperlipidemia, unspecified hyperlipidemia type E78.5 ; Urinary frequency R35.0 ; Acute pain of right knee M25.561 and Encounter for immunization Z23 [facility] [address] [place], [place] [address] [facility] [address] [place], [place], [place] R35.0 [place] [address] [facility] [address] [place], [place] [address] [place], [place] [address] [place], [place], [place] [address] hematuria N30.00 ; Acute non-recurrent frontal sinusitis J01.10 ; Screening for breast cancer Z12.31 and Screening for osteoporosis Z13.[address] [place], [place] [address] [place], [place], [place] [address] frontal sinusitis J01.10 and Dysuria R30.[address] [place], [place] [address] [place], [place] [address] [place], [place], Cough R05 ; [place] 1 [place] [address] disorder F31.9 ; Stage 3 chronic kidney disease N18.3 and Hyperlipidemia, unspecified hyperlipidemia type E78.5 [facility] [address] [place], Jul, Cough R05 [place] [address] for immunization Z23 [address] [place], [place], [place] [address] [facility] [address] [place], [place] [address] [place], [place], Bipolar 1 disorder F31.9 ; [place] [address] Hyperlipidemia, unspecified hyperlipidemia type E78.5 and Cough R05 [facility] [address] [place], [place] [address] [place], [place], Dysuria R30.0 [place] [address] Encounter for hepatitis C screening test for low risk patient Z11.[address] [place], [place] [address], [place] [address], [place], Bipolar 1 disorder F31.9 ; [place] [address] Pre-diabetes R73.03 ; Elevated serum creatinine R79.89 ; Dysuria R30.0 and Hyperlipidemia, unspecified hyperlipidemia type E78.[address] Jan, [place] [address], Dec, [place] [address] R79.89 and [place] use Z79.[address], Dec, Bipolar 1 disorder F31.9 ; [place] [address] Screening for breast cancer Z12.31 ; BMI 36.0-36.9,adult Z68.36 ; Obesity (BMI 35.0-39.9 without comorbidity) E66.9 and Hypothyroidism, unspecified type E03.[address], [place] [address] Dec, [facility] [place] [place] [address] Oct, [facility] [place] [place] [address] [facility] Business Office [address] [place], [place] [address] [place], [place], [place] [address] frontal sinusitis J01.10 ; Screening for breast cancer Z12.31 ; Special screening for osteoporosis Z13.820 and Need for hepatitis C screening test Z11.[address] Jul, [place] [address], [place] [address], [place], Pre-diabetes R73.03 ; [place] [address] Bipolar 1 disorder F31.9 ; Hypertension I10 ; Hyperlipidemia, unspecified hyperlipidemia type E78.5 and Sleep apnea in adult G47.30 [facility] [address] [facility] Apr, [place] [address] [facility] [address] [place], [place] [address] [facility] [address] [place], [place], [place] [address] [facility] [address] [place], [place] [address] [place], [address] [place] [address] [facility] [address] [place], [place] [address] [facility] [address] [place], [place], [place] [address] G47.20 [facility] [address] [place], [place] [address] [facility] [address] [place], [place] [address] [facility] [address] [place], [place] [address] [facility] [address] [place], [place] [address] [facility] [address] [place], [place], [place] [address] contractions M62.40 and Hypertension I10 [facility] [address] [place], [place] [address] [facility] [address] [place], [place], [place] [address] lower extremities M62.838 [facility] [address] [place], [place] [address] [place], [place] [address] [facility] [address] [place], [place] [address] [facility] [address] [place], [place], [place], [place] [address] etiology J02.9 [facility] [address] [place], [place] [address] [facility] [address] [place], [place], [place]arrhea R19[place]7 [place] [address] [facility] [address] [place], [place] [address] [facility] [address] [place], [place] [address] [facility] [address] [place] [address] [place], [place], Chronic [place] K52.9 [place] [address] [facility] [address] [place] [address] [place], [place] [address] [place], [place] [address] [place], [place], Bipolar [place] 296.[address] [place] [address] [place], [place], Other eczema L30.8 ; [place] [address] lesion L98.9 and Chronic sinusitis, unspecified location J32.[address] [facility] [address] [place], [place] [address] [place], [place] [address] [place], [place] [address] [place], Jun, Abdominal pain 789.00 ; [place] [address] Elevated blood pressure 796.2 and Hematuria [address] [place], [place], Bipolar 1 disorder 296.7 ; [place] [address] Sinusitis 473.9 ; Vertigo 780.4 and Neck pain 723.[address] [place], [place], Sinusitis 473.9 [place] [address] IMMUNIZATIONS No Known Immunizations SOCIAL HISTORY Never Assessed REASON FOR REFERRAL FUNCTIONAL STATUS PLAN OF CARE VITAL SIGNS MEDICATIONS Unknown Medications PROCEDURES No Known procedures RESULTS No Results REASON FOR VISIT Patient phone messages Insurance Providers [facility] Health Member Patient Patient Patient Patient Patient Subscriber Subscriber Subscriber Group Insurance Plan Plan Plan Plan ID Relationship Address Phone Name Date of ID Name Date of No Type Insurance Insurance Insurance Coverage to Subscriber Address Phone Name Dates [employer] [phone] [employer] self [place] [id number] Medicare [id number] Medicare [place] 7 Adv [place] Adv HMO [address] Medicare National [phone] Medicare self [place] [id number] PPS Government 41 PPS [employer] [address] [place] [id number] Case [phone] Case self [place] [id number] Management [place] [facility] [address] Community MEDICAL (GENERAL) HISTORY Type Description Date Medical History bipolar Medical History tardive dyskenestia Surgical History bladder surgey Surgical History hysterectomy Surgical History tubal ligation Surgical History surgery on left foot 2015 or Surgical History revision of left tib/fib fractures Surgical History Right eye cataract removal 05/2016 Surgical History Left eye cataract removal 07/2016 Hospitalization History see above Hospitalization History bipolar episodes Hospitalization History [facility] 01/2013 Hospitalization History Suicideal ideation 12/2017
--- OUTSIDE RECORDS SUMMARY | 2019-07-16 15:08 | XMS REPORT ---
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 Active [id number] age-related cataract, bilateral Problem Pre-diabetes R73.03 Active 882364697 Problem Hypertension I10 Active 77269097 Problem Irritable bowel K58.0 Active 499145691 syndrome with diarrhea Problem Hyperlipidemia, E78.5 Active 34224574 unspecified hyperlipidemia type Problem Bipolar 1 disorder F31.9 Active 871698726 Problem Stage 3 chronic N18.3 Active 361493503 kidney disease Problem Hypothyroidism, E03.9 Active 65659375 unspecified type Problem BMI Z68.36 Active 439466904 36.0-36.9,adult Problem Essential I10 Active 31576550 hypertension Problem Obesity (BMI E66.9 Active 278267383 35.0-39.9 without comorbidity) Problem Hypercalcemia E83.52 Active 10716931 Problem Sleep apnea in G47.30 Active 85086181 adult Problem Primary M17.11 Active 392844109955667 osteoarthritis of right knee Problem Tricompartment M17.11 Active 959125485 osteoarthritis of right knee Problem 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 49024931 disorder Problem Tardive dyskinesia G24.01 Active 919389425 ALLERGIES No Information ENCOUNTERS Encounter Location Date Diagnosis [facility] [address] [place], [place] [address] [facility] [address] [place], [place] [address] [place] [facility] [address] [place], [place] [address] [place] [facility] [address] [facility] [place], [place] [address] [place] [address] [place] [facility] [address] [place] [address] [place] [address] [place] [facility] [address] [place] [address] [place], [place] [address] [place] [facility] [address] [place] [address] [place], [place], Epis[place] R53.1 [place] [address] [facility] - [place] [address] [facility] [place], [place] [address] [place] [facility] [address] [place] [address] [place], [place] [address] [place] [address] [place], [place] [address] [facility] - [facility] - [place] [address] [place] [address] [place], [place] [address] [place] [facility] [address] [place] [address] [place], [place] [address] [place] [facility] [address] [place] [address] [place], Apr, Hypertension I10 [place] [address] 3 chronic kidney disease N18.3 [facility] - [place] [address] [facility] [place], [place] [address] [place] [facility] [address] [place] [address] [place], [place] [address] [place] [address] [place], [place], [place] R79[place]9 [place] [address] [place] [address] [place], [place] [address] [place] [facility] [address] [place] [address] [place], [place] [address] [place] [facility] [address] [place] [address] [place], [place] R79.9 [place] [address] [place] [facility] [address] [place] [address] [place], [place], [place] [address] lower extremity R29.898 [place] [facility] [address] [place] [address] [place], [place] [address] [place] [facility] [address] [place] [address] [place] [address] [facility] [place] [address] [facility] [place], [place] [address] [facility] - [place] [address] [place] [address] [place], [place] [address] [facility] Business Office [address] [place] [address] [facility] - [place] [address] [facility] [place], [place] [address] [facility] [address] [place] [address] [place], [place], [place]ard[place] G24.01 [place] [address] ; Bipolar 1 disorder F31.9 ; Transient weakness of lower extremity R29.898 and Essential hypertension I10 [facility] [address] [facility] [place], [place] [address] [facility] [address] [place] [address] [place] [address] [facility] [address] [place] [address] [place] [address] [facility] [place] [address] [facility] [place], [place] [address] [place], [place], Tongue ulceration K14.0 ; [place] [address] Tardive dyskinesia G24.01 and Bipolar [address] disorder [address] [place], [place], Hyper[place] E83.52 [place] [address] [place], [place] [address] [place], [place] [address] [facility] [place] [address] [place] [address] [place] [address] [facility] [address] [facility] [place], [place] [address] [place] [address] Feb, [place] [address] [place] [address] [place], [place] [address] Case Management [address] [place], [place] [address] [facility] [address] [facility] Feb, [place] [address] [place], [place], Bipolar 1 disorder F31.9 ; [place] [address] Hypercalcemia E83.52 ; Thrush B37.0 ; Dental infection K04.7 ; Tardive dyskinesia G24.01 and Leg weakness, bilateral R29.[address] [place], [place] [address] [employer] Feb, Dental infection K04.7 [facility] [address] [facility] [place], [place] [address] [facility] [address] [facility] [place], [place], Bipolar 1 disorder F31.9 ; [place] [address] Essential hypertension I10 ; Stage 3 chronic kidney disease N18.3 ; Hypercalcemia E83.52 ; Transient weakness of lower extremity R29.898 ; Dental infection K04.7 ; Tardive dyskinesia G24.01 and Encounter for immunization Z23 [facility] [address] [facility] [place], [place] [address] [place], [place] [address] [facility] [address] [facility] [place], [place] [address] [facility] [address] [place] [address] [place], [place], Hyper[place] E83.52 [place] [address] [place], [place] [address] [facility] [address] [facility] [place], [place], Bipolar 1 [place] F31.9 [place] [address] and 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 [facility] [address] [facility] [place], [place] [address] [place], [place] [address] [place], [place] [address] [facility] [address] [facility] [place], [place] [address] [place], [place] [address] [facility] [address] [facility] [place], [place] [address] Dec, [place] [address] [facility] [address] [facility] [place], [place], Bipolar 1 [place] F31.9 [place] [address] and Left foot pain M79.672 [facility] [address] [facility] [place], [place] [address] Dec, [place] [address] Nov, [place] [address] [place], [place], [place] [address] osteoarthritis of right knee M17.[address] [place] [address] [place], [place], Bipolar 1 disorder F31.9 ; [place] [address] Osteopenia of right hip M85.851 ; Hypothyroidism, unspecified type E03.9 ; Hyperlipidemia, unspecified hyperlipidemia type E78.5 ; Urinary frequency R35.0 ; Acute pain of right knee M25.561 and Encounter for immunization Z23 [place] [address] [place], [place] [address] [place], Oct, Ur[place] R35.0 [place] [address] [place], [place] [address] [place], [place] [address] [place], [place] [address] hematuria N30.00 ; Acute non-recurrent frontal sinusitis J01.10 ; Screening for breast cancer Z12.31 and Screening for osteoporosis Z13.[address] [place], [place] [address] [place], [place], [place] [address] frontal sinusitis J01.10 and Dysuria R30.[address] [place], [place] [address] [place], [place] [address] [place], [place], Cough R05 ; [place] [address] disorder F31.9 ; Stage 3 chronic kidney disease N18.3 and Hyperlipidemia, unspecified hyperlipidemia type E78.[address] [place], Jul, Cough R05 [place] [address] for immunization Z23 [address] [place], [place], [place] [address] [facility] [address] [place], [place] [address] [place], [place], Bipolar 1 disorder F31.9 ; [place] [address] Hyperlipidemia, unspecified hyperlipidemia type E78.5 and Cough R05 [address] [place], [place] [address] [place], [place], Dysuria R30.0 [place] [address] Encounter for hepatitis C screening test for low risk patient Z11.[address] Jan, [place] [address] [place] [address], [place] [address] [place], [place], Bipolar 1 disorder F31.9 ; [place] [address] Pre-diabetes R73.03 ; Elevated serum creatinine R79.89 ; Dysuria R30.0 and Hyperlipidemia, unspecified hyperlipidemia type E78.[address] Jan, [place] [address] [place], [place], [place] [address] R79.89 and Senath use Z79.[address], [place], Bipolar 1 disorder F31.9 ; [place] [address] Screening for breast cancer Z12.31 ; BMI 36.0-36.9,adult Z68.36 ; Obesity (BMI 35.0-39.9 without comorbidity) E66.9 and Hypothyroidism, unspecified type E03.[address] [place], [place] [address] Dec, [facility] [place] [address] Oct, [facility] [place] [address] [facility] Business Office [address] [place], [place] [address] [place], [place], [place] [address] frontal sinusitis J01.10 ; Screening for breast cancer Z12.31 ; Special screening for osteoporosis Z13.820 and Need for hepatitis C screening test Z11.[address] Jul, [place] [address], [place] [address] [place], [place], Pre-diabetes R73.03 ; [place] [address] Bipolar 1 disorder F31.9 ; Hypertension I10 ; Hyperlipidemia, unspecified hyperlipidemia type E78.5 and Sleep apnea in adult G47.30 [facility] [address] [facility] Apr, [place] [address] [facility] [address] [place], [place] [address] [place] [facility] [address] [place], [place], [place] [address] [place] [facility] [address] [place], [place] [address] [facility] [address] [facility] [place], [address] [place] [address] [place] [facility] [address] [place], [place] [address] [facility] [address] [place], [place], [place] [address] G47.20 [place] [facility] [address] [place], [place] [address] [place] [facility] [address] [place], [place] [address] [place] [facility] [address] [place], [place] [address] [place] [facility] [address] [place], [place] [address] [facility] [address] [place], [place], [place] [address] contractions M62.40 and Hypertension I10 [place] [facility] [address] [place], [place] [address] [place] [facility] [address] [place], [place], [place] [address] lower extremities M62.838 [place] [facility] [address] [place], [place] [address] [facility] [address] [facility] Nov, [place] [address] [place] [facility] [address] [place], [place] [address] [place] [facility] [address] [place], [place], [place], [place] [address] etiology J02.9 [place] [facility] [address] [place], [place] [address] [place] [facility] [address] [place], [place], [place]arrhea R19[place]7 [place] [address] [place] [facility] [address] [place], [place] [address] [facility] [address] [place], [place] [address] [place], [place], Chronic [place] K52.9 [place] [address] [place] [address] [place], [place] [address] [place], [place] [address] [place], [place], Bipolar [place] 296.80 [place] [address] [place] [address] [place], [place], Other eczema L30.8 ; [place] [address] lesion L98.9 and Chronic sinusitis, unspecified location J32.[address] [place], [place] [address] [place], [place] [address] [place], [place] [address] [place], [place], Abdominal pain 789.00 ; [place] [address] Elevated blood pressure 796.2 and Hematuria [address] [place], [place], Bipolar 1 disorder 296.7 ; [place] [address] Sinusitis 473.9 ; Vertigo 780.4 and Neck pain 723.[address] [place], [place], Sinusitis 473.9 [place] [address] IMMUNIZATIONS No Known Immunizations SOCIAL HISTORY Never Assessed REASON FOR REFERRAL FUNCTIONAL STATUS PLAN OF CARE VITAL SIGNS MEDICATIONS Unknown Medications PROCEDURES No Known procedures RESULTS No Results REASON FOR VISIT [facility] Insurance Providers [facility] Member Patient Patient Patient Patient Patient Subscriber Subscriber Subscriber Group Insurance Plan Plan Plan Plan ID Relationship Address Phone Name Date of ID Name Date of No Type Insurance Insurance Insurance Coverage to Subscriber Address Phone Name Dates Medicare National [id number] Medicare self [place]on[place] [id number] PPS Government 41 PPS [employer] [address] [place] [id number] [employer] [phone] [employer] self Veronique [id number] Medicare [id number] Medicare [employer] 7 Adv HMO [place] Adv [facility] [address] Case [phone] Case self Veronique [id number] Management [place] [address] Management [facility] [address] [facility] MEDICAL (GENERAL) HISTORY Type Description Date [...] Hospitalization History bipolar episodes Hospitalization History [facility] 01/2013 Hospitalization History Suicideal ideation 12/2017
--- OUTSIDE RECORDS SUMMARY | 2019-07-16 15:08 | XMS REPORT | Continuity of Care Document ---
:1950 External Reference #:[id number] Author Name Adriel Adams MD (transmitted by agent of provider Sarah Rothman) Address [address] [place] [address] Care Team Providers Name Role Phone Adriel Adams MD - Hospitalist Care Team Information Micro Paleontologist [phone] Problems Active Problems Provider Date Disturbance in sleep behavior Purnima Fry MD Onset: 06/30/2016 Obstructive sleep apnea syndrome Purnima Fry MD Onset: 09/09/2016 Social History Type Date Description Comments Sex Unknown ETOH Use Denies alcohol use Tobacco Use Start: Unknown Patient has never smoked Recreational Drug Use Denies Drug Use Smoking Status Reviewed: 06/02/19 Patient has never smoked Exercise Type/Frequency Does [...] Medications SIG Qnty Indications Ordering Provider Date Amlodipine Besylate 1 by mouth every 90tabs Adriel Adams MD 06/02/2019 5mg day Tablets Atorvastatin Calcium take 1 tablet at Unknown 20mg bedtime Tablets Dicyclomine HCL by mouth four 90tabs Unknown 20mg times a day Tablets Bupropion 1 by mouth every Unknown Hydrochloride ER (XL) day 300mg Tablets ER 24HR Levothyroxine Sodium 1 by mouth every Unknown day 25mcg Tablets Oxcarbazepine take one tab and Unknown 300mg two tabs at Tablets night [place] Unknown 6mg Tablets Ibuprofen as needed Unknown 200mg Tablets Gabapentin take one/half 90tabs Unknown 600mg Tablets tablet by mouth three times a day Immunizations Description No Information Available Vital Signs Date Vital Result Comment 06/02/2019 10:02am Height 62 inches 5'2" Weight 166.00 lb Heart Rate 86 /min BP Systolic Sitting 135 mmHg BP Diastolic Sitting 78 mmHg Body Temperature 98.2 F O2 % BldC Oximetry 98 % BMI (Body Mass Index) 30.4 kg/m2 05/16/2019 9:43am Height 62 inches 5'2" Weight 165.75 lb Heart Rate 95 /min BP Systolic 146 mmHg BP Diastolic 88 mmHg Respiratory Rate 16 /min Pain Level 10 BMI (Body Mass Index) 30.3 kg/m2 Results Test Acquired Date Facility Test Result H/L Range Note Laboratory test 06/02/2019 [facility] Vitamin D <pending> finding [address] [place] [address] [phone] Procedures Date Code Description Status 01/21/2019 00953 EKG, Interpretation Only Completed Medical Devices Description No Information Available Encounters Type Date Location Provider Dx Diagnosis Office Visit 05/16/2019 [facility] Kalen Meng, F31.9 Bipolar disorder, 9:00a at [place] unspecified S82.842D Displ bimalleol fx l low leg, subs for clos fx w routn heal M25.572 Pain in left ankle and joints of left foot R53.1 Weakness Office Visit 01/21/2019 8:08a [facility] Oral Gallardo F31.9 Gabe disorderYina unspecified T42.6x2A Poisn by oth antieplptc and sed-hypntc drugs, slf-hrm, init Office Visit 01/20/2019 8:07a [facility] Gallardo M.D. R40.0 Somnolence T42.6x2A Poisn by oth antieplptc and sed-hypntc drugs, slf-hrm, init Office Visit 12/24/2018 9:01a [facility] Tony Suggs, R53.1 Weakness ,[facility] [place] R29.6 Repeated falls Office Visit 12/19/2018 10:58a Deidre Osorio S92.355A Nondisp fx of Orthopedics at [facility] fifth metatarsal [place] bone, left foot, init Assessments Date Code Description Provider 06/02/2019 I10 Essential (primary) hypertension Adriel Adams MD 06/02/2019 F31.9 Bipolar disorder, unspecified Adriel Adams MD 06/02/2019 R53.1 Weakness Adriel Adams MD 06/02/2019 R29.6 Repeated falls Adriel Adams MD 05/16/2019 F31.9 Bipolar disorder, unspecified Kalen Meng M.D. 05/16/2019 S82.842D Displaced bimalleolar fracture of left Kalen Meng M.D. lower leg, subsequent encounter for closed fracture with routine healing 05/16/2019 M25.572 Pain in left ankle and joints of left Kalen Meng M.D. foot 05/16/2019 R53.1 Weakness Kalne Meng M.D. 01/21/2019 R94.31 Abnormal electrocardiogram [ECG] [...] for closed fracture Plan of Treatment Future Appointment(s):07/06/2019 1:00 pm - Adriel Adams MD at [facility] Internal Medicine - [address]/24/2019 11:15 am - Jovan Brito M.D. at [facility]06/08/2019 10:15 am - Kalen Meng M.D. at [facility] at [id number]/02/2019 - Adriel Adams MDI10 Essential (primary) hypertensionComments:Take only the 5mg of amlodipine a day. You can cut your pills in half until you run out and I will give you a new prescription now.Follow up:3-4 weeks.F31.9 Bipolar disorder, scaiaeapzafY21.1 NfcptqenR35.6 Repeated fallsNew Therapy:Physical Therapy Functional Status Description No Information Available Mental Status Description No Information Available Referrals Refer to Reason for Referral Status Appt Date Jovan Brito M.D. please eval for generalized tremor, Closed 2019 weakness, inability to stand, upper extremity involvement [address] [place] [address] [place] [address] [phone]
[2019-07-16] MEDS ORDERED: Pantoprazole IV* 40 MG IV ONE (15:32)
[2019-07-16 15:57] LABS: Urine Appearance Cloudy; Urine Bilirubin Negative (Negative); Urine Blood Negative (Negative); Urine Color Yellow; Urine Glucose Negative (Negative); Urine Ketones Negative (Negative); Urine Nitrite Negative (Negative); Urine Protein Negative (Negative); Urine Urobilinogen Negative (Negative)
[2019-07-16 16:03] LABS: Urine Bacteria Absent (Absent); Urine Red Blood Cell Absent (Absent); Urine Squamous Epithelial Cell Present (Absent); Urine White Blood Cell 1+(6-10/hpf) (Absent)
[2019-07-16 16:33] LABS: Urine Specific Gravity 1.015 (1.010-1.030)
[2019-07-16] MEDS ORDERED: Morphine INJ* 2 MG/ML 1 ML SYRINGE (TWO MG - NEW SYRINGE VERSION) IV PRN (16:35)
[2019-07-16] MEDS ORDERED: hydrALAZINE IV* 20 MG/ML VIAL IV SLOW PU PRN (16:40)
--- NOTE | 2019-07-16 17:23 | CONS ---
CC: Dr. Adriel Adams; Dr. Teresita Prado; Dr. Brito, Neurology; [facility] SURGICAL CONSULTATION REPORT: DATE OF CONSULT: 07/16/19 LOCATION: The patient is seen in the emergency room. HISTORY OF PRESENT ILLNESS: Garth was contacted by the emergency room staff to evaluate Ms. Veronique sy, a 69-year-old female, who presented with continued central abdominal pain that started last night. The patient describes abdominal pain starting in the evening yesterday. It was relieved with rest an d she went to bed and had a good night's sleep. She woke up to diarrhea and persistent abdominal angelia n and presented to the emergency room. The patient denies any previous similar symptoms. She is obs tipated x2 days. Denies any nausea or vomiting. She is normally regular with regard to bowel moveme nts and this is new. The patient had her Neurontin dose doubled on Wednesday when she visited neurologist, otherwise no new c hanges. No sick contacts. The patient lives alone. Pain is described as constant in the mid to lower abdomen, nonradiating, relieved with rest, decrease d appetite. PAST MEDICAL HISTORY: Chronic back pain, being worked up and she is trying to be scheduled for an MR I for this purpose for the differential diagnosis of sciatica. She has bipolar disorder, chronic kidn ey disease, hypertension, tardive dyskinesia. PAST SURGICAL HISTORY: Hysterectomy and bladder sling repair, ankle surgery as well. MEDICATIONS: Medication list reviewed and includes: 1. Trileptal. 2. Synthroid. 3. Bupropion. 4. Lipitor. 5. Norvasc. 6. Neurontin. ALLERGIES: Long medical allergy list reviewed. FAMILY HISTORY: Noncontributory. 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 REVIEW OF SYSTEMS: No fevers, no chills. Decreased appetite as described. No shortness of breath o r chest pain. Recently been taking significant amount of Advil for pain control as she cannot tolera te narcotics for her back pain. She is not on acid reducing agents. She denies any acid reflux. No dysuria. She walks with a wheeled rolling walker due to back pain and no bleeding or clotting disor ders. PHYSICAL EXAM: She is afebrile. Vital signs are stable. Alert and oriented x3, in no apparent dist ress. Head, Ears, Eyes, Nose, and Throat: Normocephalic, atraumatic. Sclerae anicteric. Mucous me mbranes are moist. Abdomen is soft, mildly distended, tender diffusely without rebound. Hypoactive bowel sounds. No hernias or masses noted. Well-healed Pfannenstiel incision. Rectal exam not perfo rmed. Extremities: Within normal limits. DIAGNOSTIC STUDIES/LAB DATA: Labs reviewed, showed normal white count. Creatinine 1.1 which is her baseline. She has elevated CRP of 20.4. The patient underwent a CAT scan of the abdomen and pelvis. These images as well as report reviewed. No free air, no free fluid and this is a noncontrast study. Air is in the colon, but small bowel is dilated and read as a high-grade partial small bowel obstruction. IMPRESSION AND PLAN: One-day history of abdominal pain centrally located with obstipation but having diarrhea at this time. The patient has no nausea, vomiting, but with this finding of CT scan, the p atient may be experiencing small bowel obstruction secondary to adhesions from previous hysterectomy. I am also concerned that the patient has been taking a significant amount of Advil and would benefi t from proton-pump inhibitor. My recommendations is bowel rest, n.p.o. status, IV fluids, PPI and se rial abdominal exams. Given her comorbidities, I have inquired with the ER staff if the hospitalist service can consider admission to their service and we could follow along. I also discussed with the patient the need for close followup for the possibility of taking her to the OR for the purpose of r esolving an obstruction if this persists. [id number]/[facility] #: [id number]
[2019-07-16] MEDS: NS 0.9% 1000 ML** 1,000 ML IV SCH (18:41)
--- NOTE | 2019-07-16 19:02 | HP ---
CC: Dr. Adriel Adams* HISTORY AND PHYSICAL: DATE OF ADMISSION: 07/16/19 PRIMARY CARE PROVIDER: Dr. Adriel Adams. ATTENDING PHYSICIAN: Dr. Kalen Abdul* (dictated by Caterina Adam NP). CHIEF COMPLAINT: Abdominal pain. HISTORY OF PRESENT ILLNESS: Ms. Kerr is a 69-year-old female with past medical history of bipolar disorder, tardive dyskinesia, hypertension, CKD stage 3, hyperlipidemia, and chronic pain who presents to the emergency room today with complaints of 1 day of abdominal pain. The patient reports that pain came on somewhat suddenly last night. The pain was diffuse, although the left side is worse than the right. She did try taking Pepto-Bismol and drinking some isabella elijah last night, though those were not effective at decreasing the pain. She additionally took Tylenol this morning, which also was not effective at decreasing pain. She did have 2 bouts of diarrhea this morning. She does report that she did eat some crackers this morning. There was no increase in pain after eating the crackers. She has had no nausea or vomiting. She has no history of any bowel obstruction. She does report that she has in the past been diagnosed with IBS and takes Bentyl 4 times a day. No history of abdominal surgeries. In the emergency room, the patient was noted to have normal lab work. She had a CT of the abdomen, which did show a proximal high-grade partial small bowel obstruction. Surgery was consulted in the emergency room and the patient was seen by Dr. Motley who recommended admission. The hospitalist service was asked to evaluate. PAST MEDICAL HISTORY: 1. Bipolar disorder. 2. Hypertension. 3. Tardive dyskinesia. 4. Chronic kidney disease, stage 3. 5. Hyperlipidemia. 6. Chronic pain. PAST SURGICAL HISTORY: 1. Hysterectomy. 2. Tubal ligation. 3. Left ankle ORIF. 4. Carpal tunnel release. HOME MEDICATIONS: 1. Amlodipine 5 mg p.o. daily. 2. Atorvastatin 20 mg p.o. at bedtime. 3. Bupropion XL 300 mg p.o. daily. 4. Austedo 6 mg p.o. a.c. 5. Dicyclomine 20 mg p.o. 4 times a day p.r.n. abdominal cramping. 6. Gabapentin 600 mg p.o. t.i.d. 7. Levothyroxine 25 mcg p.o. daily. 8. Trileptal 300 mg p.o. daily. 9. Trileptal 600 mg p.o. at bedtime. ALLERGIES: ANTIHISTAMINES, BENZODIAZEPINES, NSAIDS, OXYCODONE, PENICILLIN, COMPAZINE, SEROQUEL, SEMISYNTHETIC NARCOTICS, ANTICHOLINERGIC AGENTS, MUSCLE RELAXANTS. FAMILY HISTORY: The patient's mother in her 70s from lung cancer. The patient's father in his 70s from pelvic cancer. SOCIAL HISTORY: The patient denies any tobacco, alcohol, or recreational drug use. She does not work and lives at home alone in a senior apartment. Her son- in-law, Giovanny Pinto, will be her surrogate decision maker in the event she is unable to make her own decisions, his phone number is [phone]. REVIEW OF SYSTEMS: An 11-point review of systems was performed and all the pertinent positive and negative findings are in the HPI. All other systems are negative. PHYSICAL EXAMINATION GENERAL: Ms. Kerr is a well-developed, well-nourished, middle-aged white woman, lying in bed, in no acute distress, she appears her stated age. VITAL SIGNS: Temp 98.6, heart rate 88, respiratory rate 15, oxygen saturation 98% on room air, blood pressure 130/81. HEENT: Head is atraumatic, normocephalic. Visual johnson are grossly intact. Pupils are equal, round, and reactive to light and accommodation. Extraocular movements intact. Oral mucous membranes moist. NECK: No lymphadenopathy. Thyroid not palpable. RESPIRATORY: Symmetrical chest expansion. Lungs clear to auscultation throughout. No rhonchi, wheezes, or rubs. CARDIOVASCULAR: Regular rate and rhythm. S1, S2 present. No murmurs, rubs, or gallops. ABDOMEN: Soft. Diffusely tender to palpation throughout. Hypoactive bowel sounds. EXTREMITIES: Skin is warm and smooth bilaterally. No edema. No clubbing or cyanosis. Pedal pulses 2+ bilaterally. NEURO: Awake, alert, and oriented x4. Cranial nerves II through XII grossly intact. Moves all extremities. SKIN: Appears intact. DIAGNOSTIC STUDIES/LAB DATA: WBC 9.3, RBC 4.57, hemoglobin 14.2, hematocrit 43 , platelets 320. Sodium 135, potassium 4.6, chloride 102, carbon dioxide 27, BUN 29, creatinine 1.1, glucose 107. Lactic acid 0.8. CRP 20. Urinalysis with 2+ leukocyte esterase and 1+ wbc. CT abdomen and pelvis reads as proximal high-grade partial small bowel obstruction. No definite etiology for the obstruction is identified. Consider potential adhesion. Hepatosteatosis. EKG shows normal sinus rhythm with a rate of 84, QTc is 392, no ST changes. ASSESSMENT AND PLAN: Ms. Kerr is a 69-year-old female with past medical history of bipolar, hypertension, chronic kidney disease, hyperlipidemia, tardive dyskinesia, and chronic pain who presents to the emergency room today with 1 day of abdominal pain and was found to have a partial small bowel obstruction. The patient will be admitted inpatient for: 1. Small bowel obstruction. The patient does have a small bowel obstruction as noted on CT. At this point, she is still having 9/10 pain, though no vomiting or vomiting. She has already been seen by Dr. Motley in the emergency room who recommended admission and an NG tube if the patient develops any vomiting. At this point, we will support her with IV fluids and pain medication. I have encouraged the patient to ambulate around the unit once she gets to the floor, she would like to avoid surgery if possible. She will be reassessed by Surgery in the morning to determine further plans at that time. Etiology of the small bowel obstruction is unclear at this point. 2. Bipolar. We will hold the patient's Trileptal and bupropion while n.p.o. 3. Hypertension. She is normotensive in the emergency room. I will hold amlodipine at this time and I have placed an ordered for p.r.n. hydralazine for systolic pressures over 170. 4. Chronic kidney disease, stage 3. Creatinine is at baseline. 5. Hyperlipidemia. Hold atorvastatin while n.p.o. 6. Tardive dyskinesia. Hold Austedo while n.p.o. This is also nonformulary. 7. Hypothyroidism. Will order IV levothyroxine. 8. Chronic pain. Hold gabapentin while n.p.o. I have ordered morphine for pain. 9. FEN. I have ordered normal saline at 100 mL per hour. She will be n.p.o. She did not require any electrolyte repletion at this time. 10. DVT prophylaxis. According to the DVT Risk Assessment, the patient scores a 3, making her high risk. I have ordered SCDs and we will hold off on chemoprophylaxis at this time as it is unknown if the patient will ultimately need to be taken to the OR. 11. Code status. Full code. TIME SPENT: Approximately 60 minutes was spent on this admission, greater than half of that time spent [id number] with the patient obtaining my history, performing my physical exam, and reviewing the plan of care. This case has been reviewed with my attending, Dr. Abdul, who is in agreement with the plan of care. CATERINA ADAM, LARGE ANIMAL VETERINARIAN [id number]/[facility] #: [id number] HYACINTH
[2019-07-17] MEDS: NS 0.9% 1000 ML** 1,000 ML IV SCH (05:21)
[2019-07-17 05:57] LABS: ABS Eosinophils 0.2 10^3/ul (0-0.6); ABS Lymphocytes 0.4 10^3/ul (1.0-4.8); ABS Monocytes 0.5 10^3/ul (0-0.8); ABS Neutrophils 8.5 10^3/ul (1.5-7.7); Eosinophil % 1.8 %; Hematocrit 38 % (35-47); Hemoglobin 12.7 g/dL (12.0-16.0); Lymphocyte % 4.6 %; Mean Corpuscular HGB Conc 33 g/dL (31-36); Mean Corpuscular Hemoglobin 32 pg (27-31); Mean Corpuscular Volume 95 fL (80-97); Mean Platelet Volume 7.5 fL (7.4-10.4); Nucleated Red Blood Cells % 0.1; Platelet Count 278 10^3/uL (150-450); Red Blood Count 4.05 10^6 /uL (3.70-4.87); Red Cell Distribution Width 15 % (10-15); White Blood Count 9.6 10^3/uL (3.5-10.8)
[2019-07-17] MEDS ORDERED: Levothyroxine INJ* 100 MCG/5 ML VIAL IV SCH (06:00)
[2019-07-17 06:15] LABS: BUN/Creatinine Ratio 23.3 (8-20); Calcium 8.7 mg/dL (8.6-10.3); EGFR African American 75.6 (>60); EGFR Non-African American 62.5 (>60); Potassium 4.2 mmol/L (3.5-5.0)
--- NOTE | 2019-07-17 08:54 | PN ---
Progress Note - Progress Note Date of Service: 07/17/19 Note: S: Reports she is feeling very well. No abdominal pain today. Passing more formed stool this morning. She is unsure if passing flatus. No nausea, emesis, fever, chills. O: Temp Pulse Resp BP Pulse Ox 99.0 F 90 18 127/69 97 07/17/19 07:38 07/17/19 07:38 07/17/19 07:52 07/17/19 07:38 07/17/19 07:38 Laboratory Last Values WBC 9.6 10^3/uL (3.5-10.8) 07/17/19 05:35 RBC 4.05 10^6 /uL (3.70-4.87) 07/17/19 05:35 Hgb 12.7 g/dL (12.0-16.0) 07/17/19 05:35 Hct 38 % (35-47) 07/17/19 05:35 MCV 95 fL (80-97) 07/17/19 05:35 MCH 32 pg (27-31) H 07/17/19 05:35 MCHC 33 g/dL (31-36) 07/17/19 05:35 RDW 15 % (10-15) 07/17/19 05:35 Plt Count 278 10^3/uL (150-450) 07/17/19 05:35 MPV 7.5 fL (7.4-10.4) 07/17/19 05:35 Neut % (Auto) 88.5 % 07/17/19 05:35 Lymph % (Auto) 4.6 % 07/17/19 05:35 [place] % (Auto) 5.0 % 07/17/19 05:35 Eos % (Auto) 1.8 % 07/17/19 05:35 Baso % (Auto) 0.1 % 07/17/19 05:35 Absolute Neuts (auto) 8.5 10^3/ul (1.5-7.7) H 07/17/19 05:35 Absolute Lymphs (auto) 0.4 10^3/ul (1.0-4.8) L 07/17/19 05:35 Absolute Monos (auto) 0.5 10^3/ul (0-0.8) 07/17/19 05:35 Absolute Eos (auto) 0.2 10^3/ul (0-0.6) 07/17/19 05:35 Absolute Basos (auto) 0.0 10^3/ul (0-0.2) 07/17/19 05:35 Absolute Nucleated RBC 0.0 10^3/ul 07/17/19 05:35 Nucleated RBC % 0.1 07/17/19 05:35 INR (Anticoag Therapy) 1.00 (0.82-1.09) 07/17/19 05:35 Sodium 138 mmol/L (135-145) 07/17/19 05:35 Potassium 4.2 mmol/L (3.5-5.0) 07/17/19 05:35 Chloride 111 mmol/L (101-111) 07/17/19 05:35 Carbon Dioxide 23 mmol/L (22-32) 07/17/19 05:35 Anion Gap 4 mmol/L (2-11) 07/17/19 05:35 BUN 21 mg/dL (6-24) 07/17/19 05:35 Creatinine 0.90 mg/dL (0.51-0.95) 07/17/19 05:35 Est GFR ( Amer) 75.6 (>60) 07/17/19 05:35 Est GFR (Non-Af Amer) 62.5 (>60) 07/17/19 05:35 BUN/Creatinine Ratio 23.3 (8-20) H 07/17/19 05:35 Glucose 96 mg/dL (70-100) 07/17/19 05:35 Lactic Acid 0.8 mmol/L (0.5-2.0) 07/16/19 13:32 Calcium 8.7 mg/dL (8.6-10.3) 07/17/19 05:35 Total Bilirubin 0.20 mg/dL (0.2-1.0) 07/16/19 13:32 AST 16 U/L (13-39) 07/16/19 13:32 ALT 25 U/L (7-52) 07/16/19 13:32 Alkaline Phosphatase 98 U/L (34-104) 07/16/19 13:32 C-Reactive Protein 20.40 mg/L (<8.01) H 07/16/19 13:32 Total Protein 7.8 g/dL (6.4-8.9) 07/16/19 13:32 Albumin 3.9 g/dL (3.2-5.2) 07/16/19 13:32 Globulin 3.9 g/dL (2-4) 07/16/19 13:32 Albumin/Globulin Ratio 1.0 (1-3) 07/16/19 13:32 Lipase 31 U/L (11.0-82.0) 07/16/19 13:32 Urine Color Yellow 07/16/19 15:50 Urine Appearance Cloudy 07/16/19 15:50 Urine pH 6.0 (5-9) 07/16/19 15:50 Ur Specific [place] 1.015 (1.010-1.030) 07/16/19 15:50 Urine Protein Negative (Negative) 07/16/19 15:50 Urine Ketones Negative (Negative) 07/16/19 15:50 Urine Blood Negative (Negative) 07/16/19 15:50 Urine Nitrate Negative (Negative) 07/16/19 15:50 Urine Bilirubin Negative (Negative) 07/16/19 15:50 Urine Urobilinogen Negative (Negative) 07/16/19 15:50 Ur Leukocyte Esterase 2+ (Negative) A 07/16/19 15:50 Urine WBC (Auto) 1+(6-10/hpf) (Absent) A 07/16/19 15:50 Urine RBC (Auto) Absent (Absent) 07/16/19 15:50 Ur Squamous Epith Cells Present (Absent) A 07/16/19 15:50 Urine Bacteria Absent (Absent) 07/16/19 15:50 Urine Glucose Negative (Negative) 07/16/19 15:50 PEX General: Alert, in NAD. Tardive dyskinetic movements. Heart: RRR. Lungs: CTAB. ABD: BS present. Soft, nondistended. Mild tenderness upon deep palpation just left of umbilicus. No guarding or rebound tenderness. Extremties: Distal pulses intact bilaterally. No edema. Calves soft and nontender. Assessment and plan: 69 yo F with partial bowel bowel obstruction, resolving with conservative treatment. Continue IV fluids and ambulating. Advance diet as tolerated.
[2019-07-17] MEDS: Gabapentin CAP(*) 300 MG PO SCH ×2 (14:07→21:07)
[2019-07-17] MEDS: BuPROPion XL* 300 MG TAB.XL PO SCH (14:07)
[2019-07-17] MEDS: amLODIPine TAB* 5 MG PO SCH (14:07)
[2019-07-17] MEDS: Pantoprazole TAB * 40 MG TAB PO SCH (14:07)
[2019-07-17] MEDS: OXcarbazepine TAB(*) 300 MG PO SCH ×2 (14:07→21:07)
--- NOTE | 2019-07-17 14:32 | PN ---
Subjective Date of Service: 07/17/19 Interval History: Ms. Kerr is feeling well today. Abdominal pain has resolved. She is still a bit tender, mostly on the left side. No N/V. She has been tolerating clear liquids today. Had 2 formed BMs this morning. Denies CP, SOB, cough. No concerns from nursing. Family History: Unchanged from Admission Social History: Unchanged from Admission Past Medical History: Unchanged from Admission Objective Active Medications: Amlodipine Besylate (Norvasc Tab*) 5 mg PO DAILY [facility] Atorvastatin Calcium (Lipitor*) 20 mg PO BEDTIME [facility] Bupropion HCl (Bupropion Xl*) 300 mg PO QAM [facility] Gabapentin (Neurontin Cap(*)) 600 mg PO TID [facility] Sodium Chloride (Ns 0.9% 1000 Ml) 1,000 mls @ 100 mls/hr IV PER RATE COBY Levothyroxine Sodium (Synthroid Tab*) 25 mcg PO DAILY@0600 [facility] Morphine Sulfate (Morphine Inj (Syringe))*) 2 mg IV Q4H PRN PAIN - SEVERE Oxcarbazepine (Trileptal Tab(*)) 600 mg PO BEDTIME [facility] Oxcarbazepine (Trileptal Tab(*)) 300 mg PO QAM [facility] Pantoprazole Sodium (Protonix Tab*) 40 mg PO DAILY [facility] Vital Signs - 8 hr 07/17/19 07/17/19 07/17/19 07:38 07:52 11:39 Temperature 99.0 F 98.0 F Pulse Rate 90 78 Respiratory 18 16 20 Rate Blood Pressure 127/69 115/54 (mmHg) O2 Sat by Pulse 97 98 Oximetry Oxygen Devices in Use Now: None Appearance: Middle-aged female sitting in chair in NAD Ears/Nose/Mouth/Throat: Mucous Membranes Moist Neck: NL Appearance and Movements; NL JVP Respiratory: Symmetrical Chest Expansion and Respiratory Effort Abdominal: - - Slightly tender throughout Extremities: No Edema Neurological: Alert and Oriented x 3 Lines/Tubes/Other Access: Clean, Dry and Intact Peripheral IV Nutrition: Taking PO's Result Diagrams: 07/17/19 05:35 07/17/19 05:35 Assess/Plan/Problems-Billing Assessment: Ms. Kerr is a 69 yo F with PMH of bipolar, HTN, tardive dyskinesia, CKD stage 3, HLD, chronic pain; presented to the ED with c/o abdominal pain and was found to have a SBO. - Patient Problems (1) SBO (small bowel obstruction) Code(s): K56.609 - UNSP INTESTNL OBST, UNSP TO PARTIAL VERSUS COMPLETE OBST Comment: - Presented with 1 day of abdominal pain, no N/V - Unclear etiology - CT on admission showing high-grade partial obstruction - Xray this morning shows improvement - Appreciate Surgery consult; recommends conservative management - Clear liquids for now; can likely advance to full liquids tomorrow morning if she continues to improve (2) Bipolar 1 disorder Code(s): F31.9 - BIPOLAR DISORDER, UNSPECIFIED Comment: - Resume Trileptal, bupropion (3) CKD (chronic kidney disease) Code(s): N18.9 - CHRONIC KIDNEY DISEASE, UNSPECIFIED Comment: - Stage 3 - Creatinine at baseline (4) Hypertension Code(s): I10 - ESSENTIAL (PRIMARY) HYPERTENSION Comment: - Resume amlodipine (5) Chronic pain Code(s): G89.29 - OTHER CHRONIC PAIN Comment: - Resume gabapentin (6) Hyperlipidemia Code(s): E78.5 - HYPERLIPIDEMIA, UNSPECIFIED Comment: - Resume atorvastatin (7) Hypothyroidism Code(s): E03.9 - HYPOTHYROIDISM, UNSPECIFIED Comment: - Continue levothyroxine (8) DVT prophylaxis Code(s): Z29.9 - ENCOUNTER FOR PROPHYLACTIC MEASURES, UNSPECIFIED Comment: - SCDs (9) Full code status Code(s): Z78.9 - OTHER SPECIFIED HEALTH STATUS Comment: Status and Disposition: Inpatient. Anticipate d/c home when medically stable, possibly tomorrow if clinically improving. Attending: Kalen Abdul
[2019-07-17] MEDS: Atorvastatin* 20 MG TAB PO SCH (21:07)
[2019-07-17] MEDS: Melatonin 3 MG TAB PO PRN (21:07)
[2019-07-18] MEDS: Levothyroxine TAB* 25 MCG TAB PO SCH (05:11)
[2019-07-18] MEDS: BuPROPion XL* 300 MG TAB.XL PO SCH (08:27)
[2019-07-18] MEDS: Pantoprazole TAB * 40 MG TAB PO SCH (08:27)
[2019-07-18] MEDS: amLODIPine TAB* 5 MG PO SCH (08:27)
[2019-07-18] MEDS: OXcarbazepine TAB(*) 300 MG PO SCH ×2 (08:28→21:22)
[2019-07-18] MEDS: Gabapentin CAP(*) 300 MG PO SCH ×3 (08:28→21:21)
--- NOTE | 2019-07-18 13:50 | PN ---
Progress Note - Progress Note Date of Service: 07/18/19 Note: Surgery Progress: S: Feeling better: less pain; kale clear liqs w/o N/V; passing flatus and BMs ( initially formed; now loose). O: Vital Signs - 8 hr 07/18/19 07/18/19 07/18/19 07:32 08:00 08:28 Temperature 98.2 F Pulse Rate 75 Respiratory 16 16 16 Rate Blood Pressure 126/57 (mmHg) O2 Sat by Pulse 97 Oximetry 07/18/19 07/18/19 10:26 11:15 Temperature 98.9 F Pulse Rate 80 Respiratory 16 16 Rate Blood Pressure 135/67 (mmHg) O2 Sat by Pulse 98 Oximetry Intake and Output Last 24 Hours 07/16/19 07/17/19 07/18/19 07/19/19 06:59 06:59 06:59 06:59 Intake Total 1907 1683 Balance 1907 1683 Weight 175 lb 9.6 oz Intake: IV Fluids 1907 833 NS (0.9%) 907 833 Oral 0 850 Other: # Bowel Movements 2 # Voids 0 4 Gen: sitting up in chair; appears comfortable Heart: reg Lungs: clear Abd: softly distended; BS +, though somewhat hypoactive; soft; mild mid-abd tenderness to palp; remainder nontender. No xray today; yesterday's film reviewed A: SBO, improving P: slow adv of diet (full liqs); d/c dispo per Hospitalist. Patient is concerned re: recurrence. She would also like to try to schedule her MRI (for sciatica w/u per Dr. Brito) either during her current stay or upon d/c. Will defer to hospitalist. Patient will also contact the ordering office. We will cont to follow. I expect she will likely be d/c'd tomorrow, pending tolerance of diet advance.
--- NOTE | 2019-07-18 15:17 | PN ---
Subjective Date of Service: 07/18/19 Interval History: Pt reports that she is feeling much better today. Reports one loose BM this AM, continues passing flatus periodically. Pt denies any abdominal pain denies chest pain, denies SOB. Family History: Unchanged from Admission Social History: Unchanged from Admission Past Medical History: Unchanged from Admission Objective Active Medications: Amlodipine Besylate (Norvasc Tab*) 5 mg PO DAILY [facility] Last Admin: 07/18/19 08:27 Dose: 5 mg Atorvastatin Calcium (Lipitor*) 20 mg PO BEDTIME [facility] Last Admin: 07/17/19 21:07 Dose: 20 mg Bupropion HCl (Bupropion Xl*) 300 mg PO QAM [facility] Last Admin: 07/18/19 08:27 Dose: 300 mg Gabapentin (Neurontin Cap(*)) 600 mg PO TID [facility] Last Admin: 07/18/19 13:59 Dose: 600 mg Levothyroxine Sodium (Synthroid Tab*) 25 mcg PO DAILY@0600 [facility] Last Admin: 07/18/19 05:11 Dose: 25 mcg Melatonin (Melatonin) 3 mg PO BEDTIME PRN PRN Reason: SLEEP Last Admin: 07/17/19 21:07 Dose: 3 mg Morphine Sulfate (Morphine Inj (Syringe))*) 2 mg IV Q4H PRN PRN Reason: PAIN - SEVERE Oxcarbazepine (Trileptal Tab(*)) 600 mg PO BEDTIME [facility] Last Admin: 07/17/19 21:07 Dose: 600 mg Oxcarbazepine (Trileptal Tab(*)) 300 mg PO QAM [facility] Last Admin: 07/18/19 08:28 Dose: 300 mg Pantoprazole Sodium (Protonix Tab*) 40 mg PO DAILY [facility] Last Admin: 07/18/19 08:27 Dose: 40 mg Vital Signs - 8 hr 07/18/19 07/18/19 07/18/19 07:32 08:00 08:28 Temperature 98.2 F Pulse Rate 75 Respiratory 16 16 16 Rate Blood Pressure 126/57 (mmHg) O2 Sat by Pulse 97 Oximetry 07/18/19 07/18/19 07/18/19 10:26 11:15 13:59 Temperature 98.9 F Pulse Rate 80 Respiratory 16 16 16 Rate Blood Pressure 135/67 (mmHg) O2 Sat by Pulse 98 Oximetry Oxygen Devices in Use Now: None Appearance: Elderly female patient sitting up in chair watching TV. Does not appear to be in any distress. Eyes: No Scleral Icterus, PERRLA Ears/Nose/Mouth/Throat: NL Teeth, Lips, Gums, Clear Oropharnyx, Mucous Membranes Moist Neck: NL Appearance and Movements; NL JVP, Trachea Midline, No Thyroid Enlargement, Masses Respiratory: Symmetrical Chest Expansion and Respiratory Effort, Clear to Auscultation Cardiovascular: NL Sounds; No Murmurs; No JVD, RRR, No Edema Abdominal: No Hepatosplenomegaly, - - BS+ in all 4 quads. Tenderness to palpation in LUQ and LLQ. Lymphatic: No Cervical Adenopathy Extremities: No Edema, No Clubbing, Cyanosis Skin: No Rash or Ulcers, No Nodules or Sclerosis Neurological: Alert and Oriented x 3, NL Sensation, NL Muscle Strength and Tone Result Diagrams: 07/17/19 05:35 07/17/19 05:35 Microbiology and Other Data: Microbiology 07/16/19 15:50 Urine Culture - Final Urine Escherichia Coli Assess/Plan/Problems-Billing Assessment: Ms. Kerr is a 69 yo F with PMH of bipolar, HTN, tardive dyskinesia, CKD stage 3, HLD, chronic pain; presented to the ED with c/o abdominal pain and was found to have a SBO. - Patient Problems (1) SBO (small bowel obstruction) Current Visit: Yes Comment: -SBO continues to improve. -Per surgical PA pt may advance to full liquid diet -Pt diet changed to Full liquid. If patient tolerates full liquid and continues to move bowels may may be cleared to go home tomorrow. (2) Hypertension Comment: -Continues to be well controlled -Amlodipine per home dosing (3) Hypothyroidism Current Visit: Yes Comment: - Continue per home dosing levothyroxine (4) Tardive dyskinesia Current Visit: No Comment: -present for years; after using abilify. -well controlled on Austedo (5) DVT prophylaxis Current Visit: No Comment: -SCDs -Encourage ambulation (6) Full code status Current Visit: No Comment: Status and Disposition: Inpatient. Anticipate d/c home when medically stable, possibly 07/18 if continued improvement.
[2019-07-18] MEDS: Melatonin 3 MG TAB PO PRN (21:22)
[2019-07-18] MEDS: Atorvastatin* 20 MG TAB PO SCH (21:22)
[2019-07-19] MEDS: Levothyroxine TAB* 25 MCG TAB PO SCH (05:25)
[2019-07-19 08:06] VITALS: BP 137/67
[2019-07-19] MEDS: OXcarbazepine TAB(*) 300 MG PO SCH (08:39)
[2019-07-19] MEDS: Pantoprazole TAB * 40 MG TAB PO SCH (08:39)
[2019-07-19] MEDS: Gabapentin CAP(*) 300 MG PO SCH ×2 (08:39→14:30)
[2019-07-19] MEDS: BuPROPion XL* 300 MG TAB.XL PO SCH (08:39)
[2019-07-19] MEDS: amLODIPine TAB* 5 MG PO SCH (08:39)
--- NOTE | 2019-07-19 09:19 | PN ---
Progress Note - Progress Note Date of Service: 07/19/19 Note: S: Reports she is feeling better. Minimal abdominal discomfort. No nausea, emesis, fever, chills, SOB. Tolerating full liquid diet and ambulating well. O: Temp Pulse Resp BP Pulse Ox 97.4 F 64 16 137/67 100 07/19/19 07:15 07/19/19 07:15 07/19/19 08:39 07/19/19 07:15 07/19/19 07:15 Intake and Output Last 24 Hours 07/17/19 07/18/19 07/19/19 07/20/19 06:59 06:59 06:59 06:59 Intake Total 1907 1683 895 120 Balance 1907 1683 895 120 Weight 175 lb 9.6 oz Intake: IV Fluids 1907 833 NS (0.9%) 907 833 Oral 0 850 895 120 Other: Estimated Void Large # Bowel Movements 2 1 Estimated Stool Amount Small # Voids 0 4 1 PEX General: Alert, in NAD. HEENT: Oropharynx clear. PERRLA. Heart: RRR. Lungs: CTAB. ABD: BS present. Soft, nondistended. Mild discomfort in central and left abdomen. No guarding or rebound tenderness. Extremities: Distal pulses intact BL. No edema. Calves soft and nontender. Assessment and plan: 69 yo F with SBO that appears to be resolving. Advance diet as tolerated. If she continues to tolerate diet, likely ok for discharge.
--- NOTE | 2019-07-20 01:31 | DS ---
CC: Dr. Adriel Adams* DISCHARGE SUMMARY: DATE OF ADMISSION: 07/16/19 DATE OF DISCHARGE: 07/19/19 PROVIDER: Marti Zarate NP. PRIMARY CARE PROVIDER: Dr. Adriel Adams. ATTENDING PHYSICIAN: Dr. Shannon Linton* (dictated by Marti Zarate NP). PRIMARY DIAGNOSIS: Small bowel obstruction. SECONDARY DIAGNOSES: 1. Bipolar disorder. 2. Hypertension. 3. Tardive dyskinesia. 4. Chronic kidney disease. 5. Hyperlipidemia. STUDIES WHILE IN THE HOSPITAL: 1. On 07/16/19, abdominal pelvis CT: Proximal high-grade partial small bowel obstruction, no definitive etiology for the obstruction identified. Consider potential adhesions. Hepatosteatosis. 2. On 07/16/19, ECG: Normal sinus rhythm, rate 60 to 99, no ST elevations or T - wave inversions. 3. Review of abdominal x-ray, 07/16/19: Decreased in length of visualized moderately dilated small bowel suggesting partial resolution of small bowel obstruction. 4. on abdominal x-ray 2-view, 07/17/19. CONSULTATIONS WHILE IN THE HOSPITAL: 1. 07/16/19, Dr. Bryan Motley from GI. 2. 07/17/19, RYLEE Goodman from GI. 3. 07/18/19, RYLEE Diaz from GI. 4. 07/19/19, Reza MCKEE from GI. HISTORY OF PRESENT ILLNESS AND HOSPITAL COURSE: Ms. Kerr is a 69-year-old female with a past medical history of hypertension, bipolar disorder, tardive dyskinesia, CKD stage 3, hyperlipidemia, and chronic pain, presented to the ER on 07/16/19 with 1 day of abdominal pain, sudden onset diffuse pain, worse on the left side. While in the ER, a CT scan revealed proximal high-grade partial small bowel obstruction. The patient did report 2 episodes of diarrhea at home. While admitted, GI was consulted and decided conservative treatment with bowel rest would be adequate. The patient was managed with IV fluids while n.p.o. and proton pump inhibitors. It was thought that small bowel obstruction was the result of adhesions related to past hysterectomy. After 1 day without nausea and vomiting, the patient's diet was advanced to clear fluids as tolerated on 07/17/19. Repeat abdominal x-ray on 07/17/19 shows improvement of SBO. On the morning of 07/16/19, the patient reported loose BM and passing flatus. The patient was tolerating clear fluid diet. It was suggested that the patient advance to a full liquid diet, which the patient tolerated well. Denied any nausea or vomiting, continued to report passing flatus and loose stools. The patient's status remained unchanged, continued to report improved bowel function and decreased abdominal pain. Pain improving on palpation of left lower quadrant and left upper quadrant. Pain was diminished on 07/19/19. The patient feels she is ready to go home. It has been determined that the patient is stable to return home on 07/19/19. PHYSICAL EXAMINATION: Elderly female patient, sitting up in chair, watching TV , does not appear to be in any distress. Does appear to be stated age. No scleral icterus appreciated. Pupils PERRL. Normal teeth, lips, and gums. Clear oropharynx. Mucous membranes moist and pink. Neck is supple. Normal appearance and movements. No JVP. Trachea is midline, no thyroid enlargement or masses noted. Symmetrical chest expansion and respiratory effort. Clear to auscultation. Normal heart sounds. No murmurs, rubs, gallops or JVD. Rate and rhythm is regular. No edema noted. No hepatosplenomegaly noted to palpation. Bowel sounds are positive in all 4 quadrants. The patient reports only mild tenderness to palpation in left upper and lower quadrants. No edema noted to any extremities. No clubbing or cyanosis. No rashes, ulcers, or nodules noted to integumentary system. The patient is alert and oriented x3, normal sensation , normal muscle strength and tone. Physical exam is otherwise benign. Ms. Kerr is stable for discharge. Most recent vital signs are as follows: 97.3 for temp, 64 heart rate, respiratory rate 16, oxygen saturation 100% on room air. Blood pressure 137/67. DISCHARGE MEDICATIONS: Additional medication: Pantoprazole 40 mg p.o. daily x14 days. Continued medications: 1. Amlodipine 5 mg p.o. daily. 2. Atorvastatin 20 mg p.o. at bedtime. 3. Bupropion XL 300 mg p.o. q.a.m. 4. Austedo 6 mg p.o. a.c. 5. Dicyclomine 20 mg p.o. q.i.d. as needed abdominal cramping, pain. 6. Gabapentin 600 mg p.o. t.i.d. 7. Levothyroxine 25 mcg p.o. daily. 8. Oxcarbazepine 300 mg p.o. q.a.m. DISCHARGE PLAN: Ms. Kerr will be discharged home. Activity will be as tolerated. A prescription for pantoprazole was sent to her pharmacy, 2 weeks dose was sent to pharmacy. Be sure to follow up with your PCP Dr. Adams for reevaluation and to your need for these medications. Be sure to follow your full liquid diet instructions, slowly introduce whole foods as you are able to tolerate. Be sure to stay active as this will digestive tract. Also continue to take Bentyl ordered by Dr. Collado. Contact your PCP if you develop any constipation, nausea, or vomiting. Return to the ER for any severe abdominal pain, blood in stool or vomit, chest pain, shortness of breath, dizziness, or other concerning symptoms. Maintain social distancing; if you must go out, please maintain at least 6 feet separation from other people, wash your hands frequently and wear a mask when you are outside your home. DISCHARGE CONDITION: Stable. DISCHARGE DISPOSITION: Home. This is a summarized report of a complex medical history and hospital stay. For further details, please see the entire medical record. TIME SPENT: Approximately 30 minutes was spent on this discharge. MARTI ZARATE, DIMPLE [id number]/[facility] #: [id number] HYACINTH
== END 2019-07-19 14:45 | disposition home or self-care (01) | DRG 390 ==
LOC: ED 13:07 → MEDTELE 16:35
PROVIDERS: ADMIT Nurse Practitioner Family; ATTEND Internal Medicine
DX: K56.50 Intestinal adhesions [bands], unspecified as to partial versus complete obstruction (principal); G89.29 Other chronic pain; M54.9 Dorsalgia, unspecified; F31.9 Bipolar disorder, unspecified; I12.9 Hypertensive chronic kidney disease with stage 1 through stage 4 chronic kidney disease, or unspecified chronic kidney disease; G24.01 Drug induced subacute dyskinesia; E78.5 Hyperlipidemia, unspecified; K58.9 Irritable bowel syndrome, unspecified; E03.9 Hypothyroidism, unspecified; G43.909 Migraine, unspecified, not intractable, without status migrainosus; F41.9 Anxiety disorder, unspecified; N18.3 Chronic kidney disease, stage 3 (moderate); Z79.899 Other long term (current) drug therapy; Z79.890 Hormone replacement therapy; Z88.8 Allergy status to other drugs, medicaments and biological substances; Z90.710 Acquired absence of both cervix and uterus; Z28.21 Immunization not carried out because of patient refusal; Z88.6 Allergy status to analgesic agent; Z88.5 Allergy status to narcotic agent; Z88.0 Allergy status to penicillin; Z88.1 Allergy status to other antibiotic agents
CPT/HCPCS: 36415; 74019; 74177; 80048; 80053; 81003; 81015; 83605; 83690; 85025; 85610; 86140; 87077; 87086; 87186; 93005; 96361; 96374; 99284; A9270-GY; Q9967

== ENCOUNTER 2020-11-13 17:34 | Inpatient (IN) ==
[2020-11-13] MEDS ORDERED: NS 0.9% 1000 ml BAG 1,000 ML IV ONE (17:46)
[2020-11-13 18:32] LABS: ABS Eosinophils 0.1 10^3/ul (0-0.6); ABS Lymphocytes 1.8 10^3/ul (1.0-4.8); ABS Monocytes 0.8 10^3/ul (0-0.8); ABS Neutrophils 8.3 10^3/ul (1.5-7.7); Eosinophil % 0.8 %; Hematocrit 46 % (35-47); Hemoglobin 14.8 g/dL (12.0-16.0); Lymphocyte % 16.5 %; Mean Corpuscular HGB Conc 32 g/dL (31-36); Mean Corpuscular Hemoglobin 31 pg (27-31); Mean Corpuscular Volume 97 fL (80-97); Mean Platelet Volume 7.3 fL (7.4-10.4); Platelet Count 332 10^3/uL (150-450); Red Blood Count 4.73 10^6 /uL (3.70-4.87); Red Cell Distribution Width 14 % (10-15)
[2020-11-13 18:49] LABS: ALT 42 U/L (7-52); Albumin 4.3 g/dL (3.2-5.2); Albumin/Globulin Ratio 0.9 (1-3); Alkaline Phosphatase 87 U/L (35-149); Blood Urea Nitrogen 19 mg/dL (6-24); CO2 Carbon Dioxide 27 mmol/L (22-32); Calcium 10.3 mg/dL (8.6-10.3); Chloride 102 mmol/L (101-111); EGFR Non-African American 54.5 (>60); Globulin 4.6 g/dL (2-4); Glucose 90 mg/dL (70-100); Lipase 33 U/L (11.0-82.0); Sodium 136 mmol/L (135-145); Total Protein 8.9 g/dL (6.4-8.9); Urine Appearance Clear; Urine Bilirubin Negative (Negative); Urine Blood Negative (Negative); Urine Color Yellow; Urine Glucose Negative (Negative); Urine Ketones Negative (Negative); Urine Nitrite Negative (Negative); Urine Protein Negative (Negative); Urine Specific Gravity 1.011 (1.002-1.030); Urine Urobilinogen Negative (Negative)
[2020-11-13 18:53] LABS: Anion Gap 7 mmol/L (2-11)
[2020-11-13 19:00] LABS: Urine Bacteria Absent (Absent); Urine Red Blood Cell Trace(0-2/hpf) (Absent); Urine Squamous Epithelial Cell Present (Absent); Urine White Blood Cell Trace(0-5/hpf) (Absent)
[2020-11-13] MEDS ORDERED: Iodixanol (CONTRAST) 320 MG/ML 100 ML SDV IV ONE (19:26)
[2020-11-13] MEDS ORDERED: HYDROcodone/ACETAMIN 5/325 mg TAB PO ONE (19:28)
[2020-11-13 19:55] LABS: Magnesium 2.4 mg/dL (1.9-2.7); Potassium Redraw 3.9 mmol/L (3.5-5.0)
[2020-11-13] MEDS ORDERED: Ondansetron 4 mg VIAL 2 MG/ML 2 ml VIAL IV ONE (21:41)
[2020-11-14] MEDS ORDERED: Lactated Ringers 1000 ml BAG 1,000 ML IV SCH (01:00)
[2020-11-14] MEDS ORDERED: Ondansetron 4 mg VIAL 2 MG/ML 2 ml VIAL IV PRN (04:14)
[2020-11-14] MEDS: Enoxaparin 40 MG/0.4 ML SYR SUBCUT SCH (04:21)
[2020-11-14 06:48] LABS: Hematocrit 38 % (35-47); Hemoglobin 12.8 g/dL (12.0-16.0); Mean Corpuscular HGB Conc 34 g/dL (31-36); Mean Corpuscular Hemoglobin 33 pg (27-31); Mean Corpuscular Volume 96 fL (80-97); Mean Platelet Volume 7.3 fL (7.4-10.4); Platelet Count 273 10^3/uL (150-450); Red Blood Count 3.95 10^6 /uL (3.70-4.87); Red Cell Distribution Width 14 % (10-15); White Blood Count 7.1 10^3/uL (3.5-10.8)
[2020-11-14 07:06] LABS: Calcium 8.6 mg/dL (8.6-10.3); EGFR African American 67.5 (>60); EGFR Non-African American 55.8 (>60); Potassium 4.1 mmol/L (3.5-5.0)
[2020-11-14] MEDS ORDERED: DEUTETRABENAZINE 6 MG PO SCH (16:30)
[2020-11-14] MEDS: DEUTETRABENAZINE PO SCH ×2 (19:59→20:04)
[2020-11-15] MEDS: Enoxaparin 40 MG/0.4 ML SYR SUBCUT SCH (07:50)
[2020-11-15] MEDS ORDERED: DEUTETRABENAZINE PO SCH (08:30)
[2020-11-15 11:31] VITALS: BP 135/57
== END 2020-11-15 12:52 | disposition home or self-care (01) | DRG 390 ==
LOC: ED 17:34 → MEDTELE 11-14 00:26
PROVIDERS: ADMIT Student in an Organized Health Care Education/Training Program; ATTEND Internal Medicine

== ENCOUNTER 2022-02-12 05:26 | Observation (INO) ==
[2022-02-12] MEDS ORDERED: Lactated Ringers 1000 ml BAG 1,000 ML IV ONE (06:27)
[2022-02-12 06:48] LABS: Urine Appearance Cloudy; Urine Bilirubin Negative (Negative); Urine Blood Negative (Negative); Urine Color Yellow; Urine Glucose Negative (Negative); Urine Ketones Negative (Negative); Urine Nitrite Negative (Negative); Urine Protein 1+(30 mg/dL) (Negative); Urine Specific Gravity 1.021 (1.002-1.030); Urine Urobilinogen Negative (Negative)
[2022-02-12 06:56] LABS: ABS Basophils 0.1 10^3/ul (0-0.2); ABS Lymphocytes 1.3 10^3/ul (1.0-4.8); ABS Monocytes 1.1 10^3/ul (0-0.8); Hematocrit 39 % (35-47); Hemoglobin 12.9 g/dL (12.0-16.0); Lymphocyte % 8.3 %; Mean Corpuscular HGB Conc 33 g/dL (31-36); Mean Corpuscular Hemoglobin 32 pg (27-31); Mean Corpuscular Volume 98 fL (80-97); Platelet Count 259 10^3/uL (150-450); Red Cell Distribution Width 15 % (10-15); White Blood Count 15.5 10^3/uL (3.5-10.8)
[2022-02-12 07:11] LABS: Urine Bacteria Absent (Absent); Urine Red Blood Cell Trace(0-2/hpf) (Absent); Urine Squamous Epithelial Cell Present (Absent); Urine White Blood Cell 3+(>20/hpf) (Absent)
[2022-02-12 07:33] LABS: Albumin 3.9 g/dL (3.2-5.2); Calcium 9.7 mg/dL (8.6-10.3); Potassium 4.1 mmol/L (3.5-5.0); Total Bilirubin 0.5 mg/dL (0.2-1.0)
[2022-02-12 07:39] LABS: Globulin 3.8 g/dL (2-4); Total Protein 7.7 g/dL (6.4-8.9); eGFR CKD-EPI 53.8 (>60)
[2022-02-12 08:43] LABS: High Sensitivity Troponin 1 Hr 6 pg/mL (<15)
[2022-02-12 09:04] LABS: TSH Ultra Thyroid Stim Horm 0.36 mcIU/mL (0.34-5.60)
[2022-02-12] MEDS ORDERED: cefTRIAXone 1 gm/50 mL D5W 1 GM/50 ML BAG IV ONE (10:44)
[2022-02-12] MEDS: Enoxaparin 40 MG/0.4 ML SYR SUBCUT SCH (12:42)
[2022-02-13 05:55] LABS: ABS Eosinophils 0.1 10^3/ul (0-0.6); ABS Lymphocytes 1.6 10^3/ul (1.0-4.8); ABS Monocytes 0.9 10^3/ul (0-0.8); ABS Neutrophils 10.1 10^3/ul (1.5-7.7); Eosinophil % 0.5 %; Hematocrit 34 % (35-47); Hemoglobin 11.1 g/dL (12.0-16.0); Mean Corpuscular HGB Conc 33 g/dL (31-36); Mean Corpuscular Hemoglobin 32 pg (27-31); Mean Corpuscular Volume 98 fL (80-97); Platelet Count 221 10^3/uL (150-450); Red Cell Distribution Width 15 % (10-15); White Blood Count 12.7 10^3/uL (3.5-10.8)
[2022-02-13 06:24] LABS: Anion Gap 9 mmol/L (2-11); Blood Urea Nitrogen 24 mg/dL (6-24); CO2 Carbon Dioxide 26 mmol/L (22-32); Calcium 9.4 mg/dL (8.6-10.3); Chloride 108 mmol/L (101-111); Glucose 77 mg/dL (70-100); Potassium 3.9 mmol/L (3.5-5.0); Sodium 143 mmol/L (135-145); eGFR CKD-EPI 60.3 (>60)
[2022-02-13] MEDS ORDERED: DEUTETRABENAZINE 6 MG PO SCH (09:00)
[2022-02-13 10:32] LABS: Folate > 20.00 ng/mL (5.90-24.80)
[2022-02-13 10:33] LABS: Vitamin B12 398 pg/mL (180-914)
[2022-02-13] MEDS ORDERED: cefTRIAXone 1 gm/50 mL D5W 1 GM/50 ML BAG IV SCH (12:00)
[2022-02-13] MEDS: Enoxaparin 40 MG/0.4 ML SYR SUBCUT SCH (12:19)
[2022-02-13 16:11] VITALS: BP 108/66
== END 2022-02-13 16:40 | disposition home or self-care (01) ==
LOC: EDHOLD 05:26 → ED 05:26 → SUATTDRO 11:57 → MED 15:18
PROVIDERS: ADMIT Internal Medicine; ATTEND Internal Medicine